=== PATIENT | female | born 1950 | race Caucasian/White ===

== ENCOUNTER 2018-09-14 16:04 | Emergency (ER) | payer MEDICARE ==
[2018-09-14] MEDS ORDERED: CLINDAMYCIN HCL 150 MG CAP ONE (17:27)
[2018-09-14] MEDS ORDERED: HYDROCODONE/APAP 5/325 MG TAB ONE (17:27)
[2018-09-14] MEDS ORDERED: ONDANSETRON 4 MG (ODT) TAB ONE (17:27)
--- NOTE | 2018-09-14 18:25 | EDPHYS ---
Physician Documentation [facility] Name: Jose Enrique Yin Age: 68 yrs Sex: Female : 1950 Arrival Date: 09/14/2018 Time: 16:08 Bed 16 Private MD: ED Physician Jose Juan Birmingham HPI: 09/14 19:33 This 68 yrs old Female presents to ER via Ambulatory with complaints of snw Insect Bite. 19:33 Onset: The symptoms/episode began/occurred suddenly, 2 week(s) ago, and became snw persistent. The patient has not experienced similar symptoms in the past. It is unknown whether or not the patient has recently seen a physician. picked at area with needle several times, noted red discoloration under swollen area so pack salt on the area until she felt it was burning. Historical: - Allergies: 16:12 Codeine; hb - Immunization history:: Adult Immunizations up to date. - Social history:: Smoking status: Patient/guardian denies using tobacco. - Ebola Screening: : No symptoms or risks identified at this time. ROS: 19:31 Constitutional: Negative for fever, chills, and weight loss, Eyes: Negative for injury, snw pain, redness, and discharge, ENT: Negative for injury, pain, and discharge, Neck: Negative for injury, pain, and swelling, Cardiovascular: Negative for chest pain, palpitations, and edema, Respiratory: Negative for shortness of breath, cough, wheezing, and pleuritic chest pain, Abdomen/GI: Negative for abdominal pain, nausea, vomiting, diarrhea, and constipation, Back: Negative for injury and pain, : Negative for injury, bleeding, discharge, and swelling, MS/Extremity: Negative for injury and deformity, Skin: Negative for injury, rash, and discoloration, + area of "possible brown recluse" sting Neuro: Negative for headache, weakness, numbness, tingling, and seizure. Exam: 19:30 Constitutional: This is a well developed, well nourished patient who is awake, alert, snw and in no acute distress. Head/Face: Normocephalic, atraumatic. Eyes: Pupils equal round and reactive to light, extra-ocular motions intact. Lids and lashes normal. Conjunctiva and sclera are non-icteric and not injected. Cornea within normal limits. Periorbital areas with no swelling, redness, or edema. ENT: Nares patent. No nasal discharge, no septal abnormalities noted. Tympanic membranes are normal and external auditory canals are clear. Oropharynx with no redness, swelling, or masses, exudates, or evidence of obstruction, uvula midline. Mucous membranes moist. Neck: Trachea midline, no thyromegaly or masses palpated, and no cervical lymphadenopathy. Supple, full range of motion without nuchal rigidity, or vertebral point tenderness. No Meningismus. Chest/axilla: Normal chest wall appearance and motion. Nontender with no deformity. No lesions are appreciated. Cardiovascular: Regular rate and rhythm with a normal S1 and S2. No gallops, murmurs, or rubs. Normal PMI, no JVD. No pulse deficits. Respiratory: Lungs have equal breath sounds bilaterally, clear to auscultation and percussion. No rales, rhonchi or wheezes noted. No increased work of breathing, no retractions or nasal flaring. Abdomen/GI: Soft, non-tender, with normal bowel sounds. No distension or tympany. No guarding or rebound. No evidence of tenderness throughout. Back: No spinal tenderness. No costovertebral tenderness. Full range of motion. MS/ Extremity: Pulses equal, no cyanosis. Neurovascular intact. Full, normal range of motion. Neuro: Awake and alert, GCS 15, oriented to person, place, time, and situation. Cranial nerves II-XII grossly intact. Motor strength 5/5 in all extremities. Sensory grossly intact. Cerebellar exam normal. Normal gait. 19:30 Skin: Appearance: normal except for affected area, lesion(s), papule(s) noted, with mild surrounding erythema to thigh. Pt poked area several times with a needle about two weeks ago. No abscess. Vital Signs: 16:12 BP 116 / 80; Pulse 92; Resp 16; Temp 97.1; Pulse Ox 96% on R/A; Pain 3/10; hb 17:12 BP 143 / 90; Pulse 71; Resp 17; Pulse Ox 100% ; rb1 18:12 BP 119 / 92; Pulse 68; Resp 18; Pulse Ox 100% on R/A; rb1 Procedures: 19:31 I \\T\\ D: Incision and drainage was performed for an abscess of the right thigh Prepped snw with Hibiclens. Anesthetized with nothing. Incised with needle. Drained small amount purulent fluid. the patient tolerated the procedure well. MDM: 16:47 [facility] screened. [facility] 19:31 Data reviewed: vital signs, nurses notes. Data interpreted: Pulse oximetry: on room air snw is 100 %. Interpretation: normal. Counseling: I had a detailed discussion with the patient and/or guardian regarding: the historical points, exam findings, and any diagnostic results supporting the discharge/admit diagnosis, the presence of at least one elevated blood pressure reading (>120/80) during this emergency department visit, the need for outpatient follow up, to return to the emergency department if symptoms worsen or persist or if there are any questions or concerns that arise at home. Special discussion: I discussed in detail with the patient the higher chance of wound infection based on his presenting history. Based on the history and exam findings, there is no indication for further emergent testing or inpatient evaluation. I discussed with the patient/guardian the need to see the primary care provider for further evaluation of the symptoms. Administered Medications: 17:16 Drug: Clindamycin 300 mg Route: PO; rb1 17:45 Follow up: Response: No adverse reaction rb1 17:16 Drug: [place] 5 mg-325 mg 1 tabs Route: PO; rb1 17:45 Follow up: Response: No adverse reaction; Pain is decreased rb1 17:16 Drug: Zofran 4 mg Route: PO; rb1 17:45 Follow up: Response: No adverse reaction rb1 Disposition: 09/15 07:02 Co-signature as Attending Physician, Jose Juan Birmingham MD I agree with the assessment and [facility] plan of care. Disposition: 09/14/18 18:24 Discharged to Home. Impression: Cutaneous abscess of limb. - Condition is Stable. - Discharge Instructions: Skin Abscess, Cellulitis, Adult, Wound Care. - Prescriptions for Clindamycin HCl 300 mg Oral Capsule - take 1 capsule by ORAL route every 6 hours for 10 days; 40 capsule. Diclofenac Sodium 75 mg Oral Tablet Sustained Release - take 1 tablet by ORAL route 2 times per day; 30 tablet. - Medication Reconciliation Form, Thank You Letter, Antibiotic Education, Prescription Opioid Use form. - Follow up: Private Physician; When: 2 - 3 days; Reason: Recheck today's complaints, Continuance of care, Re-evaluation by your physician. Follow up: Emergency Department; When: As needed; Reason: Worsening of condition. Signatures: Jose Juan Birmingham MD MD cha Therrien, Shelly, [employer] INSPECTOR-C B[employer] GRAPHITE INSPECTOR-Csnw Melissa Sanchez, RN RN rb1 Joann Coates, ANTONIO RN Corrections: (The following items were deleted from the chart) 09/14 18:45 18:24 09/14/2018 18:24 Discharged to Home. Impression: Cutaneous abscess of limb. rb1 Condition is Stable. Forms are Medication Reconciliation Form, Thank You Letter, Antibiotic Education, Prescription Opioid Use. Follow up: Private Physician; When: 2 - 3 days; Reason: Recheck today's complaints, Continuance of care, Re-evaluation by your physician. Follow up: Emergency Department; When: As needed; Reason: Worsening of condition. snw
--- NOTE | 2018-09-14 18:25 | ER ---
Nurse's Notes [facility] Name: Jose Enrique Yin Age: 68 yrs Sex: Female : 1950 Arrival Date: 09/14/2018 Time: 16:08 Bed 16 Private MD: Diagnosis: Cutaneous abscess of limb Presentation: 09/14 16:11 Presenting complaint: Insect bite on right thigh x 2 weeks. Transition of care: patient hb was not received from another setting of care. Onset of symptoms is unknown. Risk Assessment: Do you want to hurt yourself or someone else? Patient reports no desire to harm self or others. Care prior to arrival: None. 16:11 Method Of Arrival: Ambulatory hb 16:11 Acuity: YONAS 4 hb 16:15 Initial Sepsis Screen: Does the patient meet any 2 criteria? No. Patient's initial rb1 sepsis screen is negative. Does the patient have a suspected source of infection? Yes: Skin breakdown/wound. Triage Assessment: 16:15 Bite description: bite sustained to right thigh by unknown, animal information: rb1 vaccination(s) is not applicable. Historical: - Allergies: 16:12 Codeine; hb - Immunization history:: Adult Immunizations up to date. - Social history:: Smoking status: Patient/guardian denies using tobacco. - Ebola Screening: : No symptoms or risks identified at this time. Screenin:15 Abuse screen: Denies threats or abuse. Nutritional screening: No deficits noted. rb1 Tuberculosis screening: No symptoms or risk factors identified. Fall Risk None identified. Assessment: 16:15 General: Appears in no apparent distress. comfortable, Behavior is calm, cooperative. rb1 Pain: Denies pain. Neuro: Level of Consciousness is awake, alert, obeys commands, Oriented to person, place, time, situation. Cardiovascular: Capillary refill < 3 seconds is brisk in bilateral fingers. Respiratory: Airway is patent Respiratory effort is even, unlabored, Respiratory pattern is regular, symmetrical. GI: No signs and/or symptoms were reported involving the gastrointestinal system. : No signs and/or symptoms were reported regarding the genitourinary system. Derm: Skin scab noted at site. Pt. poked it with a pin and put salt on it x 2 days Skin is dry, Skin is red, Skin temperature is warm. Musculoskeletal: Range of motion: intact in all extremities. 17:15 Reassessment: Patient appears in no apparent distress at this time. Patient and/or rb1 family updated on plan of care and expected duration. Pain level reassessed. Patient is alert, oriented x 3, equal unlabored respirations, skin warm/dry/pink. 17:45 Reassessment: Patient and/or family updated on plan of care and expected duration. Pain rb1 level reassessed. Pain 0/10. Pt. reports that she only has pain if someone touches it. 18:30 Reassessment: Patient appears in no apparent distress at this time. No changes from rb1 previously documented assessment. Patient is alert, oriented x 3, equal unlabored respirations, skin warm/dry/pink. Vital Signs: 16:12 BP 116 / 80; Pulse 92; Resp 16; Temp 97.1; Pulse Ox 96% on R/A; Pain 3/10; hb 17:12 BP 143 / 90; Pulse 71; Resp 17; Pulse Ox 100% ; rb1 18:12 BP 119 / 92; Pulse 68; Resp 18; Pulse Ox 100% on R/A; rb1 ED Course: 16:08 Patient arrived in ED. rg4 16:12 Triage completed. hb 16:12 Arm band placed on. hb 16:15 Patient has correct armband on for positive identification. Bed in low position. Call rb1 light in reach. Side rails up X 1. Pulse ox on. NIBP on. 16:41 Abena Torrez FNP-C is PHCP. snw 16:41 Jose Juan Birmingham MD is Attending Physician. snw 16:42 Melissa Sanchez, RN is Primary Nurse. rb1 18:37 No provider procedures requiring assistance completed. Patient did not have IV access rb1 during this emergency room visit. Administered Medications: 17:16 Drug: Clindamycin 300 mg Route: PO; rb1 17:45 Follow up: Response: No adverse reaction rb1 17:16 Drug: [place] 5 mg-325 mg 1 tabs Route: PO; rb1 17:45 Follow up: Response: No adverse reaction; Pain is decreased rb1 17:16 Drug: Zofran 4 mg Route: PO; rb1 17:45 Follow up: Response: No adverse reaction rb1 Outcome: 18:24 Discharge ordered by . snw 18:37 Discharged to home ambulatory, with friend. rb1 18:37 Condition: stable 18:37 Discharge instructions given to patient, Instructed on discharge instructions, follow up and referral plans. medication usage, Demonstrated understanding of instructions, follow-up care, medications, Prescriptions given X 2. 18:37 Patient left the ED. rb1 Signatures: Abena Torrez, PRIVATE PILOT-C PRIVATE PILOT-Csnw Melissa Sanchez, RN RN rb1 Joann Coates RN RN Shyanne Humphreys rg4 Corrections: (The following items were deleted from the chart) 18:46 18:45 Patient left the ED. rb1 rb1
== END 2018-09-14 18:45 | disposition home or self-care (01) ==
LOC: ER 16:04
PROC: 0H9HXZZ Drainage of Right Upper Leg Skin, External Approach (ICD-10-PCS; principal; 2018-09-14)
DX: L02.415 Cutaneous abscess of right lower limb (principal)
CPT/HCPCS: 99283

== ENCOUNTER 2023-03-01 16:07 | Emergency (ER) | payer OTHER ==
--- OUTSIDE RECORDS SUMMARY | 2023-03-01 17:08 | XMS REPORT | Continuity of Care Document ---
:1950 Author Organization [facility] t Address [address] [place] [address] [place] [id number] Care Team Providers Name Role Phone NADEEN ARAUJO Primary Care Physician Unavailable Nadeen Araujo L Attending Clinician Unavailable ALEJO PEGUERO Attending Clinician Unavailable ALEJO BERGERON Attending Clinician Unavailable Alejo Peguero MD Attending Clinician Elyssa DONAHUE MD, John Attending Clinician Doctor Unassigned, [place] Attending Clinician Unavailable Allan Peñaloza RN Attending Clinician Unavailable Henri Phoenix MD Attending Clinician Ham Slater MD Attending Clinician Elyssa DONAHUE MD, John Admitting Clinician ALEJO BERGERON Admitting Clinician Unavailable Payers Payer Name Policy Type Policy Number Effective Date Expiration Date Lisette ROCHA/[facility] [id number] 2022 DUAL COMP HMO D 00:00:00 [place] MEDICAID OF [id number] 2022 [place] 00:00:00 [employer] MEDICARE C1 [id number] 2020 [facility] [place] 00:00:00 [facility] HUMANA MEDICARE C1 [id number] 2020 [facility] [place] 00:00:00 [facility] HUMAN MEDICARE C1 [id number] 2020 [facility] [place] 00:00:00 [facility] Problems Condition Condition Condition Status Onset Resolution Last Treating Co mments Source Name Details Category Date Date Treatment Clinician Date Osteoporos Osteoporos Disease Recurre Univers is is nce 206 ity of 00:00: [place] 00 Medical Branch Injury of Injury of Disease Active Uni vers left left 2-04 ity of radial radial 00:00: [place] artery artery 00 Medical Branch Open Open Disease Active Univers fracture fracture 2-04 ity of of left of left 00:00: [place] wrist, wrist, 00 Medical initial initial Branch encounter encounter Disorder Circulatio Problem Com mon of n problem Spirit cardiovasc - [facility] ular [facility] [id number] Primary Problem Commo n osteoarthr Spirit itis - [facility] [id number] Osteoarthr Problem Co mmon itis of Spirit multiple - [facility] Chronic Other Problem Common pain chronic [facility] pain [facility] Migraine Migraines Problem Comm on [facility] Hepatitis Hepatitis Problem Com mon [facility] [id number] Current Problem Common moderate Spirit episode of - [facility] major [facility] Center prior episode Kidney Kidney Problem Common stone stones [facility] Localized, 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, - CH[facility] itis of unspecifie St the pelvic [facility] region and osteoarthr Me dical thigh itis type Center Swelling Swelling Problem Commo n Spirit [facility] Unsteady Unsteady Problem Commo n gait gait [facility] Osteopenia Osteopenia Problem C mon [facility] Hypertensi HTN Problem Commo n on (hypertens Spirit ion) [facility] Anxiety Anxiety Problem Common [facility] [id number] Depression Problem Co mmon , Spirit recurrent [facility] Allergies, Adverse Reactions, Alerts Allergy Allergy Status Severity Reaction(s) Onset Inactive Treating Comm ents Source Name Type Date Date Clinician CODEINE DRUG Active N/V Univers INGREDI 03-14 ity of 00:00: [place] 00 Medical Branch Codeine Propensi Active Nausea Univers ty to and/or 03-14 ity of adverse Vomiting 00:00: [place] reaction 00 Medical s Branch Social History Social Habit Start Date Stop Date Quantity Comments Source History SDIA University o f Alcohol Frequency [place] M edical Branch History SDOH Social Unive rsity of Connections Get [place] [facility] ical Together Branch History SDOH Social Unive rsity of Connections [facility] Medical Branch History SDOH Social Unive rsity of Connections [place] [facility] Membership Branch History SDOH Social Unive rsity of Connections [place] [facility] Meetings Branch History of tobacco Cigarette Smoker University of use [place] [facility] Exposure to 2022-10-26 2022-11-05 Not sure University of SARS-CoV-2 (event) 00:00:00 15:21:00 [place] [facility] Tobacco use and 2022-08-31 2022-08-31 User of Universit y of exposure 00:00:00 00:00:00 smokeless [place] Medical tobacco Branch History SDIA 2022-08-31 2022-08-31 0 University o f Alcohol Std Drinks 00:00:00 00:00:00 [place] [facility] History SDOH 2022-08-31 2022-08-31 1 University o f Alcohol Binge 00:00:00 00:00:00 [place] Medic al Branch History SDIA Social 2022-08-31 2022-08-31 5 Unive rsity of Connections Phone 00:00:00 00:00:00 [place] M edical Branch History SDOH Social 2022-08-31 2022-08-31 4 Unive rsity of Connections Living 00:00:00 00:00:00 [place] [facility] History SDOH 2022-08-31 2022-08-31 0 University o f Physical Activity 00:00:00 00:00:00 [place] [facility] edical DPW Branch History SDOH 2022-08-31 2022-08-31 0 University o f Physical Activity 00:00:00 00:00:00 [place] M [facility]ical MPS Branch History SDOH 2022-08-31 2022-08-31 2 University o f Financial 00:00:00 00:00:00 [place] [facility] History SDOH Food 2022-08-31 2022-08-31 3 Univers ity of Worry 00:00:00 00:00:00 [place] [facility] History SDOH Food 2022-08-31 2022-08-31 2 Univers ity of Scarcity 00:00:00 00:00:00 [place] [facility] History SDOH 2022-08-31 2022-08-31 2 University o f Transport Med 00:00:00 00:00:00 [place] Medic al Branch History SDOH 2022-08-31 2022-08-31 2 University o f Transport Non-Med 00:00:00 00:00:00 [facility] edical Branch Sex [birth year] Universit y of 00:00:00 00:00:00 [facility] Smoking Status Start Date Stop Date Source Smokes tobacco daily 2022-08-31 00:00:00 Univers ity of [facility] Never Smoker Common [facility] - [facility] Medications Ordered Filled Start Stop Current Ordering Indication Dosage Frequency Signature Comments Components Source Medication Medication Date Date Medication? Clinician (SIG) Name Name traMADoL 50 0 2022- No 4647 50mg Take 1 Uni vers mg tablet -16 04-24 tablet by ity of 00:00: 04:59 mouth [place] 00 :00 every 6 Medical (six) Branch hours as needed for Pain (scale 7-10) for up to 7 days. Indication s: acute pain gabapentin 2022-0 Yes [id number] 300mg Take 1 Univers 300 mg 4-12 [id number] capsule by ity o f capsule 00:00: mouth at [place] [address] bedtime. Medical Branch gabapentin 2022-0 Yes [id number] 300mg Take 1 Univers 300 mg 4-12 [id number] capsule by ity o f capsule 00:00: mouth at [place] [address] bedtime. Medical Branch gabapentin 2022-0 Yes [id number] 300mg Take 1 Univers 300 mg 4-12 [id number] capsule by ity o f capsule 00:00: mouth at [place] [address] bedtime. Medical Branch gabapentin 2022-0 Yes [id number] 300mg Take 1 Univers 300 mg 4-12 [id number] capsule by ity o f capsule 00:00: mouth at [place] [address] bedtime. Medical Branch gabapentin 2022-0 Yes [id number] 300mg Take 1 Univers 300 mg 4-12 [id number] capsule by ity o f capsule 00:00: mouth at [place] 00 bedtime. Medical Branch gabapentin 2022-0 Yes [id number] 300mg Take 1 Univers 300 mg 4-12 [id number] capsule by ity o f capsule 00:00: mouth at [place] 00 bedtime. Medical Branch traMADoL 50 2022-0 2022- No 4647 50mg Take 1 Uni vers mg tablet 4-12 04-20 tablet by ity of 00:00: 04:59 mouth [place] 00 :00 every 6 Medical (six) Branch hours as needed for Pain (scale 7-10) for up to 7 days. Indication s: acute pain traMADoL 50 2022-2022- No 4647 50mg Take 1 Uni vers mg tablet 4-12 04-20 tablet by ity of 00:00: 04:59 mouth [place] 00 :00 every 6 Medical (six) Branch hours as needed for Pain (scale 7-10) for up to 7 days. Indication s: acute pain traMADoL 50 2022-2022- No 4647 50mg Take 1 Uni vers mg tablet 4-12 04-20 tablet by ity of 00:00: 04:59 mouth [place] 00 :00 every 6 Medical (six) Branch hours as needed for Pain (scale 7-10) for up to 7 days. Indication s: acute pain traMADoL 50 2022-0 2022- No 4647 50mg Take 1 Uni vers mg tablet 4-12 04-20 tablet by ity of 00:00: 04:59 mouth [place] 00 :00 every 6 Medical (six) Branch hours as needed for Pain (scale 7-10) for up to 7 days. Indication s: acute pain traMADoL 50 2022-0 2022- No 4647 50mg Take 1 Uni vers mg tablet 4-12 04-20 tablet by ity of 00:00: 04:59 mouth [place] 00 :00 every 6 Medical (six) Branch hours as needed for Pain (scale 7-10) for up to 7 days. Indication s: acute pain traMADoL 50 2022-0 2022- No 4647 50mg Take 1 Uni vers mg tablet 4-12 04-20 tablet by ity of 00:00: 04:59 mouth [place] 00 :00 every 6 Medical (six) Branch hours as needed for Pain (scale 7-10) for up to 7 days. Indication s: acute pain HYDROcodone 2023-0 Yes 4647 1{tbl} Take 1 Un samia -acetaminop 3-04 tablet by ity of hen (NORCO) 00:00: mouth [place] 10-325 mg 00 every 6 Medical tablet (six) Branch hours as needed for Pain (scale 7-10). Indication s: acute pain HYDROcodone 2023-0 Yes 4647 1{tbl} Take 1 Un samia -acetaminop 3-04 tablet by ity of hen (NORCO) 00:00: mouth [place] 10-325 mg 00 every 6 Medical tablet (six) Branch hours as needed for Pain (scale 7-10). Indication s: acute pain HYDROcodone 2023-0 Yes 4647 1{tbl} Take 1 Un samia -acetaminop 3-04 tablet by ity of hen (NORCO) 00:00: mouth [place] 10-325 mg 00 every 6 Medical tablet (six) Branch hours as needed for Pain (scale 7-10). Indication s: acute pain HYDROcodone 2023-0 Yes 4647 1{tbl} Take 1 Un samia -acetaminop 3-04 tablet by ity of hen (NORCO) 00:00: mouth [place] 10-325 mg 00 every 6 Medical tablet (six) Branch hours as needed for Pain (scale 7-10). Indication s: acute pain HYDROcodone 2023-0 Yes 4647 1{tbl} Take 1 Un samia -acetaminop 3-04 tablet by ity of hen (NORCO) 00:00: mouth [place] 10-325 mg 00 every 6 Medical tablet (six) Branch hours as needed for Pain (scale 7-10). Indication s: acute pain HYDROcodone 2023-0 Yes 4647 1{tbl} Take 1 Un samia -acetaminop 3-04 tablet by ity of hen (NORCO) 00:00: mouth [place] 10-325 mg 00 every 6 Medical tablet (six) Branch hours as needed for Pain (scale 7-10). Indication s: acute pain HYDROcodone 2023-0 Yes 4647 1{tbl} Take 1 Un samia -acetaminop 3-04 tablet by ity of hen (NORCO) 00:00: mouth [place] 10-325 mg 00 every 6 Medical tablet (six) Branch hours as needed for Pain (scale 7-10). Indication s: acute pain HYDROcodone 2023-0 Yes 4647 1{tbl} Take 1 Un samia -acetaminop 3-04 tablet by ity of hen (NORCO) 00:00: mouth [place] 10-325 mg 00 every 6 Medical tablet (six) Branch hours as needed for Pain (scale 7-10). Indication s: acute pain HYDROcodone 2023-0 Yes 4647 1{tbl} Take 1 Un samia -acetaminop 3-04 tablet by ity of hen (NORCO) 00:00: mouth [place] 10-325 mg 00 every 6 Medical tablet (six) Branch hours as needed for Pain (scale 7-10). Indication s: acute pain HYDROcodone 2023-0 3- No 4647 1{tbl} Take 1 U nivers -acetaminop 3-04 03-04 tablet by it y of hen (NORCO) 00:00: 00:00 [place] 10-325 mg 00 :00 every 6 Medical tablet (six) Branch hours as needed for Pain (scale 7-10) for up to 7 days. Indication s: acute pain HYDROcodone 2023-0 3- No 4647 1{tbl} Take 1 U nivers -acetaminop 3-02 03-10 tablet by it y of hen (NORCO) 00:00: 05:59 [place] 5-325 mg 00 :00 every 6 Medical tablet (six) Branch hours as needed for Pain (scale 7-10) for up to 7 days. Indication s: acute pain HYDROcodone 2023-0 3- No 4647 1{tbl} Take 1 U nivers -acetaminop 3-02 03-10 tablet by it y of hen (NORCO) 00:00: 05:59 [place] 5-325 mg 00 :00 every 6 Medical tablet (six) Branch hours as needed for Pain (scale 7-10) for up to 7 days. Indication s: acute pain HYDROcodone 2023-0 3- No 4647 1{tbl} Take 1 U nivers -acetaminop 3-02 03-10 tablet by it y of hen (NORCO) 00:00: 05:59 [place] 5-325 mg 00 :00 every 6 Medical tablet (six) Branch hours as needed for Pain (scale 7-10) for up to 7 days. Indication s: acute pain HYDROcodone 2023-0 3- No 4647 1{tbl} Take 1 U nivers -acetaminop 3-02 03-10 tablet by it y of hen (NORCO) 00:00: 05:59 [place] 5-325 mg 00 :00 every 6 Medical tablet (six) Branch hours as needed for Pain (scale 7-10) for up to 7 days. Indication s: acute pain HYDROcodone 3-0 3- No 4647 1{tbl} Take 1 U nivers -acetaminop 3-02 03-10 tablet by it y of hen (NORCO) 00:00: 05:59 [place] 5-325 mg 00 :00 every 6 Medical tablet (six) Branch hours as needed for Pain (scale 7-10) for up to 7 days. Indication s: acute pain lisinopriL 2023-0 Yes 20mg Take 20 mg U nivers 20 mg 2-13 by mouth ity of tablet 18:34: in the [place] [address] morning. Medical Branch gabapentin 2023-0 Yes 300mg Take 300 Un samia 300 mg 2-13 mg by ity of capsule 18:34: mouth in [place] [address] the Medical morning. Branch celecoxib 2023-0 Yes 200mg Take 200 Uni vers (CELEBREX) 2-13 mg by ity of 200 mg 18:34: mouth in [place] [address] the Medical morning. Branch lisinopriL 2023-0 Yes 20mg Take 20 mg U nivers 20 mg 2-13 by mouth ity of tablet 18:34: in the [place] [address] morning. Medical Branch gabapentin 2023-0 Yes 300mg Take 300 Un samia 300 mg 2-13 mg by ity of capsule 18:34: mouth in [place] [address] the Medical morning. Branch celecoxib 2023-0 Yes 200mg Take 200 Uni vers (CELEBREX) 2-13 mg by ity of 200 mg 18:34: mouth in [place] [address] the Medical morning. Branch lisinopriL 2023-0 Yes 20mg Take 20 mg U nivers 20 mg 2-13 by mouth ity of tablet 18:34: in the [place] [address] morning. Medical Branch gabapentin 2023-0 Yes 300mg Take 300 Un samia 300 mg 2-13 mg by ity of capsule 18:34: mouth in [place] [address] the Medical morning. Branch celecoxib 2023-0 Yes 200mg Take 200 Uni vers (CELEBREX) 2-13 mg by ity of 200 mg 18:34: mouth in [facility] 36 the Medical morning. Branch lisinopriL 2023-0 Yes 20mg Take 20 mg U nivers 20 mg 2-13 by mouth ity of tablet 18:34: in the [place] [address] morning. Medical Branch gabapentin 2023-0 Yes 300mg Take 300 Un samia 300 mg 2-13 mg by ity of capsule 18:34: mouth in [place] [address] the Medical morning. Branch celecoxib 2023-0 Yes 200mg Take 200 Uni vers (CELEBREX) 2-13 mg by ity of 200 mg 18:34: mouth in [facility] 36 the Medical morning. Branch lisinopriL 2023-0 Yes 20mg Take 20 mg U nivers 20 mg 2-13 by mouth ity of tablet 18:34: in the [place] [address] morning. Medical Branch gabapentin 2023-0 Yes 300mg Take 300 Un samia 300 mg 2-13 mg by ity of capsule 18:34: mouth in [place] [address] the Medical morning. Branch celecoxib 2023-0 Yes 200mg Take 200 Uni vers (CELEBREX) 2-13 mg by ity of 200 mg 18:34: mouth in [place] [address] the Medical morning. Branch lisinopriL 2023-0 Yes 20mg Take 20 mg U nivers 20 mg 2-13 by mouth ity of tablet 18:34: in the [place] [address] morning. Medical Branch gabapentin 2023-0 Yes 300mg Take 300 Un samia 300 mg 2-13 mg by ity of capsule 18:34: mouth in [place] [address] the Medical morning. Branch celecoxib 2023-0 Yes 200mg Take 200 Uni vers (CELEBREX) 2-13 mg by ity of 200 mg 18:34: mouth in [facility] 36 the Medical morning. Branch lisinopriL 2023-0 Yes 20mg Take 20 mg U nivers 20 mg 2-13 by mouth ity of tablet 18:34: in the [place] [address] morning. Medical Branch gabapentin 2023-0 Yes 300mg Take 300 Un samia 300 mg 2-13 mg by ity of capsule 18:34: mouth in [place] [address] the Medical morning. Branch celecoxib 2023-0 Yes 200mg Take 200 Uni vers (CELEBREX) 2-13 mg by ity of 200 mg 18:34: mouth in [place] capsule 36 the Medical morning. Branch lisinopriL 2023-0 Yes 20mg Take 20 mg U nivers 20 mg 2-13 by mouth ity of tablet 18:34: in the [place] [address] morning. Medical Branch gabapentin 2023-0 Yes 300mg Take 300 Un samia 300 mg 2-13 mg by ity of capsule 18:34: mouth in [place] [address] the Medical morning. Branch celecoxib 2023-0 Yes 200mg Take 200 Uni vers (CELEBREX) 2-13 mg by ity of 200 mg 18:34: mouth in [place] capsule 36 the Medical morning. Branch lisinopriL 2023-0 Yes 20mg Take 20 mg U nivers 20 mg 2-13 by mouth ity of tablet 18:34: in the [place] [address] morning. Medical Branch gabapentin 2023-0 Yes 300mg Take 300 Un samia 300 mg 2-13 mg by ity of capsule 18:34: mouth in [place] [address] the Medical morning. Branch celecoxib 2023-0 Yes 200mg Take 200 Uni vers (CELEBREX) 2-13 mg by ity of 200 mg 18:34: mouth in [place] capsule 36 the Medical morning. Branch lisinopriL 2023-0 Yes 20mg Take 20 mg U nivers 20 mg 2-13 by mouth ity of tablet 18:34: in the [place] [address] morning. Medical Branch gabapentin 2023-0 Yes 300mg Take 300 Un samia 300 mg 2-13 mg by ity of capsule 18:34: mouth in [place] [address] the Medical morning. Branch celecoxib 2023-0 Yes 200mg Take 200 Uni vers (CELEBREX) 2-13 mg by ity of 200 mg 18:34: mouth in [place] capsule 36 the Medical morning. Branch lisinopriL 2023-0 Yes 20mg Take 20 mg U nivers 20 mg 2-13 by mouth ity of tablet 18:34: in the [place] [address] morning. Medical Branch gabapentin 2023-0 Yes 300mg Take 300 Un samia 300 mg 2-13 mg by ity of capsule 18:34: mouth in [place] [address] the Medical morning. Branch celecoxib 2023-0 Yes 200mg Take 200 Uni vers (CELEBREX) 2-13 mg by ity of 200 mg 18:34: mouth in [place] capsule 36 the Medical morning. Branch lisinopriL 2023-0 Yes 20mg Take 20 mg U nivers 20 mg 2-13 by mouth ity of tablet 18:34: in the [place] [address] morning. Medical Branch gabapentin 2023-0 Yes 300mg Take 300 Un samia 300 mg 2-13 mg by ity of capsule 18:34: mouth in [place] [address] the Medical morning. Branch celecoxib 2023-0 Yes 200mg Take 200 Uni vers (CELEBREX) 2-13 mg by ity of 200 mg 18:34: mouth in [place] [address] the Medical morning. Branch lisinopriL 2023-0 Yes 20mg Take 20 mg U nivers 20 mg 2-13 by mouth ity of tablet 18:34: in the [place] [address] morning. Medical Branch gabapentin 2023-0 Yes 300mg Take 300 Un samia 300 mg 2-13 mg by ity of capsule 18:34: mouth in [place] [address] the Medical morning. Branch celecoxib 2023-0 Yes 200mg Take 200 Uni vers (CELEBREX) 2-13 mg by ity of 200 mg 18:34: mouth in [place] [address] the Medical morning. Branch lisinopriL 2023-0 Yes 20mg Take 20 mg U nivers 20 mg 2-13 by mouth ity of tablet 18:34: in the [place] [address] morning. Medical Branch gabapentin 2023-0 Yes 300mg Take 300 Un samia 300 mg 2-13 mg by ity of capsule 18:34: mouth in [place] [address] the Medical morning. Branch celecoxib 2023-0 Yes 200mg Take 200 Uni vers (CELEBREX) 2-13 mg by ity of 200 mg 18:34: mouth in [place] [address] the Medical morning. Branch lisinopriL 2023-0 Yes 20mg Take 20 mg U nivers 20 mg 2-13 by mouth ity of tablet 18:34: in the [place] [address] morning. Medical Branch gabapentin 2023-0 Yes 300mg Take 300 Un samia 300 mg 2-13 mg by ity of capsule 18:34: mouth in [place] [address] the Medical morning. Branch celecoxib 2023-0 Yes 200mg Take 200 Uni vers (CELEBREX) 2-13 mg by ity of 200 mg 18:34: mouth in [place] capsule 36 the Medical morning. Branch lisinopriL 2023-0 Yes 20mg Take 20 mg U nivers 20 mg 2-13 by mouth ity of tablet 18:34: in the [place] [address] morning. Medical Branch gabapentin 2022-0 Yes 300mg Take 300 Un samia 300 mg 2-13 mg by ity of capsule 18:34: mouth in [place] [address] the Medical morning. Branch celecoxib 2022-0 Yes 200mg Take 200 Uni vers (CELEBREX) 2-13 mg by ity of 200 mg 18:34: mouth in [place] [address] the Medical morning. Branch methocarbam 2022-3- No [id number] 750mg Take 1 Univers oL 750 mg 09-08 [id number] tablet by it y of tablet 00:00: 04:59 mouth in [place] 00 :00 the [facility] and 1 tablet at noon and 1 tablet in the evening. Do all this for 30 days. methocarbam 2022-0 3- No [id number] 750mg Take 1 Univers oL 750 mg 09-08 [id number] tablet by it y of tablet 00:00: 04:59 mouth in [place] 00 :00 the [facility] and 1 tablet at noon and 1 tablet in the evening. Do all this for 30 days. methocarbam 2022-0 3- No [id number] 750mg Take 1 Univers oL 750 mg 09-08 [id number] tablet by it y of tablet 00:00: 04:59 mouth in [place] 00 :00 the [facility] and 1 tablet at noon and 1 tablet in the evening. Do all this for 30 days. methocarbam 2022-3- No [id number] 750mg Take 1 Univers oL 750 mg 09-08 [id number] tablet by it y of tablet 00:00: 04:59 mouth in [place] 00 :00 the [facility] and 1 tablet at noon and 1 tablet in the evening. Do all this for 30 days. methocarbam 2022-0 3- No [id number] 750mg Take 1 Univers oL 750 mg 09-08 [id number] tablet by it y of tablet 00:00: 04:59 mouth in [place] 00 :00 the [facility] and 1 tablet at noon and 1 tablet in the evening. Do all this for 30 days. methocarbam 2022-0 3- No [id number] 750mg Take 1 Univers oL 750 mg 09-08 [id number] tablet by it y of tablet 00:00: 04:59 mouth in [place] 00 :00 the Medical morning Branch and 1 tablet at noon and 1 tablet in the evening. Do all this for 30 days. methocarbam 2022-2022- No [id number] 750mg Take 1 Univers oL 750 mg 09-08 [id number] tablet by it y of tablet 00:00: 04:59 mouth in [place] 00 :00 the [facility] morning Branch and 1 tablet at noon and 1 tablet in the evening. Do all this for 30 days. methocarbam 2022-2022- No [id number] 750mg Take 1 Univers oL 750 mg 09-08 [id number] tablet by it y of tablet 00:00: 04:59 mouth in [place] 00 :00 the [facility] morning [place] and 1 tablet at noon and 1 tablet in the evening. Do all this for 30 days. docusate 2022-2022- No [id number] 100mg Take 1 Univers 100 mg 09-08 [id number] capsule by ity of capsule 00:00: 05:59 mouth in [place] 00 :00 the [facility] and 1 capsule in the evening. Do all this for 15 days. docusate 2022-0 2022- No [id number] 100mg Take 1 Univers 100 mg 09-08 [id number] capsule by ity of capsule 00:00: 05:59 mouth in [place] 00 :00 the [facility] and 1 capsule in the evening. Do all this for 15 days. gabapentin 2022-0 2022- No [id number] 300mg Take 1 Univers 300 mg 09-08 [id number] capsule by ity of capsule 00:00: 05:59 mouth in [place] 00 :00 the [facility] and 1 capsule at noon and 1 capsule in the evening. Do all this for 14 days. gabapentin 2022-0 2022- No [id number] 300mg Take 1 Univers 300 mg 09-08 [id number] capsule by ity of capsule 00:00: 05:59 mouth in [place] 00 :00 the [facility] morning Branch and 1 capsule at noon and 1 capsule in the evening. Do all this for 14 days. traMADoL 50 3-0 3- No 4647 50mg Take 1 Uni vers mg tablet 09-08 tablet by ity of 00:00: 05:59 mouth [place] 00 :00 every 6 Medical (six) Branch hours as needed for Pain (scale 4-6) or Pain (scale 7-10) for up to 7 days. Indication s: acute pain HYDROcodone 2022- No 4647 1{tbl} Take 1 U nivers -acetaminop 09-08 tablet by it y of hen 10-325 00:00: 05:59 mouth [place] mg tablet 00 :00 every 6 Medical (six) Branch hours as needed for Pain (scale 4-6) or Pain (scale 7-10) for up to 7 days. Indication s: acute pain traMADoL 50 2022- No 4647 50mg Take 1 Uni vers mg tablet 09-08 tablet by ity of 00:00: 05:59 mouth [place] 00 :00 every 6 Medical (six) Branch hours as needed for Pain (scale 4-6) or Pain (scale 7-10) for up to 7 days. Indication s: acute pain HYDROcodone 2022- No 4647 1{tbl} Take 1 U nivers -acetaminop 09-08 tablet by it y of hen 10-325 00:00: 05:59 mouth [place] mg tablet 00 :00 every 6 Medical (six) Branch hours as needed for Pain (scale 4-6) or Pain (scale 7-10) for up to 7 days. Indication s: acute pain ondansetron 2022- No [id number] 4mg Take 1 Univers (ZOFRAN) 4 09-08 [id number] tablet by i ty of mg tablet 00:00: 05:59 mouth [place] 00 :00 every 6 Medical (six) Branch hours for 20 doses. ondansetron 2022- No [id number] 4mg Take 1 Univers (ZOFRAN) 4 09-08 [id number] tablet by i ty of mg tablet 00:00: 05:59 mouth [place] 00 :00 every 6 Medical (six) Branch hours for 20 doses. polyethylen Yes 17g 17 g, Unive rs e glycol 2-12 Oral, ity of 3350 powder 13:30: [place]ILY[place] 17 g 00 First dose Medical on [place] 09/07/22 at 0730, Until Discontinu ed, Routine glycerin/mi 0 Yes 225mL 225 mL, [place] neral oil 2-12 Rectal, ity of (AGLO 13:26: PRN, [place] ENEMA) 01 Starting Medical (COMPOUNDED on Thu [place] ) Enem 225 09/07/22 at mL 0726, Until Discontinu ed, Routine, Constipati on unresolved by oral medication s bisacodyL Yes 10mg 10 mg, Univer s (DULCOLAX) 2-12 Rectal, ity of suppository 13:25: QHSPRN, Andrei as 10 mg 35 Starting Medical on Thu Branch 09/07/22 at 0725, Until Discontinu ed, Routine, Constipati on, Constipati on unresolved by oral medication s morpHINE (2 Yes 2mg 2 mg, Slow Univers mg/mL) 2-11 IV Push, ity of injection 2 05:59: Q6HPRN, Andre[place] as mg 18 Starting Medical on Thu09/05/22 at 2359, Until Discontinu ed, Routine, give for breakthrou gh pain after first line oral pain medication s have been given HYDROmorphO 2022- No .2mg 0.2 mg, [place] ne 2-10 02-10 Slow IV ity of (DILAUDID) 00:27: 03:07 Push, [place] injection 50 :32 Q5MIN PRN, [place] 0.2 mg 10 doses, Branch Starting on [place] 09/04/22 at 1827, Until [place] 09/04/22 at 2107, Routine, Pain (scale 7-10), PACU
Us e approved by (Faculty): PACU USE -ANESTHESI A SERVICE-HY DROMORPHON E INJECTIONS lisinopriL Yes 20mg Take 20 mg U nivers 20 mg 2-09 by mouth ity of tablet 21:07: in the [place] [id number] morning. Medical Branch gabapentin 0 Yes 300mg Take 300 Un [place] 300 mg 2-09 mg by ity of capsule 21:07: mouth in [place] [address] the Medical morning. Branch celecoxib 2022-0 Yes 200mg Take 200 Uni vers (CELEBREX) 2-09 mg by ity of 200 mg 21:07: mouth in [place] [address] the Medical morning. Branch diphenhydrA 2023-0 Yes 25mg 25 mg, [facility] ers MINE 2-09 Oral, ity of (BENADRYL) 02:22: Q4HPRN, [place] tablet 25 33 Starting Medica l mg on Thu Branch 09/03/22 at 2021, Until Discontinu ed, Routine, Itching diphenhydrA 2022-0 Yes 25mg 25 mg, [facility] MINE 2-09 Oral, ity of (BENADRYL) 02:22: Q4HPRN, [place] tablet 25 33 Starting Medica l mg on Thu Branch 09/03/22 at 2021, Until Discontinu ed, Routine, Itching enoxaparin 2022- No [id number] 30mg inject 0.3 Univers 30 mg/0.3 09-04 [id number] mL under ity of mL 00:00: 04:59 the skin [place] injection 00 :00 every 12 Medica l (twelve) Branch hours for 56 days. enoxaparin 2022-2022- No [id number] 30mg inject 0.3 Univers 30 mg/0.3 09-04 [id number] mL under ity of mL 00:00: 04:59 the skin [place] injection 00 :00 every 12 Medica l (twelve) Branch hours for 56 days. enoxaparin 2022-2022- No [id number] 30mg inject 0.3 Univers 30 mg/0.3 09-04 [id number] mL under ity of mL 00:00: 04:59 the skin [place] injection 00 :00 every 12 Medica l (twelve) Branch hours for 56 days. enoxaparin 2022-2022- No [id number] 30mg inject 0.3 Univers 30 mg/0.3 09-04 [id number] mL under ity of mL 00:00: 04:59 the skin [place] injection 00 :00 every 12 Medica l (twelve) Branch hours for 56 days. enoxaparin 2022-2022- No [id number] 30mg inject 0.3 Univers 30 mg/0.3 09-04 [id number] mL under ity of mL 00:00: 04:59 the skin [place] injection 00 :00 every 12 Medica l (twelve) Branch hours for 56 days. enoxaparin 3- No [id number] 30mg inject 0.3 Univers 30 mg/0.3 09-04 [id number] mL under ity of mL 00:00: 04:59 the skin [place] injection 00 :00 every 12 Medica l (twelve) Branch hours for 56 days. enoxaparin 2023-0 3- No [id number] 30mg inject 0.3 Univers 30 mg/0.3 09-04 [id number] mL under ity of mL 00:00: 04:59 the skin [place] injection 00 :00 every 12 Medica l (twelve) Branch hours for 56 days. enoxaparin 3-0 3- No [id number] 30mg inject 0.3 Univers 30 mg/0.3 09-04 [id number] mL under ity of mL 00:00: 04:59 the skin [place] injection 00 :00 every 12 Medica l (twelve) Branch hours for 56 days. enoxaparin 3-0 3- No [id number] 30mg inject 0.3 Univers 30 mg/0.3 09-04 [id number] mL under ity of mL 00:00: 04:59 the skin [place] injection 00 :00 every 12 Medica l (twelve) Branch hours for 56 days. butalbital- 2022-0 Yes 1{tbl} 1 tablet, Univers acetaminoph 2-08 Oral, ity of en-caff 17:12: QDAILYPRN, [place] (ESGIC) 19 Starting Medical 50-325-40 on Thu Branch mg tablet 1 09/03/22 at tablet 1112, Until Discontinu ed, Routine, headache butalbital- 2022-0 Yes 1{tbl} 1 tablet, Univers acetaminoph 2-08 Oral, ity of en-caff 17:12: QDAILYPRN, [place] (ESGIC) 19 Starting Medical 50-325-40 on Thu Branch mg tablet 1 09/03/22 at tablet 1112, Until Discontinu ed, Routine, headache gabapentin 0 Yes 300mg 300 mg, Uni vers (NEURONTIN) 2-07 Oral, TID, it y of capsule 300 20:00: First dose [place] mg 00 (after Medical last Branch modificati on) on Thu09/02/22 at 1400, Until Discontinu ed, Routine gabapentin 2023-0 Yes 300mg 300 mg, Uni vers (NEURONTIN) 2-07 Oral, TID, it y of capsule 300 20:00: First dose [place] mg 00 (after Medical last Branch modificati on) on Thu09/02/22 at 1400, Until Discontinu ed, Routine HYDROcodone 2023-0 Yes 1{tbl} 1 tablet, Univers -acetaminop 2-07 Oral, ity of hen (NORCO) 15:20: Q6HPRN, Andrei as 10-325 mg 32 Starting Medica l tablet 1 on [facility] tablet 09/02/22 at 0920, Until Discontinu ed, Routine, Pain (scale 4-6) HYDROcodone 2023-0 Yes 1{tbl} 1 tablet, Univers -acetaminop 2-07 Oral, ity of hen (NORCO) 15:20: Q6HPRN, [place] 10-325 mg 32 Starting Medica l tablet 1 on [facility] tablet 09/02/22 at 0920, Until Discontinu ed, Routine, Pain (scale 4-6) lisinopriL 2023-0 Yes 20mg 20 mg, Unive rs (PRINIVIL,Z 2-07 Oral, ity of ESTRIL) 15:15: DAILY, [place] tablet 20 00 First dose [place] mg on 09/02/22 at 0915, Until Discontinu ed, Routine lisinopriL 2023-0 Yes 20mg 20 mg, Unive rs (PRINIVIL,Z 2-07 Oral, ity of ESTRIL) 15:15: DAILY, [place] tablet 20 00 First dose [place] mg on [facility] 09/02/22 at 0915, Until Discontinu ed, Routine enoxaparin 2023-0 Yes 30mg 30 mg, Unive rs (LOVENOX) 2-07 Subcutaneo ity of injection 14:00: us, Q12H, Andre[place] as 30 mg 00 First dose Medical on 09/02/22 at 0800, Until Discontinu ed, Routine methocarbam 2023-0 Yes 750mg 750 mg, [place] oL 2-07 Oral, QID, ity of (ROBAXIN) 14:00: First dose [place] tablet 750 00 (after Medical mg last Branch modificati on) on Thu09/02/22 at 0800, Until Discontinu ed, Routine enoxaparin Yes 30mg 30 mg, Unive rs (LOVENOX) 09-02 Subcutaneo ity of injection 14:00: us, Q12H, [place] as 30 mg 00 First dose Medical on Thu09/02/22 at 0800, Until Discontinu ed, Routine methocarbam Yes 750mg 750 mg, [place] oL 09-02 Oral, QID, ity of (ROBAXIN) 14:00: First dose [place] tablet 750 00 (after Medical mg last Branch modificati on) on Thu09/02/22 at 0800, Until Discontinu ed, Routine HYDROcodone No 1{tbl} 1 tablet, Univers -acetaminop 09-02 Oral, ity of hen (NORCO 13:15: 15:13 Q4HPRN, [place] as 5) 5-325 mg 00 :32 Starting [place] tablet 1 on Thu [place] tablet 09/02/22 at 0715, Until Thu09/02/22 at 0913, Routine, Pain (scale 4-6) NaCl 0.9% 0 Yes 10mL 10 mL, Univer s (NS) 2-07 Slow IV ity of injection 13:13: Push, PRN, [place] 10 mL 36 Starting Medical on Thu09/02/22 at 0713, Until Discontinu ed, Routine, line maintenanc e NaCl 0.9% 0 Yes 10mL 10 mL, Univer s (NS) 2-07 Slow IV ity of injection 13:13: Push, PRN, [place] 10 mL 36 Starting Medical on Thu09/02/22 at 0713, Until Discontinu ed, Routine, line maintenanc e gabapentin No 300mg 300 mg, Un [facility] (NEURONTIN) 09-0207 Oral, BID, i ty of capsule 300 02:00: 15:13 First dose [place] mg 00 :33 (after Medical last Branch modificati on) on Thu09/01/22 at 2000, Until Discontinu ed, Routine NaCl 0.9% 2023-0 Yes 10mL 10 mL, Univer s (NS) 2-06 Slow IV ity of injection 15:09: Push, PRN, [place] 10 mL 49 Starting Medical on Mon Branch 09/01/22 at 0909, Until Discontinu ed, Routine, line maintenanc e lidocaine 2023-0 Yes 5mL 5 mL, Univers 1% (PF) 2-06 Subcutaneo ity of (XYLOCAINE) 15:09: us, PRN, [place] injection 5 49 Starting [place] mL on Mon Branch 09/01/22 at 0909, Until Discontinu ed, Routine, Local anesthesia NaCl 0.9% 2023-0 Yes 10mL 10 mL, Univer s (NS) 2-06 Slow IV ity of injection 15:09: Push, PRN, [place] 10 mL 49 Starting Medical on Mon Branch 09/01/22 at 0909, Until Discontinu ed, Routine, line maintenanc e lidocaine 2023-0 Yes 5mL 5 mL, Univers 1% (PF) 2-06 Subcutaneo ity of (XYLOCAINE) 15:09: us, PRN, [place] injection 5 49 Starting [place] mL on Mon Branch 09/01/22 at 0909, Until Discontinu ed, Routine, Local anesthesia NaCl 0.9% 3-0 Yes 10mL 10 mL, Univer s (NS) 2-06 Slow IV ity of injection 15:09: Push, PRN, [place] 10 mL 49 Starting Medical on Thu Branch 09/01/22 at 0909, Until Discontinu ed, Routine, line maintenanc e lidocaine 2023-0 Yes 5mL 5 mL, Univers 1% (PF) 2-06 Subcutaneo ity of (XYLOCAINE) 15:09: us, PRN, [place] injection 5 49 Starting [place] mL on Mon Branch 09/01/22 at 0909, Until Discontinu ed, Routine, Local anesthesia melatonin 2022-0 Yes 3mg 3 mg, Univers (MELATIN) 2-06 Oral, QHS, ity of tablet 3 mg 03:00: First dose on [facility] 08/31/22 at Branch 2100, Until Discontinu ed, Routine melatonin 2022-0 Yes 3mg 3 mg, Univers (MELATIN) 2-06 Oral, QHS, ity of tablet 3 mg 03:00: First dose on [facility] 08/31/22 at Branch 2100, Until Discontinu ed, Routine melatonin 2022-0 Yes 3mg 3 mg, Univers (MELATIN) 2-06 Oral, QHS, ity of tablet 3 mg 03:00: First dose on [facility] 08/31/22 at Branch 2100, Until Discontinu ed, Routine methocarbam 2022-0 Yes 500mg 500 mg, Un samia oL 2-05 Oral, QID, ity of (ROBAXIN) 17:15: First dose [place] tablet 500 00 on [facility] mg 08/31/22 at Branch 1115, Until Discontinu ed, Routine methocarbam 2022-0 2023- No 500mg 500 mg, U nivers oL 2-05 02-07 Oral, QID, ity of (ROBAXIN) 17:15: 13:10 First dose [place] tablet 500 00 :43 on [facility] mg 08/31/22 at Branch 1115, Until Discontinu ed, Routine ipratropium 2022-0 2022- No 3mL 3 mL, Univ ers -albuteroL 2-05 02-05 Inhalation it y of (DUONEB) 05:45: 05:11 , ONCE, 1 [place] as 0.5 mg-3 00 :00 dose, On Medical mg(2.5 mg [facility] 08/30/22 Bran ch base)/3 mL at 2345, nebulizer Routine, solution 3 PACU mL polyethylen 2022-0 Yes 17g 17 g, Unive rs e glycol 2-05 Oral, ity of 3350 powder 04:53: QDAILYPRN, [place] 17 g 53 Starting Medical on [facility] 08/30/22 at 2253, Until Discontinu ed, Routine, Constipati on polyethylen 2022-0 Yes 17g 17 g, Unive rs e glycol 2-05 Oral, ity of 3350 powder 04:53: QDAILYPRN, [place] 17 g 53 Starting Medical on [facility] 08/30/22 at 2253, Until Discontinu ed, Routine, Constipati on traMADoL 2022-0 Yes 50mg 50 mg, Univers (ULTRAM) 2-05 Oral, ity of tablet 50 04:53: Q4HPRN, [place] mg 52 Starting Medical on [facility] 08/30/22 at 2253, Until Discontinu ed, Routine, Pain (scale 7-10) ondansetron 2023-0 Yes 4mg 4 mg, Unive rs (ZOFRAN-ODT 2-05 Oral, ity of ) 04:53: Q6HPRN, [place] disintegrat 52 Starting [place] ing tablet on Sat Branch 4 mg 08/30/22 at 2253, Until Discontinu ed, Routine, Nausea and Vomiting (N/V) traMADoL 2023-0 Yes 50mg 50 mg, Univers (ULTRAM) 2-05 Oral, ity of tablet 50 04:53: Q4HPRN, [place] mg 52 Starting Medical on Sat Branch 08/30/22 at 2253, Until Discontinu ed, Routine, Pain (scale 7-10) HYDROcodone 2023-0 Yes 1{tbl} 1 tablet, Univers -acetaminop 2-05 Oral, ity of hen (NORCO 04:53: Q6HPRN, [place] 5) 5-325 mg 52 Starting [place] tablet 1 on Sat Branch tablet 08/30/22 at 2253, Until Discontinu ed, Routine, Pain (scale 4-6) ondansetron 2023-0 Yes 4mg 4 mg, Unive rs (ZOFRAN-ODT 2-05 Oral, ity of ) 04:53: Q6HPRN, [place] disintegrat 52 Starting Med[place] ing tablet on Sat Branch 4 mg 08/30/22 at 2253, Until Discontinu ed, Routine, Nausea and Vomiting (N/V) traMADoL 2023-0 Yes 50mg 50 mg, Univers (ULTRAM) 2-05 Oral, ity of tablet 50 04:53: Q4HPRN, [place] mg 52 Starting Medical on Sat Branch 08/30/22 at 2253, Until Discontinu ed, Routine, Pain (scale 7-10) ondansetron 2023-0 Yes 4mg 4 mg, Unive rs (ZOFRAN-ODT 2-05 Oral, ity of ) 04:53: Q6HPRN, [place] disintegrat 52 Starting Medi [place] ing tablet on Sat Branch 4 mg 08/30/22 at 2253, Until Discontinu ed, Routine, Nausea and Vomiting (N/V) HYDROcodone 2023-0 2023- No 1{tbl} 1 tablet, Univers -acetaminop 08-31 Oral, ity of hen (NORCO 04:53: 13:11 Q6HPRN, [place] 5) 5-325 mg 52 :09 Starting [place] tablet 1 on Sat Branch tablet 08/30/22 at 2253, Until 09/02/22 at 0711, Routine, Pain (scale 4-6) lactated 2022-0 Yes 1000mL at 75 Univer s ringers IV 2-05 mL/hr, ity of infusion 04:45: 1,000 mL, [place] 1,000 mL 00 IV Medical Infusion, Branch CONTINUOUS , Starting on 08/30/22 at 2245, Until Discontinu ed, Routine, PACU lactated 2022-0 Yes 1000mL at 75 Univer s ringers IV 2-05 mL/hr, ity of infusion 04:45: 1,000 mL, [place] 1,000 mL 00 IV Medical Infusion, Branch CONTINUOUS , Starting on 08/30/22 at 2245, Until Discontinu ed, Routine, PACU lactated 2022-0 Yes 1000mL at 75 Univer s ringers IV 2-05 mL/hr, ity of infusion 04:45: 1,000 mL, [place] 1,000 mL 00 IV Medical Infusion, Branch CONTINUOUS , Starting on 08/30/22 at 2245, Until Discontinu ed, Routine, PACU FENTanyl PF 2022- No 25ug 25 mcg, Un samia (SUBLIMAZE 08-31 Slow IV ity o f (PF)) 04:41: 07:00 Push, [place] injection 58 :00 Q5MIN PRN, [place] 25 mcg 4 doses, Branch Starting on 08/30/22 at 2241, Until Discontinu ed, Routine, Pain (scale 4-6), PACU morpHINE (4 2022- No 4mg 4 mg, Slow Univers mg/mL) 08-31 IV Push, ity of injection 4 01:30: 01:21 ONCE, 1 [place] mg 00 :00 dose, On Medical 08/30/22 Branch at 1930, STAT morpHINE (2 2022- No 6mg 6 mg, Slow Univers mg/mL) 08-31 IV Push, ity of injection 6 00:30: 23:30 ONCE, 1 [place] mg 00 :00 dose, On Medical 08/30/22 Branch at 1830, STAT diphenhydrA 2022- No 25mg 25 mg, Uni vers MINE 08-30 Slow IV ity of (BENADRYL) 23:45: 23:43 Push, [place] injection 00 :00 ONCE, 1 Medical 25 mg dose, On Branch 08/30/22 at 1745, STAT proMETHazin 2022- No 12.5mg 12.5 mg, Univers e 08-30 IV ity of (PHENERGAN) 23:30: 23:58 Piggyback, [place] 12.5 mg in 00 :00 at 200 Medical NS 50 mL IV mL/hr Branch piggyback Administer (CNR) over 15 Minutes, ONCE, 1 dose, On 08/30/22 at 1730, MARTHA FENTanyl PF 2022- No 150ug 150 mcg, Univers (SUBLIMAZE 08-30 Slow IV ity o f (PF)) 22:15: 23:15 Push, [place] injection 00 :00 ONCE, 1 Medical 150 mcg dose, On Branch 08/30/22 at 1615, Routine Lisinopril Lisinopril Yes Na [place] 1 tablet [place] 04 [facility] 00:00: - [facility] 00 [facility] Bactrim DS Bactrim DS No 1{table BID Bactrim DS 800-160 MG 800-160 MG 3-04 t} 800-160 MG 00:00: 00 Bactrim DS Bactrim DS No 1{table BID Bactrim DS 800-160 MG 800-160 MG 3-04 t} 800-160 MG 00:00: 00 Bactrim DS Bactrim DS 2018- No 1{table BID Bactrim DS 800-160 MG 800-160 MG 3-04 t} 800-160 MG 00:00: 00 Bactrim DS Bactrim DS 2018- No 1{table BID Bactrim DS 800-160 MG 800-160 MG 3-04 t} 800-160 MG 00:00: 00 Bactrim DS Bactrim DS 2018- No 1{table BID Bactrim DS 800-160 MG 800-160 MG 3-04 t} 800-160 MG 00:00: 00 Bactrim DS Bactrim DS 2019-0 No 1{table BID Bactrim DS 800-160 MG 800-160 MG 3-04 t} 800-160 MG 00:00: 00 Bactrim DS Bactrim DS 2019-0 No 1{table BID Bactrim DS 800-160 MG 800-160 MG 3-04 t} 800-160 MG 00:00: 00 Bactrim DS Bactrim DS 2019-0 No 1{table BID Bactrim DS 800-160 MG 800-160 MG 3-04 t} 800-160 MG 00:00: 00 Zofran 4 MG Zofran 4 MG 2018-0 No Zofran 4 4-17 MG 00:00: 00 Zofran 4 MG Zofran 4 MG 2018-0 No Zofran 4 4-17 MG 00:00: 00 Zofran 4 MG Zofran 4 MG 2018-0 No Zofran 4 4-17 MG 00:00: 00 Zofran 4 MG Zofran 4 MG 2018-0 No Zofran 4 4-17 MG 00:00: 00 Zofran 4 MG Zofran 4 MG 2018-0 No Zofran 4 4-17 MG 00:00: 00 Zofran 4 MG Zofran 4 MG 2018-0 No Zofran 4 4-17 MG 00:00: 00 Zofran 4 MG Zofran 4 MG 2018-0 No Zofran 4 4-17 MG 00:00: 00 Zofran 4 MG Zofran 4 MG 2018-0 No Zofran 4 4-17 MG 00:00: 00 CeleBREX CeleBREX No 1{capsu QD CeleBREX 200 MG 200 MG le_with 200 MG _food} Lisinopril Lisinopril No QD Lisinopril 20 MG 20 MG 20 MG Lisinopril Lisinopril No 1{table QD Lisinopril 30 MG 30 MG t} 30 MG buPROPion buPROPion No 1{table QD buPROPion HCl ER (XL) HCl ER (XL) t_in_th HCl ER 300 MG 300 MG e_morni (XL) 300 ng} MG CeleBREX CeleBREX No 1{capsu QD CeleBREX 200 MG 200 MG le_with 200 MG _food} Gabapentin Gabapentin No Gabapentin 600 MG 600 MG 600 MG Celecoxib Celecoxib No Celecoxib 200 MG 200 MG 200 MG Lisinopril Lisinopril No QD Lisinopril 20 MG 20 MG 20 MG buPROPion buPROPion No buPROPion HCl ER (XL) HCl ER (XL) HCl ER 300 MG 300 MG (XL) 300 MG Lisinopril Lisinopril No Lisinopril 30 MG 30 MG 30 MG Gabapentin Gabapentin No Gabapentin 600 MG 600 MG 600 MG Celebrex Celebrex No 1{capsu QD Celebrex 200 MG 200 MG le_with 200 MG _food} Lisinopril Lisinopril No 1{table QD Lisinopril 20 MG 20 MG t} 20 MG Lisinopril Lisinopril No 1{table QD Lisinopril 20 MG 20 MG t} 20 MG CeleBREX CeleBREX No 1{capsu QD CeleBREX 200 MG 200 MG le_with 200 MG _food} Lisinopril Lisinopril No 1{table QD Lisinopril 20 MG 20 MG t} 20 MG Lisinopril Lisinopril No QD Lisinopril 20 MG 20 MG 20 MG Lisinopril Lisinopril No QD Lisinopril 20 MG 20 MG 20 MG Lisinopril Lisinopril No 1{table QD Lisinopril 20 MG 20 MG t} 20 MG Gabapentin Gabapentin No Gabapentin 600 MG 600 MG 600 MG buPROPion buPROPion No 1{table QD buPROPion HCl ER (XL) HCl ER (XL) t_in_th HCl ER 150 MG 150 MG e_morni (XL) 150 ng} MG CeleBREX CeleBREX No 1{capsu QD CeleBREX 200 MG 200 MG le_with 200 MG _food} Lisinopril Lisinopril No 1{table QD Lisinopril 20 MG 20 MG t} 20 MG buPROPion buPROPion No 1{table QD buPROPion HCl ER (XL) HCl ER (XL) t_in_th HCl ER 150 MG 150 MG e_morni (XL) 150 ng} MG Lisinopril Lisinopril No QD Lisinopril 20 MG 20 MG 20 MG Gabapentin Gabapentin No Gabapentin 600 MG 600 MG 600 MG CeleBREX CeleBREX 2021- No 1{capsu QD CeleBREX 200 MG 200 MG 10-30 le_with 200 MG 00:00 _food} :00 CeleBREX CeleBREX 2021- No 1{capsu QD CeleBREX 200 MG 200 MG 08-04 le_with 200 MG 00:00 _food} :00 Vital Signs Vital Name Observation Time Observation Value Comments Source Systolic blood 2022-11-05 20:31:00 171 mm[Hg] [facility]iver [facility] Diastolic blood 2022-11-05 20:31:00 99 mm[Hg] Unive rsity of [facility] Heart rate 2022-11-05 20:31:00 90 /min [facility] Body temperature 2022-11-05 20:31:00 36.72 Malaika Univ ers[facility] of [facility] Body height 2022-11-05 20:31:00 154.9 cm [facility] Body weight 2022-11-05 20:31:00 57.153 kg [facility] BMI 2022-11-05 20:31:00 23.81 kg/m2 [facility] Body temperature 2022-09-25 16:44:00 36.67 Malaika Univ ers[facility] Body height 2022-09-25 16:44:00 154.9 cm [facility]i [facility] Body weight 2022-09-25 16:44:00 59.875 kg [facility] BMI 2022-09-25 16:44:00 24.94 kg/m2 [facility] Systolic blood 2022-09-08 22:22:00 138 mm[Hg] Univer sity of [facility] Diastolic blood 2022-09-08 22:22:00 81 mm[Hg] Unive rsity of [facility] Heart rate 2022-09-08 22:22:00 66 /min [facility] Body temperature 2022-09-08 22:22:00 36.33 Malaika Univ [facility] Respiratory rate 2022-09-08 22:22:00 18 /min [facility] in 2022-09-08 22:22:00 96 /min [facility] Arterial blood by [facility] Pulse oximetry Branch Body weight 2022-09-05 17:00:00 62.1 kg [facility] [place] [facility] BMI 2022-09-05 17:00:00 25.87 kg/m2 [facility] [place] [facility] Body height 2022-09-02 07:20:00 154.9 cm [facility] [place] [facility] Systolic blood 2022-09-05 00:38:00 116 mm[Hg] Univer sity of pressure [place] [facility] Diastolic blood 2022-09-05 00:38:00 57 mm[Hg] Unive rsity of pressure [place] [facility] Heart rate 2022-09-05 00:38:00 70 /min [facility] [place] [facility] Body temperature 2022-09-05 00:38:00 36.56 Malaika Univ [facility] [place] [facility] Respiratory rate 2022-09-05 00:38:00 8 /min [facility] [place] [facility] Oxygen saturation in 2022-09-05 00:38:00 95 /min University of Arterial blood by [place] [employer] [facility] [employer] [place] Pulse oximetry Branch Body height 2022-09-02 07:20:00 154.9 cm [facility] [place] [facility] Body weight 2022-09-02 07:20:00 62.1 kg [facility] [place] [facility] BMI 2022-09-02 07:20:00 25.87 kg/m2 [facility] [place] [facility] Systolic blood 2022-08-30 22:58:00 180 mm[Hg] Univer sity of pressure [place] [facility] Diastolic blood 2022-08-30 22:58:00 91 mm[Hg] Unive rsity of pressure [place] [facility] Heart rate 2022-08-30 22:58:00 82 /min [facility] [place] [facility] Respiratory rate 2022-08-30 22:58:00 16 /min [facility] [place] [facility] Oxygen saturation in 2022-08-30 22:58:00 100 /min University of Arterial blood by [place] [facility] [place] Pulse oximetry Branch Body temperature 2022-08-30 19:35:00 36.44 Malaika [facility] [place] [facility] Body weight 2022-08-30 19:35:00 61.236 kg [facility] [place] [facility] height 2021-10-23 12:10:00 62.00 [in_i] [facility] weight 2021-10-23 12:10:00 135 [lb_av] [facility] bmi 2021-10-23 12:10:00 24.69 kg/m2 [facility] height 2020-12-26 08:20:00 62.00 [in_i] [facility] weight 2020-12-26 08:20:00 135 [lb_av] [facility] bmi 2020-12-26 08:20:00 24.69 kg/m2 [facility] height 2020-11-27 13:00:00 62.00 [in_i] [facility] weight 2020-11-27 13:00:00 135 [lb_av] [facility] bmi 2020-11-27 13:00:00 24.69 kg/m2 [facility] Procedures Procedure Date / Time Performing Clinician Source Performed XR WRIST 3+ VW LEFT 2022-11-05 21:27:27 Pako Robbins [facility] XR WRIST 3+ VW LEFT 2022-09-25 17:14:57 Alejo Bergeron [facility] ASSIGNMENT OF BENEFITS 2022-09-25 16:29:43 Doctor Unassigned, Un [facility] FL TIME OR 2022-09-05 00:18:14 Alejo Peguero [facility] (NON-REPORTABLE) [facility] Branch FL TIME OR 2022-09-05 00:18:14 Alejo Peguero [facility] (NON-REPORTABLE) [facility] DISTAL RADIUS ORIF 2022-09-04 21:42:00 Alejo Peguero [facility] EXTERNAL FIXATOR REMOVAL 2022-09-04 21:42:00 Alejo Peguero [facility] OF UPPER EXTREMITY Medical Branc h DISTAL RADIUS ORIF 2022-09-04 21:42:00 Alejo Peguero [facility] EXTERNAL FIXATOR REMOVAL 2022-09-04 21:42:00 Alejo Peguero [facility] OF UPPER EXTREMITY Medical Branc h BASIC METABOLIC PANEL 2022-09-04 10:10:00 Andres Jimenez [facility] (NA, K, CL, CO2, GLUCOSE, Medica l Branch BUN, CREATININE, CA) CBC WITHOUT DIFF 2022-09-04 10:10:00 Andres Jimenez [facility] PROTHROMBIN TIME / INR 2022-09-04 10:10:00 Andres Jimenez [facility] ACTIVATED PARTIAL 2022-09-04 10:10:00 Andres Jimenez [facility] BASIC METABOLIC PANEL 2022-09-04 10:10:00 Andres iJmenez [facility] (NA, K, CL, CO2, GLUCOSE, Medica l Branch BUN, CREATININE, CA) CBC WITHOUT DIFF 2022-09-04 10:10:00 Andres Jimenez [facility] PROTHROMBIN TIME / INR 2022-09-04 10:10:00 Andres Jimenez [facility] ACTIVATED PARTIAL 2022-09-04 10:10:00 Andres Jimenez [facility] US DUPLEX VENOUS ARM 2022-09-03 15:45:00 Larisa Martines [facility] RIGHT - BY VASCULAR LAB [facility] [place] US DUPLEX VENOUS ARM 2022-09-03 15:45:00 Larisa Martines [facility] RIGHT - BY VASCULAR LAB Medical Branch CBC WITHOUT DIFF 2022-09-01 16:54:00 Larisa Martines [facility] CBC WITHOUT DIFF 2022-09-01 16:54:00 Larisa Martines [facility] CBC WITHOUT DIFF 2022-09-01 16:54:00 Larisa Martines [facility] HB ECG ROUTINE & RHYTHM 2022-08-31 07:58:17 Larisa Martines [facility] HB ECG ROUTINE & RHYTHM 2022-08-31 07:58:17 Larisa Martines [facility] FL TIME OR 2022-08-31 04:15:00 Ja Jo [facility] [place] (NON-REPORTABLE) Medical Branch [place] TIME OR 2022-08-31 04:15:00 Ja [facility] (NON-REPORTABLE) Medical Branch [place] TIME OR 2022-08-31 04:15:00 Ja Jo [facility] (NON-REPORTABLE) Medical Branch ABORH CONFIRMATION (LAB 2022-08-31 02:42:00 Henri Phoenix [facility] ONLY) Medical Branch ABORH CONFIRMATION (LAB 2022-08-31 02:42:00 Henri Phoenix [facility] ONLY) Medical Branch ABORH CONFIRMATION (LAB 2022-08-31 02:42:00 Henri Phoenix [facility] ONLY) Medical Branch EXPLORATION VESSEL UPPER 2022-08-31 01:43:00 Ham Slater [facility] EXTERNAL FIXATOR 2022-08-31 [facility]:43[facility] Medical Bran ch EXTREMITY LIGATION VESSEL UPPER 2022-08-31 01:43:00 Ham Slater [facility] EXPLORATION VESSEL UPPER 2022-08-31 01:43:00 Ham Slater [facility] EXTERNAL FIXATOR 2022-08-31 01:43:00 Elyssa [facility] PLACEMENT FOR UPPER Medical Bran ch EXTREMITY LIGATION VESSEL UPPER 2022-08-31 01:43:00 Ham Slater [facility] XR WRIST <3 VW LEFT 2022-08-30 23:25:00 Larisa Martines [facility] XR WRIST <3 VW LEFT 2022-08-30 23:25:00 Larisa Martines [facility] XR WRIST <3 VW LEFT 2022-08-30 23:25:00 Larisa Martines [facility] CBC WITH DIFF 2022-08-30 22:37:00 Henri Phoenix [facility] PROTHROMBIN TIME / INR 2022-08-30 22:37:00 Henri Phoenix [facility] ACTIVATED PARTIAL 2022-08-30 22:37:00 Henri Phoenix [facility] WITH DIFF 2022-08-30 22:37:00 Henri Phoenix [facility] PROTHROMBIN TIME / INR 2022-08-30 22:37:00 Henri Phoenix [facility] ACTIVATED PARTIAL 2022-08-30 22:37:00 Henri Phoenix [facility] CBC WITH DIFF 2022-08-30 22:37:00 Henri Phoenix [place] [facility] PROTHROMBIN TIME / INR 2022-08-30 22:37:00 Henri Phoenix [facility] ACTIVATED PARTIAL 2022-08-30 22:37:00 Henri Phoenix [facility] XR ELBOW <3 VW LEFT 2022-08-30 20:42:00 Debi Frye [facility] XR FOREARM 2 VW LEFT 2022-08-30 20:42:00 Henri Phoenix [facility] XR HAND <3 VW LEFT 2022-08-30 20:42:00 Henri Phoenix [facility] Medical Branch XR WRIST <3 VW LEFT 2022-08-30 20:42:00 Henri Phoenix [facility] XR ELBOW <3 VW LEFT 2022-08-30 20:42:00 Debi Frye [facility] XR FOREARM 2 VW LEFT 2022-08-30 20:42:00 Henri Phoenix [facility] XR HAND <3 VW LEFT 2022-08-30 20:42:00 Henri Phoenix [facility] Medical Branch XR WRIST <3 VW LEFT 2022-08-30 20:42:00 Henri Phoenix [facility] Medical Branch XR ELBOW <3 VW LEFT 2022-08-30 20:42:00 Debi Frye [facility] Medical Branch XR FOREARM 2 VW LEFT 2022-08-30 20:42:00 Henri Phoenix [facility] XR HAND <3 VW LEFT 2022-08-30 20:42:00 Henri Phoenix [facility] Medical Branch XR WRIST <3 VW LEFT 2022-08-30 20:42:00 Henri Phoenix [facility] COMP. METABOLIC PANEL 2022-08-30 20:21:00 Henri Phoenix [facility] ([id number]) Medical Branch COMP. METABOLIC PANEL 2022-08-30 20:21:00 Henri Phoenix [facility] ([id number]) Medical Branch COMP. METABOLIC PANEL 2022-08-30 20:21:00 Henri Phoenix [facility] ([id number]) [facility] Branch HB ABO GROUPING 2022-08-30 20:19:00 Henri Phoenix [facility] HB ABO GROUPING 2022-08-30 20:19:00 Henri Phoenix [facility] HB ABO GROUPING 2022-08-30 20:19:00 Henri Phoenix [facility] HOSPITAL ADMISSION 2022-08-30 06:01:00 Doctor Unasswilber, [facility] [place] [facility] EMERGENCY SERVICES 2022-08-30 06:01:00 Doctor Unassigned, [facility] AGREEMENTS AND [place] [facility] AUTHORIZATIONS HOSPITAL ADMISSION 2022-08-30 06:01:00 Doctor Unassigned, [facility] [place] [facility] HOSPITAL ADMISSION 2022-08-30 06:01:00 Doctor Unasswilber, [facility] Name [facility] Encounters Start End Encounter Admission Attending Care Care Encounter Source Date/Time Date/Time Type Type Clinicians Facility Department ID 2021-11-26 Outpatient Araujo, Na STLMLC STLMLC [id number] 2 Common 15:30:02 [facility] 2021-11-25 Outpatient Araujo, Na STLMLC STLMLC [id number] 2 Common 08:44:00 [facility] 2021-10-23 Outpatient Araujo, Na STLMLC STLMLC [id number] 2 Common 07:18:01 [facility] 2021-10-21 Outpatient Araujo, Na STLMLC STLMLC [id number] 2 Common 09:07:00 [facility] 2021-08-21 Outpatient Araujo, Na STLMLC STLMLC [id number] 2 Common 13:42:36 [id number] [facility] 2021-08-21 Out[facility] [id number] 2 Common 13:22:56 [id number] [facility] 2021-08-21 Outpatient [facility]jo[facility] [id number] 2 Common 13:09:15 [id number] [facility] 2021-08-21 Outpatient Araujo[facility] [id number] 2 Common 12:58:54 [id number] [facility] 2022-12-29 2022-12-29 [facility] [id number] Univers 14:00:00 14:00:00 ALEJO claire [facility] 2022-11-05 2022-11-05 [facility] [id number] Univers 16:00:00 23:59:00 Encounter Alejo SPECIALTY [id number] ity of CARE 4.2.7.2.686 [facility] AT [id number] Il marilynnbessy LINDSAYClaire [address] [facility] 2022-11-05 2022-11-05 [facility] [id number] Univers 15:30:00 16:42:36 ALEJO [facility] 2022-11-05 2022-11-05 [facility] [id number] Univers 15:30:00 16:42:36 Visit Alejo SPECIALTY [id number] ity of CARE 4.2.7.2.686 [facility] AT [id number] Il marilynnbessy LINDSAYClaire [address] [facility] 2022-11-05 2022-11-05 Telephone [facility] [id number] Univers 00:00:00 00:00:00 Alejo SPECIALTY [id number] ity of CARE 4.2.7.2.686 [facility] AT [id number] Il marilynnbessy LINDSAYClaire [address] [facility] 2022-10-22 2022-10-22 Telephone [facility] [id number] Univers 00:00:00 00:00:00 Alejo SPECIALTY [id number] [place] [phone] Il dical VICTORY [address] [facility] 2022-10-21 2022-10-21 [facility] 1.2.840.114 10 [id number] Univers 00:00:00 00:00:00 Alejo PRIMARY [id number] [place] [id number] Il dical [address] [place] 2022-10-13 2022-10-13 Outpatient [facility] [id number] [facility] 12:50:00 12:50:00 ALEJO [facility] 2022-09-27 2022-09-27 Telephone [facility] [id number] [facility] 00:00:00 00:00:00 Alejo PRIMARY [id number] [place] [id number] Il marilynnal [address] [place] 2022-09-25 2022-09-25 [facility] 1.2.840.114 [id number] Univers 10:54:10 23:59:00 Encounter Alejo PRIMARY 350.1.13.10 [place] [id number] Il dical [address] [place] 2022-09-25 2022-09-25 Outpatient R [facility] [id number] Univers 09:40:00 11:58:17 ALEJO claire [facility] 2022-09-25 2022-09-25 Office [facility] [id number] Univers 09:40:00 11:58:17 Visit Alejo PRIMARY 350.1.13.10 [place] [id number] Il dical [address] [place] 2022-09-25 2022-09-25 Orders Doctor ALEJO 1.2.840.114 [id number] Univers 00:00:00 00:00:00 Only UnassignedELSEI 350.1.13.10 ity of [place] [facility] 4.2.7.2.686 Andrei as [phone] [facility] 009 Branch 2022-09-09 2022-09-09 Transition LOUISE Peñaloza 1.2.840.114 [id number] Univers 00:00:00 00:00:00 of Care Allan HUFFMAN 350.1.13.10 [place] [id number] [facility] 403 Branch 2022-08-30 2022-09-08 Hospital Henri Phoenix 1.2.840.11 [id number] Univers 13:37:00 18:34:00 Encounter Alejo Bergeron ELSIE 350.1.13.[address] [facility] 4.2.7.2.686 Andrei as [id number] [facility] 097 Branch 2022-08-30 2022-09-08 Inpatient X ELYSSA [facility] [id number] Univers 13:37:00 18:34:00 ALEJO wilsony [facility] 2022-09-04 2022-09-04 Surgery MEI Peguero [id number] Univers 16:00:00 18:44:00 Alejo HOUSTONY 350.1.13.[address] [facility] 4.2.7.2.686 Andrei as [id number] [facility] 103 Branch 2022-08-30 2022-08-30 Surgery MEI Slater 1.2.840.114 [id number] Univers 18:45:00 20:22:00 Ham ZIMMERMAN 350.1.13.[address] [facility] 4.2.7.2.686 Andrei as [id number] [facility] 103 Branch 2021-11-27 2021-11-27 OFFICE [facility] [id number] Co mmon 00:00:00 00:00:00 VISIT EST Spir it PT LEVEL 3 - [facility] 2021-11-04 2021-11-04 [facility]TEL[facility] [id number] Co mmon 00:00:00 00:00:00 Spirit [facility] 2021-10-23 2021-10-23 OFFICE STLMLC STLMLC [id number] Co mmon 00:00:00 00:00:00 VISIT [facility] ESTAB PT - [facility] LEVEL 4 [facility] 2021-10-23 2021-10-23 (TEL) STLMLC STLMLC [id number] Co mmon 00:00:00 00:00:00 [facility] 2021-09-30 2021-09-30 (TEL) STLMLC STLMLC [id number] Co mmon 00:00:00 00:00:00 [facility] 2021-02-05 2021-02-05 (TEL) STLMLC STLMLC [id number] Co mmon 00:00:00 00:00:00 [facility] 2020-12-26 2020-12-26 OFFICE STLMLC STLMLC [id number] Co mmon 00:00:00 00:00:00 VISIT EST Spir it PT LEVEL 3 [facility] 2020-11-27 2020-11-27 Outpatient STLMLC STLMLC [id number] Common 00:00:00 00:00:00 [facility] 2020-11-27 2020-11-27 OFFICE STLMLC STLMLC [id number] Co mmon 00:00:00 00:00:00 VISIT EST Spir it PT LEVEL 3 [facility] 2019-05-31 2019-05-31 [facility] [id number] Common 09:52:00 09:52:00 [facility] 2018-10-21 2018-10-21 Out[facility] [id number] Common 16:20:00 16:20:[address] [facility] 2018-09-27 2018-09-27 [facility] [id number] Common 15:00:00 15:00:[address] [facility] 2017-11-25 2017-11-25 [facility] [id number] Common 06:50:00 06:50:00 t Soccer [employer] Spir it Drive [facility] 2017-11-24 2017-11-24 Outpatient Asmita Peralta 13 [id number] Common 15:14:00 15:14:[address] [facility] 2017-11-10 2017-11-10 Outpatient Asmita Peralta 13 [id number] Common 10:30:00 10:30:00 t [employer] Sp[address] [facility] Results Test Description Test Time Test Comments Results Result Comments Source ACTIVATED PARTIAL THRMPLAS JEANIE 2022-09-04 10:45:22 Test Item Value Reference Range Interpretation Comme nts APTT Patient (test code = 29 See_Comment [ Automated message] The system 3173-2) which generated this result transmitted ref erence range: 26 - 36 Seconds. The reference range was not used to interpret this result as nciki l/abnormal. Lab Interpretation (test code = Normal 86944-7) [facility] / [id number] 10:45:22 Test Item Value Reference Range Interpretation Comments PROTIME PATIENT (test 11.2 See_Comment [Auto mated message] code = 5964-2) The system cliniq.ly ich generated this result transmitted ref erence range: 10.1 - 1 2.6 Seconds. The re ference range was not u sed to interpret this result as normal/abnor mal. INR (test code = 6301-6) 1.0 Nor mal INR <1.1; Warfarin Therap eutic range 2.0 to 3. 0 or 2.5 to 3.5, dep ending upon the indica tions. Lab Interpretation (test Normal code = 95343-1) [facility] [id number] 10:45:22 Test Item Value Reference Range Interpretation Comments APTT Patient (test code = 29 See_Comment [ Automated message] 3173-2) The system cliniq.lyic h generated this result transmitted ref erence range: 26 - 36 Seconds. The re ference range was not u sed to interpret this result as normal/abnor mal. Lab Interpretation (test Normal code = 23117-9) [facility] / [id number] 10:45:22 Test Item Value Reference Range Interpretation Comments PROTIME PATIENT (test 11.2 See_Comment [Auto mated message] code = 5964-2) The system [employer] generated this result transmitted ref erence range: 10.1 - 1 2.6 Seconds. The re ference range was not u sed to interpret this result as normal/abnor mal. INR (test code = 6301-6) 1.0 Nor mal INR <1.1; Warfarin Therap eutic range 2.0 to 3. 0 or 2.5 to 3.5, dep ending upon the indica tions. Lab Interpretation (test Normal code = 33447-3) [facility] METABOLIC PANEL (NA, K, CL, CO2, GLUCOSE, BUN, CREATININE, CA)2022-09-04 10:44:41 Test Item Value Reference Range Interpretation Comments NA (test code = 134 mmol/L 135-145 L 3116134593) K (test code = 4.8 mmol/L 3.5-5.0 3209432581) CL (test code = 103 mmol/L 98-108 7372177453) CO2 TOTAL (test code = 28 mmol/L 23-31 1367482292) AGAP (test code = 3 2-16 4688297459) BUN (test code = 14 mg/dL 7-23 3844245525) GLUCOSE (test code = 103 mg/dL 70-110 2711668496) CREATININE (test code = 0.95 mg/dL 0.50-1.04 1329184471) CALCIUM (test code = 8.2 mg/dL 8.6-10.6 L 3181283290) eGFR (test code = 58.2 mL/min/1.73m2 4138596559) PRITESH (test code = PRITESH) Association of Glomerular Filtration Rate (GFR) and Staging of Kidney Disease* + --+ --+ ------+| GFR (mL/min/1.73 m2) ?| With Kidney Damage ?| ?Without Kidney Damage+ --------+ --------+ +| ?>90 ?| ?Stage one ?| ? Normal ?+ ---+ ---+ -------+| ?60-89 ?| ?Stage two ?| ? Decreased GFR ? + --+ --+ ------+| ?30-59 ?| ?Stage three ?| ? Stage three ? + --+ --+ ------+| ?15-29 ?| ?Stage four ? | ? Stage four ?+ ---+ ---+ -------+| ?<15 (or dialysis) ? ?| ?Stage five ? | ? Stage five ?+ ---+ ---+ -------+ *Each stage assumes the associated GFR level has been in effect for at least three months. ?Stages 1 to 5, with or without kidney disease, indicate chronic kidney disease. Notes: Determination of stages one and two (with eGFR >59mL/min/1.73 m2) requires estimation of kidney damage for at least three months as defined by structural or functional abnormalities of the kidney, manifested by either:Pathological abnormalities or Markers of kidney damage (including abnormalities in the composition of the blood or urine or abnormalities in imaging tests). Lab Interpretation Abnormal (test code = 05905-4) [facility] METABOLIC PANEL (NA, K, CL, CO2, GLUCOSE, BUN, CREATININE, CA)2022-09-04 10:44:41 Test Item Value Reference Range Interpretation Comments NA (test code = 134 mmol/L 135-145 L 8179664357) K (test code = 4.8 mmol/L 3.5-5.0 4143813228) CL (test code = 103 mmol/L 98-108 4241195367) CO2 TOTAL (test code = 28 mmol/L 23-31 2914536447) AGAP (test code = 3 2-16 4810551094) BUN (test code = 14 mg/dL 7-23 6347890882) GLUCOSE (test code = 103 mg/dL 70-110 4293622371) CREATININE (test code = 0.95 mg/dL 0.50-1.04 8823400897) CALCIUM (test code = 8.2 mg/dL 8.6-10.6 L 0416127622) eGFR (test code = 58.2 mL/min/1.73m2 0253926301) PRITESH (test code = PRITESH) Association of Glomerular Filtration Rate (GFR) and Staging of Kidney Disease* + --+ --+ ------+| GFR (mL/min/1.73 m2) ?| With Kidney Damage ?| ?Without Kidney Damage+ --------+ --------+ +| ?>90 ?| ?Stage one ?| ? Normal ?+ ---+ ---+ -------+| ?60-89 ?| ?Stage two ?| ? Decreased GFR ? + --+ --+ ------+| ?30-59 ?| ?Stage three ?| ? Stage three ? + --+ --+ ------+| ?15-29 ?| ?Stage four ? | ? Stage four ?+ ---+ ---+ -------+| ?<15 (or dialysis) ? ?| ?Stage five ? | ? Stage five ?+ ---+ ---+ -------+ *Each stage assumes the associated GFR level has been in effect for at least three months. ?Stages 1 to 5, with or without kidney disease, indicate chronic kidney disease. Notes: Determination of stages one and two (with eGFR >59mL/min/1.73 m2) requires estimation of kidney damage for at least three months as defined by structural or functional abnormalities of the kidney, manifested by either:Pathological abnormalities or Markers of kidney damage (including abnormalities in the composition of the blood or urine or abnormalities in imaging tests). Lab Interpretation Abnormal (test code = 97363-8) [facility] WITHOUT [id number] 10:24:39 Test Item Value Reference Range Interpretation Comments WBC (test code = 6690-2) 6.14 See_Comment [A utomated message] The system [employer] generated this result transmit adele reference range : 4.30 - 11.10 10*3/?L. The reference range was not used to interpret this result as normal/abnormal . RBC (test code = 789-8) 3.03 See_Comment L [Au tomated message] The system [employer] generated this result transmit adele reference range : 3.93 - 5.25 10* 6/?L. The reference r yusra was not used to interpret this result as normal/abnormal . HGB (test code = 718-7) 8.9 g/dL 11.6-15.0 L HCT (test code = 4544-3) 27.6 % 35.7-45.2 L MCH (test code = 785-6) 29.4 pg 25.9-32.8 MCV (test code = 787-2) 91.1 fL 80.6-95.5 MCHC (test code = 786-4) 32.2 g/dL 31.6-35.1 PLT (test code = 777-3) 308 See_Comment [Au tomated message] The system [employer] generated this result transmit adele reference range : 166 - 358 10*3/?L. The reference range was not used to interpret this result as normal/abnormal . MPV (test code = 8.6 fL 9.5-12.9 L 55557-6) RDW-CV (test code = 13.9 % 12.0-15.5 788-0) RDW-SD (test code = 46.2 fL 39.0-49.9 92900-5) NRBC x10^3 (test code = See_Comment [Au tomated message] 7119674864) The system [employer] generated this result transmit adele reference range : 10*3/?L. The reference range was not used to interpret this result as normal/abnormal . NRBC/100 WBC (test code 0.0 See_Comment [Au tomated message] = 9916618501) The system [facility] generated this result transmit adele reference range : 0.0 - 10.0 /100 WBC s. The reference r yusra was not used to interpret this result as normal/abnormal . IPF % (test code = 2145697289) Lab Interpretation (test Abnormal code = 86171-0) [facility] WITHOUT [id number] 10:24:39 Test Item Value Reference Range Interpretation Comments WBC (test code = 6690-2) 6.14 See_Comment [A utomated message] The system [employer] generated this result transmit adele reference range : 4.30 - 11.10 10*3/?L. The reference range was not used to interpret this result as normal/abnormal . RBC (test code = 789-8) 3.03 See_Comment L [Au tomated message] The system [employer] generated this result transmit adele reference range : 3.93 - 5.25 10* 6/?L. The reference r yusra was not used to interpret this result as normal/abnormal . HGB (test code = 718-7) 8.9 g/dL 11.6-15.0 L HCT (test code = 4544-3) 27.6 % 35.7-45.2 L MCH (test code = 785-6) 29.4 pg 25.9-32.8 MCV (test code = 787-2) 91.1 fL 80.6-95.5 MCHC (test code = 786-4) 32.2 g/dL 31.6-35.1 PLT (test code = 777-3) 308 See_Comment [Au tomated message] The [facility] generated this result transmit adele reference range : 166 - 358 10*3/?L. The reference range was not used to interpret this result as normal/abnormal . MPV (test code = 8.6 fL 9.5-12.9 L 93518-4) RDW-CV (test code = 13.9 % 12.0-15.5 788-0) RDW-SD (test code = 46.2 fL 39.0-49.9 53913-8) NRBC x10^3 (test code = See_Comment [Au tomated message] 4907252723) The system [employer] generated this result transmit adele reference range : 10*3/?L. The reference range was not used to interpret this result as normal/abnormal . NRBC/100 WBC (test code 0.0 See_Comment [Au tomated message] = 9947293351) The system [facility] generated this result transmit adele reference range : 0.0 - 10.0 /100 WBC s. The reference r yusra was not used to interpret this result as normal/abnormal . IPF % (test code = 5840756721) Lab Interpretation (test Abnormal code = 68935-4) [facility] WITHOUT [id number] 17:35:12 Test Item Value Reference Range Interpretation Comments WBC (test code = 6690-2) 7.12 See_Comment [A utomated message] The system cliniq.ly [employer] generated this result transmit adele reference range : 4.30 - 11.10 10*3/?L. The reference range was not used to interpret this result as normal/abnormal . RBC (test code = 789-8) 2.90 See_Comment L [Au tomated message] The system cliniq.ly [employer] generated this result transmit adele reference range : 3.93 - 5.25 10* 6/?L. The reference r yusra was not used to interpret this result as normal/abnormal . HGB (test code = 718-7) 8.5 g/dL 11.6-15.0 L HCT (test code = 4544-3) 26.8 % 35.7-45.2 L MCH (test code = 785-6) 29.3 pg 25.9-32.8 MCV (test code = 787-2) 92.4 fL 80.6-95.5 MCHC (test code = 786-4) 31.7 g/dL 31.6-35.1 PLT (test code = 777-3) 282 See_Comment [Au tomated message] The system [employer] generated this result transmit adele reference range : 166 - 358 10*3/?L. The reference range was not used to interpret this result as normal/abnormal . MPV (test code = 8.9 fL 9.5-12.9 L 19105-9) RDW-CV (test code = 14.1 % 12.0-15.5 788-0) RDW-SD (test code = 48.3 fL 39.0-49.9 93885-4) NRBC x10^3 (test code = See_Comment [Au tomated message] 7995526465) The system [employer] generated this result transmit adele reference range : 10*3/?L. The reference range was not used to interpret this result as normal/abnormal . NRBC/100 WBC (test code 0.0 See_Comment [Au tomated message] = 4691217043) The system [facility] generated this result transmit adele reference range : 0.0 - 10.0 /100 WBC s. The reference r yusra was not used to interpret this result as normal/abnormal . IPF % (test code = 5920963776) Lab Interpretation (test Abnormal code = 69807-9) [facility] WITHOUT [id number] 17:35:12 Test Item Value Reference Range Interpretation Comments WBC (test code = 6690-2) 7.12 See_Comment [A utomated message] The system [employer] generated this result transmit adele reference range : 4.30 - 11.10 10*3/?L. The reference range was not used to interpret this result as normal/abnormal . RBC (test code = 789-8) 2.90 See_Comment L [Au tomated message] The system [employer] generated this result transmit adele reference range : 3.93 - 5.25 10* 6/?L. The reference r yusra was not used to interpret this result as normal/abnormal . HGB (test code = 718-7) 8.5 g/dL 11.6-15.0 L HCT (test code = 4544-3) 26.8 % 35.7-45.2 L MCH (test code = 785-6) 29.3 pg 25.9-32.8 MCV (test code = 787-2) 92.4 fL 80.6-95.5 MCHC (test code = 786-4) 31.7 g/dL 31.6-35.1 PLT (test code = 777-3) 282 See_Comment [Au tomated message] The system [employer] generated this result transmit adele reference range : 166 - 358 10*3/?L. The reference range was not used to interpret this result as normal/abnormal . MPV (test code = 8.9 fL 9.5-12.9 L 80114-6) RDW-CV (test code = 14.1 % 12.0-15.5 788-0) RDW-SD (test code = 48.3 fL 39.0-49.9 38737-5) NRBC x10^3 (test code = See_Comment [Au tomated message] 1835878775) The system [employer] generated this result transmit adele reference range : 10*3/?L. The reference range was not used to interpret this result as normal/abnormal . NRBC/100 WBC (test code 0.0 See_Comment [Au tomated message] = 3635687951) The system [employer] generated this result transmit adele reference range : 0.0 - 10.0 /100 WBC s. The reference r yusra was not used to interpret this result as normal/abnormal . IPF % (test code = 1869796604) Lab Interpretation (test Abnormal code = 68245-3) [facility] WITHOUT [id number] 17:35:12 Test Item Value Reference Range Interpretation Comments WBC (test code = 6690-2) 7.12 See_Comment [A utomated message] The system [employer] generated this result transmit adele reference range : 4.30 - 11.10 10*3/?L. The reference range was not used to interpret this result as normal/abnormal . RBC (test code = 789-8) 2.90 See_Comment L [Au tomated message] The system [employer] generated this result transmit adele reference range : 3.93 - 5.25 10* 6/?L. The reference r yusra was not used to interpret this result as normal/abnormal . HGB (test code = 718-7) 8.5 g/dL 11.6-15.0 L HCT (test code = 4544-3) 26.8 % 35.7-45.2 L MCH (test code = 785-6) 29.3 pg 25.9-32.8 MCV (test code = 787-2) 92.4 fL 80.6-95.5 MCHC (test code = 786-4) 31.7 g/dL 31.6-35.1 PLT (test code = 777-3) 282 See_Comment [Au tomated message] The system [employer] generated this result transmit adele reference range : 166 - 358 10*3/?L. The reference range was not used to interpret this result as normal/abnormal . MPV (test code = 8.9 fL 9.5-12.9 L 91982-4) RDW-CV (test code = 14.1 % 12.0-15.5 788-0) RDW-SD (test code = 48.3 fL 39.0-49.9 89276-8) NRBC x10^3 (test code = See_Comment [Au tomated message] [id number]) The system [employer] generated this result transmit adele reference range : 10*3/?L. The reference range was not used to interpret this result as normal/abnormal . NRBC/100 WBC (test code 0.0 See_Comment [Au tomated message] = 7005701212) The system [facility] generated this result transmit adele reference range : 0.0 - 10.0 /100 WBC s. The reference r yusra was not used to interpret this result as normal/abnormal . IPF % (test code = 6228672393) Lab Interpretation (test Abnormal code = 86934-4) [facility] Confirmation (Lab Only)2022-08-31 03:15:36 Test Item Value Reference Range Interpretation Comments ABO & RH (test AB Positive Performed at [facility] code = 20) Laboratory Serv [facility] [address] [place] [address]Klos Free: [phone] A No. [id number] [facility] Confirmation (Lab Only)2022-08-31 03:15:36 Test Item Value Reference Range Interpretation Comments ABO & RH (test AB Positive Performed at [facility] code = 20) Laboratory [facility] [address] [place] [address]Jutp Free: [phone] A No. [id number] [facility] Confirmation (Lab Only)2022-08-31 03:15:36 Test Item Value Reference Range Interpretation Comments ABO & RH (test AB Positive Performed at [facility] code = 20) Laboratory [facility] [address] [place] [address]Runy Free: [phone] A No. [id number] [facility] [id number] 22:58:55 Test Item Value Reference Range Interpretation Comments APTT Patient (test code 25 See_Comment L [Au tomated message] = 3173-2) The system [employer] generated this result transmitted ref erence range: 26 - 36 Seconds. The reference range was not used to int erpret this result as normal/abnormal . Lab Interpretation (test Abnormal code = 59493-0) [facility] / [id number] 22:58:55 Test Item Value Reference Range Interpretation Comments PROTIME PATIENT (test 11.1 See_Comment [Auto mated message] code = 5964-2) The system [facility] generated this result transmitted ref erence range: 10.1 - 1 2.6 Seconds. The re ference range was not u sed to interpret this result as normal/abnor mal. INR (test code = 6301-6) 1.0 Nor mal INR <1.1; Warfarin Therap eutic range 2.0 to 3. 0 or 2.5 to 3.5, dep ending upon the indica tions. Lab Interpretation (test Normal code = 21530-6) [facility] [id number] 22:58:55 Test Item Value Reference Range Interpretation Comments APTT Patient (test code 25 See_Comment L [Au tomated message] = 3173-2) The system [employer] generated this result transmitted ref erence range: 26 - 36 Seconds. The reference range was not used to int erpret this result as normal/abnormal . Lab Interpretation (test Abnormal code = 72881-5) [facility] / [id number] 22:58:55 Test Item Value Reference Range Interpretation Comments PROTIME PATIENT (test 11.1 See_Comment [Auto mated message] code = 5964-2) The system [employer] generated this result transmitted ref erence range: 10.1 - 1 2.6 Seconds. The re ference range was not u sed to interpret this result as normal/abnor mal. INR (test code = 6301-6) 1.0 Nor mal INR <1.1; Warfarin Therap eutic range 2.0 to 3. 0 or 2.5 to 3.5, dep ending upon the indica tions. Lab Interpretation (test Normal code = 73412-5) [facility] [id number] 22:58:55 Test Item Value Reference Range Interpretation Comments APTT Patient (test code 25 See_Comment L [Au tomated message] = 3173-2) The system [employer] generated this result transmitted ref erence range: 26 - 36 Seconds. The reference range was not used to int erpret this result as normal/abnormal . Lab Interpretation (test Abnormal code = 86711-1) [facility] / [id number] 22:58:55 Test Item Value Reference Range Interpretation Comments PROTIME PATIENT (test 11.1 See_Comment [Auto mated message] code = 5964-2) The system [employer] generated this result transmitted ref erence range: 10.1 - 1 2.6 Seconds. The re ference range was not u sed to interpret this result as normal/abnor mal. INR (test code = 6301-6) 1.0 Nor mal INR <1.1; Warfarin Therap eutic range 2.0 to 3. 0 or 2.5 to 3.5, dep ending upon the indica tions. Lab Interpretation (test Normal code = 77558-5) [facility] WITH [id number] 22:56:34 Test Item Value Reference Range Interpretation Comments WBC (test code = 7.44 See_Comment [Automated 9690-2) message] The sy stem which generated this result transmitted reference range : 4.30 - 11.10 10*3/?L. The reference range was not used to interpret this result as normal/abnormal . RBC (test code = 3.73 See_Comment L [Automated 789-8) message] The sy stem which generated this result transmitted reference range : 3.93 - 5.25 10*6/?L. The reference range was not used to interpret this result as normal/abnormal . HGB (test code = 10.9 g/dL 11.6-15.0 L 718-7) HCT (test code = 33.3 % 35.7-45.2 L 4544-3) MCV (test code = 89.3 fL 80.6-95.5 787-2) MCH (test code = 29.2 pg 25.9-32.8 785-6) MCHC (test code = 32.7 g/dL 31.6-35.1 786-4) RDW-SD (test code = 44.8 fL 39.0-49.9 76588-1) RDW-CV (test code = 13.8 % 12.0-15.5 788-0) PLT (test code = 334 See_Comment [Automated 777-3) message] The sy stem which generated this result transmitted reference range : 166 - 358 10*3/ ?L. The reference r yusra was not used to interpret this result as normal/abnormal . MPV (test code = 8.8 fL 9.5-12.9 L 41973-3) NRBC/100 WBC (test 0.0 See_Comment [Automat ed code = 9810142424) message] The system which generated this result transmitted reference range : 0.0 - 10.0 /100 WBCs. The refer ence range was not u sed to interpret th is result as normal/abnormal . NRBC x10^3 (test code See_Comment [Auto mated = 8988904087) message] The s ystem which generated this result transmitted reference range : 10*3/?L. The reference range was not used to interpret this result as normal/abnormal . GRAN MAT (NEUT) % 69.1 % (test code = 770-8) IMM GRAN % (test code 0.30 % = 8318142028) LYMPH % (test code = 19.4 % 736-9) MONO % (test code = 7.3 % 5905-5) EOS % (test code = 3.2 % 713-8) BASO % (test code = 0.7 % 706-2) GRAN MAT x10^3(ANC) 5.15 10*3/uL 1.88-7.09 (test code = 2201777086) IMM GRAN x10^3 (test 0.00-0.06 code = 6550918460) LYMPH x10^3 (test code 1.44 10*3/uL 1.32-3.29 = 731-0) MONO x10^3 (test code 0.54 10*3/uL 0.33-0.92 = 742-7) EOS x10^3 (test code = 0.24 10*3/uL 0.03-0.39 711-2) BASO x10^3 (test code 0.05 10*3/uL 0.01-0.07 = 704-7) Lab Interpretation Abnormal (test code = 30696-2) [facility] WITH [id number] 22:56:34 Test Item Value Reference Range Interpretation Comments WBC (test code = 7.44 See_Comment [Automated 5790-2) message] The sy stem which generated this result transmitted reference range : 4.30 - 11.10 10*3/?L. The reference range was not used to interpret this result as normal/abnormal . RBC (test code = 3.73 See_Comment L [Automated 439-8) message] The sy stem which generated this result transmitted reference range : 3.93 - 5.25 10*6/?L. The reference range was not used to interpret this result as normal/abnormal . HGB (test code = 10.9 g/dL 11.6-15.0 L 718-7) HCT (test code = 33.3 % 35.7-45.2 L 4544-3) MCV (test code = 89.3 fL 80.6-95.5 787-2) MCH (test code = 29.2 pg 25.9-32.8 785-6) MCHC (test code = 32.7 g/dL 31.6-35.1 786-4) RDW-SD (test code = 44.8 fL 39.0-49.9 81816-3) RDW-CV (test code = 13.8 % 12.0-15.5 788-0) PLT (test code = 334 See_Comment [Automated 777-3) message] The sy stem which generated this result transmitted reference range : 166 - 358 10*3/ ?L. The reference r yusra was not used to interpret this result as normal/abnormal . MPV (test code = 8.8 fL 9.5-12.9 L 09700-9) NRBC/100 WBC (test 0.0 See_Comment [Automat ed code = 1134710487) message] The system which generated this result transmitted reference range : 0.0 - 10.0 /100 WBCs. The refer ence range was not u sed to interpret th is result as normal/abnormal . NRBC x10^3 (test code See_Comment [Auto mated = 8515208109) message] The s ystem which generated this result transmitted reference range : 10*3/?L. The reference range was not used to interpret this result as normal/abnormal . GRAN MAT (NEUT) % 69.1 % (test code = 770-8) IMM GRAN % (test code 0.30 % = 4333908891) LYMPH % (test code = 19.4 % 736-9) MONO % (test code = 7.3 % 5905-5) EOS % (test code = 3.2 % 713-8) BASO % (test code = 0.7 % 706-2) GRAN MAT x10^3(ANC) 5.15 10*3/uL 1.88-7.09 (test code = 3967012045) IMM GRAN x10^3 (test 0.00-0.06 code = 4027713599) LYMPH x10^3 (test code 1.44 10*3/uL 1.32-3.29 = 731-0) MONO x10^3 (test code 0.54 10*3/uL 0.33-0.92 = 742-7) EOS x10^3 (test code = 0.24 10*3/uL 0.03-0.39 711-2) BASO x10^3 (test code 0.05 10*3/uL 0.01-0.07 = 704-7) Lab Interpretation Abnormal (test code = 05577-6) [facility] WITH [id number] 22:56:34 Test Item Value Reference Range Interpretation Comments WBC (test code = 7.44 See_Comment [Automated 6121-2) message] The sy stem which generated this result transmitted reference range : 4.30 - 11.10 10*3/?L. The reference range was not used to interpret this result as normal/abnormal . RBC (test code = 3.73 See_Comment L [Automated 989-8) message] The sy stem which generated this result transmitted reference range : 3.93 - 5.25 10*6/?L. The reference range was not used to interpret this result as normal/abnormal . HGB (test code = 10.9 g/dL 11.6-15.0 L 718-7) HCT (test code = 33.3 % 35.7-45.2 L 4544-3) MCV (test code = 89.3 fL 80.6-95.5 787-2) MCH (test code = 29.2 pg 25.9-32.8 785-6) MCHC (test code = 32.7 g/dL 31.6-35.1 786-4) RDW-SD (test code = 44.8 fL 39.0-49.9 01665-9) RDW-CV (test code = 13.8 % 12.0-15.5 788-0) PLT (test code = 334 See_Comment [Automated 727-3) message] The sy stem which generated this result transmitted reference range : 166 - 358 10*3/ ?L. The reference r yusra was not used to interpret this result as normal/abnormal . MPV (test code = 8.8 fL 9.5-12.9 L 86243-4) NRBC/100 WBC (test 0.0 See_Comment [Automat ed code = 4752096776) message] The system which generated this result transmitted reference range : 0.0 - 10.0 /100 WBCs. The refer ence range was not u sed to interpret th is result as normal/abnormal . NRBC x10^3 (test code See_Comment [Auto mated = 1618873851) message] The s ystem which generated this result transmitted reference range : 10*3/?L. The reference range was not used to interpret this result as normal/abnormal . GRAN MAT (NEUT) % 69.1 % (test code = 770-8) IMM GRAN % (test code 0.30 % = 4759185684) LYMPH % (test code = 19.4 % 736-9) MONO % (test code = 7.3 % 5905-5) EOS % (test code = 3.2 % 713-8) BASO % (test code = 0.7 % 706-2) GRAN MAT x10^3(ANC) 5.15 10*3/uL 1.88-7.09 (test code = 6916506753) IMM GRAN x10^3 (test 0.00-0.06 code = 9091638043) LYMPH x10^3 (test code 1.44 10*3/uL 1.32-3.29 = 731-0) MONO x10^3 (test code 0.54 10*3/uL 0.33-0.92 = 742-7) EOS x10^3 (test code = 0.24 10*3/uL 0.03-0.39 711-2) BASO x10^3 (test code 0.05 10*3/uL 0.01-0.07 = 704-7) Lab Interpretation Abnormal (test code = 53279-2) [facility] [id number] 21:05:30 Test Item Value Reference Range Interpretation Comments ABO & RH (test AB POSITIVE Performed at [facility] code = 20) Laboratory [facility] [address] [place] [address]Cjel Free: [phone] A No. [id number] IAT (test code = Negative Performed a t [facility] 1185) Laboratory [facility] [address] [address]Afev Free: [phone] A No. [id number] [facility] [id number] 21:05:30 Test Item Value Reference Range Interpretation Comments ABO & RH (test AB POSITIVE Performed at [facility] code = 20) Laboratory [facility] [address] [address]Adws Free: [phone] A No. [id number] IAT (test code = Negative Performed a t [facility] 1185) Laboratory [facility] [address] [address]Gnrr Free: [phone] A No. [id number] [facility] [id number] 21:05:30 Test Item Value Reference Range Interpretation Comments ABO & RH (test AB POSITIVE Performed at [facility] code = 20) Laboratory [facility] [address] [address]Ihsm Free: [phone] A No. [id number] IAT (test code = Negative Performed a t [facility] 1185) Laboratory [facility] [address] [address]Rqbs Free: [phone] A No. [id number] [facility] Center[facility]. METABOLIC PANEL ([id number])2022-08-30 20:43:30 Test Item Value Reference Range Interpretation Comments NA (test code = 140 mmol/L 135-145 6791510643) K (test code = 4.0 mmol/L 3.5-5.0 6235490867) CL (test code = 109 mmol/L 98-108 H 3873926872) CO2 TOTAL (test code = 21 mmol/L 23-31 L 7543738149) AGAP (test code = 10 2-16 3173453902) BUN (test code = 15 mg/dL 7-23 0252797886) GLUCOSE (test code = 106 mg/dL 70-110 7737654846) CREATININE (test code = 0.76 mg/dL 0.50-1.04 4253512292) TOTAL BILI (test code = 0.5 mg/dL 0.1-1.0 5854300739) CALCIUM (test code = 8.6 mg/dL 8.6-10.6 5974742280) T PROTEIN (test code = 6.7 g/dL 6.3-8.2 8387288815) ALBUMIN (test code = 3.9 g/dL 3.5-5.0 1297351147) ALK PHOS (test code = 79 U/L 34-122 0823672866) ALTv (test code = 27 U/L 5-35 2-6) AST(SGOT) (test code = 47 U/L 13-40 H 5895092628) eGFR (test code = 75.2 mL/min/1.73m2 5419747761) PRITESH (test code = PRITESH) Association of Glomerular Filtration Rate (GFR) and Staging of Kidney Disease* + --+ --+ ------+| GFR (mL/min/1.73 m2) ?| With Kidney Damage ?| ?Without Kidney Damage+ --------+ --------+ +| ?>90 ?| ?Stage one ?| ? Normal ?+ ---+ ---+ -------+| ?60-89 ?| ?Stage two ?| ? Decreased GFR ? + --+ --+ ------+| ?30-59 ?| ?Stage three ?| ? Stage three ? + --+ --+ ------+| ?15-29 ?| ?Stage four ? | ? Stage four ?+ ---+ ---+ -------+| ?<15 (or dialysis) ? ?| ?Stage five ? | ? Stage five ?+ ---+ ---+ -------+ *Each stage assumes the associated GFR level has been in effect for at least three months. ?Stages 1 to 5, with or without kidney disease, indicate chronic kidney disease. Notes: Determination of stages one and two (with eGFR >59mL/min/1.73 m2) requires estimation of kidney damage for at least three months as defined by structural or functional abnormalities of the kidney, manifested by either:Pathological abnormalities or Markers of kidney damage (including abnormalities in the composition of the blood or urine or abnormalities in imaging tests). Lab Interpretation Abnormal (test code = 90309-0) [facility]. METABOLIC PANEL ([id number])2022-08-30 20:43:30 Test Item Value Reference Range Interpretation Comments NA (test code = 140 mmol/L 135-145 9555985728) K (test code = 4.0 mmol/L 3.5-5.0 2553105450) CL (test code = 109 mmol/L 98-108 H 4445336503) CO2 TOTAL (test code = 21 mmol/L 23-31 L 8178098466) AGAP (test code = 10 2-16 1469841750) BUN (test code = 15 mg/dL 7-23 1472055488) GLUCOSE (test code = 106 mg/dL 70-110 6969986148) CREATININE (test code = 0.76 mg/dL 0.50-1.04 3055342042) TOTAL BILI (test code = 0.5 mg/dL 0.1-1.9 0104673477) CALCIUM (test code = 8.6 mg/dL 8.6-10.6 0726148438) T PROTEIN (test code = 6.7 g/dL 6.3-8.2 4669028904) ALBUMIN (test code = 3.9 g/dL 3.5-5.0 1223529957) ALK PHOS (test code = 79 U/L 34-122 5305156060) ALTv (test code = 27 U/L 5-35 1742-6) AST(SGOT) (test code = 47 U/L 13-40 H 3875036605) eGFR (test code = 75.2 mL/min/1.73m2 4840038776) PRITESH (test code = PRITESH) Association of Glomerular Filtration Rate (GFR) and Staging of Kidney Disease* + --+ --+ ------+| GFR (mL/min/1.73 m2) ?| With Kidney Damage ?| ?Without Kidney Damage+ --------+ --------+ +| ?>90 ?| ?Stage one ?| ? Normal ?+ ---+ ---+ -------+| ?60-89 ?| ?Stage two ?| ? Decreased GFR ? + --+ --+ ------+| ?30-59 ?| ?Stage three ?| ? Stage three ? + --+ --+ ------+| ?15-29 ?| ?Stage four ? | ? Stage four ?+ ---+ ---+ -------+| ?<15 (or dialysis) ? ?| ?Stage five ? | ? Stage five ?+ ---+ ---+ -------+ *Each stage assumes the associated GFR level has been in effect for at least three months. ?Stages 1 to 5, with or without kidney disease, indicate chronic kidney disease. Notes: Determination of stages one and two (with eGFR >59mL/min/1.73 m2) requires estimation of kidney damage for at least three months as defined by structural or functional abnormalities of the kidney, manifested by either:Pathological abnormalities or Markers of kidney damage (including abnormalities in the composition of the blood or urine or abnormalities in imaging tests). Lab Interpretation Abnormal (test code = 80057-5) [facility]. METABOLIC PANEL ([id number])2022-08-30 20:43:30 Test Item Value Reference Range Interpretation Comments NA (test code = 140 mmol/L 135-145 3091375080) K (test code = 4.0 mmol/L 3.5-5.0 2120069595) CL (test code = 109 mmol/L 98-108 H 9993075826) CO2 TOTAL (test code = 21 mmol/L 23-31 L 8658776474) AGAP (test code = 10 2-16 1321193106) BUN (test code = 15 mg/dL 7-23 9899901738) GLUCOSE (test code = 106 mg/dL 70-110 3892800631) CREATININE (test code = 0.76 mg/dL 0.50-1.04 4224048918) TOTAL BILI (test code = 0.5 mg/dL 0.1-1.5 6987731131) CALCIUM (test code = 8.6 mg/dL 8.6-10.6 4557636369) T PROTEIN (test code = 6.7 g/dL 6.3-8.2 1553430342) ALBUMIN (test code = 3.9 g/dL 3.5-5.0 4736241392) ALK PHOS (test code = 79 U/L 34-122 3875018175) ALTv (test code = 27 U/L 5-35 1742-6) AST(SGOT) (test code = 47 U/L 13-40 H 2493829756) eGFR (test code = 75.2 mL/min/1.73m2 2846597974) PRITESH (test code = PRITESH) Association of Glomerular Filtration Rate (GFR) and Staging of Kidney Disease* + --+ --+ ------+| GFR (mL/min/1.73 m2) ?| With Kidney Damage ?| ?Without Kidney Damage+ --------+ --------+ +| ?>90 ?| ?Stage one ?| ? Normal ?+ ---+ ---+ -------+| ?60-89 ?| ?Stage two ?| ? Decreased GFR ? + --+ --+ ------+| ?30-59 ?| ?Stage three ?| ? Stage three ? + --+ --+ ------+| ?15-29 ?| ?Stage four ? | ? Stage four ?+ ---+ ---+ -------+| ?<15 (or dialysis) ? ?| ?Stage five ? | ? Stage five ?+ ---+ ---+ -------+ *Each stage assumes the associated GFR level has been in effect for at least three months. ?Stages 1 to 5, with or without kidney disease, indicate chronic kidney disease. Notes: Determination of stages one and two (with eGFR >59mL/min/1.73 m2) requires estimation of kidney damage for at least three months as defined by structural or functional abnormalities of the kidney, manifested by either:Pathological abnormalities or Markers of kidney damage (including abnormalities in the composition of the blood or urine or abnormalities in imaging tests). Lab Interpretation Abnormal (test code = 84200-2) [facility]"
[2023-03-01] MEDS ORDERED: TRAMADOL HCL 50 MG TAB ONE (17:19)
--- NOTE | 2023-03-01 17:39 | RAD REPORT ---
EXAM DESCRIPTION: RAD - Hip Left 2 View - 03/01/2023 5:07 pm CLINICAL HISTORY: Left hip pain FINDINGS: Severe osteoarthritis left hip. 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 No fracture or dislocation seen
--- NOTE | 2023-03-01 17:45 | RAD REPORT ---
EXAM DESCRIPTION: RAD - Shoulder Left 2 View - 03/01/2023 5:07 pm CLINICAL HISTORY: Left shoulder pain FINDINGS: Cortical irregularity junction of the medial humeral head and neck probably and osteophyte . Curvilinear sclerosis proximal humeral neck probably confluence of trabecula. Less likely 1 of thes e findings represent a fracture Bones are osteoporotic. Moderate osteoarthritis glenohumeral and AC joints. Area sclerosis humeral head probably avascular necrosis If the patient continues to have symptoms to suggest a fracture MRI would be recommended
--- NOTE | 2023-03-01 18:24 | EDPHYS ---
Physician Documentation [facility] Name: Jose Enrique Yin Age: 72 yrs Sex: Female : 1950 Arrival Date: 03/01/2023 Time: 16:07 Bed 12 Private MD: NAI Physician Lefty Lovelace HPI: 03/01 19:45 This 72 yrs old Female presents to ER via Wheelchair with complaints of Fall Injury, kb Shoulder Pain, Wrist Pain. 19:45 Details of fall: The patient fell from an upright position, while walking. Onset: The kb symptoms/episode began/occurred today. Associated injuries: The patient sustained left shoulder, painful injury, left hip, painful injury. Severity of symptoms: At their worst the symptoms were moderate, in the emergency department the symptoms are unchanged. The patient has not experienced similar symptoms in the past. The patient has not recently seen a physician. Patient reports chronic hip pain and need for left hip replacement. States she she fell today and brought her to help with her left arm causing pain to left shoulder. Reports she has had previous injury to that arm and rotator cuff in the past. Denies falling onto hip but reporting that her hip pain is exacerbated after fall.. Historical: - Allergies: 16:24 No Known Allergies; mb9 - Home Meds: 16:24 Lisinopril Oral [Active]; mb9 - PMHx: 16:24 Arthritis; Hypertensive disorder; mb9 - PSHx: 16:24 left arm; mb9 - Immunization history:: Adult Immunizations up to date. - Social history:: Smoking status: Patient denies any tobacco usage or history of. ROS: 19:36 Constitutional: Negative for fever, chills, and weight loss. kb 19:42 MS/extremity: Positive for pain, of the left hip and anterior aspect of left shoulder. kb 19:42 All other systems are negative. Exam: 19:42 Constitutional: This is a well developed, well nourished patient who is awake, alert, kb and in no acute distress. Head/Face: Normocephalic, atraumatic. ENT: Moist Mucous membranes Cardiovascular: Regular rate and rhythm with a normal S1 and S2. No gallops, murmurs, or rubs. No pulse deficits. Respiratory: Respirations even and unlabored. No increased work of breathing. Talking in full sentences Abdomen/GI: Soft, non-tender. No distention Skin: Warm, dry with normal turgor. Normal color. Neuro: Awake and alert, GCS 15, oriented to person, place, time, and situation. Moves all extremities. Normal gait. 19:42 Musculoskeletal/extremity: Extremities: grossly normal except: noted in the left hip: pain, noted in the left shoulder: decreased ROM, pain, ROM: limited active range of motion, in the left shoulder, Circulation is intact in all extremities. Sensation intact. Weight bearing: can bear weight with assistance only, uses walker. Vital Signs: 16:22 BP 131 / 61; Pulse 81; Resp 18; Temp 98; Pulse Ox 100% ; Weight 58.97 kg; Height 5 ft. mb9 1 in. ; Pain 10/10; 16:22 Body Mass Index 24.56 (58.97 kg, 154.94 cm) mb9 16:22 Pain Scale: Adult mb9 MDM: 16:21 Patient medically screened. kb 19:44 Differential diagnosis: contusion, fracture, sprain, strain, chronic pain. Data kb reviewed: vital signs, nurses notes. Counseling: I had a detailed discussion with the patient and/or guardian regarding: the historical points, exam findings, and any diagnostic results supporting the discharge/admit diagnosis, radiology results, the need for outpatient follow up, a orthopedic surgeon, to return to the emergency department if symptoms worsen or persist or if there are any questions or concerns that arise at home. 03/01 16:31 Order name: Shoulder Left (2 View) XRAY; Complete Time: 17:50 kb 03/01 16:31 Order name: Hip Left 2 View XRAY; Complete Time: 17:44 kb 03/01 18:24 Order name: Sling; Complete Time: 18:26 kb Administered Medications: 17:10 Drug: traMADol PO 50 mg Route: PO; mb9 18:16 Follow up: Response: No adverse reaction mb9 18:39 Drug: Ketorolac IM 30 mg Route: IM; Site: right ventrogluteal; iw 18:40 Drug: Dexamethasone IM 10 mg Route: IM; Site: right ventrogluteal; iw Disposition Summary: 03/01/23 18:23 Discharge Ordered Location: Home kb Condition: Stable kb Diagnosis - Pain in left shoulder kb - Pain in left hip kb Followup: kb - With: Emergency Department - When: As needed - Reason: Worsening of condition Followup: kb - With: Private Physician - When: 2 - 3 days - Reason: Recheck today's complaints, Continuance of care, Re-evaluation by your physician Discharge Instructions: - Discharge Summary Sheet kb - Musculoskeletal Pain kb Forms: - Medication Reconciliation Form kb - Thank You Letter kb - Antibiotic Education kb - Prescription Opioid Use kb - Patient Portal Instructions kb Prescriptions: - Prednisone 20 mg Oral Tablet - take 1 tablet by ORAL route once daily for 5 days; 5 tablet; Refills: 0, kb Product Selection Permitted - Diclofenac Sodium 75 mg Oral tablet,delayed release (DR/EC) - take 1 tablet by ORAL route 2 times per day As needed; 30 tablet; Refills: 0, kb Product Selection Permitted Signatures: Dispatcher [employer] EDDemetria Ponce, ALEXIS VYAS-Alondra Canas, RN RN Noelle Desai RN RN mb9 Corrections: (The following items were deleted from the chart) 16:25 16:24 Allergies: Codeine; [id number] mb9
--- NOTE | 2023-03-01 18:24 | ER ---
Nurse's Notes [facility] Name: Jose Enrique Yin Age: 72 yrs Sex: Female : 1950 Arrival Date: 03/01/2023 Time: 16:07 Bed 12 Private MD: Diagnosis: Pain in left shoulder;Pain in left hip Presentation: 03/01 16:22 Chief complaint: Patient states: "In, August I fell and severed my artery in my left mb9 hand. They put plates in but never did X-rays. 2 hrs ago, I went to raise my left arm up to catch myself from falling, and the pain become unbearable and my left hip twisted. I didn't actually fall though.". Coronavirus screen: At this time, the client does not indicate any symptoms associated with coronavirus-19. Ebola Screen: No symptoms or risks identified at this time. Initial Sepsis Screen: Does the patient meet any 2 criteria? No. Patient's initial sepsis screen is negative. Does the patient have a suspected source of infection? No. Patient's initial sepsis screen is negative. Risk Assessment: Do you want to hurt yourself or someone else? Patient reports no desire to harm self or others. Onset of symptoms was March 01, 2023. 16:22 Acuity: YONAS 4 mb9 16:22 Method Of Arrival: Wheelchair mb9 Triage Assessment: 16:25 General: Appears uncomfortable, Behavior is calm, cooperative. Pain: Complains of pain mb9 in left arm Pain radiates to left hip Pain currently is 10 out of 10 on a pain scale. Quality of pain is described as throbbing, Is continuous. Neuro: Baxter Agitation-Sedation Scale (RASS): 0 - Alert and Calm Level of Consciousness is awake, alert, obeys commands, Oriented to person, place, time, situation, Appropriate for age. Cardiovascular: Patient's skin is warm and dry. Respiratory: Airway is patent Respiratory effort is even, unlabored, Respiratory pattern is regular, symmetrical. GI: No signs and/or symptoms were reported involving the gastrointestinal system. : No signs and/or symptoms were reported regarding the genitourinary system. Derm: Skin is pink, warm \\T\\ dry. Musculoskeletal: Range of motion: limited in left shoulder, left elbow and left hip. Historical: - Allergies: 16:24 No Known Allergies; mb9 - Home Meds: 16:24 Lisinopril Oral [Active]; mb9 - PMHx: 16:24 Arthritis; Hypertensive disorder; mb9 - PSHx: 16:24 left arm; mb9 - Immunization history:: Adult Immunizations up to date. - Social history:: Smoking status: Patient denies any tobacco usage or history of. Screenin:26 [facility] ED Fall Risk Assessment (Adult) History of falling in the last 3 months, mb9 including since admission Yes- physiologic fall (2 pts) Confusion or Disorientation No (0 pts) Intoxicated or Sedated No (0 pts) Impaired Gait Yes (1 pt) Mobility Assist Device Used Yes (1 pt) Altered Elimination No (0 pt) Score/Fall Risk Level 3 or more points = High Risk Oriented to surroundings, Maintained a safe environment, Educated pt \\T\\ family on fall prevention, incl call for assistance when getting out of bed. Abuse screen: Denies threats or abuse. Nutritional screening: No deficits noted. Tuberculosis screening: No symptoms or risk factors identified. Assessment: 17:27 Reassessment: No changes from previously documented assessment. Patient and/or family mb9 updated on plan of care and expected duration. Pain level reassessed. Patient is alert, oriented x 3, equal unlabored respirations, skin warm/dry/pink. Vital Signs: 16:22 BP 131 / 61; Pulse 81; Resp 18; Temp 98; Pulse Ox 100% ; Weight 58.97 kg; Height 5 ft. mb9 1 in. ; Pain 10/10; 16:22 Body Mass Index 24.56 (58.97 kg, 154.94 cm) mb9 16:22 Pain Scale: Adult mb9 ED Course: 16:13 Patient arrived in ED. mg5 16:21 Demetria Parikh [facility]C [facility] kb 16:21 Lefty Lovelace MD is Attending Physician. kb 16:24 Triage completed. mb9 16:25 Arm band placed on. mb9 16:29 Noelle Saeed, ANTONIO is Primary Nurse. mb9 17:09 Shoulder Left (2 View) XRAY In Process Unspecified. EDMS 17:09 Hip Left 2 View XRAY In Process Unspecified. EDMS 18:26 Patient has correct armband on for positive identification. Bed in low position. Call mm9 light in reach. Side rails up X 1. Adult w/ patient. Pulse ox on. NIBP on. 18:26 Sling applied to left arm. mm9 Administered Medications: 17:10 Drug: traMADol PO 50 mg Route: PO; mb9 18:16 Follow up: Response: No adverse reaction mb9 18:39 Drug: Ketorolac IM 30 mg Route: IM; Site: right ventrogluteal; iw 18:40 Drug: Dexamethasone IM 10 mg Route: IM; Site: right ventrogluteal; iw Medication: 16:26 VIS not applicable for this client. mb9 Outcome: 18:23 Discharge ordered by . kb 19:00 Patient left the ED. iw Signatures: Dispatcher [employer] EDMS Demetria Parikh, FINANCIAL REPRESENTATIVE-Mitul MATOSP-Alondra Canas, RN RN Thao Ho mm9 Noelle Saeed RN RN mb9 Shayy Tang mg5 Corrections: (The following items were deleted from the chart) 16:25 16:24 Allergies: Codeine; mb9 mb9
[2023-03-01] MEDS ORDERED: KETOROLAC 30 MG/ML INJ ONE (18:42)
[2023-03-01] MEDS ORDERED: dexAMETHasone 10 MG/ML VIAL ONE (18:42)
[2023-03-01 19:04] VITALS: BP 131/61; TEMP 98; O2SAT 100
== END 2023-03-01 19:00 | disposition home or self-care (01) ==
LOC: ER 16:07
DX: M25.512 Pain in left shoulder (principal); M25.552 Pain in left hip
CPT/HCPCS: 73502; 73030; 96372; 99284; J1100

== ENCOUNTER 2023-03-23 17:09 | Emergency (ER) | payer OTHER ==
--- OUTSIDE RECORDS SUMMARY | 2023-03-23 17:23 | XMS REPORT | Continuity of Care Document ---
:1950 Author Organization [facility] t Address [address] [place] [address] [place] [id number] Care Team Providers Name Role Phone NADEEN ARAUJO Primary Care Physician Unavailable Nadeen Araujo L Attending Clinician Unavailable ALEJO PEGUERO Attending Clinician Unavailable ALEJO BERGERON Attending Clinician Unavailable Marielena CESAR, Alejo Attending Clinician Elyssa DONAHUE MD, John Attending Clinician Doctor Unassigned, Fitzhugh Attending Clinician Unavailable Allan Peñaloza RN Attending Clinician Unavailable Henri Phoenix MD Attending Clinician Ham Slater MD Attending Clinician Elyssa DONAHUE MD, John Admitting Clinician ALEJO BERGERON Admitting Clinician Unavailable Payers Payer Name Policy Type Policy Number Effective Date Expiration Date Lisette lionel ROCHA/[facility] [id number] 2022 DUAL COMP HMO D 00:00:00 SNP MEDICAID OF [id number] 2022 [place] 00:[place]:00 [employer] MEDICARE [id number] 2020 Common Sp [place] 00:00:00 [facility] MEDICARE C1 [id number] 2020 Common Sp [place] 00:00:00 [facility] MEDICARE C1 [id number] 2020 Common Sp mal[place] 00:00:00 [facility] Problems Condition Condition Condition Status Onset Resolution Last Treating Co mments Source Name Details Category Date Date Treatment Clinician Date Osteoporos Osteoporos Disease Recurre Univers is is nce 206 ity of 00:00: [place] 00 Medical Branch Injury of Injury of Disease Active Uni vers left left 204 ity of radial radial 00:00: [place] artery artery 00 Medical Branch Open Open Disease Active Univers fracture fracture 2-04 ity of of left of left 00:00: [place] wrist, wrist, 00 Medical initial initial Branch encounter encounter Disorder Circulatio Problem Com mon of n problem Spirit cardiovasc - [facility] ular [facility] [id number] Primary Problem Commo n osteoarthr Spirit itis - [facility] involving [facility] joints [facility] [id number] Osteoarthr Problem Co mmon itis of Spirit multiple - [facility] type Chronic Other Problem Common pain chronic [facility] pain [facility] Migraine Migraines Problem Comm on [facility] Hepatitis Hepatitis Problem Com mon [facility] [id number] Current Problem Common moderate Spirit episode of - [facility] major 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 region and osteoarthr Me dical thigh itis type Center Swelling Swelling Problem Commo n Spirit [facility] Unsteady Unsteady Problem Commo n gait gait [facility] Osteopenia Osteopenia Problem C [facility] Hypertensi HTN Problem Commo n on (hypertens Spirit ion) [facility] Anxiety Anxiety Problem Common [facility] [id number] Depression Problem Co mmon , Spirit recurrent - [facility] Allergies, Adverse Reactions, Alerts Allergy [...] Date Stop Date Quantity Comments Source History SDOH University o f Alcohol Frequency [place] M edical Branch History SDOH Social Unive rsity of Connections Get [place] Med ical Together Branch History SDOH Social Unive rsity of Connections [facility] History SDOH Social Unive rsity of Connections [place] [facility] Membership Branch History SDOH Social Unive rsity of Connections [place] [facility] Meetings Branch History of tobacco Cigarette Smoker University of use [place] [facility] Exposure to 2022-10-26 2022-11-05 Not sure University of SARS-CoV-2 (event) 00:00:00 15:21:00 [place] [facility] Tobacco use and 2022-08-31 2022-08-31 User of Universit y of exposure 00:00:00 00:00:00 smokeless [place] Medical tobacco Branch History SDOH 2022-08-31 2022-08-31 0 University o f Alcohol Std Drinks 00:00:00 00:00:00 [place] [facility] History SDOH 2022-08-31 2022-08-31 1 University o f Alcohol Binge 00:00:00 00:00:00 [place] Medic al Branch History SDOH Social 2022-08-31 2022-08-31 5 Unive rsity of Connections Phone 00:00:00 00:00:00 [place] M edical Branch History SDOH Social 2022-08-31 2022-08-31 4 Unive rsity of Connections Living 00:00:00 00:00:00 [place] [facility] History SDOH 2022-08-31 2022-08-31 0 University o f Physical Activity 00:00:00 00:00:00 [place] M edical DPW Branch History SDOH 2022-08-31 2022-08-31 0 University o f Physical Activity 00:00:00 00:00:00 [place] M edical MPS Branch History SDOH 2022-08-31 2022-08-31 2 University o f Financial 00:00:00 00:00:00 [place] [facility] History SDOH Food 2022-08-31 2022-08-31 3 Univers ity of Worry 00:00:00 00:00:00 [place] [facility] History SDOH Food 2022-08-31 2022-08-31 2 Univers ity of Scarcity 00:00:00 00:00:00 [place] [facility] History SDOH 2022-08-31 2022-08-31 2 University o f Transport Med 00:00:00 00:00:00 [place] Medic al Branch History SDOH 2022-08-31 2022-08-31 2 University o f Transport Non-Med 00:00:00 00:00:00 [facility] edical Branch Sex [birth year] At [birth year] Universit y of 00:00:00 00:00:00 [facility] Smoking Status Start Date Stop Date Source Smokes tobacco daily 2022-08-31 00:00:00 Univers ity of [facility] Never Smoker Common Spirit [facility] Medications Ordered Filled Start Stop Current Ordering Indication Dosage Frequency Signature Comments Components Source Medication Medication Date Date Medication? Clinician (SIG) Name Name traMADoL 50 2022-0 2022- No 4647 50mg Take 1 Uni vers mg tablet -16 04-24 tablet by ity of 00:00: 04:59 mouth [place] 00 :00 every 6 Medical (six) Branch hours as needed for Pain (scale 7-10) for up to 7 days. Indication s: acute pain gabapentin 2022-0 Yes [id number] 300mg Take 1 Univers 300 mg 4-12 [id number] capsule by ity o f capsule 00:00: mouth at [place] [address] bedtime. Medical Branch gabapentin 2022-0 Yes [id number] 300mg Take 1 Univers 300 mg 4-12 [id number] capsule by ity o f capsule 00:00: mouth at [place] [address] bedtime. Medical Branch gabapentin 2022-0 Yes [id number] 300mg Take 1 Univers 300 mg 4-12 [id number] capsule by ity o f capsule 00:00: mouth at [place] [address] bedtime. Medical Branch gabapentin 2022-0 Yes [id number] 300mg Take 1 Univers 300 mg 4-12 [id number] capsule by ity o f capsule 00:00: mouth at [place] [address] bedtime. Medical Branch gabapentin 2022-0 Yes [id number] 300mg Take 1 Univers 300 mg 4-12 [id number] capsule by ity o f capsule 00:00: mouth at [place] 00 bedtime. Medical Branch gabapentin 3-0 Yes [id number] 300mg Take 1 Univers 300 mg 4-12 [id number] capsule by ity o f capsule 00:00: [...] mouth ity of tablet 18:34: in the [place] [address] morning. Medical Branch gabapentin 2023-0 Yes 300mg Take 300 Un samia 300 mg 2-13 mg by ity of capsule 18:34: mouth in [place] [address] the Medical morning. Branch celecoxib 2023-0 Yes 200mg Take 200 Uni vers (CELEBREX) 2-13 mg by ity of 200 mg 18:34: mouth in [place] [address] the Medical morning. Branch lisinopriL 2023-0 Yes 20mg Take 20 mg U nivers 20 mg 2-13 by mouth ity of tablet 18:34: in the [place] [address] morning. Medical Branch gabapentin 2023-0 Yes 300mg Take 300 Un samia 300 mg 2-13 mg by ity of capsule 18:34: mouth in [place] [address] the Medical morning. Branch celecoxib 2023-0 Yes 200mg Take 200 Uni vers (CELEBREX) 2-13 mg by ity of 200 mg 18:34: mouth in [place] [address] the Medical morning. Branch lisinopriL 2023-0 Yes 20mg Take 20 mg U nivers 20 mg 2-13 by mouth ity of tablet 18:34: in the [place] [address] morning. Medical Branch gabapentin 2023-0 Yes 300mg Take 300 Un samia 300 mg 2-13 mg by ity of capsule 18:34: mouth in [place] [address] the Medical morning. Branch celecoxib 2023-0 Yes 200mg Take 200 Uni vers (CELEBREX) 2-13 mg by ity of 200 mg 18:34: mouth in [facility] [facility] 36 the Medical morning. Branch lisinopriL 2023-0 Yes 20mg Take 20 mg U nivers 20 mg 2-13 by mouth ity of tablet 18:34: in the [place] [address] morning. Medical Branch gabapentin 2023-0 Yes 300mg Take 300 Un samia 300 mg 2-13 mg by ity of capsule 18:34: mouth in [place] [address] the Medical morning. Branch celecoxib 2023-0 Yes 200mg Take 200 Uni vers (CELEBREX) 2-13 mg by ity of 200 mg 18:34: mouth in [place] [address] the Medical morning. Branch lisinopriL 2023-0 Yes 20mg Take 20 mg U nivers 20 mg 2-13 by mouth ity of tablet 18:34: in the [place] [address] morning. Medical Branch gabapentin 2023-0 Yes 300mg Take 300 Un samia 300 mg 2-13 mg by ity of capsule 18:34: mouth in [place] [address] the Medical morning. Branch celecoxib 2023-0 Yes 200mg Take 200 Uni vers (CELEBREX) 2-13 mg by ity of 200 mg 18:34: mouth in [place] [address] the Medical morning. Branch lisinopriL 2023-0 Yes 20mg Take 20 mg U nivers 20 mg 2-13 by mouth ity of tablet 18:34: in the [place] [address] morning. Medical Branch gabapentin 2023-0 Yes 300mg Take 300 Un samia 300 mg 2-13 mg by ity of capsule 18:34: mouth in [place] [address] the Medical morning. Branch celecoxib 2023-0 Yes 200mg Take 200 Uni vers (CELEBREX) 2-13 mg by ity of 200 mg 18:34: mouth in [facility] [facility] 36 the Medical morning. Branch lisinopriL 2023-0 Yes 20mg Take 20 mg U nivers 20 mg 2-13 by mouth ity of tablet 18:34: in the [place] [address] morning. Medical Branch gabapentin 2023-0 Yes 300mg Take 300 Un samia 300 mg 2-13 mg by ity of capsule 18:34: mouth in [place] [address] the Medical morning. Branch celecoxib 2023-0 Yes 200mg Take 200 Uni vers (CELEBREX) 2-13 mg by ity of 200 mg 18:34: mouth in [place] capsule 36 the Medical morning. Branch lisinopriL 2023-0 Yes 20mg Take 20 mg U nivers 20 mg 2-13 by mouth ity of tablet 18:34: in the [place] [address] morning. Medical Branch gabapentin 2023-0 Yes 300mg Take 300 Un samia 300 mg 2-13 mg by ity of capsule 18:34: mouth in [place] [address] the Medical morning. Branch celecoxib 2023-0 Yes 200mg Take 200 Uni vers (CELEBREX) 2-13 mg by ity of 200 mg 18:34: mouth in [place] capsule 36 the Medical morning. Branch lisinopriL 2023-0 Yes 20mg Take 20 mg U nivers 20 mg 2-13 by mouth ity of tablet 18:34: in the [place] [address] morning. Medical Branch gabapentin 2023-0 Yes 300mg Take 300 Un samia 300 mg 2-13 mg by ity of capsule 18:34: mouth in [place] [address] the Medical morning. Branch celecoxib 2023-0 Yes 200mg Take 200 Uni vers (CELEBREX) 2-13 mg by ity of 200 mg 18:34: mouth in [place] capsule the Medical morning. Branch lisinopriL 2023-0 Yes 20mg Take 20 mg U nivers 20 mg 2-13 by mouth ity of tablet 18:34: in the [place] [address] morning. Medical Branch gabapentin 2023-0 Yes 300mg Take 300 Un samia 300 mg 2-13 mg by ity of capsule 18:34: mouth in [place] [address] the Medical morning. Branch celecoxib 2023-0 Yes 200mg Take 200 Uni vers (CELEBREX) 2-13 mg by ity of 200 mg 18:34: mouth in [place] capsule 36 the Medical morning. Branch lisinopriL 2023-0 Yes 20mg Take 20 mg U nivers 20 mg 2-13 by mouth ity of tablet 18:34: in the [place] [address] morning. Medical Branch gabapentin 2023-0 Yes 300mg Take 300 Un samia 300 mg 2-13 mg by ity of capsule 18:34: mouth in [place] [address] the Medical morning. Branch celecoxib 2023-0 Yes 200mg Take 200 Uni vers (CELEBREX) 2-13 mg by ity of 200 mg 18:34: mouth in [place] capsule 36 the Medical morning. Branch lisinopriL 2023-0 Yes 20mg Take 20 mg U nivers 20 mg 2-13 by mouth ity of tablet 18:34: in the [place] [address] morning. Medical Branch gabapentin 2023-0 Yes 300mg Take 300 Un samia 300 mg 2-13 mg by ity of capsule 18:34: mouth in [place] [address] the Medical morning. Branch celecoxib 2023-0 Yes 200mg Take 200 Uni vers (CELEBREX) 2-13 mg by ity of 200 mg 18:34: mouth in [place] [address] the Medical morning. Branch lisinopriL 2023-0 Yes 20mg Take 20 mg U nivers 20 mg 2-13 by mouth ity of tablet 18:34: in the [place] [address] morning. Medical Branch gabapentin 2023-0 Yes 300mg Take 300 Un samia 300 mg 2-13 mg by ity of capsule 18:34: mouth in [place] [address] the Medical morning. Branch celecoxib 2023-0 Yes 200mg Take 200 Uni vers (CELEBREX) 2-13 mg by ity of 200 mg 18:34: mouth in [place] [address] the Medical morning. Branch lisinopriL 2023-0 Yes 20mg Take 20 mg U nivers 20 mg 2-13 by mouth ity of tablet 18:34: in the [place] [address] morning. Medical Branch gabapentin 2023-0 Yes 300mg Take 300 Un samia 300 mg 2-13 mg by ity of capsule 18:34: mouth in [place] [address] the Medical morning. Branch celecoxib 2023-0 Yes 200mg Take 200 Uni vers (CELEBREX) 2-13 mg by ity of 200 mg 18:34: mouth in [place] [address] the Medical morning. Branch lisinopriL 2023-0 Yes 20mg Take 20 mg U nivers 20 mg 2-13 by mouth ity of tablet 18:34: in the [place] [address] morning. Medical Branch gabapentin 2023-0 Yes 300mg Take 300 Un samia 300 mg 2-13 mg by ity of capsule 18:34: mouth in [place] [address] the Medical morning. Branch celecoxib 2023-0 Yes 200mg Take 200 Uni vers (CELEBREX) 2-13 mg by ity of 200 mg 18:34: mouth in [place] [address] the Medical morning. Branch lisinopriL 2023-0 Yes 20mg Take 20 mg U nivers 20 mg 2-13 by mouth ity of tablet 18:34: in the [place] [address] morning. Medical Branch gabapentin 2022-0 Yes 300mg Take 300 Un samia 300 mg 2-13 mg by ity of capsule 18:34: mouth in [place] [address] the Medical morning. Branch celecoxib 2022-0 Yes 200mg Take 200 Uni vers (CELEBREX) 2-13 mg by ity of 200 mg 18:34: mouth in [facility] 36 the Medical morning. Branch methocarbam 2022-0 3- No [id number] 750mg Take 1 Univers oL 750 mg 09-08 [id number] tablet by it y of tablet 00:00: 04:59 mouth in [place] 00 :00 the [facility] and 1 tablet at noon and 1 tablet in the evening. Do all this for 30 days. methocarbam 2022-0 3- No [id number] 750mg Take 1 Univers oL 750 mg 09-08 [id number] tablet by it y of tablet 00:00: 04:59 mouth in [place] 00 :00 the [facility] and 1 tablet at noon and 1 tablet in the evening. Do all this for 30 days. methocarbam 2022-0 3- No [id number] 750mg Take 1 Univers oL 750 mg 09-08 [id number] tablet by it y of tablet 00:00: 04:59 mouth in [place] 00 :00 the [facility] and 1 tablet at noon and 1 tablet in the evening. Do all this for 30 days. methocarbam 2022-0 3- No [id number] 750mg Take 1 Univers oL 750 mg 09-08 [id number] tablet by it y of tablet 00:00: 04:59 mouth in [place] 00 :00 the [facility] and 1 tablet at noon and 1 tablet in the evening. Do all this for 30 days. methocarbam 2022-0 3- No [id number] 750mg Take 1 Univers oL 750 mg 09-08 [id number] tablet by it y of tablet 00:00: 04:59 mouth in [place] 00 :00 the [facility] and 1 tablet at noon and 1 tablet in the evening. Do all this for 30 days. methocarbam 2022-0 3- No [id number] 750mg Take 1 Univers oL 750 mg 09-08 [id number] tablet by it y of tablet 00:00: 04:59 mouth in [place] 00 :00 the [facility] morning Branch and 1 tablet at noon and 1 tablet in the evening. Do all this for 30 days. methocarbam 2022-2022- No [id number] 750mg Take 1 Univers oL 750 mg 09-08 [id number] tablet by it y of tablet 00:00: 04:59 mouth in [place] 00 :00 the [facility] morning Branch and 1 tablet at noon and 1 tablet in the evening. Do all this for 30 days. methocarbam 2022-2022- No [id number] 750mg Take 1 Univers oL 750 mg 09-08 [id number] tablet by it y of tablet 00:00: 04:59 mouth in [place] 00 :00 the [facility] morning [place] and 1 tablet at noon and 1 tablet in the evening. Do all this for 30 days. docusate 2022-2022- No [id number] 100mg Take 1 Univers 100 mg 09-08 [id number] capsule by ity of capsule 00:00: 05:59 mouth in [place] 00 :00 the [facility] and 1 capsule in the evening. Do all this for 15 days. docusate 2022-0 2022- No [id number] 100mg Take 1 Univers 100 mg 09-08 [id number] capsule by ity of capsule 00:00: 05:59 mouth in [place] 00 :00 the [facility] and 1 capsule in the evening. Do all this for 15 days. gabapentin 2022-2022- No [id number] 300mg Take 1 Univers 300 mg 09-08 [id number] capsule by ity of capsule 00:00: 05:59 mouth in [place] 00 :00 the [facility] and 1 capsule at noon and 1 capsule in the evening. Do all this for 14 days. gabapentin 2022-0 2022- No [id number] 300mg Take 1 Univers 300 mg 09-08 [id number] capsule by ity of capsule 00:00: 05:59 mouth in [place] 00 :00 the [facility] and 1 capsule at noon and [...] 7 days. Indication s: acute pain HYDROcodone No 4647 1{tbl} Take 1 U nivers [...] 7 days. Indication s: acute pain HYDROcodone No 4647 1{tbl} Take 1 U nivers -acetaminop 09-08 tablet by it y of hen 10-325 00:00: 05:59 mouth [place] mg tablet 00 :00 every 6 Medical (six) Branch hours as needed for Pain (scale 4-6) or Pain (scale 7-10) for up to 7 days. Indication s: acute pain ondansetron 2022- No [id number] 4mg Take 1 Univers (ZOFRAN) 4 09-08 [id number] tablet by i ty of mg tablet 00:00: 05:59 mouth [place] 00 :00 every 6 Medical (six) Branch hours for 20 doses. ondansetron 2022- No [id number] 4mg Take 1 Univers (ZOFRAN) 4 09-08 [id number] tablet by i ty of mg tablet 00:00: 05:59 mouth [place] 00 :00 every 6 Medical (six) Branch hours for 20 doses. polyethylen Yes 17g 17 g, Unive rs e glycol 2-12 Oral, ity of 3350 powder 13:30: DAILY, [place] 17 g 00 First dose Medical on Sun Branch 09/07/22 at 0730, Until Discontinu ed, Routine glycerin/mi 2023-0 Yes 225mL 225 mL, Un samia neral oil 2-12 Rectal, ity of (AGLO 13:26: PRN, [place] ENEMA) 01 Starting Medical (COMPOUNDED on Thu [place] ) Enem 225 09/07/22 at mL 0726, Until Discontinu ed, Routine, Constipati on unresolved by oral medication s bisacodyL 0 Yes 10mg 10 mg, Univer s (DULCOLAX) [...] Andrei as mg 18 Starting Medical on Thu Branch 09/05/22 at 2359, Until Discontinu ed, Routine, give for breakthrou gh pain after first line oral pain medication s have been given HYDROmorphO 2022-0 2022- No .2mg 0.2 mg, Un samia ne 2-10 02-10 Slow IV ity of (DILAUDID) 00:27: 03:07 Push, [place] injection 50 :32 Q5MIN PRN, Medi [place] 0.2 mg 10 doses, Branch Starting on Sanjuana 09/04/22 at 1827, Until Sanju[place] 09/04/22 at 2107, Routine, Pain (scale 7-10), PACU
Us e approved by (Faculty): PACU USE -ANESTHESI A SERVICE-HY DROMORPHON E INJECTIONS lisinopriL 2022-0 Yes 20mg Take 20 mg U nivers 20 mg 2-09 by mouth ity of tablet 21:07: in the [place] [address] morning. Medical Branch gabapentin 2022-0 Yes 300mg Take 300 Un samia 300 mg 2-09 mg by ity of capsule 21:07: mouth in [place] [address] the Medical morning. Branch celecoxib 2022-0 Yes 200mg Take 200 Uni vers (CELEBREX) 2-09 mg by ity of 200 mg 21:07: mouth in [place] [address] the Medical morning. Branch diphenhydrA 2023-0 Yes 25mg 25 mg, [facility] 2- Oral, ity of (BENADRYL) 02:22: Q4HPRN, [place] tablet 25 33 Starting Medica l mg on Thu Branch 09/03/22 at 2021, Until Discontinu ed, Routine, Itching diphenhydrA 0 Yes 25mg 25 mg, [facility] 2- Oral, ity of (BENADRYL) 02:22: Q4HPRN, [place] tablet 25 33 Starting Medica l mg on Thu Branch 09/03/22 at 2021, Until Discontinu ed, Routine, Itching enoxaparin 2022- No [id number] 30mg inject 0.3 Univers 30 mg/0.3 09-04 [id number] mL under ity of mL 00:00: 04:59 the skin [place] injection 00 :00 every 12 Medica l (twelve) Branch hours for 56 days. enoxaparin 2022- No [id number] 30mg inject 0.3 Univers 30 mg/0.3 09-04 [id number] mL under ity of mL 00:00: 04:59 the skin [place] injection 00 :00 every 12 Medica l (twelve) Branch hours for 56 days. enoxaparin 2022- No [id number] 30mg inject 0.3 Univers 30 mg/0.3 09-04 [id number] mL under ity of mL 00:00: 04:59 the skin [place] injection 00 :00 every 12 Medica l (twelve) Branch hours for 56 days. enoxaparin 2022- No [id number] 30mg inject 0.3 Univers 30 mg/0.3 09-04 [id number] mL under ity of mL 00:00: 04:59 the skin [place] injection 00 :00 every 12 Medica l (twelve) Branch hours for 56 days. enoxaparin 2022-2022- No [id number] 30mg inject 0.3 Univers 30 mg/0.3 09-04 [id number] mL under ity of mL 00:00: 04:59 the skin [place] injection 00 :00 every 12 Medica l (twelve) Branch hours for 56 days. enoxaparin 2022- No [id number] 30mg inject 0.3 Univers 30 mg/0.3 09-04 [id number] mL under ity of mL 00:00: 04:59 the skin [place] injection 00 :00 every 12 Medica l (twelve) Branch hours for 56 days. enoxaparin 2023-0 3- No [id number] 30mg inject 0.3 Univers 30 mg/0.3 09-04 [id number] mL under ity of mL 00:00: 04:59 the skin [place] injection 00 :00 every 12 Medica l (twelve) Branch hours for 56 days. enoxaparin 2022-0 3- No [id number] 30mg inject 0.3 Univers 30 mg/0.3 09-04 [id number] mL under ity of mL 00:00: 04:59 the skin [place] injection 00 :00 every 12 Medica l (twelve) Branch hours for 56 days. enoxaparin 2022-0 3- No [id number] 30mg inject 0.3 Univers 30 mg/0.3 09-04 [id number] mL under ity of mL 00:00: 04:59 [...] 1112, Until Discontinu ed, Routine, headache gabapentin 2022-0 Yes 300mg 300 mg, Uni vers (NEURONTIN) [...] 32 Starting Medica l tablet 1 on [facility] tablet 09/02/22 at 0920, Until Discontinu ed, Routine, Pain (scale 4-6) HYDROcodone 2023-0 Yes 1{tbl} 1 tablet, Univers -acetaminop 2-07 Oral, ity of hen (NORCO) 15:20: Q6HPRN, Andrei as 10-325 mg 32 Starting Medica l tablet 1 on [facility] tablet 09/02/22 at 0920, Until Discontinu ed, [...] 00 First dose Medi [place] mg on [facility] 09/02/22 at 0915, Until Discontinu ed, Routine [...] 30 mg 00 First dose Medical on Thu [place] 09/02/22 at 0800, Until Discontinu ed, Routine [...] Starting Medi [place] tablet 1 on Thu [place] tablet 09/02/22 at 0715, Until Thu09/02/22 at 0913, Routine, Pain (scale 4-6) NaCl 0.9% 0 Yes 10mL 10 mL, Univer s (NS) 2-07 Slow IV ity of injection 13:13: [place], [place]N, [place] 10 mL 36 Starting Medical on Thu [place] 09/02/22 at 0713, Until Discontinu ed, Routine, line maintenanc e NaCl 0.9% 0 Yes 10mL 10 mL, Univer s (NS) 2-07 Slow IV ity of injection 13:13: [place], [place]N, [place] 10 mL 36 Starting Medical on Thu [place] 09/02/22 at 0713, Until Discontinu ed, Routine, line [...] 5 49 Starting Medi [place] mL on Thu Branch 09/01/22 at 0909, Until [...] of tablet 3 mg 03:00: First dose 00 on [facility] 08/31/22 at Branch 2100, Until Discontinu ed, [...] 1115, Until Discontinu ed, Routine methocarbam 2022-0 202- No 500mg 500 mg, U nivers oL 2- 02-07 Oral, QID, ity of (ROBAXIN) 17:15: 13:10 First dose [place] tablet 500 00 :43 on Sun Medical mg 08/31/22 at Branch 1115, Until Discontinu ed, Routine ipratropium 2022-0 2022- No 3mL 3 mL, Univ ers -albuteroL 2-05 02-05 Inhalation it y of (DUONEB) 05:45: 05:11 , ONCE, 1 Andrei as 0.5 mg-3 00 :00 dose, On Medical mg(2.5 mg [facility] 08/30/22 Bran ch base)/3 mL at 2345, nebulizer Routine, solution 3 PACU mL polyethylen 2022-0 Yes 17g 17 g, Unive rs e glycol 2-05 Oral, ity of 3350 powder 04:53: QDAILYPRN, [place] 17 g 53 Starting Medical on [facility] 08/30/22 at 2253, Until Discontinu ed, Routine, Constipati on polyethylen 2022-0 Yes 17g 17 g, Unive rs e glycol 2-05 Oral, ity of 3350 powder 04:53: QDAILYPRN, [place] 17 g 53 Starting Medical on [facility] 08/30/22 at 2253, Until Discontinu ed, Routine, Constipati on traMADoL 2022-0 Yes 50mg 50 mg, Univers (ULTRAM) 2-05 Oral, ity of tablet 50 04:53: Q4HPRN, [place] mg 52 Starting Medical on [facility] 08/30/22 at 2253, Until Discontinu ed, Routine, [...] 2-05 Oral, ity of ) 04:53: Q6HPRN, [place] disintegrat 52 Starting Medi [place] ing tablet [...] Lisinopril Yes Na Araujo 1 tablet Common -04 Spirit 00:00: - [facility] 00 [facility] Bactrim DS Bactrim DS No [...] 2022-11-05 20:31:00 171 mm[Hg] Univer sity of [facility] Diastolic blood 2022-11-05 20:31:00 99 mm[Hg] Unive rsity of pressure [facility] Heart rate 2022-11-05 20:31:00 90 /min Universi ty of [facility] Body temperature 2022-11-05 20:31:00 36.72 Malaika Univ ersity of [facility] Body height 2022-11-05 20:31:00 154.9 cm Universi ty of [facility] Body weight 2022-11-05 20:31:00 57.153 kg Universi ty of [facility] BMI 2022-11-05 20:31:00 23.81 kg/m2 Universi ty of [facility] Body temperature 2022-09-25 16:44:00 36.67 Malaika Univ ersity of [facility] Body height 2022-09-25 16:44:00 154.9 cm Universi ty of [facility] Body weight 2022-09-25 16:44:00 59.875 kg [facility]i ty [facility] [place] BMI 2022-09-25 16:44:00 24.94 kg/m2 Universi ty of [facility] Systolic blood 2022-09-08 22:22:00 138 mm[Hg] Univer sity of pressure [facility] Diastolic blood 2022-09-08 22:22:00 81 mm[Hg] Unive rsity of [facility] Heart rate 2022-09-08 22:22:00 66 /min Universi ty of [facility] Body temperature 2022-09-08 22:22:00 36.33 Malaika Univ ersity of [facility] Respiratory rate 2022-09-08 22:22:00 18 /min [facility] Oxygen saturation in 2022-09-08 22:22:00 96 /min University Arterial blood by [facility] Pulse oximetry Branch Body weight 2022-09-05 17:00:00 62.1 kg [facility] BMI 2022-09-05 17:00:00 25.87 kg/m2 [facility] Body height 2022-09-02 07:20:00 154.9 cm [facility] Systolic blood 2022-09-05 00:38:00 116 mm[Hg] Univer sity of pressure [facility] Diastolic blood 2022-09-05 00:38:00 57 mm[Hg] Unive rsity of pressure [facility] Heart rate 2022-09-05 00:38:00 70 /min [facility] Body temperature 2022-09-05 00:38:00 36.56 Malaika Univ ersity of [facility] Respiratory rate 2022-09-05 00:38:00 8 /min Univ ersity of [facility] Oxygen saturation in 2022-09-05 00:38:00 95 /min University of Arterial blood by [place] [employer] Pulse oximetry Branch Body height 2022-09-02 07:20:00 154.9 cm [facility] ty [facility] Body weight 2022-09-02 07:20:00 62.1 kg [facility] BMI 2022-09-02 07:20:00 25.87 kg/m2 [facility] Systolic blood 2022-08-30 22:58:00 180 mm[Hg] Univer sity of pressure [facility] Diastolic blood 2022-08-30 22:58:00 91 mm[Hg] Unive rsity of pressure [facility] Heart rate 2022-08-30 22:58:00 82 /min [facility] ty [facility] Respiratory rate 2022-08-30 22:58:00 16 /min Univ ersity of [facility] Oxygen saturation in 2022-08-30 22:58:00 100 /min University of Arterial blood by [employer] [place] Pulse oximetry Branch Body temperature 2022-08-30 19:35:00 36.44 Malaika Univ ersity of [facility] Body weight 2022-08-30 19:35:00 61.236 kg [facility] height 2021-10-23 12:10:00 62.00 [in_i] Common S [facility] weight 2021-10-23 12:10:00 135 [lb_av] [facility] bmi 2021-10-23 12:10:00 24.69 kg/m2 [facility] height 2020-12-26 08:20:00 62.00 [in_i] [facility] weight 2020-12-26 08:20:00 135 [lb_av] [facility] bmi 2020-12-26 08:20:00 24.69 kg/m2 [facility] height 2020-11-27 13:00:00 62.00 [in_i] [facility] weight 2020-11-27 13:00:00 135 [lb_av] [facility] 2020-11-27 13:00:00 24.69 kg/m2 [facility] Procedures Procedure Date / Time Performing Clinician Source Performed XR WRIST 3+ VW LEFT 2022-11-05 21:27:27 Pako Robbins [facility] XR WRIST 3+ VW LEFT 2022-09-25 17:14:57 Alejo Bergeron [facility] ASSIGNMENT OF BENEFITS 2022-09-25 16:29:43 Doctor Unassigned, Un [facility] [place] TIME OR 2022-09-05 00:18:14 Alejo Peguero [facility] (NON-REPORTABLE) Medical Branch [place] TIME OR 2022-09-05 00:18:14 Alejo Peguero [facility] (NON-REPORTABLE) [facility] DISTAL RADIUS ORIF 2022-09-04 21:42:00 Alejo Peguero [facility] EXTERNAL FIXATOR REMOVAL 2022-09-04 21:42:00 Alejo Peguero [facility] OF UPPER EXTREMITY Medical Branc h DISTAL RADIUS ORIF 2022-09-04 21:42:00 Alejo Peguero [facility] EXTERNAL FIXATOR REMOVAL 2022-09-04 21:42:00 Alejo Peguero of [place] OF UPPER EXTREMITY Medical Branc h BASIC METABOLIC PANEL 2022-09-04 10:10:00 Andres Jimenez [facility] (NA, K, CL, CO2, GLUCOSE, Medica l Branch BUN, CREATININE, CA) CBC WITHOUT DIFF 2022-09-04 10:10:00 Andres Jimenez [facility] PROTHROMBIN TIME / INR 2022-09-04 10:10:00 Andres Jimenez [facility] ACTIVATED PARTIAL 2022-09-04 10:10:00 Andres Jimenez [facility] BASIC METABOLIC PANEL 2022-09-04 10:10:00 Andres Jimenez [facility] (NA, K, CL, CO2, GLUCOSE, Medica l Branch BUN, CREATININE, CA) CBC WITHOUT DIFF 2022-09-04 10:10:00 Andres Jimenez [facility] PROTHROMBIN TIME / INR 2022-09-04 10:10:00 Andres Jimenez [facility] ACTIVATED PARTIAL 2022-09-04 10:10:00 Andres Jimenez [facility] US DUPLEX VENOUS ARM 2022-09-03 15:45:00 Larisa Martines [facility] RIGHT - BY VASCULAR LAB Medical [facility] DUPLEX VENOUS ARM 2022-09-03 15:45:00 Larisa Martines [facility] RIGHT - BY VASCULAR LAB Medical Branch CBC WITHOUT DIFF 2022-09-01 16:54:00 Larisa Martines [facility] CBC WITHOUT DIFF 2022-09-01 16:54:00 Larisa Martines [facility] CBC WITHOUT DIFF 2022-09-01 16:54:00 Larisa Martines [facility] HB ECG ROUTINE & RHYTHM 2022-08-31 07:58:17 Larisa Martines [facility] HB ECG ROUTINE & RHYTHM 2022-08-31 07:58:17 Larisa Martines [facility] FL TIME OR 2022-08-31 04:15:00 Ja Jo [facility] (NON-REPORTABLE) Medical Branch [place] TIME OR 2022-08-31 04:15:00 Ja Jo [place] [facility] (NON-REPORTABLE) Medical Branch [place] TIME OR 2022-08-31 04:15:00 Ja Jo [facility] (NON-REPORTABLE) Medical Branch ABORH CONFIRMATION (LAB 2022-08-31 02:42:00 Henri Phoenix [facility] ONLY) Medical Branch ABORH CONFIRMATION (LAB 2022-08-31 02:42:00 Henri Phoenix [facility] ONLY) Medical Branch ABORH CONFIRMATION (LAB 2022-08-31 02:42:00 Henri Phoenix [facility] ONLY) Medical Branch EXPLORATION VESSEL UPPER 2022-08-31 01:43:00 Ham Slater [facility] EXTERNAL FIXATOR 2022-08-31 01:43:00 Elyssa [facility] PLACEMENT FOR UPPER Medical Bran ch EXTREMITY LIGATION VESSEL UPPER 2022-08-31 01:43:00 Ham Slater [facility] EXPLORATION VESSEL UPPER 2022-08-31 01:43:00 Ham Slater [facility] EXTERNAL FIXATOR 2022-08-31 01:43:00 Elyssa [facility] PLACEMENT FOR UPPER Medical Bran ch EXTREMITY LIGATION VESSEL UPPER 2022-08-31 01:43:00 Ham Slater [facility] XR WRIST <3 VW LEFT 2022-08-30 23:25:00 Larisa Martines [facility] XR WRIST <3 VW LEFT 2022-08-30 23:25:00 Larisa Martines [facility] XR WRIST <3 VW LEFT 2022-08-30 23:25:00 Larisa Martines [facility] CBC WITH DIFF 2022-08-30 22:37:00 [facility] PROTHROMBIN TIME / INR 2022-08-30 22:37:00 Henri Phoenix [facility] ACTIVATED PARTIAL 2022-08-30 22:37:00 Henri [facility] WITH DIFF 2022-08-30 22:37:00 [facility] PROTHROMBIN TIME / INR 2022-08-30 22:37:00 Henri [facility] ACTIVATED PARTIAL 2022-08-30 22:37:00 Henri Phoenix [facility] CBC WITH DIFF 2022-08-30 22:37:00 Henri Phoenix [place] [facility] PROTHROMBIN TIME / INR 2022-08-30 22:37:00 Henri Phoenix [facility] ACTIVATED PARTIAL 2022-08-30 22:37:00 Henri Phoenix [facility] XR ELBOW <3 VW LEFT 2022-08-30 20:42:00 Debi Frye [facility] XR FOREARM 2 VW LEFT 2022-08-30 20:42:00 Henri Phoenix [facility] XR HAND <3 VW LEFT 2022-08-30 20:42:00 Henri Phoenix [facility] [place] XR WRIST <3 VW LEFT 2022-08-30 20:42:00 Henri Phoenix [facility] Medical [place] XR ELBOW <3 VW LEFT 2022-08-30 20:42:00 Debi Frye [facility] XR FOREARM 2 VW LEFT 2022-08-30 20:42:00 Henri Phoenix [facility] XR HAND <3 VW LEFT 2022-08-30 20:42:00 Henri Phoenix [facility] Medical Branch XR WRIST <3 VW LEFT 2022-08-30 20:42:00 Henri Phoenix [facility] Medical Branch XR ELBOW <3 VW LEFT 2022-08-30 20:42:00 Debi Frye [facility] Medical Branch XR FOREARM 2 VW LEFT 2022-08-30 20:42:00 Henri Phoenix [facility] XR HAND <3 VW LEFT 2022-08-30 20:42:00 Henri Phoenix [facility] y [facility] Medical Branch XR WRIST <3 VW LEFT 2022-08-30 20:42:00 Henri Phoenix [facility] COMP. METABOLIC PANEL 2022-08-30 20:21:00 Henri Phoenix [facility] ([id number]) Medical Branch COMP. METABOLIC PANEL 2022-08-30 20:21:00 Henri Phoenix [facility] ([id number]) Medical Branch COMP. METABOLIC PANEL 2022-08-30 20:21:00 Henri Phoenix [facility] ([id number]) [facility] HB ABO GROUPING 2022-08-30 20:19:00 [facility] HB ABO GROUPING 2022-08-30 20:19:00 [facility] HB ABO GROUPING 2022-08-30 20:19:00 [facility] HOSPITAL ADMISSION 2022-08-30 06:01:00 Doctor Unasswilber [facility] EMERGENCY SERVICES 2022-08-30 06:01:00 Doctor Unassigned, [facility] AGREEMENTS AND [facility] [place] AUTHORIZATIONS HOSPITAL ADMISSION 2022-08-30 06:01:00 Doctor Unasswilber [facility] HOSPITAL ADMISSION 2022-08-30 06:01:00 Doctor Unasswilber, [facility] [place] Encounters Start End Encounter Admission Attending Care Care Encounter Source Date/Time Date/Time Type Type Clinicians Facility Department ID 2021-11-26 Outpatient Araujo, Na STLMLC STLC [id number] 2 Common 15:30:02 [facility] 2021-11-25 Outpatient Araujo, Na STLMLC STLMLC [id number] 2 Common 08:44:00 [facility] 2021-10-23 Outpatient Araujo, Na STLMLC STLMLC [id number] 2 Common 07:18:01 [facility] 2021-10-21 Outpatient Araujo, Na STLMLC STLMLC [id number] 2 Common 09:07:00 [facility] 2021-08-21 Outpatient Araujo, Na STLMLC STLC [id number] 2 Common 13:42:36 [facility] 2021-08-21 Outpatient Araujo, Na STISSAC [facility] [id number] 2 Common 13:22:56 [id number] [facility] 2021-08-21 Outpatient Araujo, Na STISSAC [facility] [id number] 2 Common 13:09:15 [id number] [facility] 2021-08-21 Outpatient Araujo, Na STISSAC [facility] [id number] 2 Common 12:58:54 [id number] [facility] 2022-12-29 2022-12-29 [facility] [place] [id number] Univers 14:00:00 14:00:00 ALEJO claire [facility] 2022-11-05 2022-11-05 [facility] [id number] Univers 16:00:00 23:59:00 Encounter Alejo SPECIALTY [id number] ity of CARE [id number] [facility] [place] AT [phone] Nd marilynnbessy LINDSAYClaire 809 [facility] 2022-11-05 2022-11-05 [facility] [place] [id number] Univers 15:30:00 16:42:36 ALEJO claire [facility] 2022-11-05 2022-11-05 Office [facility] [id number] Univers 15:30:00 16:42:36 Visit Alejo SPECIALTY [id number] ity of CARE [id number] [facility] [place] AT [id number] Nd marilynnbessy LINDSAYClaire 198 [facility] 2022-11-05 2022-11-05 Telephone [facility] [id number] Univers 00:00:00 00:00:00 Alejo SPECIALTY [id number] ity of CARE 4.2.7.2.686 [facility] [place] AT [phone] Nd marilynnbessy LINDSAYClaire 198 [facility] 2022-10-22 2022-10-22 Telephone [facility] [id number] Univers 00:00:00 00:00:00 Alejo SPECIALTY [id number] [id number] [phone] Nd heidy VICTORY 198 [facility] 2022-10-21 2022-10-21 [facility] [id number] Univers 00:00:00 00:00:00 Aleoj PRIMARY [id number] [place] [id number] Nd dical 198 [place] 2022-10-13 2022-10-13 Outpatient R [facility] [id number] Univers 12:50:00 12:50:00 ALEJO [facility] 2022-09-27 2022-09-27 Telephone [facility] [id number] [facility] 00:00:00 00:00:00 Alejo PRIMARY [id number] [id number] [phone] Nd marilynnal 198 [place] 2022-09-25 2022-09-25 [facility] [id number] Univers 10:54:10 23:59:00 Encounter Alejo PRIMARY [id number] it[place] [id number] Nd dical 807 [place] 2022-09-25 2022-09-25 Outpatient R [facility] [id number] Univers 09:40:00 11:58:17 ALEJO claire [facility] 2022-09-25 2022-09-25 Office [facility] [id number] Univers 09:40:00 11:58:17 Visit Alejo PRIMARY [id number] [place] [id number] Nd dical 198 [place] 2022-09-25 2022-09-25 Orders Doctor ALEJO [id number] Univers 00:00:00 00:00:00 Only Unassigned ELSIE [id number] ity of [facility] 2.7.2.686 Andrei as [id number] [facility] 009 Branch 2022-09-09 2022-09-09 Transition LOUISE Peñaloza 1.2.840.114 [id number] Univers 00:00:00 00:00:00 of Care Allan HUFFMAN [id number] ity of [address] [id number] [facility] 403 Branch 2022-08-30 2022-09-08 Hospital Henri Phoenix [id number] Univers 13:37:00 18:34:00 Encounter Elyssa, Alejo ZIMMERMAN 350.1.13.10 ity of [place] [address].7.2.686 Andrei as [id number] [facility] 097 Branch 2022-08-30 2022-09-08 Inpatient X ELYSSA [facility] [id number] Univers 13:37:00 18:34:00 ALEJO steveclaire [facility] 2022-09-04 2022-09-04 Surgery MEI Peguero [id number] Univers 16:00:00 18:44:00 Alejo ZIMMERMAN 350.1.13.10 it y of [address]686 Andrei as [id number] [facility] 103 Branch 2022-08-30 2022-08-30 Surgery MEI Slater 1.2.840.114 [id number] Univers 18:45:00 20:22:00 Ham ZIMMERMAN 350.1.13.10 i ty of [place] [id number] Andrei as [id number] [facility] 103 Branch 2021-11-27 2021-11-27 [id number] Co mmon 00:00:00 00:00:00 VISIT EST Spir it PT LEVEL [address] [facility] 2021-11-04 2021-11-04 (TEL) [facility] [id number] Co mmon 00:00:00 00:00:00 Spirit - [facility] 2021-10-23 2021-10-23 OFFICE STLMLC STLMLC [id number] Co mmon 00:00:00 00:00:00 VISIT Spirit ESTAB PT - [facility] LEVEL 4 [facility] 2021-10-23 2021-10-23 (TEL) STLMLC STLMLC [id number] Co mmon 00:00:00 00:00:00 [facility] 2021-09-30 2021-09-30 (TEL) STLMLC STLMLC [id number] Co mmon 00:00:00 00:00:00 [facility] 2021-02-05 2021-02-05 (TEL) STLMLC STLMLC [id number] Co mmon 00:00:00 00:00:00 [facility] 2020-12-26 2020-12-26 OFFICE STLMLC STLMLC [id number] Co mmon 00:00:00 00:00:00 VISIT EST Spir it PT LEVEL 3 [facility] 2020-11-27 2020-11-27 Outpatient STLMLC STLMLC [id number] Common 00:00:00 00:00:00 [facility] 2020-11-27 2020-11-27 OFFICE STLMLC STLMLC [id number] Co mmon 00:00:00 00:00:00 VISIT EST Spir it PT LEVEL 3 [facility] 2019-05-31 2019-05-31 [facility] [id number] Common 09:52:00 09:52:00 [facility] 2018-10-21 2018-10-21 [facility] [id number] Common 16:20:00 16:20:[address] [place] [address] [facility] 2018-09-27 2018-09-27 [facility] [id number] Common 15:00:00 15:00:[address] [place] [address] Sp[address] Drive [facility] 2017-11-25 2017-11-25 Out[facility] [id number] Common 06:50:00 06:50:00 t [employer] [address] [facility] 2017-11-24 2017-11-24 Outpatient Asmita Peralta [id number] Common 15:14:00 15:14:00 [place] [employer] [address] [facility] 2017-11-10 2017-11-10 Outpatient Asmita Peralta 13 [id number] Common 10:30:00 10:30:00 t [employer] [address] [facility] Results Test Description Test Time Test Comments Results Result Comments Source ACTIVATED PARTIAL THRMPLAS JEANIE 2022-09-04 10:45:22 Test Item Value Reference Range Interpretation Comme nts APTT Patient (test code = 29 See_Comment [ Automated message] The system 3173-2) which generated this result transmitted ref erence range: 26 - 36 Seconds. The reference range was not used to interpret this result as nicki l/abnormal. Lab Interpretation (test code = Normal 03062-4) [facility] / [id number] 10:45:22 Test Item Value Reference Range Interpretation Comments PROTIME PATIENT (test 11.2 See_Comment [Auto mated message] code = 5964-2) The system [employer] generated this result transmitted ref erence range: 10.1 - 1 2.6 Seconds. The re ference range was not u sed to interpret this result as normal/abnor mal. INR (test code = 6301-6) 1.0 Nor mal INR <1.1; Warfarin Therap eutic range 2.0 to 3. 0 or 2.5 to 3.5, dep ending upon the indica tions. Lab Interpretation (test Normal code = 55366-1) [facility] THRM[facility] [id number] 10:45:22 Test Item Value Reference Range Interpretation Comments APTT Patient (test code = 29 See_Comment [ Automated message] 3173-2) The system [employer] h generated this result transmitted ref erence range: 26 - 36 Seconds. The re ference range was not u sed to interpret this result as normal/abnor mal. Lab Interpretation (test Normal code = 46800-9) [facility] Time / [id number] 10:45:22 Test Item Value Reference Range Interpretation Comments PROTIME PATIENT (test 11.2 See_Comment [Auto mated message] code = 5964-2) The system [employer] generated this result transmitted ref erence range: 10.1 - 1 2.6 Seconds. The re ference range was not u sed to interpret this result as normal/abnor mal. INR (test code = 6301-6) 1.0 Nor mal INR <1.1; Warfarin Therap eutic range 2.0 to 3. 0 or 2.5 to 3.5, dep ending upon the indica tions. Lab Interpretation (test Normal code = 86632-1) [facility] [place] [place] METABOLIC PANEL (NA, K, CL, CO2, GLUCOSE, BUN, CREATININE, CA)2022-09-04 10:44:41 Test Item Value Reference Range Interpretation Comments NA (test code = 134 mmol/L 135-145 L 0633279125) K (test code = 4.8 mmol/L 3.5-5.0 9502752958) CL (test code = 103 mmol/L 98-108 7451680007) CO2 TOTAL (test code = 28 mmol/L 23-31 2612795601) AGAP (test code = 3 2-16 3491185563) BUN (test code = 14 mg/dL 7-23 4871813931) GLUCOSE (test code = 103 mg/dL 70-110 0643957748) CREATININE (test code = 0.95 mg/dL 0.50-1.04 7163854100) CALCIUM (test code = 8.2 mg/dL 8.6-10.6 L 7620142184) eGFR (test code = 58.2 mL/min/1.73m2 1508469246) PRITESH (test code = PRITESH) Association of [...] tests). Lab Interpretation Abnormal (test code = 52144-7) [facility] [place] [place] METABOLIC PANEL (NA, K, CL, CO2, GLUCOSE, BUN, CREATININE, CA)2022-09-04 10:44:41 Test Item Value Reference Range Interpretation Comments NA (test code = 134 mmol/L 135-145 L 2113107695) K (test code = 4.8 mmol/L 3.5-5.0 1172716698) CL (test code = 103 mmol/L 98-108 1230061243) CO2 TOTAL (test code = 28 mmol/L 23-31 6728034500) AGAP (test code = 3 2-16 1842653599) BUN (test code = 14 mg/dL 7-23 0458751822) GLUCOSE (test code = 103 mg/dL 70-110 8055410264) CREATININE (test code = 0.95 mg/dL 0.50-1.04 9274024508) CALCIUM (test code = 8.2 mg/dL 8.6-10.6 L 7486280956) eGFR (test code = 58.2 mL/min/1.73m2 3943292911) PRITESH (test code = PRITESH) Association of [...] tests). Lab Interpretation Abnormal (test code = 15901-8) [facility] WITHOUT [id number] 10:24:39 Test Item Value Reference Range Interpretation Comments WBC (test code = 6690-2) 6.14 See_Comment [A utomated message] The system [employer] generated this result transmit adele reference range : 4.30 - 11.10 10*3/?L. The reference range was not used to interpret this result as normal/abnormal . RBC (test code = 789-8) 3.03 See_Comment L [Au tomated message] The system [employer] generated this result transmit adele reference range [...] 308 See_Comment [Au tomated message] The system [employer] generated this result transmit adele reference range : 166 - 358 10*3/?L. The reference range was not used to interpret this result as normal/abnormal . MPV (test code = 8.6 fL 9.5-12.9 L 14777-3) RDW-CV (test code = 13.9 % 12.0-15.5 788-0) RDW-SD (test code = 46.2 fL 39.0-49.9 77294-4) NRBC x10^3 (test code = See_Comment [Au tomated message] 2352505644) The system [employer] generated this result transmit adele reference range : 10*3/?L. The reference range was not used to interpret this result as normal/abnormal . NRBC/100 WBC (test code 0.0 See_Comment [Au tomated message] = 8559691095) The system [facility] generated this result transmit adele reference range : 0.0 - 10.0 /100 WBC s. The reference r yusra was not used to interpret this result as normal/abnormal . IPF % (test code = 5512620077) Lab Interpretation (test Abnormal code = 67590-3) [facility] WITHOUT [id number] 10:24:39 Test Item Value Reference Range Interpretation Comments WBC (test code = 6690-2) 6.14 See_Comment [A utomated message] The system [facility] generated this result transmit adele reference range : 4.30 - 11.10 10*3/?L. The reference range was not used to interpret this result as normal/abnormal . RBC (test code = 789-8) 3.03 See_Comment L [Au tomated message] The system [facility] generated this result transmit adele reference [...] 308 See_Comment [Au tomated message] The system [employer] generated this result transmit adele reference range : 166 - 358 10*3/?L. The reference range was not used to interpret this result as normal/abnormal . MPV (test code = 8.6 fL 9.5-12.9 L 18879-6) RDW-CV (test code = 13.9 % 12.0-15.5 788-0) RDW-SD (test code = 46.2 fL 39.0-49.9 49977-2) NRBC x10^3 (test code = See_Comment [Au tomated message] 0137268452) The system [employer] generated this result transmit adele reference range : 10*3/?L. The reference range was not used to interpret this result as normal/abnormal . NRBC/100 WBC (test code 0.0 See_Comment [Au tomated message] = [id number]) The system [facility] generated this result transmit adele reference range : 0.0 - 10.0 /100 WBC s. The reference r yusra was not used to interpret this result as normal/abnormal . IPF % (test code = 0681392532) Lab Interpretation (test Abnormal code = 64107-0) [facility] WITHOUT [id number] 17:35:12 Test Item Value Reference Range Interpretation Comments WBC (test code = 6690-2) 7.12 See_Comment [A utomated message] The system [employer] generated this result transmit adele reference range : 4.30 - 11.10 10*3/?L. The reference range was not used to interpret this result as normal/abnormal . RBC (test code = 789-8) 2.90 See_Comment L [Au tomated message] The system [employer] generated this result transmit adele reference range [...] 282 See_Comment [Au tomated message] The system [employer] generated this result transmit adele reference range : 166 - 358 10*3/?L. The reference range was not used to interpret this result as normal/abnormal . MPV (test code = 8.9 fL 9.5-12.9 L 33190-4) RDW-CV (test code = 14.1 % 12.0-15.5 788-0) RDW-SD (test code = 48.3 fL 39.0-49.9 93109-3) NRBC x10^3 (test code = See_Comment [Au tomated message] [id number]) The system [employer] generated this result transmit adele reference range : 10*3/?L. The reference range was not used to interpret this result as normal/abnormal . NRBC/100 WBC (test code 0.0 See_Comment [Au tomated message] = 9310440371) The system [facility] generated this result transmit adele reference range : 0.0 - 10.0 /100 WBC s. The reference r yusra was not used to interpret this result as normal/abnormal . IPF % (test code = 7774382567) Lab Interpretation (test Abnormal code = 31370-1) [facility] WITHOUT [id number] 17:35:12 Test Item Value Reference Range Interpretation Comments WBC (test code = 6690-2) 7.12 See_Comment [A utomated message] The system [employer] generated this result transmit adele reference range : 4.30 - 11.10 10*3/?L. The reference range was not used to interpret this result as normal/abnormal . RBC (test code = 789-8) 2.90 See_Comment L [Au tomated message] The system [employer] generated this result transmit adele reference range [...] 282 See_Comment [Au tomated message] The system [employer] generated this result transmit adele reference range : 166 - 358 10*3/?L. The reference range was not used to interpret this result as normal/abnormal . MPV (test code = 8.9 fL 9.5-12.9 L 29898-4) RDW-CV (test code = 14.1 % 12.0-15.5 788-0) RDW-SD (test code = 48.3 fL 39.0-49.9 20291-3) NRBC x10^3 (test code = See_Comment [Au tomated message] [id number]) The system [employer] generated this result transmit adele reference range : 10*3/?L. The reference range was not used to interpret this result as normal/abnormal . NRBC/100 WBC (test code 0.0 See_Comment [Au tomated message] = 8025838557) The system [employer] generated this result transmit adele reference range : 0.0 - 10.0 /100 WBC s. The reference r yusra was not used to interpret this result as normal/abnormal . IPF % (test code = 8039461908) Lab Interpretation (test Abnormal code = 18582-7) [facility] WITHOUT [id number] 17:35:12 Test Item Value Reference Range Interpretation Comments WBC (test code = 6690-2) 7.12 See_Comment [A utomated message] The system [employer] generated this result transmit adele reference range : 4.30 - 11.10 10*3/?L. The reference range was not used to interpret this result as normal/abnormal . RBC (test code = 789-8) 2.90 See_Comment L [Au tomated message] The system [employer] generated this result transmit adele reference range [...] 282 See_Comment [Au tomated message] The system [employer] generated this result transmit adele reference range : 166 - 358 10*3/?L. The reference range was not used to interpret this result as normal/abnormal . MPV (test code = 8.9 fL 9.5-12.9 L 72254-0) RDW-CV (test code = 14.1 % 12.0-15.5 788-0) RDW-SD (test code = 48.3 fL 39.0-49.9 11789-3) NRBC x10^3 (test code = See_Comment [Au tomated message] 6547416850) The system [employer] generated this result transmit adele reference range : 10*3/?L. The reference range was not used to interpret this result as normal/abnormal . NRBC/100 WBC (test code 0.0 See_Comment [Au tomated message] = 7916637922) The system [facility] generated this result transmit adele reference range : 0.0 - 10.0 /100 WBC s. The reference r yusra was not used to interpret this result as normal/abnormal . IPF % (test code = 1478147884) Lab Interpretation (test Abnormal code = 43793-5) [facility] Confirmation (Lab Only)2022-08-31 03:15:36 Test Item Value Reference Range Interpretation Comments ABO & RH (test AB Positive Performed at [facility] code = 20) [facility] [address] [place] [id number] Free: [phone] A No. [id number] [facility] Confirmation (Lab Only)2022-08-31 03:15:36 Test Item Value Reference Range Interpretation Comments ABO & RH (test AB Positive Performed at [facility] code = 20) [facility] [address] [place] [address]Coxr Free: [phone] A No. [id number] [facility] Confirmation (Lab Only)2022-08-31 03:15:36 Test Item Value Reference Range Interpretation Comments ABO & RH (test AB Positive Performed at [facility] code = 20) [facility] [address] [id number] Free: [phone] A No. [id number] [facility] [id number] 22:58:55 Test Item Value Reference Range Interpretation Comments APTT Patient (test code 25 See_Comment L [Au tomated message] = 3173-2) The system [employer] generated this result transmitted ref erence range: 26 - 36 Seconds. The reference range was not used to int erpret this result as normal/abnormal . Lab Interpretation (test Abnormal code = 12164-6) [facility] / [id number] 22:58:55 Test Item Value Reference Range Interpretation Comments PROTIME PATIENT (test 11.1 See_Comment [Auto mated message] code = 5964-2) The system [employer] generated this result transmitted ref erence range: 10.1 - 1 2.6 Seconds. The re ference range was not u sed to interpret this result as normal/abnor mal. INR (test code = 6301-6) 1.0 Nor mal INR <1.1; Warfarin Therap eutic range 2.0 to 3. 0 or 2.5 to 3.5, dep ending upon the indica tions. Lab Interpretation (test Normal code = 55687-5) [facility] [id number] 22:58:55 Test Item Value Reference Range Interpretation Comments APTT Patient (test code 25 See_Comment L [Au tomated message] = 3173-2) The system [employer] generated this result transmitted ref erence range: 26 - 36 Seconds. The reference range was not used to int erpret this result as normal/abnormal . Lab Interpretation (test Abnormal code = 97377-2) [facility] / [id number] 22:58:55 Test Item Value Reference Range Interpretation Comments PROTIME PATIENT (test 11.1 See_Comment [Auto mated message] code = 5964-2) The system [employer] generated this result transmitted ref erence range: 10.1 - 1 2.6 Seconds. The re ference range was not u sed to interpret this result as normal/abnor mal. INR (test code = 6301-6) 1.0 Nor mal INR <1.1; Warfarin Therap eutic range 2.0 to 3. 0 or 2.5 to 3.5, dep ending upon the indica tions. Lab Interpretation (test Normal code = 40400-4) [facility] [id number] 22:58:55 Test Item Value Reference Range Interpretation Comments APTT Patient (test code 25 See_Comment L [Au tomated message] = 3173-2) The system [employer] generated this result transmitted ref erence range: 26 - 36 Seconds. The reference range was not used to int erpret this result as normal/abnormal . Lab Interpretation (test Abnormal code = 89225-1) [facility] / [id number] 22:58:55 Test Item Value Reference Range Interpretation Comments PROTIME PATIENT (test 11.1 See_Comment [Auto mated message] code = 5964-2) The system [employer] generated this result transmitted ref erence range: 10.1 - 1 2.6 Seconds. The re ference range was not u sed to interpret this result as normal/abnor mal. INR (test code = 6301-6) 1.0 Nor mal INR <1.1; Warfarin Therap eutic range 2.0 to 3. 0 or 2.5 to 3.5, dep ending upon the indica tions. Lab Interpretation (test Normal code = 34891-2) [facility] WITH [id number] 22:56:34 Test Item Value Reference Range Interpretation Comments WBC (test code = 7.44 See_Comment [Automated 4790-2) message] The sy stem which generated this [...] RDW-SD (test code = 44.8 fL 39.0-49.9 82822-7) RDW-CV (test code = 13.8 % 12.0-15.5 788-0) PLT (test code = 334 See_Comment [Automated 777-3) message] The sy stem which generated this result transmitted reference range : 166 - 358 10*3/ ?L. The reference r yusra was not used to interpret this result as normal/abnormal . MPV (test code = 8.8 fL 9.5-12.9 L 82889-2) NRBC/100 WBC (test 0.0 See_Comment [Automat ed code = 7311265490) message] The system which generated this result transmitted reference range : 0.0 - 10.0 /100 WBCs. The refer ence range was not u sed to interpret th is result as normal/abnormal . NRBC x10^3 (test code See_Comment [Auto mated = 2890572106) message] The s ystem which generated this result transmitted reference range : 10*3/?L. The reference range was not used to interpret this result as normal/abnormal . GRAN MAT (NEUT) % 69.1 % (test code = 770-8) IMM GRAN % (test code 0.30 % = 5174339689) LYMPH % (test code = 19.4 % 736-9) MONO % (test code = 7.3 % 5905-5) EOS % (test code = 3.2 % 713-8) BASO % (test code = 0.7 % 706-2) GRAN MAT x10^3(ANC) 5.15 10*3/uL 1.88-7.09 (test code = 5125363168) IMM GRAN x10^3 (test 0.00-0.06 code = 7408997304) LYMPH x10^3 (test code 1.44 10*3/uL 1.32-3.29 = 731-0) MONO x10^3 (test code 0.54 10*3/uL 0.33-0.92 = 742-7) EOS x10^3 (test code = 0.24 10*3/uL 0.03-0.39 711-2) BASO x10^3 (test code 0.05 10*3/uL 0.01-0.07 = 704-7) Lab Interpretation Abnormal (test code = 38616-4) [facility] WITH [id number] 22:56:34 Test Item Value Reference Range Interpretation Comments WBC (test code = 7.44 See_Comment [Automated 6190-2) message] The sy stem which generated this result transmitted reference range : 4.30 - 11.10 10*3/?L. The reference range was not used to interpret this result as normal/abnormal . RBC (test code = 3.73 See_Comment L [Automated 609-8) message] The sy stem which generated this [...] RDW-SD (test code = 44.8 fL 39.0-49.9 38504-3) RDW-CV (test code = 13.8 % 12.0-15.5 788-0) PLT (test code = 334 See_Comment [Automated 777-3) message] The sy stem which generated this result transmitted reference range : 166 - 358 10*3/ ?L. The reference r yusra was not used to interpret this result as normal/abnormal . MPV (test code = 8.8 fL 9.5-12.9 L 93177-8) NRBC/100 WBC (test 0.0 See_Comment [Automat ed code = 3293598028) message] The system which generated this result transmitted reference range : 0.0 - 10.0 /100 WBCs. The refer ence range was not u sed to interpret th is result as normal/abnormal . NRBC x10^3 (test code See_Comment [Auto mated = 1758164319) message] The s ystem which generated this result transmitted reference range : 10*3/?L. The reference range was not used to interpret this result as normal/abnormal . GRAN MAT (NEUT) % 69.1 % (test code = 770-8) IMM GRAN % (test code 0.30 % = 9424406616) LYMPH % (test code = 19.4 % 736-9) MONO % (test code = 7.3 % 5905-5) EOS % (test code = 3.2 % 713-8) BASO % (test code = 0.7 % 706-2) GRAN MAT x10^3(ANC) 5.15 10*3/uL 1.88-7.09 (test code = 7146277982) IMM GRAN x10^3 (test 0.00-0.06 code = 8742524074) LYMPH x10^3 (test code 1.44 10*3/uL 1.32-3.29 = 731-0) MONO x10^3 (test code 0.54 10*3/uL 0.33-0.92 = 742-7) EOS x10^3 (test code = 0.24 10*3/uL 0.03-0.39 711-2) BASO x10^3 (test code 0.05 10*3/uL 0.01-0.07 = 704-7) Lab Interpretation Abnormal (test code = 55098-1) [facility] WITH [id number] 22:56:34 Test Item Value Reference Range Interpretation Comments WBC (test code = 7.44 See_Comment [Automated 9672-2) message] The sy stem which generated this result transmitted reference range : 4.30 - 11.10 10*3/?L. The reference range was not used to interpret this result as normal/abnormal . RBC (test code = 3.73 See_Comment L [Automated 959-8) message] The sy stem which generated this [...] RDW-SD (test code = 44.8 fL 39.0-49.9 13110-9) RDW-CV (test code = 13.8 % 12.0-15.5 788-0) PLT (test code = 334 See_Comment [Automated 197-3) message] The sy stem which generated this result transmitted reference range : 166 - 358 10*3/ ?L. The reference r yusra was not used to interpret this result as normal/abnormal . MPV (test code = 8.8 fL 9.5-12.9 L 34223-0) NRBC/100 WBC (test 0.0 See_Comment [Automat ed code = 7812392418) message] The system which generated this result transmitted reference range : 0.0 - 10.0 /100 WBCs. The refer ence range was not u sed to interpret th is result as normal/abnormal . NRBC x10^3 (test code See_Comment [Auto mated = 2235333652) message] The s ystem which generated this result transmitted reference range : 10*3/?L. The reference range was not used to interpret this result as normal/abnormal . GRAN MAT (NEUT) % 69.1 % (test code = 770-8) IMM GRAN % (test code 0.30 % = 8328424949) LYMPH % (test code = 19.4 % 736-9) MONO % (test code = 7.3 % 5905-5) EOS % (test code = 3.2 % 713-8) BASO % (test code = 0.7 % 706-2) GRAN MAT x10^3(ANC) 5.15 10*3/uL 1.88-7.09 (test code = 7176728751) IMM GRAN x10^3 (test 0.00-0.06 code = 4723931794) LYMPH x10^3 (test code 1.44 10*3/uL 1.32-3.29 = 731-0) MONO x10^3 (test code 0.54 10*3/uL 0.33-0.92 = 742-7) EOS x10^3 (test code = 0.24 10*3/uL 0.03-0.39 711-2) BASO x10^3 (test code 0.05 10*3/uL 0.01-0.07 = 704-7) Lab Interpretation Abnormal (test code = 01867-7) [facility] - ONCE [id number] 21:05:30 Test Item Value Reference Range Interpretation Comments ABO & RH (test AB POSITIVE Performed at [facility] code = 20) [facility] [place] [address]Zslf Free: [phone] A No. [id number] IAT (test code = Negative Performed a t [facility] 1185) Laboratory [facility] [address] [address]Cpop Free: [phone] A No. [id number] [facility] - ONCE [id number] 21:05:30 Test Item Value Reference Range Interpretation Comments ABO & RH (test AB POSITIVE Performed at [facility] code = 20) Laboratory [facility] [address] [address]Gngt Free: [phone] A No. [id number] IAT (test code = Negative Performed a t [facility] 1185) Laboratory [facility] [address] [address]Onqk Free: [phone] A No. [id number] [facility] Screen - ONCE [id number] 21:05:30 Test Item Value Reference Range Interpretation Comments ABO & RH (test AB POSITIVE Performed at [facility] code = 20) Laboratory [facility] [address] [address]Ohrc Free: [phone] A No. [id number] IAT (test code = Negative Performed a t [facility] 1185) Laboratory [facility] [address] [address]Ezwh Free: [phone] A No. [id number] [facility] METABOLIC PANEL ([id number])2022-08-30 20:43:30 Test Item Value Reference Range Interpretation Comments NA (test code = 140 mmol/L 135-145 5560829301) K (test code = 4.0 mmol/L 3.5-5.0 1745076951) CL (test code = 109 mmol/L 98-108 H 9930894055) CO2 TOTAL (test code = 21 mmol/L 23-31 L 8801928910) AGAP (test code = 10 2-16 3619931266) BUN (test code = 15 mg/dL 7-23 2102809339) GLUCOSE (test code = 106 mg/dL 70-110 4599322215) CREATININE (test code = 0.76 mg/dL 0.50-1.04 5413530682) TOTAL BILI (test code = 0.5 mg/dL 0.1-1.9 9593749840) CALCIUM (test code = 8.6 mg/dL 8.6-10.6 4709322098) T PROTEIN (test code = 6.7 g/dL 6.3-8.2 6509650401) ALBUMIN (test code = 3.9 g/dL 3.5-5.0 6919768104) ALK PHOS (test code = 79 U/L 34-122 3283186757) ALTv (test code = 27 U/L 5-35 1742-6) AST(SGOT) (test code = 47 U/L 13-40 H 3451470734) eGFR (test code = 75.2 mL/min/1.73m2 4088229139) PRITESH (test code = PRITESH) Association of [...] tests). Lab Interpretation Abnormal (test code = 34660-0) [facility]. METABOLIC PANEL ([id number])2022-08-30 20:43:30 Test Item Value Reference Range Interpretation Comments NA (test code = 140 mmol/L 135-145 9976586063) K (test code = 4.0 mmol/L 3.5-5.0 0255356492) CL (test code = 109 mmol/L 98-108 H 4465708258) CO2 TOTAL (test code = 21 mmol/L 23-31 L 9600933986) AGAP (test code = 10 2-16 6976347520) BUN (test code = 15 mg/dL 7-23 5059383935) GLUCOSE (test code = 106 mg/dL 70-110 6884089269) CREATININE (test code = 0.76 mg/dL 0.50-1.04 0262958066) TOTAL BILI (test code = 0.5 mg/dL 0.1-1.2 5981136935) CALCIUM (test code = 8.6 mg/dL 8.6-10.6 7778317474) T PROTEIN (test code = 6.7 g/dL 6.3-8.2 6935239843) ALBUMIN (test code = 3.9 g/dL 3.5-5.0 6913858910) ALK PHOS (test code = 79 U/L 34-122 3500612617) ALTv (test code = 27 U/L 5-35 1742-6) AST(SGOT) (test code = 47 U/L 13-40 H 4557169627) eGFR (test code = 75.2 mL/min/1.73m2 4619752368) PRITESH (test code = PRITESH) Association of [...] tests). Lab Interpretation Abnormal (test code = 78835-4) [facility]. METABOLIC PANEL ([id number])2022-08-30 20:43:30 Test Item Value Reference Range Interpretation Comments NA (test code = 140 mmol/L 135-145 3608196821) K (test code = 4.0 mmol/L 3.5-5.0 7909270344) CL (test code = 109 mmol/L 98-108 H 3381524642) CO2 TOTAL (test code = 21 mmol/L 23-31 L 1474782935) AGAP (test code = 10 2-16 6304975768) BUN (test code = 15 mg/dL 7-23 6079304639) GLUCOSE (test code = 106 mg/dL 70-110 2690432766) CREATININE (test code = 0.76 mg/dL 0.50-1.04 8395543022) TOTAL BILI (test code = 0.5 mg/dL 0.1-1.3 1450764115) CALCIUM (test code = 8.6 mg/dL 8.6-10.6 5897084809) T PROTEIN (test code = 6.7 g/dL 6.3-8.2 3610538767) ALBUMIN (test code = 3.9 g/dL 3.5-5.0 4134680188) ALK PHOS (test code = 79 U/L 34-122 2796138380) ALTv (test code = 27 U/L 5-35 1742-6) AST(SGOT) (test code = 47 U/L 13-40 H 2735988989) eGFR (test code = 75.2 mL/min/1.73m2 0864945466) PRITESH (test code = PRITESH) Association of [...] tests). Lab Interpretation Abnormal (test code = 50237-6) [facility]"
--- NOTE | 2023-03-23 18:00 | EDPHYS ---
Physician Documentation [facility] Name: Jose Enrique Yin Age: 72 yrs Sex: Female : 1950 Arrival Date: 03/23/2023 Time: 17:09 Bed DIS5 Private MD: ED Physician Gregorio Frank HPI: 03/23 17:58 This 72 yrs old Female presents to ER via Ambulatory with complaints of Shoulder Pain, kb Hip Pain. 17:53 Pt reports chronic left hip and shoulder pain. Denies new injury. States the treatment kb she received last visit helped a whole lot so she came to see if she could get the same thing. Also reports she has been out of lisinopril for 1 month so requests a refill. 17:58 The patient or guardian complains of pain. left shoulder. Context: The problem was kb sustained at home, resulted from from a chronic condition, The patient experiences decreased range of motion, when attempts to raise arm, The patient reports no obvious deformity. Onset: The symptoms/episode began/occurred years ago. Modifying factors: the symptoms are alleviated by nothing. The symptoms are aggravated by movement. Associated signs and symptoms: The patient has no apparent associated signs or symptoms. Severity of symptoms: At their worst the symptoms were moderate, in the emergency department the symptoms are unchanged. Treatment prior to arrival includes: no previous treatment. The patient has experienced similar episodes in the past, chronically. The patient has not recently seen a physician. Historical: - Allergies: 17:52 No Known Allergies; iw - PMHx: 17:52 Arthritis; Hypertensive disorder; iw - PSHx: 17:52 left arm; iw ROS: 17:56 Constitutional: Negative for fever, chills, and weight loss. kb 17:56 MS/extremity: Positive for pain, of the left hip and anterior aspect of left shoulder. 17:56 All other systems are negative. Exam: 17:56 Constitutional: This is a well developed, well nourished patient who is awake, alert, kb and in no acute distress. Head/Face: Normocephalic, atraumatic. ENT: Moist Mucous membranes Cardiovascular: Regular rate and rhythm with a normal S1 and S2. No gallops, murmurs, or rubs. No pulse deficits. Respiratory: Respirations even and unlabored. No increased work of breathing. Talking in full sentences Abdomen/GI: Soft, non-tender. No distention Skin: Warm, dry with normal turgor. Normal color. Neuro: Awake and alert, GCS 15, oriented to person, place, time, and situation. Moves all extremities. Normal gait. 17:57 Musculoskeletal/extremity: Extremities: grossly normal except: noted in the left hip kb and anterior aspect of left shoulder: decreased ROM, pain, ROM: limited active range of motion due to pain, Circulation is intact in all extremities. Sensation intact. Weight bearing: can bear weight with assistance only, uses cane. Vital Signs: 17:51 BP 186 / 113; Pulse 76; Resp 16; Temp 97.6; Pulse Ox 97% on R/A; iw MDM: 17:50 Patient medically screened. kb 17:57 Data reviewed: vital signs, nurses notes. kb 17:59 Differential diagnosis: chronic pain, tendonitis, arthritis. Test considered but Not kb performed: X-ray: x-rays considered, but pain is chronic and no new injury. Counseling: I had a detailed discussion with the patient and/or guardian regarding the historical points, exam findings, and any diagnostic results supporting the discharge/admit diagnosis, the need for outpatient follow up, a family practitioner, to return to the emergency department if symptoms worsen or persist or if there are any questions or concerns that arise at home. Administered Medications: 17:58 Drug: Ketorolac IM 30 mg Route: IM; Site: left gluteus; iw 17:59 Drug: Dexamethasone IM 10 mg Route: IM; Site: right gluteus; iw 18:07 Drug: Lisinopril PO 20 mg Route: PO; iw Disposition: 18:25 Co-signature as Attending Physician, Gregorio Frank MD I reviewed the patient's care rn provided by the Advanced Practice Provider and agree with the diagnosis and treatment plan. Disposition Summary: 03/23/23 18:00 Discharge Ordered Location: Home kb Condition: Stable kb Diagnosis - Pain in left shoulder - chronic kb - Pain in left hip - chronic kb - Essential (primary) hypertension kb Followup: kb - With: Emergency Department - When: As needed - Reason: Worsening of condition Followup: kb - With: Private Physician - When: 2 - 3 days - Reason: Recheck today's complaints, Continuance of care, Re-evaluation by your physician Discharge Instructions: - Discharge Summary Sheet kb - Musculoskeletal Pain kb Forms: - Medication Reconciliation Form kb - Thank You Letter kb - Antibiotic Education kb - Prescription Opioid Use kb - Patient Portal Instructions kb - Leadership Thank You Letter kb Prescriptions: - Prednisone 20 mg Oral Tablet - take 1 tablet by ORAL route once daily for 5 days; 5 tablet; Refills: 0, kb Product Selection Permitted - Lisinopril 20 mg Oral Tablet - take 1 tablet by ORAL route once daily; 30 tablet; Refills: 0, Product kb Selection Permitted - Diclofenac Sodium 75 mg Oral Tablet Sustained Release - take 1 tablet by ORAL route 2 times per day; 30 tablet; Refills: 0, Product kb Selection Permitted Signatures: Demetria Parikh, ALEXIS VYAS-Alondra Canas RN RN iw Gregorio Frank MD MD lead burner helper: (The following items were deleted from the chart) 17:57 17:56 Constitutional: This is a well developed, well nourished patient who is awake, kb alert, and in no acute distress. Head/Face: Normocephalic, atraumatic. ENT: Moist Mucous membranes Cardiovascular: Regular rate and rhythm with a normal S1 and S2. No gallops, murmurs, or rubs. No pulse deficits. Respiratory: Respirations even and unlabored. No increased work of breathing. Talking in full sentences kb
--- NOTE | 2023-03-23 18:00 | ER ---
Nurse's Notes [facility] Name: Jose Enrique Yin Age: 72 yrs Sex: Female : 1950 Arrival Date: 03/23/2023 Time: 17:09 Bed DIS5 Private MD: Diagnosis: Pain in left shoulder-chronic;Pain in left hip-chronic;Essential (primary) hypertension Presentation: 03/23 17:51 Chief complaint: Patient states: my rotator cuff and hip have been hurting. Coronavirus iw screen: At this time, the client does not indicate any symptoms associated with coronavirus-19. Ebola Screen: Patient negative for fever greater than or equal to 101.5 degrees Fahrenheit, and additional compatible Ebola Virus Disease symptoms Patient denies exposure to infectious person. Patient denies travel to an Ebola-affected area in the 21 days before illness onset. No symptoms or risks identified at this time. Initial Sepsis Screen: Does the patient meet any 2 criteria? No. Patient's initial sepsis screen is negative. Does the patient have a suspected source of infection? No. Patient's initial sepsis screen is negative. Risk Assessment: Do you want to hurt yourself or someone else? Patient reports no desire to harm self or others. Onset of symptoms. 17:51 Method Of Arrival: Ambulatory iw 17:51 Acuity: YONAS 4 iw Historical: - Allergies: 17:52 No Known Allergies; iw - PMHx: 17:52 Arthritis; Hypertensive disorder; iw - PSHx: 17:52 left arm; iw Vital Signs: 17:51 BP 186 / 113; Pulse 76; Resp 16; Temp 97.6; Pulse Ox 97% on R/A; iw ED Course: 17:15 Patient arrived in ED. mg5 17:48 Demetria Parikh FNP-C [facility]. kb 17:48 Gregorio Frank MD is Attending Physician. kb 17:52 Triage completed. iw 17:52 Arm band placed on. iw 18:07 Patient did not have IV access during this emergency room visit. iw Administered Medications: 17:58 Drug: Ketorolac IM 30 mg Route: IM; Site: left gluteus; iw 17:59 Drug: Dexamethasone IM 10 mg Route: IM; Site: right gluteus; iw 18:07 Drug: Lisinopril PO 20 mg Route: PO; iw Outcome: 18:00 Discharge ordered by . saleem 18:07 Discharged to home ambulatory. iw 18:07 Condition: stable 18:07 Discharge instructions given to patient, Instructed on discharge instructions, follow up and referral plans. Demonstrated understanding of instructions, follow-up care, medications, Prescriptions given X 3. 18:07 Patient left the ED. iw Signatures: Demetria Parikh, IRISC ASAEL-Alondra Canas, RN RN iw Shayy Tang mg5
[2023-03-23] MEDS ORDERED: KETOROLAC 30 MG/ML INJ ONE (18:11)
[2023-03-23] MEDS ORDERED: dexAMETHasone 10 MG/ML VIAL ONE (18:11)
[2023-03-23] MEDS ORDERED: lisinopriL 20 MG TAB ONE (18:11)
[2023-03-23 18:20] VITALS: BP 186/113; TEMP 97.6; O2SAT 97
== END 2023-03-23 18:07 | disposition home or self-care (01) ==
LOC: ER 17:09
DX: M25.512 Pain in left shoulder (principal); M25.552 Pain in left hip; I10 Essential (primary) hypertension
CPT/HCPCS: 96372; 99284; J1100

== ENCOUNTER 2023-04-30 15:54 | Emergency (ER) | payer OTHER ==
--- OUTSIDE RECORDS SUMMARY | 2023-04-30 15:59 | XMS REPORT | Continuity of Care Document ---
:1950 Author Organization [facility] t Address [address] [place] [address] [place] [id number] Care Team Providers Name Role Phone NADEEN ARAUJO Primary Care Physician Unavailable Nadeen Araujo L Attending Clinician Unavailable ALEJO PEGUERO Attending Clinician Unavailable ALEJO BERGERON Attending Clinician Unavailable Marielena CESAR, Alejo Attending Clinician Elyssa DONAHUE MD, John Attending Clinician Doctor Unassigned, [place] Attending Clinician Unavailable Allan Peñaloza RN Attending Clinician Unavailable Henri Phoenix MD Attending Clinician Ham Slater MD Attending Clinician Elyssa DONAHUE MD, John Admitting Clinician ALEJO BERGERON Admitting Clinician Unavailable Payers Payer Name Policy Type Policy Number Effective Date Expiration Date Lisette lionel ROCHA/[facility] [id number] 2022 DUAL COMP HMO D 00:00:00 SNP MEDICAID OF [id number] 2022 [place] 00:00:00 [employer] MEDICARE [id number] 2020 Common Sp malissa 00:00:00 [facility] MEDICARE C1 [id number] 2020 Common Sp malissa 00:00:00 [facility] MEDICARE C1 [id number] 2020 Common Sp malissa 00:00:00 [facility] Problems Condition Condition Condition Status [...] mon of n problem Spirit cardiovasc - [facility] ular [facility] [id number] Primary Problem Commo n osteoarthr Spirit itis - [facility] involving [facility] joints [facility] [id number] Osteoarthr Problem Co mmon itis of Spirit multiple - [facility] joints, [facility] it[facility] type Chronic Other Problem Common pain chronic [facility] pain [facility] Migraine Migraines Problem Comm on [facility] Hepatitis Hepatitis Problem Com mon [facility] [id number] Current Problem Common moderate Spirit episode of - [facility]I major [facility] Center prior episode Kidney Kidney Problem Common stone stones [facility] Localized, 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, - CHI itis of unspecifie St the pelvic [facility] region and osteoarthr Me dical thigh itis type Center Swelling Swelling Problem Commo n Spirit [facility] Unsteady Unsteady Problem Commo n gait gait [facility] Osteopenia Osteopenia Problem C [facility] Hypertensi HTN Problem Commo n on (hypertens Spirit ion) [facility] Anxiety Anxiety Problem Common [facility] [id number] Depression Problem Co mmon , Spirit recurrent [...] SDOH Social Unive rsity of Connections Get [place] [facility] ical Together Branch History SDOH Social Unive rsity of Connections [facility] Medical Branch History SDOH Social Unive rsity of Connections [place] [facility] Membership Branch History SDOH Social Unive rsity of Connections [place] [facility] Meetings Branch History of tobacco Cigarette Smoker University of use [place] [facility] Exposure to 2022-10-26 2022-11-05 Not sure University of SARS-CoV-2 (event) 00:00:00 15:21:00 [place] [facility] Tobacco use and 2022-08-31 2022-08-31 User of Universit y of exposure 00:00:00 00:00:00 smokeless [place] [facility] tobacco Branch History SDOH 2022-08-31 2022-08-31 0 University o f Alcohol Std Drinks 00:00:00 00:00:00 [place] [facility] History SDOH 2022-08-31 2022-08-31 1 University o f Alcohol Binge 00:00:00 00:00:00 [place] [facility] History SDOH Social 2022-08-31 2022-08-31 5 Unive rsity of Connections Phone 00:00:00 00:00:00 [place] M edical Branch History SDOH Social 2022-08-31 2022-08-31 4 Unive rsity of Connections Living 00:00:00 00:00:00 [place] [facility] History SDOH 2022-08-31 2022-08-31 0 University o f Physical Activity 00:00:00 00:00:00 [place] [facility] DPW Branch History SDOH 2022-08-31 2022-08-31 0 University o f Physical Activity 00:00:00 00:00:00 [place] [facility] MPS Branch History SDOH 2022-08-31 2022-08-31 2 University o f Financial 00:00:00 00:00:00 [place] [facility] History SDOH Food 2022-08-31 2022-08-31 3 Univers ity of Worry 00:00:00 00:00:00 [place] [facility] History SDOH Food 2022-08-31 2022-08-31 2 Univers ity of Scarcity 00:00:00 00:00:00 [place] [facility] History SDOH 2022-08-31 2022-08-31 2 University o f Transport Med 00:00:00 00:00:00 [place] [facility] History SDOH 2022-08-31 2022-08-31 2 University o f Transport Non-Med 00:00:00 00:00:00 [facility] edical Branch Sex Ass[birth year] At [birth year] Universit y of 00:00:00 00:00:00 [facility] Smoking Status Start Date Stop Date Source Smokes tobacco daily 2022-08-31 00:00:00 Univers ity of [facility] Never Smoker [facility] Medications Ordered Filled Start [...] Indication s: acute pain gabapentin 2022-0 Yes [id number] 300mg Take 1 Univers 300 mg 4-12 [id number] capsule by ity o f capsule 00:00: mouth at [place] [address] bedtime. Medical Branch gabapentin 2022-0 Yes [id number] 300mg Take 1 Univers 300 mg 4-12 [id number] capsule by ity o f capsule 00:00: mouth at [place] [address] bedtime. Medical Branch gabapentin 2022-0 Yes [id number] 300mg Take 1 Univers 300 mg 4-12 [id number] capsule by ity o f capsule 00:00: mouth at [place] [address] bedtime. Medical Branch gabapentin 2022-0 Yes [id number] 300mg Take 1 Univers 300 mg 4-12 [id number] capsule by ity o f capsule 00:00: mouth at [place] [address] bedtime. Medical Branch gabapentin 2022-0 Yes [id number] 300mg Take 1 Univers 300 mg 4-12 [id number] capsule by ity o f capsule 00:00: mouth at [place] 00 bedtime. Medical Branch gabapentin 3-0 Yes [id number] 300mg Take 1 Univers 300 mg 4-12 [id number] capsule by ity o f capsule 00:00: [...] mouth ity of tablet 18:34: in the [place] [address] morning. Medical Branch gabapentin 2023-0 Yes 300mg Take 300 Un samia 300 mg 2-13 mg by ity of capsule 18:34: mouth in [place] [address] the Medical morning. Branch celecoxib 2023-0 Yes 200mg Take 200 Uni vers (CELEBREX) 2-13 mg by ity of 200 mg 18:34: mouth in [place] [address] the Medical morning. Branch lisinopriL 2023-0 Yes 20mg Take 20 mg U nivers 20 mg 2-13 by mouth ity of tablet 18:34: in the [place] [address] morning. Medical Branch gabapentin 2023-0 Yes 300mg Take 300 Un samia 300 mg 2-13 mg by ity of capsule 18:34: mouth in [place] [address] the Medical morning. Branch celecoxib 2023-0 Yes 200mg Take 200 Uni vers (CELEBREX) 2-13 mg by ity of 200 mg 18:34: mouth in [place] [address] the Medical morning. Branch lisinopriL 2023-0 Yes 20mg Take 20 mg U nivers 20 mg 2-13 by mouth ity of tablet 18:34: in the [place] [address] morning. Medical Branch gabapentin 2023-0 Yes 300mg Take 300 Un samia 300 mg 2-13 mg by ity of capsule 18:34: mouth in [place] [address] the Medical morning. Branch celecoxib 2023-0 Yes 200mg Take 200 Uni vers (CELEBREX) 2-13 mg by ity of 200 mg 18:34: mouth in [facility] 36 the Medical morning. Branch lisinopriL 2023-0 Yes 20mg Take 20 mg U nivers 20 mg 2-13 by mouth ity of tablet 18:34: in the [place] [address] morning. Medical Branch gabapentin 2023-0 Yes 300mg Take 300 Un samia 300 mg 2-13 mg by ity of capsule 18:34: mouth in [place] [address] the Medical morning. Branch celecoxib 2023-0 Yes 200mg Take 200 Uni vers (CELEBREX) 2-13 mg by ity of 200 mg 18:34: mouth in [place] [address] the Medical morning. Branch lisinopriL 2023-0 Yes 20mg Take 20 mg U nivers 20 mg 2-13 by mouth ity of tablet 18:34: in the [place] [address] morning. Medical Branch gabapentin 2023-0 Yes 300mg Take 300 Un samia 300 mg 2-13 mg by ity of capsule 18:34: mouth in [place] [address] the Medical morning. Branch celecoxib 2023-0 Yes 200mg Take 200 Uni vers (CELEBREX) 2-13 mg by ity of 200 mg 18:34: mouth in [place] [address] the Medical morning. Branch lisinopriL 2023-0 Yes 20mg Take 20 mg U nivers 20 mg 2-13 by mouth ity of tablet 18:34: in the [place] [address] morning. Medical Branch gabapentin 2023-0 Yes 300mg Take 300 Un samia 300 mg 2-13 mg by ity of capsule 18:34: mouth in [place] [address] the Medical morning. Branch celecoxib 2023-0 Yes 200mg Take 200 Uni vers (CELEBREX) 2-13 mg by ity of 200 mg 18:34: mouth in [facility] 36 the Medical morning. Branch lisinopriL 2023-0 Yes 20mg Take 20 mg U nivers 20 mg 2-13 by mouth ity of tablet 18:34: in the [place] [address] morning. Medical Branch gabapentin 2023-0 Yes 300mg Take 300 Un samia 300 mg 2-13 mg by ity of capsule 18:34: mouth in [place] [address] the Medical morning. Branch celecoxib 2023-0 Yes 200mg Take 200 Uni vers (CELEBREX) 2-13 mg by ity of 200 mg 18:34: mouth in [place] capsule 36 the Medical morning. Branch lisinopriL 2023-0 Yes 20mg Take 20 mg U nivers 20 mg 2-13 by mouth ity of tablet 18:34: in the [place] [address] morning. Medical Branch gabapentin 2023-0 Yes 300mg Take 300 Un samia 300 mg 2-13 mg by ity of capsule 18:34: mouth in [place] [address] the Medical morning. Branch celecoxib 2023-0 Yes 200mg Take 200 Uni vers (CELEBREX) 2-13 mg by ity of 200 mg 18:34: mouth in [place] capsule 36 the Medical morning. Branch lisinopriL 2023-0 Yes 20mg Take 20 mg U nivers 20 mg 2-13 by mouth ity of tablet 18:34: in the [place] [address] morning. Medical Branch gabapentin 2023-0 Yes 300mg Take 300 Un samia 300 mg 2-13 mg by ity of capsule 18:34: mouth in [place] [address] the Medical morning. Branch celecoxib 2023-0 Yes 200mg Take 200 Uni vers (CELEBREX) 2-13 mg by ity of 200 mg 18:34: mouth in [place] capsule the Medical morning. Branch lisinopriL 2023-0 Yes 20mg Take 20 mg U nivers 20 mg 2-13 by mouth ity of tablet 18:34: in the [place] [address] morning. Medical Branch gabapentin 2023-0 Yes 300mg Take 300 Un samia 300 mg 2-13 mg by ity of capsule 18:34: mouth in [place] [address] the Medical morning. Branch celecoxib 2023-0 Yes 200mg Take 200 Uni vers (CELEBREX) 2-13 mg by ity of 200 mg 18:34: mouth in [place] capsule 36 the Medical morning. Branch lisinopriL 2023-0 Yes 20mg Take 20 mg U nivers 20 mg 2-13 by mouth ity of tablet 18:34: in the [place] [address] morning. Medical Branch gabapentin 2023-0 Yes 300mg Take 300 Un samia 300 mg 2-13 mg by ity of capsule 18:34: mouth in [place] [address] the Medical morning. Branch celecoxib 2023-0 Yes 200mg Take 200 Uni vers (CELEBREX) 2-13 mg by ity of 200 mg 18:34: mouth in [place] capsule 36 the Medical morning. Branch lisinopriL 2023-0 Yes 20mg Take 20 mg U nivers 20 mg 2-13 by mouth ity of tablet 18:34: in the [place] [address] morning. Medical Branch gabapentin 2023-0 Yes 300mg Take 300 Un samia 300 mg 2-13 mg by ity of capsule 18:34: mouth in [place] [address] the Medical morning. Branch celecoxib 2023-0 Yes 200mg Take 200 Uni vers (CELEBREX) 2-13 mg by ity of 200 mg 18:34: mouth in [place] [address] the Medical morning. Branch lisinopriL 2023-0 Yes 20mg Take 20 mg U nivers 20 mg 2-13 by mouth ity of tablet 18:34: in the [place] [address] morning. Medical Branch gabapentin 2023-0 Yes 300mg Take 300 Un samia 300 mg 2-13 mg by ity of capsule 18:34: mouth in [place] [address] the Medical morning. Branch celecoxib 2023-0 Yes 200mg Take 200 Uni vers (CELEBREX) 2-13 mg by ity of 200 mg 18:34: mouth in [place] [address] the Medical morning. Branch lisinopriL 2023-0 Yes 20mg Take 20 mg U nivers 20 mg 2-13 by mouth ity of tablet 18:34: in the [place] [address] morning. Medical Branch gabapentin 2023-0 Yes 300mg Take 300 Un samia 300 mg 2-13 mg by ity of capsule 18:34: mouth in [place] [address] the Medical morning. Branch celecoxib 2023-0 Yes 200mg Take 200 Uni vers (CELEBREX) 2-13 mg by ity of 200 mg 18:34: mouth in [place] [address] the Medical morning. Branch lisinopriL 2023-0 Yes 20mg Take 20 mg U nivers 20 mg 2-13 by mouth ity of tablet 18:34: in the [place] [address] morning. Medical Branch gabapentin 2023-0 Yes 300mg Take 300 Un samia 300 mg 2-13 mg by ity of capsule 18:34: mouth in [place] [address] the Medical morning. Branch celecoxib 2023-0 Yes 200mg Take 200 Uni vers (CELEBREX) 2-13 mg by ity of 200 mg 18:34: mouth in [place] [address] the Medical morning. Branch lisinopriL 2023-0 Yes 20mg Take 20 mg U nivers 20 mg 2-13 by mouth ity of tablet 18:34: in the [place] [address] morning. Medical Branch gabapentin 2022-0 Yes 300mg Take 300 Un samia 300 mg 2-13 mg by ity of capsule 18:34: mouth in [place] [address] the Medical morning. Branch celecoxib 2022-0 Yes 200mg Take 200 Uni vers (CELEBREX) 2-13 mg by ity of 200 mg 18:34: mouth in [facility] 36 the Medical morning. Branch methocarbam 2022-0 3- No [id number] 750mg Take 1 Univers oL 750 mg 09-08 [id number] tablet by it y of tablet 00:00: 04:59 mouth in [place] 00 :00 the [facility] and 1 tablet at noon and 1 tablet in the evening. Do all this for 30 days. methocarbam 2022-0 3- No [id number] 750mg Take 1 Univers oL 750 mg 09-08 [id number] tablet by it y of tablet 00:00: 04:59 mouth in [place] 00 :00 the [facility] and 1 tablet at noon and 1 tablet in the evening. Do all this for 30 days. methocarbam 2022-0 3- No [id number] 750mg Take 1 Univers oL 750 mg 09-08 [id number] tablet by it y of tablet 00:00: 04:59 mouth in [place] 00 :00 the [facility] and 1 tablet at noon and 1 tablet in the evening. Do all this for 30 days. methocarbam 2022-0 3- No [id number] 750mg Take 1 Univers oL 750 mg 09-08 [id number] tablet by it y of tablet 00:00: 04:59 mouth in [place] 00 :00 the [facility] and 1 tablet at noon and 1 tablet in the evening. Do all this for 30 days. methocarbam 2022-0 3- No [id number] 750mg Take 1 Univers oL 750 mg 09-08 [id number] tablet by it y of tablet 00:00: 04:59 mouth in [place] 00 :00 the [facility] and 1 tablet at noon and 1 tablet in the evening. Do all this for 30 days. methocarbam 2022-0 3- No [id number] 750mg Take 1 Univers oL 750 mg 09-08 [id number] tablet by it y of tablet 00:00: 04:59 mouth in [place] 00 :00 the [facility] morning Branch and 1 tablet at noon and 1 tablet in the evening. Do all this for 30 days. methocarbam 2022-2022- No [id number] 750mg Take 1 Univers oL 750 mg 09-08 [id number] tablet by it y of tablet 00:00: 04:59 mouth in [place] 00 :00 the [facility] morning Branch and 1 tablet at noon and 1 tablet in the evening. Do all this for 30 days. methocarbam 2022-2022- No [id number] 750mg Take 1 Univers oL 750 mg 09-08 [id number] tablet by it y of tablet 00:00: 04:59 mouth in [place] 00 :00 the [facility] morning [place] and 1 tablet at noon and 1 tablet in the evening. Do all this for 30 days. docusate 2022-2022- No [id number] 100mg Take 1 Univers 100 mg 09-08 [id number] capsule by ity of capsule 00:00: 05:59 mouth in [place] 00 :00 the [facility] and 1 capsule in the evening. Do all this for 15 days. docusate 2022-0 2022- No [id number] 100mg Take 1 Univers 100 mg 09-08 [id number] capsule by ity of capsule 00:00: 05:59 mouth in [place] 00 :00 the [facility] and 1 capsule in the evening. Do all this for 15 days. gabapentin 2022-2022- No [id number] 300mg Take 1 Univers 300 mg 09-08 [id number] capsule by ity of capsule 00:00: 05:59 mouth in [place] 00 :00 the [facility] and 1 capsule at noon and 1 capsule in the evening. Do all this for 14 days. gabapentin 2022-0 2022- No [id number] 300mg Take 1 Univers 300 mg 09-08 [id number] capsule by ity of capsule 00:00: 05:59 mouth in [place] 00 :00 the [facility] and 1 capsule at noon and 1 [...] Indication s: acute pain ondansetron 2022- No [id number] 4mg Take 1 Univers (ZOFRAN) 4 09-08 [id number] tablet by i ty of mg tablet 00:00: 05:59 mouth [place] 00 :00 every 6 Medical (six) Branch hours for 20 doses. ondansetron 2022- No [id number] 4mg Take 1 Univers (ZOFRAN) 4 09-08 [id number] tablet by i ty of mg tablet [...] ENEMA) 01 Starting Medical (COMPOUNDED on Thu [place] ) Enem 225 09/07/22 at mL 0726, [...] IV ity of (DILAUDID) 00:27: 03:07 Push, [place] injection 50 :32 Q5MIN PRN, Medi [place] 0.2 mg 10 doses, Branch Starting on Sanjuana 09/04/22 at 1827, Until [place] 09/04/22 at 2107, Routine, Pain (scale 7-10), PACU
Us e approved by (Faculty): PACU USE -ANESTHESI A SERVICE-HY DROMORPHON E INJECTIONS lisinopriL 2022-0 Yes 20mg Take 20 mg U nivers 20 mg 2-09 by mouth ity of tablet 21:07: in the [place] [address] morning. Medical Branch gabapentin 2022-0 Yes 300mg Take 300 Un samia 300 mg 2-09 mg by ity of capsule 21:07: mouth in [place] [address] the Medical morning. Branch celecoxib 2022-0 Yes 200mg Take 200 Uni vers (CELEBREX) 2-09 mg by ity of 200 mg 21:07: mouth in [place] [address] the Medical morning. Branch diphenhydrA 2023-0 Yes 25mg 25 mg, [facility] 2- Oral, ity of (BENADRYL) 02:22: Q4HPRN, [place] tablet 25 33 Starting Medica l mg on Thu Branch 09/03/22 at 2021, Until Discontinu ed, Routine, Itching diphenhydrA 0 Yes 25mg 25 mg, [facility] 2- Oral, ity of (BENADRYL) 02:22: Q4HPRN, [place] tablet 25 33 Starting Medica l mg on Thu Branch 09/03/22 at 2021, Until Discontinu ed, Routine, Itching enoxaparin 2022- No [id number] 30mg inject 0.3 Univers 30 mg/0.3 09-04 [id number] mL under ity of mL 00:00: 04:59 the skin [place] injection 00 :00 every 12 Medica l (twelve) Branch hours for 56 days. enoxaparin 2022- No [id number] 30mg inject 0.3 Univers 30 mg/0.3 09-04 [id number] mL under ity of mL 00:00: 04:59 the skin [place] injection 00 :00 every 12 Medica l (twelve) Branch hours for 56 days. enoxaparin 2022- No [id number] 30mg inject 0.3 Univers 30 mg/0.3 09-04 [id number] mL under ity of mL 00:00: 04:59 the skin [place] injection 00 :00 every 12 Medica l (twelve) Branch hours for 56 days. enoxaparin 2022- No [id number] 30mg inject 0.3 Univers 30 mg/0.3 09-04 [id number] mL under ity of mL 00:00: 04:59 the skin [place] injection 00 :00 every 12 Medica l (twelve) Branch hours for 56 days. enoxaparin 2022-2022- No [id number] 30mg inject 0.3 Univers 30 mg/0.3 09-04 [id number] mL under ity of mL 00:00: 04:59 the skin [place] injection 00 :00 every 12 Medica l (twelve) Branch hours for 56 days. enoxaparin 2022- No [id number] 30mg inject 0.3 Univers 30 mg/0.3 09-04 [id number] mL under ity of mL 00:00: 04:59 the skin [place] injection 00 :00 every 12 Medica l (twelve) Branch hours for 56 days. enoxaparin 2023-0 3- No [id number] 30mg inject 0.3 Univers 30 mg/0.3 09-04 [id number] mL under ity of mL 00:00: 04:59 the skin [place] injection 00 :00 every 12 Medica l (twelve) Branch hours for 56 days. enoxaparin 2022-0 3- No [id number] 30mg inject 0.3 Univers 30 mg/0.3 09-04 [id number] mL under ity of mL 00:00: 04:59 the skin [place] injection 00 :00 every 12 Medica l (twelve) Branch hours for 56 days. enoxaparin 2022-0 3- No [id number] 30mg inject 0.3 Univers 30 mg/0.3 09-04 [id number] mL under ity of mL 00:00: 04:59 [...] 32 Starting Medica l tablet 1 on [facility] tablet 09/02/22 at 0920, Until Discontinu ed, Routine, Pain (scale 4-6) HYDROcodone 2023-0 Yes 1{tbl} 1 tablet, Univers -acetaminop 2-07 Oral, ity of hen (NORCO) 15:20: Q6HPRN, Andrei as 10-325 mg 32 Starting Medica l tablet 1 on [facility] tablet 09/02/22 at 0920, Until Discontinu [...] 00 First dose Medi [place] mg on [facility] 09/02/22 at 0915, Until Discontinu ed, [...] mg 00 First dose Medical on Thu [place] 09/02/22 at 0800, Until Discontinu ed, Routine [...] Starting Medi [place] tablet 1 on Thu [place] tablet 09/02/22 at 0715, Until Thu09/02/22 at 0913, Routine, Pain (scale 4-6) NaCl 0.9% 0 Yes 10mL 10 mL, Univer s (NS) 2-07 Slow IV ity of injection 13:13: Push, [place]N, [place] 10 mL 36 Starting Medical on Thu [place] 09/02/22 at 0713, Until Discontinu ed, Routine, line maintenanc e NaCl 0.9% 0 Yes 10mL 10 mL, Univer s (NS) 2-07 Slow IV ity of injection 13:13: Push, PRN, [place] 10 mL 36 Starting Medical on Thu [place] 09/02/22 at 0713, Until Discontinu ed, Routine, [...] 3 mg 03:00: First dose 00 on [facility] 08/31/22 at Branch 2100, Until Discontinu ed, [...] 00 :00 dose, On Medical mg(2.5 mg [facility] 08/30/22 Bran ch base)/3 mL at 2345, nebulizer Routine, solution 3 PACU mL polyethylen 2022-0 Yes 17g 17 g, Unive rs e glycol 2-05 Oral, ity of 3350 powder 04:53: QDAILYPRN, [place] 17 g 53 Starting Medical on [facility] 08/30/22 at 2253, Until Discontinu ed, Routine, Constipati on polyethylen 2022-0 Yes 17g 17 g, Unive rs e glycol 2-05 Oral, ity of 3350 powder 04:53: QDAILYPRN, [place] 17 g 53 Starting Medical on [facility] 08/30/22 at 2253, Until Discontinu ed, Routine, Constipati on traMADoL 2022-0 Yes 50mg 50 mg, Univers (ULTRAM) 2-05 Oral, ity of tablet 50 04:53: Q4HPRN, [place] mg 52 Starting Medical on [facility] 08/30/22 at 2253, Until Discontinu ed, Routine, [...] 2-05 Oral, ity of ) 04:53: Q6HPRN, [place] disintegrat 52 Starting Medi [place] ing tablet [...] Common -04 Spirit 00:00: - [facility]I 00 [facility] Bactrim DS Bactrim DS [...] 2022-11-05 20:31:00 171 mm[Hg] Univer sity of [facility] Diastolic blood 2022-11-05 20:31:00 99 mm[Hg] Unive rsity of pressure [facility] Heart rate 2022-11-05 20:31:00 90 /min Universi ty of [facility] Body temperature 2022-11-05 20:31:00 36.72 [place] Univ ersity of [facility] Body height 2022-11-05 20:31:00 154.9 cm Universi ty of [facility] Body weight 2022-11-05 20:31:00 57.153 kg Universi ty of [facility] BMI 2022-11-05 20:31:00 23.81 kg/m2 Universi ty of [facility] Body temperature 2022-09-25 16:44:00 36.67 [place] Univ ersity of [facility] Body height 2022-09-25 16:44:00 154.9 cm Universi ty of [facility] Body weight 2022-09-25 16:44:00 59.875 kg Universi ty of [place] [facility] [place] BMI 2022-09-25 16:44:00 24.94 kg/m2 Universi ty of [facility] Systolic blood 2022-09-08 22:22:00 138 mm[Hg] Univer sity of pressure [facility] Diastolic blood 2022-09-08 22:22:00 81 mm[Hg] Unive rsity of [facility] Heart rate 2022-09-08 22:22:00 66 /min Universi ty of [facility] Body temperature 2022-09-08 22:22:00 36.33 [place] Univ ersity of [facility] Respiratory rate 2022-09-08 22:22:00 18 /min [facility] Oxygen saturation in 2022-09-08 22:22:00 96 /min University Arterial blood by [facility] Pulse oximetry Branch Body weight 2022-09-05 17:00:00 62.1 kg Universi ty of [place] [facility] BMI 2022-09-05 17:00:00 25.87 kg/m2 Universi ty of [place] [facility] Body height 2022-09-02 07:20:00 154.9 cm Universi ty of [place] [facility] Systolic blood 2022-09-05 00:38:00 116 mm[Hg] Univer sity of pressure [place] [facility] Diastolic blood 2022-09-05 00:38:00 57 mm[Hg] Unive rsity of pressure [place] [facility] Heart rate 2022-09-05 00:38:00 70 /min Universi ty of [place] [facility] Body temperature 2022-09-05 00:38:00 36.56 [place] Univ ersity of [place] [facility] Respiratory rate 2022-09-05 00:38:00 8 /min Univ ersity of [place] [facility] Oxygen saturation in 2022-09-05 00:38:00 95 /min University of Arterial blood by [place] [facility] Pulse oximetry Branch Body height 2022-09-02 07:20:00 154.9 cm Universi ty of [place] [facility] Body weight 2022-09-02 07:20:00 62.1 kg Universi ty of [place] [facility] BMI 2022-09-02 07:20:00 25.87 kg/m2 Universi ty of [place] [facility] Systolic blood 2022-08-30 22:58:00 180 mm[Hg] Univer sity of pressure [place] [facility] Diastolic blood 2022-08-30 22:58:00 91 mm[Hg] Unive rsity of pressure [place] [facility] Heart rate 2022-08-30 22:58:00 82 /min Universi ty of [place] [facility] Respiratory rate 2022-08-30 22:58:00 16 /min Univ ersity of [place] [facility] Oxygen saturation in 2022-08-30 22:58:00 100 /min University of Arterial blood by [employer] [place] Pulse oximetry Branch Body temperature 2022-08-30 19:35:00 36.44 [facility] Body weight 2022-08-30 19:35:00 61.236 kg [facility] height 2021-10-23 12:10:00 62.00 [in_i] Common S [facility] weight 2021-10-23 12:10:00 135 [lb_av] [facility] bmi 2021-10-23 12:10:00 24.69 kg/m2 [facility] height 2020-12-26 08:20:00 62.00 [in_i] [facility] weight 2020-12-26 08:20:00 135 [lb_av] [facility] bmi 2020-12-26 08:20:00 24.69 kg/m2 [facility] height 2020-11-27 13:00:00 62.00 [in_i] [facility] weight 2020-11-27 13:00:00 135 [lb_av] [facility] 2020-11-27 13:00:00 24.69 kg/m2 [facility] Procedures Procedure Date / Time Performing Clinician Source Performed XR WRIST 3+ VW LEFT 2022-11-05 21:27:27 Pako Robbins [facility] XR WRIST 3+ VW LEFT 2022-09-25 17:14:57 Alejo Bergeron [facility] ASSIGNMENT OF BENEFITS 2022-09-25 16:29:43 Doctor Unassigned, Un [facility] [place] TIME OR 2022-09-05 00:18:14 Alejo Peguero [facility] (NON-REPORTABLE) Medical Branch [place] TIME OR 2022-09-05 00:18:14 Alejo Peguero [facility] (NON-REPORTABLE) [facility] DISTAL RADIUS ORIF 2022-09-04 21:42:00 Alejo Peguero [facility] EXTERNAL FIXATOR REMOVAL 2022-09-04 21:42:00 Alejo Peguero [facility] OF UPPER EXTREMITY Medical Branc h DISTAL RADIUS ORIF 2022-09-04 21:42:00 Alejo Peguero [facility] EXTERNAL FIXATOR REMOVAL 2022-09-04 21:42:00 Alejo Peguero [place] OF UPPER EXTREMITY Medical Branc h BASIC METABOLIC PANEL 2022-09-04 10:10:00 Andres Jimenez [facility] (NA, K, CL, CO2, GLUCOSE, Medica l Branch BUN, CREATININE, CA) CBC WITHOUT DIFF 2022-09-04 10:10:00 Andres Jimenez [facility] PROTHROMBIN TIME / INR 2022-09-04 10:10:00 Andres Jimenez [facility] ACTIVATED PARTIAL 2022-09-04 10:10:00 Andres Jimenez [facility] BASIC METABOLIC PANEL 2022-09-04 10:10:00 Andres Jimenez [facility] (NA, K, CL, CO2, GLUCOSE, Medica l Branch BUN, CREATININE, CA) CBC WITHOUT DIFF 2022-09-04 10:10:00 Andres Jimenez [facility] PROTHROMBIN TIME / INR 2022-09-04 10:10:00 Andres Jimenez [facility] ACTIVATED PARTIAL 2022-09-04 10:10:00 Andres Jimenez [facility] US DUPLEX VENOUS ARM 2022-09-03 15:45:00 Larisa Martines [facility] RIGHT - BY VASCULAR LAB Medical [facility] DUPLEX VENOUS ARM 2022-09-03 15:45:00 Larisa Martines [facility] RIGHT - BY VASCULAR LAB Medical Branch CBC WITHOUT DIFF 2022-09-01 16:54:00 Larisa Martines [facility] CBC WITHOUT DIFF 2022-09-01 16:54:00 Larisa Martines [facility] CBC WITHOUT DIFF 2022-09-01 16:54:00 Larisa Martines [facility] HB ECG ROUTINE & RHYTHM 2022-08-31 07:58:17 Larisa Martines [facility] HB ECG ROUTINE & RHYTHM 2022-08-31 07:58:17 Larisa Martines [facility] FL TIME OR 2022-08-31 04:15:00 Ja Jo [facility] (NON-REPORTABLE) Medical Branch [place] TIME OR 2022-08-31 04:15:00 Ja Jo Deford o [facility] (NON-REPORTABLE) Medical Branch [place] TIME OR 2022-08-31 04:15:00 Ja Jo [facility] (NON-REPORTABLE) Medical Branch ABORH CONFIRMATION (LAB 2022-08-31 02:42:00 Henri Phoenix [facility] ONLY) Medical Branch ABORH CONFIRMATION (LAB 2022-08-31 02:42:00 Henri Phoenix [facility] ONLY) Medical Branch ABORH CONFIRMATION (LAB 2022-08-31 02:42:00 Henri Phoenix [facility] ONLY) Medical Branch EXPLORATION VESSEL UPPER 2022-08-31 01:43:00 Ham Slater [facility] EXTERNAL FIXATOR 2022-08-31 01:43:00 Elyssa [facility] PLACEMENT FOR UPPER Medical Bran ch EXTREMITY LIGATION VESSEL UPPER 2022-08-31 01:43:00 Ham Slater [facility] EXPLORATION VESSEL UPPER 2022-08-31 01:43:00 Ham Slater [facility] EXTERNAL FIXATOR 2022-08-31 01:43:00 Elyssa [facility] PLACEMENT FOR UPPER Medical Bran ch EXTREMITY LIGATION VESSEL UPPER 2022-08-31 01:43:00 Ham Slater [facility] XR WRIST <3 VW LEFT 2022-08-30 23:25:00 Larisa Martines [facility] XR WRIST <3 VW LEFT 2022-08-30 23:25:00 Larisa Martines [facility] XR WRIST <3 VW LEFT 2022-08-30 23:25:00 Larisa Martines [facility] CBC WITH DIFF 2022-08-30 22:37:00 Henri Phoenix [facility] PROTHROMBIN TIME / INR 2022-08-30 22:37:00 Henri Phoenix [facility] ACTIVATED PARTIAL 2022-08-30 22:37:00 Henri [facility] WITH DIFF 2022-08-30 22:37:00 Henri Phoenix [facility] PROTHROMBIN TIME / INR 2022-08-30 22:37:00 Henri Phoenix [facility] ACTIVATED PARTIAL 2022-08-30 22:37:00 Henri Phoenix [facility] CBC WITH DIFF 2022-08-30 22:37:00 Henri Phoenix Deford o f [facility] PROTHROMBIN TIME / INR 2022-08-30 22:37:00 Henri Phoenix [facility] ACTIVATED PARTIAL 2022-08-30 22:37:00 Henri Phoenix [facility] XR ELBOW <3 VW LEFT 2022-08-30 20:42:00 Debi Frye [facility] XR FOREARM 2 VW LEFT 2022-08-30 20:42:00 Henri Phoenix [facility] XR HAND <3 VW LEFT 2022-08-30 20:42:00 Henri Phoeinx [facility] [place] XR WRIST <3 VW LEFT 2022-08-30 20:42:00 Henri Phoenix [facility] [place] XR ELBOW <3 VW LEFT 2022-08-30 20:42:00 Debi Frye [facility] XR FOREARM 2 VW LEFT 2022-08-30 20:42:00 Henri Phoenix [facility] XR HAND <3 VW LEFT 2022-08-30 20:42:00 Henri Phoenix [facility] Medical Branch XR WRIST <3 VW LEFT 2022-08-30 20:42:00 Henri Phoenix [facility] Medical Branch XR ELBOW <3 VW LEFT 2022-08-30 20:42:00 Debi Frye [facility] Medical Branch XR FOREARM 2 VW LEFT 2022-08-30 20:42:00 Henri Phoenix [facility] XR HAND <3 VW LEFT 2022-08-30 20:42:00 Henri Phoenix [facility] y [facility] Medical Branch XR WRIST <3 VW LEFT 2022-08-30 20:42:00 Henri Phoenix [facility] COMP. METABOLIC PANEL 2022-08-30 20:21:00 Henri Phoenix [facility] ([id number]) Medical Branch COMP. METABOLIC PANEL 2022-08-30 20:21:00 Henri Phoenix [facility] ([id number]) Medical Branch COMP. METABOLIC PANEL 2022-08-30 20:21:00 Henri Phoenix [facility] ([id number]) [facility] HB ABO GROUPING 2022-08-30 20:19:00 Henri Phoenix [facility] HB ABO GROUPING 2022-08-30 20:19:00 Henri Phoenix [facility] HB ABO GROUPING 2022-08-30 20:19:00 Henri Phoenix [facility] HOSPITAL ADMISSION 2022-08-30 06:01:00 Doctor Unasswilber [facility] EMERGENCY SERVICES 2022-08-30 06:01:00 Doctor Unassigned, [facility] AGREEMENTS AND [place] [facility] [place] AUTHORIZATIONS HOSPITAL ADMISSION 2022-08-30 06:01:00 Doctor Unasswilber [facility] HOSPITAL ADMISSION 2022-08-30 06:01:00 Doctor Unasswilber, [facility] [place] [facility] [place] Encounters Start End Encounter Admission Attending Care Care Encounter Source Date/Time Date/Time Type Type Clinicians Facility Department ID 2021-11-26 Outpatient Araujo, Na STLMLC STLC [id number] 2 Common 15:30:02 [facility] 2021-11-25 Outpatient Araujo, Na STLMLC STLMLC [id number] 2 Common 08:44:00 [facility] 2021-10-23 Outpatient Araujo, Na STLMLC STLMLC [id number] 2 Common 07:18:01 [facility] 2021-10-21 Outpatient Araujo, Na STLMLC STLMLC [id number] 2 Common 09:07:00 [facility] 2021-08-21 Outpatient Araujo, Na STLMLC STLC [id number] 2 Common 13:42:36 [facility] 2021-08-21 Outpatient Araujo, Na [facility] [id number] 2 Common 13:22:56 [id number] [facility] 2021-08-21 Outpatient Araujo, Na [facility] [id number] 2 Common 13:09:15 [id number] [facility] 2021-08-21 Outpatient Araujo, Na [facility] [id number] 2 Common 12:58:54 [id number] [facility] 2022-12-29 2022-12-29 [facility] [id number] Univers 14:00:00 14:00:00 ALEJO claire [facility] 2022-11-05 2022-11-05 [facility] [id number] Univers 16:00:00 23:59:00 Encounter Alejo SPECIALTY [id number] ity of CARE 4.2.7.2.686 [facility] AT [id number] Ne marilynnbessy LINDSAYClaire 809 [facility] 2022-11-05 2022-11-05 [facility] [id number] Univers 15:30:00 16:42:36 ALEJO claire [facility] 2022-11-05 2022-11-05 Office [facility] [id number] Univers 15:30:00 16:42:36 Visit Alejo SPECIALTY [id number] ity of CARE 4.2.7.2.686 [facility] [place] AT [id number] Ne marilynnbessy LINDSAYClaire 198 [facility] 2022-11-05 2022-11-05 Telephone [facility] [id number] Univers 00:00:00 00:00:00 Alejo SPECIALTY [id number] ity of CARE 4.2.7.2.686 [facility] [place] AT [id number] Ne marilynnbessy LINDSAYClaire 198 [facility] 2022-10-22 2022-10-22 Telephone [facility] [id number] Univers 00:00:00 00:00:00 Alejo SPECIALTY [id number] [place] [id number] Ne heidy VICTORY 198 [facility] 2022-10-21 2022-10-21 [facility] [id number] Univers 00:00:00 00:00:00 Alejo PRIMARY [id number] [place] [id number] Ne dical [address] [place] 2022-10-13 2022-10-13 Outpatient R [facility] [id number] Univers 12:50:00 12:50:00 ALEJO [facility] 2022-09-27 2022-09-27 Telephone [facility] [id number] [facility] 00:00:00 00:00:00 Alejo PRIMARY [id number] [place] [id number] Ne marilynnal [address] [place] 2022-09-25 2022-09-25 [facility] [id number] Univers 10:54:10 23:59:00 Encounter Alejo PRIMARY [id number] [place] [id number] Ne dical [address] [place] 2022-09-25 2022-09-25 Outpatient R [facility] [id number] Univers 09:40:00 11:58:17 ALEJO claire [facility] 2022-09-25 2022-09-25 Office [facility] [id number] Univers 09:40:00 11:58:17 Visit Alejo PRIMARY 350.1.13.10 [place] [id number] Ne dical [address] [place] 2022-09-25 2022-09-25 Orders Doctor ALEJO 1.2.840.114 [id number] Univers 00:00:00 00:00:00 Only Unassigned ELSIE 350.1.13.10 ity of [facility] 2.7.2.686 Andrei as [id number] [facility] 009 Branch 2022-09-09 2022-09-09 Transition LOUISE Peñaloza 1.2.840.114 [id number] Univers 00:00:00 00:00:00 of Care Allan HUFFMAN 350.1.13.10 ity of [address] [id number] [facility] 403 Branch 2022-08-30 2022-09-08 Hospital Henri Phoenix 1.2.840.11 [id number] Univers 13:37:00 18:34:00 Encounter Elyssa, Alejo ZIMMERMAN 350.1.13.10 ity of [place] [address].7.2.686 Andrei as [id number] [facility] 097 Branch 2022-08-30 2022-09-08 Inpatient X ELYSSA [facility] [id number] Univers 13:37:00 18:34:00 ALEJO steveclaire [facility] 2022-09-04 2022-09-04 Surgery MEI Peguero [id number] Univers 16:00:00 18:44:00 Alejo ZIMMERMAN 350.1.13.10 it y of [address]686 Andrei as [id number] [facility] 103 Branch 2022-08-30 2022-08-30 Surgery MEI Slater 1.2.840.114 [id number] Univers 18:45:00 20:22:00 Ham ZIMMERMAN 350.1.13.10 i ty of [place] [address].7.2.686 Andrei as [id number] [facility] 103 Branch 2021-11-27 2021-11-27 OFFICE [facility] [id number] Co mmon 00:00:00 00:00:00 VISIT EST Spir it PT LEVEL 3 - [facility] 2021-11-04 2021-11-04 (TEL) [facility] [id number] Co mmon 00:00:00 00:00:00 Spirit - [facility] 2021-10-23 2021-10-23 OFFICE STLMLC STLMLC [id number] Co mmon 00:00:00 00:00:00 VISIT Spirit ESTAB PT - [facility] LEVEL 4 [facility] 2021-10-23 2021-10-23 (TEL) STLMLC STLMLC [id number] Co mmon 00:00:00 00:00:00 [facility] 2021-09-30 2021-09-30 (TEL) STLMLC STLMLC [id number] Co mmon 00:00:00 00:00:00 [facility] 2021-02-05 2021-02-05 (TEL) STLMLC STLMLC [id number] Co mmon 00:00:00 00:00:00 [facility] 2020-12-26 2020-12-26 OFFICE STLMLC STLMLC [id number] Co mmon 00:00:00 00:00:00 VISIT EST Spir it PT LEVEL 3 [facility] 2020-11-27 2020-11-27 Outpatient STLMLC STLMLC [id number] Common 00:00:00 00:00:00 [facility] 2020-11-27 2020-11-27 OFFICE STLMLC STLMLC [id number] Co mmon 00:00:00 00:00:00 VISIT EST Spir it PT LEVEL 3 [facility] 2019-05-31 2019-05-31 [facility] [id number] Common 09:52:00 09:52:00 [facility] Care [facility] 2018-10-21 2018-10-21 [facility] [id number] Common 16:20:00 16:20:[address] [facility] 2018-09-27 2018-09-27 Outpatient [facility] [id number] Common 15:00:00 15:00:[address] [facility] 2017-11-25 2017-11-25 Outpatient [facility] [id number] Common 06:50:00 06:50:[email or web address] [facility] 2017-11-24 2017-11-24 Outpatient Asmita Peralta [id number] Common 15:14:00 15:14:00 t [address] [facility] 2017-11-10 2017-11-10 Outpatient Asmita Peralta 13 [id number] Common 10:30:00 10:30:[email or web address] [facility] Results Test Description Test Time Test Comments [...] l/abnormal. Lab Interpretation (test code = Normal 46402-8) [facility] / [id number] 10:45:22 Test Item Value Reference Range Interpretation Comments PROTIME PATIENT (test 11.2 See_Comment [Auto mated message] code = 5964-2) The system [employer] generated this result transmitted ref erence range: 10.1 - 1 2.6 Seconds. The re ference range was not u sed to interpret this result as normal/abnor mal. INR (test code = 6301-6) 1.0 Nor mal INR <1.1; Warfarin Therap eutic range 2.0 to 3. 0 or 2.5 to 3.5, dep ending upon the indica tions. Lab Interpretation (test Normal code = 01968-5) [facility] THRMPLAS [id number] 10:45:22 Test Item Value Reference Range Interpretation Comments APTT Patient (test code = 29 See_Comment [ Automated message] 3173-2) The system [employer] generated this result transmitted ref erence range: 26 - 36 Seconds. The re ference range was not u sed to interpret this result as normal/abnor mal. Lab Interpretation (test Normal code = 92271-3) [facility] Time / [id number] 10:45:22 Test Item Value Reference Range Interpretation Comments PROTIME PATIENT (test 11.2 See_Comment [Auto mated message] code = 5964-2) The system [employer] generated this result transmitted ref erence range: 10.1 - 1 2.6 Seconds. The re ference range was not u sed to interpret this result as normal/abnor mal. INR (test code = 6301-6) 1.0 Nor mal INR <1.1; Warfarin Therap eutic range 2.0 to 3. 0 or 2.5 to 3.5, dep ending upon the indica tions. Lab Interpretation (test Normal code = 04208-1) [facility] METABOLIC PANEL (NA, K, CL, CO2, GLUCOSE, BUN, CREATININE, CA)2022-09-04 10:44:41 Test Item Value Reference Range Interpretation Comments NA (test code = 134 mmol/L 135-145 L 3907141013) K (test code = 4.8 mmol/L 3.5-5.0 4599038186) CL (test code = 103 mmol/L 98-108 8486764005) CO2 TOTAL (test code = 28 mmol/L 23-31 1632473748) AGAP (test code = 3 2-16 0712602897) BUN (test code = 14 mg/dL 7-23 1905564604) GLUCOSE (test code = 103 mg/dL 70-110 0841767810) CREATININE (test code = 0.95 mg/dL 0.50-1.04 1332479925) CALCIUM (test code = 8.2 mg/dL 8.6-10.6 L 6722226114) eGFR (test code = 58.2 mL/min/1.73m2 1691211654) PRITESH (test code = PRITESH) Association of [...] tests). Lab Interpretation Abnormal (test code = 62301-6) [facility] METABOLIC PANEL (NA, K, CL, CO2, GLUCOSE, BUN, CREATININE, CA)2022-09-04 10:44:41 Test Item Value Reference Range Interpretation Comments NA (test code = 134 mmol/L 135-145 L 0439068306) K (test code = 4.8 mmol/L 3.5-5.0 6747666726) CL (test code = 103 mmol/L 98-108 4856640694) CO2 TOTAL (test code = 28 mmol/L 23-31 8869708114) AGAP (test code = 3 2-16 9366453571) BUN (test code = 14 mg/dL 7-23 4066251541) GLUCOSE (test code = 103 mg/dL 70-110 4316301297) CREATININE (test code = 0.95 mg/dL 0.50-1.04 3633294850) CALCIUM (test code = 8.2 mg/dL 8.6-10.6 L 6633737801) eGFR (test code = 58.2 mL/min/1.73m2 1374368810) PRITESH (test code = PRITESH) Association of [...] tests). Lab Interpretation Abnormal (test code = 82995-8) [facility] WITHOUT [id number] 10:24:39 Test Item Value Reference Range Interpretation Comments WBC (test code = 6690-2) 6.14 See_Comment [A utomated message] The system [employer] generated this result transmit adele reference range : 4.30 - 11.10 10*3/?L. The reference range was not used to interpret this result as normal/abnormal . RBC (test code = 789-8) 3.03 See_Comment L [Au tomated message] The system [employer] generated this result transmit adele reference range [...] 308 See_Comment [Au tomated message] The system [employer] generated this result transmit adele reference range : 166 - 358 10*3/?L. The reference range was not used to interpret this result as normal/abnormal . MPV (test code = 8.6 fL 9.5-12.9 L 52661-6) RDW-CV (test code = 13.9 % 12.0-15.5 788-0) RDW-SD (test code = 46.2 fL 39.0-49.9 18181-2) NRBC x10^3 (test code = See_Comment [Au tomated message] 6730983294) The system [employer] generated this result transmit adele reference range : 10*3/?L. The reference range was not used to interpret this result as normal/abnormal . NRBC/100 WBC (test code 0.0 See_Comment [Au tomated message] = 6070049009) The system [facility] generated this result transmit adele reference range : 0.0 - 10.0 /100 WBC s. The reference r yusra was not used to interpret this result as normal/abnormal . IPF % (test code = 9109399195) Lab Interpretation (test Abnormal code = 70341-6) [facility] WITHOUT [id number] 10:24:39 Test Item Value Reference Range Interpretation Comments WBC (test code = 6690-2) 6.14 See_Comment [A utomated message] The system [facility] generated this result transmit adele reference range : 4.30 - 11.10 10*3/?L. The reference range was not used to interpret this result as normal/abnormal . RBC (test code = 789-8) 3.03 See_Comment L [Au tomated message] The system [facility] generated this result transmit adele reference [...] See_Comment [Au tomated message] The system [employer] generated this result transmit adele reference range : 166 - 358 10*3/?L. The reference range was not used to interpret this result as normal/abnormal . MPV (test code = 8.6 fL 9.5-12.9 L 33598-3) RDW-CV (test code = 13.9 % 12.0-15.5 788-0) RDW-SD (test code = 46.2 fL 39.0-49.9 02668-1) NRBC x10^3 (test code = See_Comment [Au tomated message] 8893393710) The system [employer] generated this result transmit adele reference range : 10*3/?L. The reference range was not used to interpret this result as normal/abnormal . NRBC/100 WBC (test code 0.0 See_Comment [Au tomated message] = 1052262277) The system [facility] generated this result transmit adele reference range : 0.0 - 10.0 /100 WBC s. The reference r yusra was not used to interpret this result as normal/abnormal . IPF % (test code = 2011385489) Lab Interpretation (test Abnormal code = 62162-6) [facility] WITHOUT [id number] 17:35:12 Test Item Value Reference Range Interpretation Comments WBC (test code = 6690-2) 7.12 See_Comment [A utomated message] The system [employer] generated this result transmit adele reference range : 4.30 - 11.10 10*3/?L. The reference range was not used to interpret this result as normal/abnormal . RBC (test code = 789-8) 2.90 See_Comment L [Au tomated message] The system [employer] generated this result transmit adele reference range [...] See_Comment [Au tomated message] The system [employer] generated this result transmit adele reference range : 166 - 358 10*3/?L. The reference range was not used to interpret this result as normal/abnormal . MPV (test code = 8.9 fL 9.5-12.9 L 33258-7) RDW-CV (test code = 14.1 % 12.0-15.5 788-0) RDW-SD (test code = 48.3 fL 39.0-49.9 32364-8) NRBC x10^3 (test code = See_Comment [Au tomated message] 9073979305) The system [employer] generated this result transmit adele reference range : 10*3/?L. The reference range was not used to interpret this result as normal/abnormal . NRBC/100 WBC (test code 0.0 See_Comment [Au tomated message] = 3411732129) The system [facility] generated this result transmit adele reference range : 0.0 - 10.0 /100 WBC s. The reference r yusra was not used to interpret this result as normal/abnormal . IPF % (test code = 0148184071) Lab Interpretation (test Abnormal code = 13828-2) [facility] WITHOUT [id number] 17:35:12 Test Item Value Reference Range Interpretation Comments WBC (test code = 6690-2) 7.12 See_Comment [A utomated message] The system [employer] generated this result transmit adele reference range : 4.30 - 11.10 10*3/?L. The reference range was not used to interpret this result as normal/abnormal . RBC (test code = 789-8) 2.90 See_Comment L [Au tomated message] The system [employer] generated this result transmit adele reference range [...] See_Comment [Au tomated message] The system [employer] generated this result transmit adele reference range : 166 - 358 10*3/?L. The reference range was not used to interpret this result as normal/abnormal . MPV (test code = 8.9 fL 9.5-12.9 L 57641-4) RDW-CV (test code = 14.1 % 12.0-15.5 788-0) RDW-SD (test code = 48.3 fL 39.0-49.9 50486-8) NRBC x10^3 (test code = See_Comment [Au tomated message] 6151677570) The system [employer] generated this result transmit adele reference range : 10*3/?L. The reference range was not used to interpret this result as normal/abnormal . NRBC/100 WBC (test code 0.0 See_Comment [Au tomated message] = 9744629474) The system [employer] generated this result transmit adele reference range : 0.0 - 10.0 /100 WBC s. The reference r yusra was not used to interpret this result as normal/abnormal . IPF % (test code = 3643282983) Lab Interpretation (test Abnormal code = 22114-4) [facility] WITHOUT [id number] 17:35:12 Test Item Value Reference Range Interpretation Comments WBC (test code = 6690-2) 7.12 See_Comment [A utomated message] The system [employer] generated this result transmit adele reference range : 4.30 - 11.10 10*3/?L. The reference range was not used to interpret this result as normal/abnormal . RBC (test code = 789-8) 2.90 See_Comment L [Au tomated message] The system [employer] generated this result transmit adele reference range [...] See_Comment [Au tomated message] The system [employer] generated this result transmit adele reference range : 166 - 358 10*3/?L. The reference range was not used to interpret this result as normal/abnormal . MPV (test code = 8.9 fL 9.5-12.9 L 38784-3) RDW-CV (test code = 14.1 % 12.0-15.5 788-0) RDW-SD (test code = 48.3 fL 39.0-49.9 59705-9) NRBC x10^3 (test code = See_Comment [Au tomated message] [id number]) The system [employer] generated this result transmit adele reference range : 10*3/?L. The reference range was not used to interpret this result as normal/abnormal . NRBC/100 WBC (test code 0.0 See_Comment [Au tomated message] = 1076173507) The [facility] this result transmit adele reference range : 0.0 - 10.0 /100 WBC s. The reference r yusra was not used to interpret this result as normal/abnormal . IPF % (test code = 0555910343) Lab Interpretation (test Abnormal code = 10158-0) [facility] Confirmation (Lab Only)2022-08-31 03:15:36 Test Item Value Reference Range Interpretation Comments ABO & RH (test AB Positive Performed at [facility] code = 20) Laboratory Serv [facility] Blood Bank[address] [place] [address]Qmhe Free: [phone] A No. [id number] [facility] Confirmation (Lab Only)2022-08-31 03:15:36 Test Item Value Reference Range Interpretation Comments ABO & RH (test AB Positive Performed at [facility] code = 20) Laboratory Serv [facility] [address] [place] [address]Zmmx Free: [phone] A No. [id number] [facility] Confirmation (Lab Only)2022-08-31 03:15:36 Test Item Value Reference Range Interpretation Comments ABO & RH (test AB Positive Performed at [facility] code = 20) Laboratory Serv [facility] Blood [address] [id number] Free: [phone] A No. [id number] [facility] [id number] 22:58:55 Test Item Value Reference Range Interpretation Comments APTT Patient (test code 25 See_Comment L [Au tomated message] = 3173-2) The system [employer] generated this result transmitted ref erence range: 26 - 36 Seconds. The reference range was not used to int erpret this result as normal/abnormal . Lab Interpretation (test Abnormal code = 36155-3) [facility] / [id number] 22:58:55 Test Item Value Reference Range Interpretation Comments PROTIME PATIENT (test 11.1 See_Comment [Auto mated message] code = 5964-2) The system [employer] generated this result transmitted ref erence range: 10.1 - 1 2.6 Seconds. The re ference range was not u sed to interpret this result as normal/abnor mal. INR (test code = 6301-6) 1.0 Nor mal INR <1.1; Warfarin Therap eutic range 2.0 to 3. 0 or 2.5 to 3.5, dep ending upon the indica tions. Lab Interpretation (test Normal code = 62830-5) [facility] [id number] 22:58:55 Test Item Value Reference Range Interpretation Comments APTT Patient (test code 25 See_Comment L [Au tomated message] = 3173-2) The system [employer] generated this result transmitted ref erence range: 26 - 36 Seconds. The reference range was not used to int erpret this result as normal/abnormal . Lab Interpretation (test Abnormal code = 36726-6) [facility] / [id number] 22:58:55 Test Item Value Reference Range Interpretation Comments PROTIME PATIENT (test 11.1 See_Comment [Auto mated message] code = 5964-2) The system [employer] generated this result transmitted ref erence range: 10.1 - 1 2.6 Seconds. The re ference range was not u sed to interpret this result as normal/abnor mal. INR (test code = 6301-6) 1.0 Nor mal INR <1.1; Warfarin Therap eutic range 2.0 to 3. 0 or 2.5 to 3.5, dep ending upon the indica tions. Lab Interpretation (test Normal code = 50070-6) [facility] [id number] 22:58:55 Test Item Value Reference Range Interpretation Comments APTT Patient (test code 25 See_Comment L [Au tomated message] = 3173-2) The system [employer] generated this result transmitted ref erence range: 26 - 36 Seconds. The reference range was not used to int erpret this result as normal/abnormal . Lab Interpretation (test Abnormal code = 32698-3) [facility] / [id number] 22:58:55 Test Item Value Reference Range Interpretation Comments PROTIME PATIENT (test 11.1 See_Comment [Auto mated message] code = 5964-2) The system [employer] generated this result transmitted ref erence range: 10.1 - 1 2.6 Seconds. The re ference range was not u sed to interpret this result as normal/abnor mal. INR (test code = 6301-6) 1.0 Nor mal INR <1.1; Warfarin Therap eutic range 2.0 to 3. 0 or 2.5 to 3.5, dep ending upon the indica tions. Lab Interpretation (test Normal code = 64215-3) [facility] WITH [id number] 22:56:34 Test Item Value Reference Range Interpretation Comments WBC (test code = 7.44 See_Comment [Automated 0890-2) message] The sy stem which generated this [...] RDW-SD (test code = 44.8 fL 39.0-49.9 86561-2) RDW-CV (test code = 13.8 % 12.0-15.5 788-0) PLT (test code = 334 See_Comment [Automated 777-3) message] The sy stem which generated this result transmitted reference range : 166 - 358 10*3/ ?L. The reference r yusra was not used to interpret this result as normal/abnormal . MPV (test code = 8.8 fL 9.5-12.9 L 14037-5) NRBC/100 WBC (test 0.0 See_Comment [Automat ed code = 2528612974) message] The system which generated this result transmitted reference range : 0.0 - 10.0 /100 WBCs. The refer ence range was not u sed to interpret th is result as normal/abnormal . NRBC x10^3 (test code See_Comment [Auto mated = 3684306156) message] The s ystem which generated this result transmitted reference range : 10*3/?L. The reference range was not used to interpret this result as normal/abnormal . GRAN MAT (NEUT) % 69.1 % (test code = 770-8) IMM GRAN % (test code 0.30 % = 3764979664) LYMPH % (test code = 19.4 % 736-9) MONO % (test code = 7.3 % 5905-5) EOS % (test code = 3.2 % 713-8) BASO % (test code = 0.7 % 706-2) GRAN MAT x10^3(ANC) 5.15 10*3/uL 1.88-7.09 (test code = 7940516463) IMM GRAN x10^3 (test 0.00-0.06 code = 6836434043) LYMPH x10^3 (test code 1.44 10*3/uL 1.32-3.29 = 731-0) MONO x10^3 (test code 0.54 10*3/uL 0.33-0.92 = 742-7) EOS x10^3 (test code = 0.24 10*3/uL 0.03-0.39 711-2) BASO x10^3 (test code 0.05 10*3/uL 0.01-0.07 = 704-7) Lab Interpretation Abnormal (test code = 78787-2) [facility] WITH [id number] 22:56:34 Test Item Value Reference Range Interpretation Comments WBC (test code = 7.44 See_Comment [Automated 4290-2) message] The sy stem which generated this result transmitted reference range : 4.30 - 11.10 10*3/?L. The reference range was not used to interpret this result as normal/abnormal . RBC (test code = 3.73 See_Comment L [Automated 899-8) message] The sy stem which generated this [...] RDW-SD (test code = 44.8 fL 39.0-49.9 84945-4) RDW-CV (test code = 13.8 % 12.0-15.5 788-0) PLT (test code = 334 See_Comment [Automated 777-3) message] The sy stem which generated this result transmitted reference range : 166 - 358 10*3/ ?L. The reference r yusra was not used to interpret this result as normal/abnormal . MPV (test code = 8.8 fL 9.5-12.9 L 36294-3) NRBC/100 WBC (test 0.0 See_Comment [Automat ed code = 4538294709) message] The system which generated this result transmitted reference range : 0.0 - 10.0 /100 WBCs. The refer ence range was not u sed to interpret th is result as normal/abnormal . NRBC x10^3 (test code See_Comment [Auto mated = 5774246080) message] The s ystem which generated this result transmitted reference range : 10*3/?L. The reference range was not used to interpret this result as normal/abnormal . GRAN MAT (NEUT) % 69.1 % (test code = 770-8) IMM GRAN % (test code 0.30 % = 6596546193) LYMPH % (test code = 19.4 % 736-9) MONO % (test code = 7.3 % 5905-5) EOS % (test code = 3.2 % 713-8) BASO % (test code = 0.7 % 706-2) GRAN MAT x10^3(ANC) 5.15 10*3/uL 1.88-7.09 (test code = 6092165188) IMM GRAN x10^3 (test 0.00-0.06 code = 6414649605) LYMPH x10^3 (test code 1.44 10*3/uL 1.32-3.29 = 731-0) MONO x10^3 (test code 0.54 10*3/uL 0.33-0.92 = 742-7) EOS x10^3 (test code = 0.24 10*3/uL 0.03-0.39 711-2) BASO x10^3 (test code 0.05 10*3/uL 0.01-0.07 = 704-7) Lab Interpretation Abnormal (test code = 51691-0) [facility] WITH [id number] 22:56:34 Test Item Value Reference Range Interpretation Comments WBC (test code = 7.44 See_Comment [Automated 5203-2) message] The sy stem which generated this result transmitted reference range : 4.30 - 11.10 10*3/?L. The reference range was not used to interpret this result as normal/abnormal . RBC (test code = 3.73 See_Comment L [Automated 929-8) message] The sy stem which generated this [...] RDW-SD (test code = 44.8 fL 39.0-49.9 88640-8) RDW-CV (test code = 13.8 % 12.0-15.5 788-0) PLT (test code = 334 See_Comment [Automated 887-3) message] The sy stem which generated this result transmitted reference range : 166 - 358 10*3/ ?L. The reference r yusra was not used to interpret this result as normal/abnormal . MPV (test code = 8.8 fL 9.5-12.9 L 92541-0) NRBC/100 WBC (test 0.0 See_Comment [Automat ed code = 2686044867) message] The system which generated this result transmitted reference range : 0.0 - 10.0 /100 WBCs. The refer ence range was not u sed to interpret th is result as normal/abnormal . NRBC x10^3 (test code See_Comment [Auto mated = 9673927066) message] The s ystem which generated this result transmitted reference range : 10*3/?L. The reference range was not used to interpret this result as normal/abnormal . GRAN MAT (NEUT) % 69.1 % (test code = 770-8) IMM GRAN % (test code 0.30 % = 2459756378) LYMPH % (test code = 19.4 % 736-9) MONO % (test code = 7.3 % 5905-5) EOS % (test code = 3.2 % 713-8) BASO % (test code = 0.7 % 706-2) GRAN MAT x10^3(ANC) 5.15 10*3/uL 1.88-7.09 (test code = 2009027882) IMM GRAN x10^3 (test 0.00-0.06 code = 1932593421) LYMPH x10^3 (test code 1.44 10*3/uL 1.32-3.29 = 731-0) MONO x10^3 (test code 0.54 10*3/uL 0.33-0.92 = 742-7) EOS x10^3 (test code = 0.24 10*3/uL 0.03-0.39 711-2) BASO x10^3 (test code 0.05 10*3/uL 0.01-0.07 = 704-7) Lab Interpretation Abnormal (test code = 91958-0) [facility] ON[facility] [id number] 21:05:30 Test Item Value Reference Range Interpretation Comments ABO & RH (test AB POSITIVE Performed at [facility] code = 20) Laboratory Serv [facility] Blood [facility] [place] [address]Ajze Free: [phone] A No. [id number] IAT (test code = Negative Performed a t [facility] 1185) Laboratory [facility] Blood [address] [address]Okcb Free: [phone] A No. [id number] [facility] - ONCE [id number] 21:05:30 Test Item Value Reference Range Interpretation Comments ABO & RH (test AB POSITIVE Performed at [facility] code = 20) Laboratory [facility] Blood [address] [address]Jytg Free: [phone] A No. [id number] IAT (test code = Negative Performed a t [facility] 1185) Laboratory [facility] Blood [address] [address]Yypc Free: [phone] A No. [id number] [facility] - ONCE [id number] 21:05:30 Test Item Value Reference Range Interpretation Comments ABO & RH (test AB POSITIVE Performed at [facility] code = 20) Laboratory [facility] Blood [address] [address]Shxt Free: [phone] A No. [id number] IAT (test code = Negative Performed a t [facility] 1185) Laboratory [facility] Blood [address] [address]Vigk Free: [phone] A No. [id number] [facility] METABOLIC PANEL ([id number])2022-08-30 20:43:30 Test Item Value Reference Range Interpretation Comments NA (test code = 140 mmol/L 135-145 1754839950) K (test code = 4.0 mmol/L 3.5-5.0 5144292899) CL (test code = 109 mmol/L 98-108 H 9498739731) CO2 TOTAL (test code = 21 mmol/L 23-31 L 5371841004) AGAP (test code = 10 2-16 0107169881) BUN (test code = 15 mg/dL 7-23 4047760024) GLUCOSE (test code = 106 mg/dL 70-110 2902341244) CREATININE (test code = 0.76 mg/dL 0.50-1.04 0951583018) TOTAL BILI (test code = 0.5 mg/dL 0.1-1.2 9815424059) CALCIUM (test code = 8.6 mg/dL 8.6-10.6 0555381085) T PROTEIN (test code = 6.7 g/dL 6.3-8.2 7318262012) ALBUMIN (test code = 3.9 g/dL 3.5-5.0 8948626561) ALK PHOS (test code = 79 U/L 34-122 2324432658) ALTv (test code = 27 U/L 5-35 1742-6) AST(SGOT) (test code = 47 U/L 13-40 H 6614019576) eGFR (test code = 75.2 mL/min/1.73m2 1717190361) PRITESH (test code = PRITESH) Association of [...] tests). Lab Interpretation Abnormal (test code = 20043-0) [facility]. METABOLIC PANEL ([id number])2022-08-30 20:43:30 Test Item Value Reference Range Interpretation Comments NA (test code = 140 mmol/L 135-145 8147498148) K (test code = 4.0 mmol/L 3.5-5.0 2854672039) CL (test code = 109 mmol/L 98-108 H 1646131012) CO2 TOTAL (test code = 21 mmol/L 23-31 L 9560001930) AGAP (test code = 10 2-16 4341865844) BUN (test code = 15 mg/dL 7-23 9407587778) GLUCOSE (test code = 106 mg/dL 70-110 0374549053) CREATININE (test code = 0.76 mg/dL 0.50-1.04 3709410635) TOTAL BILI (test code = 0.5 mg/dL 0.1-1.6 7051873559) CALCIUM (test code = 8.6 mg/dL 8.6-10.6 3169169129) T PROTEIN (test code = 6.7 g/dL 6.3-8.2 8148501111) ALBUMIN (test code = 3.9 g/dL 3.5-5.0 1825268221) ALK PHOS (test code = 79 U/L 34-122 2948436878) ALTv (test code = 27 U/L 5-35 1742-6) AST(SGOT) (test code = 47 U/L 13-40 H 1427094110) eGFR (test code = 75.2 mL/min/1.73m2 0672442030) PRITESH (test code = PRITESH) Association of [...] tests). Lab Interpretation Abnormal (test code = 14509-1) [facility]. METABOLIC PANEL ([id number])2022-08-30 20:43:30 Test Item Value Reference Range Interpretation Comments NA (test code = 140 mmol/L 135-145 0862027322) K (test code = 4.0 mmol/L 3.5-5.0 5070301764) CL (test code = 109 mmol/L 98-108 H 1369409383) CO2 TOTAL (test code = 21 mmol/L 23-31 L 2156998396) AGAP (test code = 10 2-16 1591473316) BUN (test code = 15 mg/dL 7-23 6441237169) GLUCOSE (test code = 106 mg/dL 70-110 6147980396) CREATININE (test code = 0.76 mg/dL 0.50-1.04 0494356017) TOTAL BILI (test code = 0.5 mg/dL 0.1-1.0 0958088075) CALCIUM (test code = 8.6 mg/dL 8.6-10.6 8054823726) T PROTEIN (test code = 6.7 g/dL 6.3-8.2 6449027635) ALBUMIN (test code = 3.9 g/dL 3.5-5.0 1589781313) ALK PHOS (test code = 79 U/L 34-122 0332195834) ALTv (test code = 27 U/L 5-35 1742-6) AST(SGOT) (test code = 47 U/L 13-40 H 6883536900) eGFR (test code = 75.2 mL/min/1.73m2 1443376476) PRITESH (test code = PRITESH) Association of [...] tests). Lab Interpretation Abnormal (test code = 82878-9) [facility]"
--- NOTE | 2023-04-30 16:06 | ER ---
Nurse's Notes [facility] Name: Jose Enrique Yin Age: 72 yrs Sex: Female : 1950 Arrival Date: 04/30/2023 Time: 15:54 Bed IW1 Private MD: Diagnosis: Osteoarthritis of hip, unspecified;Essential (primary) hypertension Presentation: 04/30 16:00 Chief complaint: Patient states: C/O pain to left hip and left rotator cuff. Reports ld1 history of arthritis. Out of blood pressure meds. Coronavirus screen: At this time, the client does not indicate any symptoms associated with coronavirus-19. Ebola Screen: No symptoms or risks identified at this time. Initial Sepsis Screen: Does the patient meet any 2 criteria? No. Patient's initial sepsis screen is negative. Does the patient have a suspected source of infection? No. Patient's initial sepsis screen is negative. Risk Assessment: Do you want to hurt yourself or someone else? Patient reports no desire to harm self or others. Onset of symptoms was April 30, 2023. 16:00 Method Of Arrival: Ambulatory ld1 16:00 Acuity: YONAS 4 ld1 Triage Assessment: 15:59 General: Appears in no apparent distress. comfortable, Behavior is calm, cooperative, ld1 appropriate for age. Pain: Complains of pain in left hip Pain does not radiate. Pain currently is 9 out of 10 on a pain scale. Quality of pain is described as throbbing. EENT: No signs and/or symptoms were reported regarding the EENT system. Neuro: Level of Consciousness is awake, alert, obeys commands, Oriented to person, place, time, situation. Cardiovascular: Capillary refill < 3 seconds Patient's skin is warm and dry. Respiratory: Airway is patent Respiratory effort is even, unlabored. GI: Abdomen is round non-distended. : No signs and/or symptoms were reported regarding the genitourinary system. Derm: No signs and/or symptoms reported regarding the dermatologic system. Musculoskeletal: No signs and/or symptoms reported regarding the musculoskeletal system. Historical: - Allergies: 15:59 No Known Allergies; ld1 - PMHx: 15:59 Arthritis; Hypertensive disorder; ld1 - PSHx: 15:59 left arm; ld1 - Immunization history:: Adult Immunizations up to date. - Social history:: Smoking status: Patient denies any tobacco usage or history of. Patient/guardian denies using alcohol. Screenin:14 [facility] ED Fall Risk Assessment (Adult) History of falling in the last 3 months, ld1 including since admission No falls in past 3 months (0 pts). Abuse screen: Denies threats or abuse. Denies injuries from another. Nutritional screening: No deficits noted. Tuberculosis screening: No symptoms or risk factors identified. Vital Signs: 16:00 BP 148 / 85; Pulse 90; Resp 18; Temp 97.9(O); Pulse Ox 98% on R/A; Weight 61.23 kg; ld1 Height 5 ft. 2 in. ; Pain 9/10; 16:00 Body Mass Index 24.69 (61.23 kg, 157.48 cm) ld1 16:00 Pain Scale: Adult ld1 ED Course: 15:58 Patient arrived in ED. mg5 15:58 [facility]ruitt [facility] sb4 15:58 Jose Juan Birmingham MD is Attending Physician. sb4 15:59 Arm band placed on right wrist. ld1 16:01 Triage completed. ld1 16:14 Patient has correct armband on for positive identification. cafeteria monitor on. Pulse ld1 ox on. NIBP on. 16:14 No provider procedures requiring assistance completed. Patient did not have IV access ld1 during this emergency room visit. Administered Medications: 16:08 Drug: Ketorolac IM 30 mg IM once Route: IM; Site: right gluteus; ld1 16:08 Drug: Dexamethasone IM 10 mg IM once Route: IM; Site: left deltoid; ld1 Medication: 16:14 VIS not applicable for this client. ld1 Outcome: 16:05 Discharge ordered by . sb4 16:14 Discharged to home ambulatory, ld1 16:14 Condition: stable 16:14 Discharge instructions given to patient, Instructed on discharge instructions, follow up and referral plans. medication usage, Demonstrated understanding of instructions, follow-up care, medications, Prescriptions given X 1, 16:15 Patient left the ED. ld1 16:22 Patient left the ED. ld1 Signatures: Rosa Claudio RN RN ld1 Bernie Pruitt PA-C PA-C sb4 Shayy Tang mg5
--- NOTE | 2023-04-30 16:06 | EDPHYS ---
Physician Documentation [facility] Name: Jose Enrique Yin Age: 72 yrs Sex: Female : 1950 Arrival Date: 04/30/2023 Time: 15:54 Bed IW1 Private MD: ED Physician Jose Juan Birmingham HPI: 04/30 16:26 This 72 yrs old Female presents to ER via Ambulatory with complaints of hip and sb4 shoulder pain. 16:26 Patient states that she has chronic left rotator cuff pain as well as left hip sb4 arthritis. She occasionally gets flareups. She was seen here a little over a month ago and given medication that she states helped her pain significantly. She is here requesting the same medication to help alleviate her pain. She states that she has not been able to see her PCP due to insurance reasons but has an appointment at the end of the month. She denies any change or new symptoms. Historical: - Allergies: 15:59 No Known Allergies; ld1 - PMHx: 15:59 Arthritis; Hypertensive disorder; ld1 - PSHx: 15:59 left arm; ld1 - Immunization history:: Adult Immunizations up to date. - Social history:: Smoking status: Patient denies any tobacco usage or history of. Patient/guardian denies using alcohol. ROS: 16:26 Constitutional: Negative for fever, chills, and weight loss, sb4 16:26 MS/extremity: Positive for left hip pain and left shoulder pain, 16:26 All other systems are negative, Exam: 16:26 Constitutional: This is a well developed, well nourished patient who is awake, alert, sb4 and in no acute distress. Head/Face: Normocephalic, atraumatic. Eyes: Extra-ocular motions intact. Periorbital areas with no swelling, redness, or edema. ENT: Mucous membranes moist. Skin: Warm, dry with normal turgor. Normal color with no rashes, no lesions, and no evidence of cellulitis. Neuro: Awake and alert, GCS 15, oriented to person, place, time, and situation. Motor strength 5/5 in all extremities. Sensory grossly intact. Psych: Awake, alert, with orientation to person, place and time. Behavior, mood, and affect are within normal limits. 16:26 Musculoskeletal/extremity: ROM: limited active range of motion due to pain, in the left arm and left leg, Circulation is intact in all extremities. Pulses: are normal with no appreciated deficits, Perfusion: the patient is normally perfused throughout, Perfusion: the extremity is normally perfused throughout, Sensation intact. Vital Signs: 16:00 BP 148 / 85; Pulse 90; Resp 18; Temp 97.9(O); Pulse Ox 98% on R/A; Weight 61.23 kg; ld1 Height 5 ft. 2 in. ; Pain 9/10; 16:00 Body Mass Index 24.69 (61.23 kg, 157.48 cm) ld1 16:00 Pain Scale: Adult ld1 MDM: 16:00 Patient medically screened. sb4 16:26 Differential diagnosis: arthritis, dusty, strain. Data reviewed: vital signs, nurses sb4 notes, and as a result, I will discharge patient. Counseling: I had a detailed discussion with the patient and/or guardian regarding the historical points, exam findings, and any diagnostic results supporting the discharge/admit diagnosis, the presence of at least one elevated blood pressure reading (>120/80) during this emergency department visit, the need for outpatient follow up, for definitive care, to return to the emergency department if symptoms worsen or persist or if there are any questions or concerns that arise at home. Administered Medications: 16:08 Drug: Ketorolac IM 30 mg IM once Route: IM; Site: right gluteus; ld1 16:08 Drug: Dexamethasone IM 10 mg IM once Route: IM; Site: left deltoid; ld1 Disposition Summary: 04/30/23 16:05 Discharge Ordered Notes: Location: Home sb4 Problem: an ongoing problem sb4 Symptoms: have improved sb4 Condition: Stable sb4 Diagnosis - Osteoarthritis of hip, unspecified sb4 - Essential (primary) hypertension sb4 Followup: sb4 - With: Private Physician - When: 2 - 3 days - Reason: Recheck today's complaints, Continuance of care, Re-evaluation by your physician Discharge Instructions: - Discharge Summary Sheet sb4 Forms: - Medication Reconciliation Form sb4 - Thank You Letter sb4 - Antibiotic Education sb4 - Prescription Opioid Use sb4 - Patient Portal Instructions sb4 - Leadership Thank You Letter sb4 Prescriptions: - Prednisone 20 mg Oral Tablet - take 1 tablet ORAL route once daily for 5 days; 5 tablet; Refills: 0, Product sb4 Selection Permitted - Lisinopril 20 mg Oral tablet - take 1 tablet ORAL route once daily; 30 tablet; Refills: 0, Product Selection sb4 Permitted - Diclofenac Sodium 75 mg Oral Tablet Sustained Release - take 1 tablet ORAL route 2 times per day; 30 tablet; Refills: 0, Product sb4 Selection Permitted Signatures: Rosa Claudio, ANTONIO RN ld1 Bernie Pruitt PA-C PA-C sb4
[2023-04-30] MEDS ORDERED: KETOROLAC 30 MG/ML INJ ONE (16:17)
[2023-04-30] MEDS ORDERED: dexAMETHasone 10 MG/ML VIAL ONE (16:17)
[2023-04-30 17:52] VITALS: BP 148/85; TEMP 97.9; O2SAT 98
== END 2023-04-30 16:22 | disposition home or self-care (01) ==
LOC: ER 15:54
DX: M16.12 Unilateral primary osteoarthritis, left hip (principal); M25.512 Pain in left shoulder; I10 Essential (primary) hypertension
CPT/HCPCS: 96372; 99284; J1100

== ENCOUNTER 2023-05-28 11:46 | Emergency (ER) | payer OTHER ==
--- OUTSIDE RECORDS SUMMARY | 2023-05-28 11:51 | XMS REPORT | Continuity of Care Document ---
:1950 Author Organization [facility] t Address [address] [place] [address] [place] [id number] Care Team Providers Name Role Phone NADEEN ARAUJO Primary Care Physician Unavailable Nadeen Araujo L Attending Clinician Unavailable ALEJO PEGUERO Attending Clinician Unavailable ALEJO BERGERON Attending Clinician Unavailable Marielena CESAR, Alejo Attending Clinician Elyssa DONAHUE MD, John Attending Clinician Doctor Unassigned, Tropic Attending Clinician Unavailable Allan Peñaloza RN Attending Clinician Unavailable Henri Phoenix MD Attending Clinician Ham Slater MD Attending Clinician Elyssa DONAHUE MD, John Admitting Clinician ALEJO BERGERON Admitting Clinician Unavailable Payers Payer Name Policy Type Policy Number Effective Date Expiration Date Lisette lionel ROCHA/[facility] [id number] 2022 DUAL COMP HMO D 00:00:00 SNP MEDICAID OF [id number] 2022 [place] 00:[place]:00 [employer] MEDICARE [id number] 2020 Common Sp malissa 00:00:00 [facility] MEDICARE C1 [id number] 2020 Common Sp malissa 00:00:00 [facility] MEDICARE C1 [id number] 2020 Common Sp malissa 00:00:00 [facility] Problems Condition Condition Condition Status Onset Resolution [...] mon of n problem Spirit cardiovasc - [facility] ular [facility] [id number] Primary Problem Commo n osteoarthr Spirit itis - [facility] involving [facility] joints [facility] [id number] Osteoarthr Problem Co mmon itis of Spirit multiple - 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 and osteoarthr Me dical thigh itis type Center Swelling Swelling Problem Commo n Spirit [facility] Unsteady Unsteady Problem Commo n gait gait [facility] Osteopenia Osteopenia Problem C [facility] Hypertensi HTN Problem Commo n on (hypertens Spirit ion) [facility] Anxiety Anxiety Problem Common [facility] [id number] Depression Problem Co mmon , Spirit recurrent [...] SDOH Social Unive rsity of Connections Get [place] [facility] ical Together Branch History SDOH Social Unive rsity of Connections [facility] Branch History SDOH Social Unive rsity of Connections [place] [facility] Membership Branch History SDOH Social Unive rsity of Connections [place] [facility] Meetings Branch History of tobacco Cigarette Smoker University of use [place] [facility] Exposure to 2022-10-26 2022-11-05 Not sure University of SARS-CoV-2 (event) 00:00:00 15:21:00 [place] [facility] Tobacco use and 2022-08-31 2022-08-31 User of Universit y of exposure 00:00:00 00:00:00 smokeless [place] [facility] tobacco Branch History SDOH 2022-08-31 2022-08-31 0 University o f Alcohol Std Drinks 00:00:00 00:00:00 [place] [facility] History SDOH 2022-08-31 2022-08-31 1 University o f Alcohol Binge 00:00:00 00:00:00 [place] [facility] History SDOH Social 2022-08-31 2022-08-31 5 Unive rsity of Connections Phone 00:00:00 00:00:00 [place] M edical Branch History SDOH Social 2022-08-31 2022-08-31 4 Unive rsity of Connections Living 00:00:00 00:00:00 [place] [facility] History SDOH 2022-08-31 2022-08-31 0 University o f Physical Activity 00:00:00 00:00:00 [place] [facility] DPW Branch History SDOH 2022-08-31 2022-08-31 0 University o f Physical Activity 00:00:00 00:00:00 [place] [facility] MPS Branch History SDOH 2022-08-31 2022-08-31 2 University o f Financial 00:00:00 00:00:00 [place] [facility] History SDOH Food 2022-08-31 2022-08-31 3 Univers ity of Worry 00:00:00 00:00:00 [place] [facility] History SDOH Food 2022-08-31 2022-08-31 2 Univers ity of Scarcity 00:00:00 00:00:00 [place] [facility] History SDOH 2022-08-31 2022-08-31 2 University o f Transport Med 00:00:00 00:00:00 [place] [facility] History SDOH 2022-08-31 2022-08-31 2 University o f Transport Non-Med 00:00:00 00:00:00 [facility] ed[facility] Branch Sex Assigned At [birth year] Universit y of 00:00:00 00:00:00 [facility] Smoking Status Start Date Stop Date Source Smokes tobacco daily 2022-08-31 00:00:[address] [facility] Never Smoker Common Spirit [facility] Medications Ordered Filled Start Stop Current Ordering [...] Indication s: acute pain gabapentin 2022-0 Yes [id number] 300mg Take 1 Univers 300 mg 4-12 [id number] capsule by ity o f capsule 00:00: mouth at [place] [address] bedtime. Medical Branch gabapentin 2022-0 Yes [id number] 300mg Take 1 Univers 300 mg 4-12 [id number] capsule by ity o f capsule 00:00: mouth at [place] [address] bedtime. Medical Branch gabapentin 2022-0 Yes [id number] 300mg Take 1 Univers 300 mg 4-12 [id number] capsule by ity o f capsule 00:00: mouth at [place] [address] bedtime. Medical Branch gabapentin 2022-0 Yes [id number] 300mg Take 1 Univers 300 mg 4-12 [id number] capsule by ity o f capsule 00:00: mouth at [place] [address] bedtime. Medical Branch gabapentin 2022-0 Yes [id number] 300mg Take 1 Univers 300 mg 4-12 [id number] capsule by ity o f capsule 00:00: mouth at [place] 00 bedtime. Medical Branch gabapentin 3-0 Yes [id number] 300mg Take 1 Univers 300 mg 4-12 [id number] capsule by ity o f capsule 00:00: [...] mouth ity of tablet 18:34: in the [place] [address] morning. Medical Branch gabapentin 2023-0 Yes 300mg Take 300 Un samia 300 mg 2-13 mg by ity of capsule 18:34: mouth in [place] [address] the Medical morning. Branch celecoxib 2023-0 Yes 200mg Take 200 Uni vers (CELEBREX) 2-13 mg by ity of 200 mg 18:34: mouth in [place] [address] the Medical morning. Branch lisinopriL 2023-0 Yes 20mg Take 20 mg U nivers 20 mg 2-13 by mouth ity of tablet 18:34: in the [place] [address] morning. Medical Branch gabapentin 2023-0 Yes 300mg Take 300 Un samia 300 mg 2-13 mg by ity of capsule 18:34: mouth in [place] [address] the Medical morning. Branch celecoxib 2023-0 Yes 200mg Take 200 Uni vers (CELEBREX) 2-13 mg by ity of 200 mg 18:34: mouth in [place] [address] the Medical morning. Branch lisinopriL 2023-0 Yes 20mg Take 20 mg U nivers 20 mg 2-13 by mouth ity of tablet 18:34: in the [place] [address] morning. Medical Branch gabapentin 2023-0 Yes 300mg Take 300 Un samia 300 mg 2-13 mg by ity of capsule 18:34: mouth in [place] [address] the Medical morning. Branch celecoxib 2023-0 Yes 200mg Take 200 Uni vers (CELEBREX) 2-13 mg by ity of 200 mg 18:34: mouth in [facility] 36 the Medical morning. Branch lisinopriL 2023-0 Yes 20mg Take 20 mg U nivers 20 mg 2-13 by mouth ity of tablet 18:34: in the [place] [address] morning. Medical Branch gabapentin 2023-0 Yes 300mg Take 300 Un samia 300 mg 2-13 mg by ity of capsule 18:34: mouth in [place] [address] the Medical morning. Branch celecoxib 2023-0 Yes 200mg Take 200 Uni vers (CELEBREX) 2-13 mg by ity of 200 mg 18:34: mouth in [place] [address] the Medical morning. Branch lisinopriL 2023-0 Yes 20mg Take 20 mg U nivers 20 mg 2-13 by mouth ity of tablet 18:34: in the [place] [address] morning. Medical Branch gabapentin 2023-0 Yes 300mg Take 300 Un samia 300 mg 2-13 mg by ity of capsule 18:34: mouth in [place] [address] the Medical morning. Branch celecoxib 2023-0 Yes 200mg Take 200 Uni vers (CELEBREX) 2-13 mg by ity of 200 mg 18:34: mouth in [place] [address] the Medical morning. Branch lisinopriL 2023-0 Yes 20mg Take 20 mg U nivers 20 mg 2-13 by mouth ity of tablet 18:34: in the [place] [address] morning. Medical Branch gabapentin 2023-0 Yes 300mg Take 300 Un samia 300 mg 2-13 mg by ity of capsule 18:34: mouth in [place] [address] the Medical morning. Branch celecoxib 2023-0 Yes 200mg Take 200 Uni vers (CELEBREX) 2-13 mg by ity of 200 mg 18:34: mouth in [facility] 36 the Medical morning. Branch lisinopriL 2023-0 Yes 20mg Take 20 mg U nivers 20 mg 2-13 by mouth ity of tablet 18:34: in the [place] [address] morning. Medical Branch gabapentin 2023-0 Yes 300mg Take 300 Un samia 300 mg 2-13 mg by ity of capsule 18:34: mouth in [place] [address] the Medical morning. Branch celecoxib 2023-0 Yes 200mg Take 200 Uni vers (CELEBREX) 2-13 mg by ity of 200 mg 18:34: mouth in [place] capsule 36 the Medical morning. Branch lisinopriL 2023-0 Yes 20mg Take 20 mg U nivers 20 mg 2-13 by mouth ity of tablet 18:34: in the [place] [address] morning. Medical Branch gabapentin 2023-0 Yes 300mg Take 300 Un samia 300 mg 2-13 mg by ity of capsule 18:34: mouth in [place] [address] the Medical morning. Branch celecoxib 2023-0 Yes 200mg Take 200 Uni vers (CELEBREX) 2-13 mg by ity of 200 mg 18:34: mouth in [place] capsule 36 the Medical morning. Branch lisinopriL 2023-0 Yes 20mg Take 20 mg U nivers 20 mg 2-13 by mouth ity of tablet 18:34: in the [place] [address] morning. Medical Branch gabapentin 2023-0 Yes 300mg Take 300 Un samia 300 mg 2-13 mg by ity of capsule 18:34: mouth in [place] [address] the Medical morning. Branch celecoxib 2023-0 Yes 200mg Take 200 Uni vers (CELEBREX) 2-13 mg by ity of 200 mg 18:34: mouth in [place] capsule the Medical morning. Branch lisinopriL 2023-0 Yes 20mg Take 20 mg U nivers 20 mg 2-13 by mouth ity of tablet 18:34: in the [place] [address] morning. Medical Branch gabapentin 2023-0 Yes 300mg Take 300 Un samia 300 mg 2-13 mg by ity of capsule 18:34: mouth in [place] [address] the Medical morning. Branch celecoxib 2023-0 Yes 200mg Take 200 Uni vers (CELEBREX) 2-13 mg by ity of 200 mg 18:34: mouth in [place] capsule 36 the Medical morning. Branch lisinopriL 2023-0 Yes 20mg Take 20 mg U nivers 20 mg 2-13 by mouth ity of tablet 18:34: in the [place] [address] morning. Medical Branch gabapentin 2023-0 Yes 300mg Take 300 Un samia 300 mg 2-13 mg by ity of capsule 18:34: mouth in [place] [address] the Medical morning. Branch celecoxib 2023-0 Yes 200mg Take 200 Uni vers (CELEBREX) 2-13 mg by ity of 200 mg 18:34: mouth in [place] capsule 36 the Medical morning. Branch lisinopriL 2023-0 Yes 20mg Take 20 mg U nivers 20 mg 2-13 by mouth ity of tablet 18:34: in the [place] [address] morning. Medical Branch gabapentin 2023-0 Yes 300mg Take 300 Un samia 300 mg 2-13 mg by ity of capsule 18:34: mouth in [place] [address] the Medical morning. Branch celecoxib 2023-0 Yes 200mg Take 200 Uni vers (CELEBREX) 2-13 mg by ity of 200 mg 18:34: mouth in [place] [address] the Medical morning. Branch lisinopriL 2023-0 Yes 20mg Take 20 mg U nivers 20 mg 2-13 by mouth ity of tablet 18:34: in the [place] [address] morning. Medical Branch gabapentin 2023-0 Yes 300mg Take 300 Un samia 300 mg 2-13 mg by ity of capsule 18:34: mouth in [place] [address] the Medical morning. Branch celecoxib 2023-0 Yes 200mg Take 200 Uni vers (CELEBREX) 2-13 mg by ity of 200 mg 18:34: mouth in [place] [address] the Medical morning. Branch lisinopriL 2023-0 Yes 20mg Take 20 mg U nivers 20 mg 2-13 by mouth ity of tablet 18:34: in the [place] [address] morning. Medical Branch gabapentin 2023-0 Yes 300mg Take 300 Un samia 300 mg 2-13 mg by ity of capsule 18:34: mouth in [place] [address] the Medical morning. Branch celecoxib 2023-0 Yes 200mg Take 200 Uni vers (CELEBREX) 2-13 mg by ity of 200 mg 18:34: mouth in [place] [address] the Medical morning. Branch lisinopriL 2023-0 Yes 20mg Take 20 mg U nivers 20 mg 2-13 by mouth ity of tablet 18:34: in the [place] [address] morning. Medical Branch gabapentin 2023-0 Yes 300mg Take 300 Un samia 300 mg 2-13 mg by ity of capsule 18:34: mouth in [place] [address] the Medical morning. Branch celecoxib 2023-0 Yes 200mg Take 200 Uni vers (CELEBREX) 2-13 mg by ity of 200 mg 18:34: mouth in [place] [address] the Medical morning. Branch lisinopriL 2023-0 Yes 20mg Take 20 mg U nivers 20 mg 2-13 by mouth ity of tablet 18:34: in the [place] [address] morning. Medical Branch gabapentin 2022-0 Yes 300mg Take 300 Un samia 300 mg 2-13 mg by ity of capsule 18:34: mouth in [place] [address] the Medical morning. Branch celecoxib 2022-0 Yes 200mg Take 200 Uni vers (CELEBREX) 2-13 mg by ity of 200 mg 18:34: mouth in [facility] 36 the Medical morning. Branch methocarbam 2022-0 3- No [id number] 750mg Take 1 Univers oL 750 mg 09-08 [id number] tablet by it y of tablet 00:00: 04:59 mouth in [place] 00 :00 the [facility] and 1 tablet at noon and 1 tablet in the evening. Do all this for 30 days. methocarbam 2022-0 3- No [id number] 750mg Take 1 Univers oL 750 mg 09-08 [id number] tablet by it y of tablet 00:00: 04:59 mouth in [place] 00 :00 the [facility] and 1 tablet at noon and 1 tablet in the evening. Do all this for 30 days. methocarbam 2022-0 3- No [id number] 750mg Take 1 Univers oL 750 mg 09-08 [id number] tablet by it y of tablet 00:00: 04:59 mouth in [place] 00 :00 the [facility] and 1 tablet at noon and 1 tablet in the evening. Do all this for 30 days. methocarbam 2022-0 3- No [id number] 750mg Take 1 Univers oL 750 mg 09-08 [id number] tablet by it y of tablet 00:00: 04:59 mouth in [place] 00 :00 the [facility] and 1 tablet at noon and 1 tablet in the evening. Do all this for 30 days. methocarbam 2022-0 3- No [id number] 750mg Take 1 Univers oL 750 mg 09-08 [id number] tablet by it y of tablet 00:00: 04:59 mouth in [place] 00 :00 the [facility] and 1 tablet at noon and 1 tablet in the evening. Do all this for 30 days. methocarbam 2022-0 3- No [id number] 750mg Take 1 Univers oL 750 mg 09-08 [id number] tablet by it y of tablet 00:00: 04:59 mouth in [place] 00 :00 the [facility] morning Branch and 1 tablet at noon and 1 tablet in the evening. Do all this for 30 days. methocarbam 2022-2022- No [id number] 750mg Take 1 Univers oL 750 mg 09-08 [id number] tablet by it y of tablet 00:00: 04:59 mouth in [place] 00 :00 the [facility] morning Branch and 1 tablet at noon and 1 tablet in the evening. Do all this for 30 days. methocarbam 2022-2022- No [id number] 750mg Take 1 Univers oL 750 mg 09-08 [id number] tablet by it y of tablet 00:00: 04:59 mouth in [place] 00 :00 the [facility] morning [place] and 1 tablet at noon and 1 tablet in the evening. Do all this for 30 days. docusate 2022-2022- No [id number] 100mg Take 1 Univers 100 mg 09-08 [id number] capsule by ity of capsule 00:00: 05:59 mouth in [place] 00 :00 the [facility] and 1 capsule in the evening. Do all this for 15 days. docusate 2022-0 2022- No [id number] 100mg Take 1 Univers 100 mg 09-08 [id number] capsule by ity of capsule 00:00: 05:59 mouth in [place] 00 :00 the [facility] and 1 capsule in the evening. Do all this for 15 days. gabapentin 2022-2022- No [id number] 300mg Take 1 Univers 300 mg 09-08 [id number] capsule by ity of capsule 00:00: 05:59 mouth in [place] 00 :00 the [facility] and 1 capsule at noon and 1 capsule in the evening. Do all this for 14 days. gabapentin 2022-0 2022- No [id number] 300mg Take 1 Univers 300 mg 09-08 [id number] capsule by ity of capsule 00:00: 05:59 mouth in [place] 00 :00 the [facility] and 1 capsule at noon and 1 [...] Indication s: acute pain ondansetron 2022- No [id number] 4mg Take 1 Univers (ZOFRAN) 4 09-08 [id number] tablet by i ty of mg tablet 00:00: 05:59 mouth [place] 00 :00 every 6 Medical (six) Branch hours for 20 doses. ondansetron 2022- No [id number] 4mg Take 1 Univers (ZOFRAN) 4 09-08 [id number] tablet by i ty of mg tablet [...] ENEMA) 01 Starting Medical (COMPOUNDED on Thu [place] ) Enem 225 09/07/22 at mL 0726, [...] IV ity of (DILAUDID) 00:27: 03:07 Push, [place] injection 50 :32 Q5MIN PRN, Medi [place] 0.2 mg 10 doses, Branch Starting on Sanjuana 09/04/22 at 1827, Until Sanjuana 09/04/22 at 2107, Routine, Pain (scale 7-10), PACU
Us e approved by (Faculty): PACU USE -ANESTHESI A SERVICE-HY DROMORPHON E INJECTIONS lisinopriL 2022-0 Yes 20mg Take 20 mg U nivers 20 mg 2-09 by mouth ity of tablet 21:07: in the [place] [address] morning. Medical Branch gabapentin 2022-0 Yes 300mg Take 300 Un samia 300 mg 2-09 mg by ity of capsule 21:07: mouth in [place] [address] the Medical morning. Branch celecoxib 2022-0 Yes 200mg Take 200 Uni vers (CELEBREX) 2-09 mg by ity of 200 mg 21:07: mouth in [place] [address] the Medical morning. Branch diphenhydrA 2023-0 Yes 25mg 25 mg, [facility] 2- Oral, ity of (BENADRYL) 02:22: Q4HPRN, [place] tablet 25 33 Starting Medica l mg on Thu Branch 09/03/22 at 2021, Until Discontinu ed, Routine, Itching diphenhydrA 0 Yes 25mg 25 mg, [facility] 2- Oral, ity of (BENADRYL) 02:22: Q4HPRN, [place] tablet 25 33 Starting Medica l mg on Thu Branch 09/03/22 at 2021, Until Discontinu ed, Routine, Itching enoxaparin 2022- No [id number] 30mg inject 0.3 Univers 30 mg/0.3 09-04 [id number] mL under ity of mL 00:00: 04:59 the skin [place] injection 00 :00 every 12 Medica l (twelve) Branch hours for 56 days. enoxaparin 2022- No [id number] 30mg inject 0.3 Univers 30 mg/0.3 09-04 [id number] mL under ity of mL 00:00: 04:59 the skin [place] injection 00 :00 every 12 Medica l (twelve) Branch hours for 56 days. enoxaparin 2022- No [id number] 30mg inject 0.3 Univers 30 mg/0.3 09-04 [id number] mL under ity of mL 00:00: 04:59 the skin [place] injection 00 :00 every 12 Medica l (twelve) Branch hours for 56 days. enoxaparin 2022- No [id number] 30mg inject 0.3 Univers 30 mg/0.3 09-04 [id number] mL under ity of mL 00:00: 04:59 the skin [place] injection 00 :00 every 12 Medica l (twelve) Branch hours for 56 days. enoxaparin 2022-2022- No [id number] 30mg inject 0.3 Univers 30 mg/0.3 09-04 [id number] mL under ity of mL 00:00: 04:59 the skin [place] injection 00 :00 every 12 Medica l (twelve) Branch hours for 56 days. enoxaparin 2022- No [id number] 30mg inject 0.3 Univers 30 mg/0.3 09-04 [id number] mL under ity of mL 00:00: 04:59 the skin [place] injection 00 :00 every 12 Medica l (twelve) Branch hours for 56 days. enoxaparin 2023-0 3- No [id number] 30mg inject 0.3 Univers 30 mg/0.3 09-04 [id number] mL under ity of mL 00:00: 04:59 the skin [place] injection 00 :00 every 12 Medica l (twelve) Branch hours for 56 days. enoxaparin 2022-0 3- No [id number] 30mg inject 0.3 Univers 30 mg/0.3 09-04 [id number] mL under ity of mL 00:00: 04:59 the skin [place] injection 00 :00 every 12 Medica l (twelve) Branch hours for 56 days. enoxaparin 2022-0 3- No [id number] 30mg inject 0.3 Univers 30 mg/0.3 09-04 [id number] mL under ity of mL 00:00: 04:59 [...] 32 Starting Medica l tablet 1 on [facility] tablet 09/02/22 at 0920, Until Discontinu ed, Routine, Pain (scale 4-6) HYDROcodone 2023-0 Yes 1{tbl} 1 tablet, Univers -acetaminop 2-07 Oral, ity of hen (NORCO) 15:20: Q6HPRN, [place] as 10-325 mg 32 Starting Medica l tablet 1 on [facility] tablet 09/02/22 at 0920, Until Discontinu [...] 00 First dose Medi [place] mg on [facility] 09/02/22 at 0915, Until Discontinu ed, [...] mg 00 First dose Medical on Thu [place] 09/02/22 at 0800, Until Discontinu ed, Routine [...] Starting Medi [place] tablet 1 on Thu [place] tablet 09/02/22 at 0715, Until Thu09/02/22 at 0913, Routine, Pain (scale 4-6) NaCl 0.9% 0 Yes 10mL 10 mL, Univer s (NS) 2-07 Slow IV ity of injection 13:13: Push, [place], [place] 10 mL 36 Starting Medical on Thu [place] 09/02/22 at 0713, Until Discontinu ed, Routine, line maintenanc e NaCl 0.9% 0 Yes 10mL 10 mL, Univer s (NS) 2-07 Slow IV ity of injection 13:13: Push, PRN, [place] 10 mL 36 Starting Medical on Thu [place] 09/02/22 at 0713, Until Discontinu ed, Routine, [...] 3 mg 03:00: First dose 00 on [facility] 08/31/22 at Branch 2100, Until Discontinu ed, [...] 00 :00 dose, On Medical mg(2.5 mg Rust 08/30/22 Bran ch base)/3 mL at 2345, nebulizer Routine, solution 3 PACU mL polyethylen 2022-0 Yes 17g 17 g, Unive rs e glycol 2-05 Oral, ity of 3350 powder 04:53: QDAILYPRN, [place] 17 g 53 Starting Medical on [facility] 08/30/22 at 2253, Until Discontinu ed, Routine, Constipati on polyethylen 2022-0 Yes 17g 17 g, Unive rs e glycol 2-05 Oral, ity of 3350 powder 04:53: QDAILYPRN, [place] 17 g 53 Starting Medical on [facility] 08/30/22 at 2253, Until Discontinu ed, Routine, Constipati on traMADoL 2022-0 Yes 50mg 50 mg, Univers (ULTRAM) 2-05 Oral, ity of tablet 50 04:53: Q4HPRN, [place] mg 52 Starting Medical on [facility] 08/30/22 at 2253, Until Discontinu ed, Routine, [...] 2-05 Oral, ity of ) 04:53: Q6HPRN, [place] disintegrat 52 Starting Medi [place] ing tablet [...] Common -04 Spirit 00:00: - [facility]I 00 [facility] Bactrim DS Bactrim DS No 1{table BID [...] 2022-11-05 20:31:00 171 mm[Hg] Univer sity of [facility] Diastolic blood 2022-11-05 20:31:00 99 mm[Hg] Unive rsity of pressure [facility] Heart rate 2022-11-05 20:31:00 90 /min Universi ty of [facility] Body temperature 2022-11-05 20:31:00 36.72 Malaika Univ [address] [facility] Body height 2022-11-05 20:31:00 154.9 [address] [facility] Body weight 2022-11-05 20:31:00 57.[address] [facility] BMI 2022-11-05 20:31:00 23.81 kg/m2 Universi ty of [facility] Body temperature 2022-09-25 16:44:00 36.67 Malaika Univ ersity of [facility] Body height 2022-09-25 16:44:00 154.[address] [facility] Body weight 2022-09-25 16:44:00 59.875 kg Universi ty of [place] Medical [place] BMI 2022-09-25 16:44:00 24.94 kg/m2 Universi ty of [facility] Systolic blood 2022-09-08 22:22:00 138 mm[Hg] Univer sity of pressure [facility] Diastolic blood 2022-09-08 22:22:00 81 mm[Hg] Unive rsity of [facility] Heart rate 2022-09-08 22:22:00 66 /min Universi ty of [facility] Body temperature 2022-09-08 22:22:00 36.33 Malaika Univ ersity of [facility] Respiratory rate 2022-09-08 22:22:00 18 /min [facility] Oxygen saturation in 2022-09-08 22:22:00 96 /min University Arterial blood by [facility] Pulse oximetry Branch Body weight 2022-09-05 17:00:00 62.1 kg Universi ty of [place] [facility] BMI 2022-09-05 17:00:00 25.87 kg/m2 Universi ty of [place] [facility] Body height 2022-09-02 07:20:00 154.9 cm Universi ty of [place] [facility] Systolic blood 2022-09-05 00:38:00 116 mm[Hg] Univer sity of pressure [place] [facility] Diastolic blood 2022-09-05 00:38:00 57 mm[Hg] Unive rsity of pressure [place] [facility] Heart rate 2022-09-05 00:38:00 70 /min Universi ty of [place] [facility] Body temperature 2022-09-05 00:38:00 36.56 Malaika Univ ersity of [place] [facility] Respiratory rate 2022-09-05 00:38:00 8 /min Univ ersity of [place] [facility] Oxygen saturation in 2022-09-05 00:38:00 95 /min University of Arterial blood by [place] [facility] Pulse oximetry Branch Body height 2022-09-02 07:20:00 154.9 cm Universi ty of [place] [facility] Body weight 2022-09-02 07:20:00 62.1 kg Universi ty of [place] [facility] BMI 2022-09-02 07:20:00 25.87 kg/m2 Universi ty of [place] [facility] Systolic blood 2022-08-30 22:58:00 180 mm[Hg] Univer sity of pressure [place] [facility] Diastolic blood 2022-08-30 22:58:00 91 mm[Hg] [facility] Heart rate 2022-08-30 22:58:00 82 /min [facility] Respiratory rate 2022-08-30 22:58:00 16 /min [facility] Oxygen saturation in 2022-08-30 22:58:00 100 /min [facility] of Arterial blood by [facility] [place] Pulse oximetry Branch Body temperature 2022-08-30 19:35:00 36.44 Malaika [facility] Body weight 2022-08-30 19:35:00 61.236 kg [facility] height 2021-10-23 12:10:00 62.00 [in_i] [facility] weight 2021-10-23 12:10:00 135 [lb_av] [facility] bmi 2021-10-23 12:10:00 24.69 kg/m2 [facility] height 2020-12-26 08:20:00 62.00 [in_i] [facility] weight 2020-12-26 08:20:00 135 [lb_av] [facility] bmi 2020-12-26 08:20:00 24.69 kg/m2 [facility] height 2020-11-27 13:00:00 62.00 [in_i] [facility] weight 2020-11-27 13:00:00 135 [lb_av] [facility] 2020-11-27 13:00:00 24.69 kg/m2 [facility] Procedures Procedure Date / Time Performing Clinician Source Performed XR WRIST 3+ VW LEFT 2022-11-05 21:27:27 Pako Robbins [facility] XR WRIST 3+ VW LEFT 2022-09-25 17:14:57 Alejo Bergeron [facility] ASSIGNMENT OF BENEFITS 2022-09-25 16:29:43 Doctor Unassigned, Un [facility] [place] TIME OR 2022-09-05 00:18:14 Alejo Peguero [facility] (NON-REPORTABLE) Medical Branch [place] TIME OR 2022-09-05 00:18:14 Alejo Peguero [facility] (NON-REPORTABLE) [facility] [place] DISTAL RADIUS ORIF 2022-09-04 21:42:00 Alejo Peguero [facility] EXTERNAL FIXATOR REMOVAL 2022-09-04 21:42:00 Alejo Peguero [facility] OF UPPER EXTREMITY Medical Branc h DISTAL RADIUS ORIF 2022-09-04 21:42:00 Alejo Peguero [facility] EXTERNAL FIXATOR REMOVAL 2022-09-04 21:42:00 Alejo Peguero of [place] OF UPPER EXTREMITY Medical Branc h BASIC METABOLIC PANEL 2022-09-04 10:10:00 Andres Jimenez [facility] (NA, K, CL, CO2, GLUCOSE, Medica l Branch BUN, CREATININE, CA) CBC WITHOUT DIFF 2022-09-04 10:10:00 Andres Jimenez [facility] PROTHROMBIN TIME / INR 2022-09-04 10:10:00 Andres Jimenez [facility] ACTIVATED PARTIAL 2022-09-04 10:10:00 Andres Jimenez [facility] BASIC METABOLIC PANEL 2022-09-04 10:10:00 Andres Jimenez [facility] (NA, K, CL, CO2, GLUCOSE, Medica l Branch BUN, CREATININE, CA) CBC WITHOUT DIFF 2022-09-04 10:10:00 Andres Jimenez [facility] PROTHROMBIN TIME / INR 2022-09-04 10:10:00 Andres Jimenez [facility] ACTIVATED PARTIAL 2022-09-04 10:10:00 Andres Jimenez [facility] US DUPLEX VENOUS ARM 2022-09-03 15:45:00 Larisa Martines [facility] RIGHT - BY VASCULAR LAB Medical [facility] DUPLEX VENOUS ARM 2022-09-03 15:45:00 Larisa Martines [facility] RIGHT - BY VASCULAR LAB Medical Branch CBC WITHOUT DIFF 2022-09-01 16:54:00 Larisa Martines [facility] CBC WITHOUT DIFF 2022-09-01 16:54:00 Larisa Martines [facility] CBC WITHOUT DIFF 2022-09-01 16:54:00 Larisa Martines [facility] HB ECG ROUTINE & RHYTHM 2022-08-31 07:58:17 Larisa Martines [facility] HB ECG ROUTINE & RHYTHM 2022-08-31 07:58:17 Lraisa Martines [facility] FL TIME OR 2022-08-31 04:15:00 Ja Jo [facility] (NON-REPORTABLE) Medical Branch [place] TIME OR 2022-08-31 04:15:00 Ja Jo [place] [facility] (NON-REPORTABLE) Medical Branch [place] TIME OR 2022-08-31 04:15:00 Ja Jo [facility] (NON-REPORTABLE) Medical Branch ABORH CONFIRMATION (LAB 2022-08-31 02:42:00 Henri Phoenix [facility] ONLY) Medical Branch ABORH CONFIRMATION (LAB 2022-08-31 02:42:00 Henri Phoenix [facility] ONLY) Medical Branch ABORH CONFIRMATION (LAB 2022-08-31 02:42:00 Henri Phoenix [facility] ONLY) Medical Branch EXPLORATION VESSEL UPPER 2022-08-31 01:43:00 Ham Slater [facility] EXTERNAL FIXATOR 2022-08-31 01:43:00 Elyssa [facility] PLACEMENT FOR UPPER Medical Bran ch EXTREMITY LIGATION VESSEL UPPER 2022-08-31 01:43:00 Ham Slater [facility] EXPLORATION VESSEL UPPER 2022-08-31 01:43:00 Ham Slater [facility] EXTERNAL FIXATOR 2022-08-31 01:43:00 Elyssa [facility] PLACEMENT FOR UPPER Medical Bran ch EXTREMITY LIGATION VESSEL UPPER 2022-08-31 01:43:00 Ham Slater [facility] XR WRIST <3 VW LEFT 2022-08-30 23:25:00 Larisa Martines [facility] XR WRIST <3 VW LEFT 2022-08-30 23:25:00 Larisa Martines [facility] XR WRIST <3 VW LEFT 2022-08-30 23:25:00 Larisa Martines [facility] CBC WITH DIFF 2022-08-30 22:37:00 Henri Phoenix [facility] PROTHROMBIN TIME / INR 2022-08-30 22:37:00 Henri Phoenix [facility] ACTIVATED PARTIAL 2022-08-30 22:37:00 Henri [facility] CBC WITH DIFF 2022-08-30 22:37:00 Henri Phoenix [facility] PROTHROMBIN TIME / INR 2022-08-30 22:37:00 Henri Phoenix [facility] ACTIVATED PARTIAL 2022-08-30 22:37:00 Henri Phoenix [facility] CBC WITH DIFF 2022-08-30 22:37:00 Henri Phoenix [place] [facility] PROTHROMBIN TIME / INR 2022-08-30 22:37:00 Henri Phoenix [facility] ACTIVATED PARTIAL 2022-08-30 22:37:00 Henri Phoenix [facility] XR ELBOW <3 VW LEFT 2022-08-30 20:42:00 Debi Frye [facility] XR FOREARM 2 VW LEFT 2022-08-30 20:42:00 Henri Phoenix [facility] XR HAND <3 VW LEFT 2022-08-30 20:42:00 Henri Phoenix [facility] XR WRIST <3 VW LEFT 2022-08-30 20:42:00 Henri Phoenix [facility] XR ELBOW <3 VW LEFT 2022-08-30 20:42:00 Debi Frye [facility] XR FOREARM 2 VW LEFT 2022-08-30 20:42:00 Henri Phoenix [facility] XR HAND <3 VW LEFT 2022-08-30 20:42:00 Henri Phoenix [facility] Medical Branch XR WRIST <3 VW LEFT 2022-08-30 20:42:00 Henri Phoenix [facility] Medical Branch XR ELBOW <3 VW LEFT 2022-08-30 20:42:00 Debi Frye [facility] Medical Branch XR FOREARM 2 VW LEFT 2022-08-30 20:42:00 Henri Phoenix [facility] XR HAND <3 VW LEFT 2022-08-30 20:42:[address] [facility] y [facility] Medical Branch XR WRIST <3 VW LEFT 2022-08-30 20:42:00 Henri Phoenix [facility] COMP. METABOLIC PANEL 2022-08-30 20:21:00 Henri Phoenix [facility] ([id number]) Medical Branch COMP. METABOLIC PANEL 2022-08-30 20:21:00 Henri Phoenix [facility] ([id number]) Medical Branch COMP. METABOLIC PANEL 2022-08-30 20:21:00 Henri Phoenix [facility] ([id number]) [facility] [place] HB ABO GROUPING 2022-08-30 20:19:00 Henri Phoenix [facility] HB ABO GROUPING 2022-08-30 20:19:00 Henri Phoenix [facility] HB ABO GROUPING 2022-08-30 20:19:00 Henri Phoenix [facility] HOSPITAL ADMISSION 2022-08-30 06:01:00 Doctor Unasswilber [facility] [place] EMERGENCY SERVICES 2022-08-30 06:01:00 Doctor Unassigned, [facility] AGREEMENTS AND [facility] AUTHORIZATIONS HOSPITAL ADMISSION 2022-08-30 06:01:00 Doctor Unasswilber [facility] [place] HOSPITAL ADMISSION 2022-08-30 06:01:00 Doctor Unasswilber, [facility] Encounters Start End Encounter Admission Attending Care Care Encounter Source Date/Time Date/Time Type Type Clinicians Facility Department ID 2021-11-26 Outpatient Araujo, Na STLMLC STLC [id number] 2 Common 15:30:02 [facility] 2021-11-25 Outpatient Araujo, Na STLMLC STLMLC [id number] 2 Common 08:44:00 [facility] 2021-10-23 Outpatient Araujo, Na STLMLC STLMLC [id number] 2 Common 07:18:01 [facility] 2021-10-21 Outpatient Araujo, Na STLMLC STLMLC [id number] 2 Common 09:07:00 [facility] 2021-08-21 Outpatient Araujo, Na STLMLC STLC [id number] 2 Common 13:42:36 [facility] 2021-08-21 Outpatient Araujo, Na [facility]ISS[facility] [id number] 2 Common 13:22:56 [id number] [facility] 2021-08-21 Outpatient Araujo, Na [facility]ISS[facility] [id number] 2 Common 13:09:15 [id number] [facility] 2021-08-21 Outpatient Araujo, Na [facility] [id number] 2 Common 12:58:54 [id number] [facility] 2022-12-29 2022-12-29 [facility] [id number] Univers 14:00:00 14:00:00 ALEJO claire [facility] 2022-11-05 2022-11-05 [facility] [id number] Univers 16:00:00 23:59:00 Encounter Alejo SPECIALTY [id number] ity of CARE 4.2.7.2.686 [facility] [place] AT [phone] Il marilynnbessy LINDSAYClaire 809 [facility] 2022-11-05 2022-11-05 [facility] [id number] Univers 15:30:00 16:42:36 ALEJO claire [facility] 2022-11-05 2022-11-05 Office [facility] [id number] Univers 15:30:00 16:42:36 Visit Alejo SPECIALTY [id number] ity of CARE 4.2.7.2.686 [facility] [place] AT [phone] Il marilynnbessy LINDSAYClaire 198 [facility] 2022-11-05 2022-11-05 Telephone [facility] [id number] Univers 00:00:00 00:00:00 Alejo SPECIALTY [id number] ity of CARE 4.2.7.2.686 [facility] [place] AT [phone] Il marilynnbessy LINDSAYClaire 198 [facility] 2022-10-22 2022-10-22 Telephone [facility] [id number] Univers 00:00:00 00:00:00 Alejo SPECIALTY [id number] [place] [phone] Il heidy VICTORY 198 [facility] 2022-10-21 2022-10-21 [facility] [id number] Univers 00:00:00 00:00:00 Alejo PRIMARY [id number] [place] [id number] [place] dical 198 [place] 2022-10-13 2022-10-13 Outpatient R [facility] [id number] Univers 12:50:00 12:50:00 ALEJO [facility] 2022-09-27 2022-09-27 Telephone [facility] [id number] [facility] 00:00:00 00:00:00 Alejo PRIMARY [id number] it [place] [id number] Il marilynnal 198 [place] 2022-09-25 2022-09-25 [facility] [id number] Univers 10:54:10 23:59:00 Encounter Alejo PRIMARY [id number] [place] [id number] Il dical 807 [place] 2022-09-25 2022-09-25 Outpatient R [facility] [id number] Univers 09:40:00 11:58:17 ALEJO claire [facility] 2022-09-25 2022-09-25 Office [facility] [id number] Univers 09:40:00 11:58:17 Visit Alejo PRIMARY 350.1.13.10 it [place] [id number] Il dical 198 [place] 2022-09-25 2022-09-25 Orders Doctor ALEJO 1.2.840.114 [id number] Univers 00:00:00 00:00:00 Only Unassigned ELSIE 350.1.13.10 ity of [facility] 2.7.2.686 Andrei as [phone] [facility] 009 Branch 2022-09-09 2022-09-09 Transition LOUISE Peñaloza 1.2.840.114 [id number] Univers 00:00:00 00:00:00 of Care Allan HUFFMAN 350.1.13.10 ity of [address] [phone] [facility] 403 Branch 2022-08-30 2022-09-08 Hospital Henri Phoenix 1.2.840.11 [id number] Univers 13:37:00 18:34:00 Encounter Elyssa, Alejo ZIMMERMAN 350.1.13.10 ity of [place] [address].7.2.686 Andrei as [phone] [facility] 097 Branch 2022-08-30 2022-09-08 Inpatient X ELYSSA [facility] [id number] Univers 13:37:00 18:34:00 ALEJO steveclaire [facility] 2022-09-04 2022-09-04 Surgery MEI Peguero [id number] Univers 16:00:00 18:44:00 Alejo ZIMMERMAN 350.1.13.10 it y of [address]686 Andrei as [phone] [facility] 103 Branch 2022-08-30 2022-08-30 Surgery MEI Slater 1.2.840.114 [id number] Univers 18:45:00 20:22:00 Ham ZIMMERMAN 350.1.13.10 i ty of [place] [address].7.2.686 Andrei as [id number] [facility] 103 Branch 2021-11-27 2021-11-27 [facility] [id number] Co mmon 00:00:00 00:00:00 VISIT EST Spir it PT LEVEL 3 - [facility] 2021-11-04 2021-11-04 (TEL) [facility] [id number] Co mmon 00:00:00 00:00:00 Spirit [facility] 2021-10-23 2021-10-23 OFFICE STLMLC STLMLC [id number] Co mmon 00:00:00 00:00:00 VISIT Spirit ESTAB PT - [facility] LEVEL 4 [facility] 2021-10-23 2021-10-23 (TEL) STLMLC STLMLC [id number] Co mmon 00:00:00 00:00:00 [facility] 2021-09-30 2021-09-30 (TEL) STLMLC STLMLC [id number] Co mmon 00:00:00 00:00:00 [facility] 2021-02-05 2021-02-05 (TEL) STLMLC STLMLC [id number] Co mmon 00:00:00 00:00:00 [facility] 2020-12-26 2020-12-26 OFFICE STLMLC STLMLC [id number] Co mmon 00:00:00 00:00:00 VISIT EST Spir it PT LEVEL 3 [facility] 2020-11-27 2020-11-27 Outpatient STLMLC STLMLC [id number] Common 00:00:00 00:00:00 [facility] 2020-11-27 2020-11-27 OFFICE STLMLC STLMLC [id number] Co mmon 00:00:00 00:00:00 VISIT EST Spir it PT LEVEL 3 [facility] 2019-05-31 2019-05-31 [facility] [id number] Common 09:52:00 09:52:00 [facility] 2018-10-21 2018-10-21 [facility] [id number] Common 16:20:00 16:20:[address] [facility] 2018-09-27 2018-09-27 [facility] [id number] Common 15:00:00 15:00:[address] [facility] 2017-11-25 2017-11-25 [facility] 13 [id number] Common 06:50:00 06:50:[address] [email or web address] [address] [facility] 2017-11-24 2017-11-24 Outpatient Asmita Peralta 13 [id number] Common 15:14:00 15:14:00 t [address] [employer] [address] [facility] 2017-11-10 2017-11-10 Outpatient Asmita Peralta 13 [id number] Common 10:30:00 10:30:00 t [email or web address] [address] [facility] Results Test Description Test Time Test Comments [...] l/abnormal. Lab Interpretation (test code = Normal 60357-1) [facility] / [id number] 10:45:22 Test Item Value Reference Range Interpretation Comments PROTIME PATIENT (test 11.2 See_Comment [Auto mated message] code = 5964-2) The system [employer] ich generated this result transmitted ref erence range: 10.1 - 1 2.6 Seconds. The re ference range was not u sed to interpret this result as normal/abnor mal. INR (test code = 6301-6) 1.0 Nor mal INR <1.1; Warfarin Therap eutic range 2.0 to 3. 0 or 2.5 to 3.5, dep ending upon the indica tions. Lab Interpretation (test Normal code = 42835-3) [facility]IAL THRMPLAS [id number] 10:45:22 Test Item Value Reference Range Interpretation Comments APTT Patient (test code = 29 See_Comment [ Automated message] 3173-2) The system [employer] h generated this result transmitted ref erence range: 26 - 36 Seconds. The re ference range was not u sed to interpret this result as normal/abnor mal. Lab Interpretation (test Normal code = 96523-5) [facility] Time / [id number] 10:45:22 Test Item Value Reference Range Interpretation Comments PROTIME PATIENT (test 11.2 See_Comment [Auto mated message] code = 5964-2) The system [employer] generated this result transmitted ref erence range: 10.1 - 1 2.6 Seconds. The re ference range was not u sed to interpret this result as normal/abnor mal. INR (test code = 6301-6) 1.0 Nor mal INR <1.1; Warfarin Therap eutic range 2.0 to 3. 0 or 2.5 to 3.5, dep ending upon the indica tions. Lab Interpretation (test Normal code = 91755-2) [facility] METABOLIC PANEL (NA, K, CL, CO2, GLUCOSE, BUN, CREATININE, CA)2022-09-04 10:44:41 Test Item Value Reference Range Interpretation Comments NA (test code = 134 mmol/L 135-145 L 5129159542) K (test code = 4.8 mmol/L 3.5-5.0 3225634977) CL (test code = 103 mmol/L 98-108 6654317915) CO2 TOTAL (test code = 28 mmol/L 23-31 6084480115) AGAP (test code = 3 2-16 0007359113) BUN (test code = 14 mg/dL 7-23 4610471122) GLUCOSE (test code = 103 mg/dL 70-110 7793533560) CREATININE (test code = 0.95 mg/dL 0.50-1.04 0075825094) CALCIUM (test code = 8.2 mg/dL 8.6-10.6 L 0171613610) eGFR (test code = 58.2 mL/min/1.73m2 8999104005) PRITESH (test code = PRITESH) Association of [...] tests). Lab Interpretation Abnormal (test code = 73712-3) [facility] METABOLIC PANEL (NA, K, CL, CO2, GLUCOSE, BUN, CREATININE, CA)2022-09-04 10:44:41 Test Item Value Reference Range Interpretation Comments NA (test code = 134 mmol/L 135-145 L 0461022209) K (test code = 4.8 mmol/L 3.5-5.0 0586682922) CL (test code = 103 mmol/L 98-108 4726554946) CO2 TOTAL (test code = 28 mmol/L 23-31 1471152703) AGAP (test code = 3 2-16 1100588602) BUN (test code = 14 mg/dL 7-23 0928135670) GLUCOSE (test code = 103 mg/dL 70-110 3313328345) CREATININE (test code = 0.95 mg/dL 0.50-1.04 5379346625) CALCIUM (test code = 8.2 mg/dL 8.6-10.6 L 5185290044) eGFR (test code = 58.2 mL/min/1.73m2 7429985756) PRITESH (test code = PRITESH) Association of [...] tests). Lab Interpretation Abnormal (test code = 78350-7) [facility] WITHOUT [id number] 10:24:39 Test Item Value Reference Range Interpretation Comments WBC (test code = 6690-2) 6.14 See_Comment [A utomated message] The system [employer] generated this result transmit adele reference range : 4.30 - 11.10 10*3/?L. The reference range was not used to interpret this result as normal/abnormal . RBC (test code = 789-8) 3.03 See_Comment L [Au tomated message] The system [employer] generated this result transmit adele reference range [...] 308 See_Comment [Au tomated message] The system [employer] generated this result transmit adele reference range : 166 - 358 10*3/?L. The reference range was not used to interpret this result as normal/abnormal . MPV (test code = 8.6 fL 9.5-12.9 L 39024-1) RDW-CV (test code = 13.9 % 12.0-15.5 788-0) RDW-SD (test code = 46.2 fL 39.0-49.9 11133-8) NRBC x10^3 (test code = See_Comment [Au tomated message] 3980818701) The system [employer] generated this result transmit adele reference range : 10*3/?L. The reference range was not used to interpret this result as normal/abnormal . NRBC/100 WBC (test code 0.0 See_Comment [Au tomated message] = 2404500112) The system [facility] generated this result transmit adele reference range : 0.0 - 10.0 /100 WBC s. The reference r yusra was not used to interpret this result as normal/abnormal . IPF % (test code = 4834211381) Lab Interpretation (test Abnormal code = 29115-5) [facility] WITHOUT [id number] 10:24:39 Test Item Value Reference Range Interpretation Comments WBC (test code = 6690-2) 6.14 See_Comment [A utomated message] The system [facility] generated this result transmit adele reference range : 4.30 - 11.10 10*3/?L. The reference range was not used to interpret this result as normal/abnormal . RBC (test code = 789-8) 3.03 See_Comment L [Au tomated message] The system [facility] generated this result transmit adlee reference range : 3.93 - 5.25 10* [...] 308 See_Comment [Au tomated message] The system [employer] generated this result transmit adele reference range : 166 - 358 10*3/?L. The reference range was not used to interpret this result as normal/abnormal . MPV (test code = 8.6 fL 9.5-12.9 L 81505-2) RDW-CV (test code = 13.9 % 12.0-15.5 788-0) RDW-SD (test code = 46.2 fL 39.0-49.9 03705-6) NRBC x10^3 (test code = See_Comment [Au tomated message] 2606403227) The system [employer] generated this result transmit adele reference range : 10*3/?L. The reference range was not used to interpret this result as normal/abnormal . NRBC/100 WBC (test code 0.0 See_Comment [Au tomated message] = 8514435586) The system [facility] generated this result transmit adele reference range : 0.0 - 10.0 /100 WBC s. The reference r yusra was not used to interpret this result as normal/abnormal . IPF % (test code = 9209477560) Lab Interpretation (test Abnormal code = 61213-1) [facility] [id number] 17:35:12 Test Item Value Reference Range Interpretation Comments WBC (test code = 6690-2) 7.12 See_Comment [A utomated message] The system [employer] generated this result transmit adele reference range : 4.30 - 11.10 10*3/?L. The reference range was not used to interpret this result as normal/abnormal . RBC (test code = 789-8) 2.90 See_Comment L [Au tomated message] The system [employer] generated this result transmit adele reference range [...] 282 See_Comment [Au tomated message] The system [employer] generated this result transmit adele reference range : 166 - 358 10*3/?L. The reference range was not used to interpret this result as normal/abnormal . MPV (test code = 8.9 fL 9.5-12.9 L 47472-1) RDW-CV (test code = 14.1 % 12.0-15.5 788-0) RDW-SD (test code = 48.3 fL 39.0-49.9 36808-2) NRBC x10^3 (test code = See_Comment [Au tomated message] 4259503716) The system [employer] generated this result transmit adele reference range : 10*3/?L. The reference range was not used to interpret this result as normal/abnormal . NRBC/100 WBC (test code 0.0 See_Comment [Au tomated message] = 4145665895) The system [facility] generated this result transmit adele reference range : 0.0 - 10.0 /100 WBC s. The reference r yusra was not used to interpret this result as normal/abnormal . IPF % (test code = 7556791473) Lab Interpretation (test Abnormal code = 16338-6) [facility] WITHOUT [id number] 17:35:12 Test Item Value Reference Range Interpretation Comments WBC (test code = 6690-2) 7.12 See_Comment [A utomated message] The system [employer] generated this result transmit adele reference range : 4.30 - 11.10 10*3/?L. The reference range was not used to interpret this result as normal/abnormal . RBC (test code = 789-8) 2.90 See_Comment L [Au tomated message] The system [employer] generated this result transmit adele reference range [...] 282 See_Comment [Au tomated message] The system [employer] generated this result transmit adele reference range : 166 - 358 10*3/?L. The reference range was not used to interpret this result as normal/abnormal . MPV (test code = 8.9 fL 9.5-12.9 L 74028-9) RDW-CV (test code = 14.1 % 12.0-15.5 788-0) RDW-SD (test code = 48.3 fL 39.0-49.9 81478-4) NRBC x10^3 (test code = See_Comment [Au tomated message] 6616373752) The system [employer] generated this result transmit adele reference range : 10*3/?L. The reference range was not used to interpret this result as normal/abnormal . NRBC/100 WBC (test code 0.0 See_Comment [Au tomated message] = 5381509911) The system [employer] generated this result transmit adele reference range : 0.0 - 10.0 /100 WBC s. The reference r yusra was not used to interpret this result as normal/abnormal . IPF % (test code = [id number]) Lab Interpretation (test Abnormal code = 67233-2) [facility] WITHOUT [id number] 17:35:12 Test Item Value Reference Range Interpretation Comments WBC (test code = 6690-2) 7.12 See_Comment [A utomated message] The system [employer] generated this result transmit adele reference range : 4.30 - 11.10 10*3/?L. The reference range was not used to interpret this result as normal/abnormal . RBC (test code = 789-8) 2.90 See_Comment L [Au tomated message] The system [employer] generated this result transmit adele reference range [...] 282 See_Comment [Au tomated message] The system [employer] generated this result transmit adele reference range : 166 - 358 10*3/?L. The reference range was not used to interpret this result as normal/abnormal . MPV (test code = 8.9 fL 9.5-12.9 L 83497-9) RDW-CV (test code = 14.1 % 12.0-15.5 788-0) RDW-SD (test code = 48.3 fL 39.0-49.9 12401-8) NRBC x10^3 (test code = See_Comment [Au tomated message] [id number]) The system [employer] generated this result transmit adele reference range : 10*3/?L. The reference range was not used to interpret this result as normal/abnormal . NRBC/100 WBC (test code 0.0 See_Comment [Au tomated message] = 0343304121) The [facility] generated this result transmit adele reference range : 0.0 - 10.0 /100 WBC s. The reference r yusra was not used to interpret this result as normal/abnormal . IPF % (test code = 9182985083) Lab Interpretation (test Abnormal code = 30104-5) [facility] Confirmation (Lab Only)2022-08-31 03:15:36 Test Item Value Reference Range Interpretation Comments ABO & RH (test AB Positive Performed at [facility] code = 20) Laboratory Serv [facility] [place] [address]Wbdh Free: [phone] A No. [id number] [facility] Confirmation (Lab Only)2022-08-31 03:15:36 Test Item Value Reference Range Interpretation Comments ABO & RH (test AB Positive Performed at [facility] code = 20) Laboratory Serv [facility] [address] [place] [address]Cdos Free: [phone] A No. [id number] [facility] Confirmation (Lab Only)2022-08-31 03:15:36 Test Item Value Reference Range Interpretation Comments ABO & RH (test AB Positive Performed at [facility] code = 20) Laboratory Serv [facility] Blood [address] [id number] Free: [phone] A No. [id number] [facility] [id number] 22:58:55 Test Item Value Reference Range Interpretation Comments APTT Patient (test code 25 See_Comment L [Au tomated message] = 3173-2) The system [employer] generated this result transmitted ref erence range: 26 - 36 Seconds. The reference range was not used to int erpret this result as normal/abnormal . Lab Interpretation (test Abnormal code = 71456-5) [facility] Center[facility] / [id number] 22:58:55 Test Item Value Reference Range Interpretation Comments PROTIME PATIENT (test 11.1 See_Comment [Auto mated message] code = 5964-2) The system [employer] ich generated this result transmitted ref erence range: 10.1 - 1 2.6 Seconds. The re ference range was not u sed to interpret this result as normal/abnor mal. INR (test code = 6301-6) 1.0 Nor mal INR <1.1; Warfarin Therap eutic range 2.0 to 3. 0 or 2.5 to 3.5, dep ending upon the indica tions. Lab Interpretation (test Normal code = 59433-9) [facility] [id number] 22:58:55 Test Item Value Reference Range Interpretation Comments APTT Patient (test code 25 See_Comment L [Au tomated message] = 3173-2) The system [employer] generated this result transmitted ref erence range: 26 - 36 Seconds. The reference range was not used to int erpret this result as normal/abnormal . Lab Interpretation (test Abnormal code = 97403-1) [facility] / [id number] 22:58:55 Test Item Value Reference Range Interpretation Comments PROTIME PATIENT (test 11.1 See_Comment [Auto mated message] code = 5964-2) The system [employer] generated this result transmitted ref erence range: 10.1 - 1 2.6 Seconds. The re ference range was not u sed to interpret this result as normal/abnor mal. INR (test code = 6301-6) 1.0 Nor mal INR <1.1; Warfarin Therap eutic range 2.0 to 3. 0 or 2.5 to 3.5, dep ending upon the indica tions. Lab Interpretation (test Normal code = 78869-3) [facility] [id number] 22:58:55 Test Item Value Reference Range Interpretation Comments APTT Patient (test code 25 See_Comment L [Au tomated message] = 3173-2) The system [employer] generated this result transmitted ref erence range: 26 - 36 Seconds. The reference range was not used to int erpret this result as normal/abnormal . Lab Interpretation (test Abnormal code = 22510-3) [facility] Center[facility] / [id number] 22:58:55 Test Item Value Reference Range Interpretation Comments PROTIME PATIENT (test 11.1 See_Comment [Auto mated message] code = 5964-2) The system [employer] generated this result transmitted ref erence range: 10.1 - 1 2.6 Seconds. The re ference range was not u sed to interpret this result as normal/abnor mal. INR (test code = 6301-6) 1.0 Nor mal INR <1.1; Warfarin Therap eutic range 2.0 to 3. 0 or 2.5 to 3.5, dep ending upon the indica tions. Lab Interpretation (test Normal code = 40653-2) [facility] WITH [id number] 22:56:34 Test Item Value Reference Range Interpretation Comments WBC (test code = 7.44 See_Comment [Automated 4690-2) message] The sy stem which generated this [...] RDW-SD (test code = 44.8 fL 39.0-49.9 40396-1) RDW-CV (test code = 13.8 % 12.0-15.5 788-0) PLT (test code = 334 See_Comment [Automated 777-3) message] The sy stem which generated this result transmitted reference range : 166 - 358 10*3/ ?L. The reference r yusra was not used to interpret this result as normal/abnormal . MPV (test code = 8.8 fL 9.5-12.9 L 01797-0) NRBC/100 WBC (test 0.0 See_Comment [Automat ed code = 4817138792) message] The system which generated this result transmitted reference range : 0.0 - 10.0 /100 WBCs. The refer ence range was not u sed to interpret th is result as normal/abnormal . NRBC x10^3 (test code See_Comment [Auto mated = 4030780301) message] The s ystem which generated this result transmitted reference range : 10*3/?L. The reference range was not used to interpret this result as normal/abnormal . GRAN MAT (NEUT) % 69.1 % (test code = 770-8) IMM GRAN % (test code 0.30 % = 1766967320) LYMPH % (test code = 19.4 % 736-9) MONO % (test code = 7.3 % 5905-5) EOS % (test code = 3.2 % 713-8) BASO % (test code = 0.7 % 706-2) GRAN MAT x10^3(ANC) 5.15 10*3/uL 1.88-7.09 (test code = 0581867184) IMM GRAN x10^3 (test 0.00-0.06 code = 0437806354) LYMPH x10^3 (test code 1.44 10*3/uL 1.32-3.29 = 731-0) MONO x10^3 (test code 0.54 10*3/uL 0.33-0.92 = 742-7) EOS x10^3 (test code = 0.24 10*3/uL 0.03-0.39 711-2) BASO x10^3 (test code 0.05 10*3/uL 0.01-0.07 = 704-7) Lab Interpretation Abnormal (test code = 49437-8) [facility] WITH [id number] 22:56:34 Test Item Value Reference Range Interpretation Comments WBC (test code = 7.44 See_Comment [Automated 8190-2) message] The sy stem which generated this result transmitted reference range : 4.30 - 11.10 10*3/?L. The reference range was not used to interpret this result as normal/abnormal . RBC (test code = 3.73 See_Comment L [Automated 749-8) message] The sy stem which generated this [...] RDW-SD (test code = 44.8 fL 39.0-49.9 80060-5) RDW-CV (test code = 13.8 % 12.0-15.5 788-0) PLT (test code = 334 See_Comment [Automated 777-3) message] The sy stem which generated this result transmitted reference range : 166 - 358 10*3/ ?L. The reference r yusra was not used to interpret this result as normal/abnormal . MPV (test code = 8.8 fL 9.5-12.9 L 24530-7) NRBC/100 WBC (test 0.0 See_Comment [Automat ed code = 4917007656) message] The system which generated this result transmitted reference range : 0.0 - 10.0 /100 WBCs. The refer ence range was not u sed to interpret th is result as normal/abnormal . NRBC x10^3 (test code See_Comment [Auto mated = 0474520757) message] The s ystem which generated this result transmitted reference range : 10*3/?L. The reference range was not used to interpret this result as normal/abnormal . GRAN MAT (NEUT) % 69.1 % (test code = 770-8) IMM GRAN % (test code 0.30 % = 6898083242) LYMPH % (test code = 19.4 % 736-9) MONO % (test code = 7.3 % 5905-5) EOS % (test code = 3.2 % 713-8) BASO % (test code = 0.7 % 706-2) GRAN MAT x10^3(ANC) 5.15 10*3/uL 1.88-7.09 (test code = 0076475031) IMM GRAN x10^3 (test 0.00-0.06 code = 2515925021) LYMPH x10^3 (test code 1.44 10*3/uL 1.32-3.29 = 731-0) MONO x10^3 (test code 0.54 10*3/uL 0.33-0.92 = 742-7) EOS x10^3 (test code = 0.24 10*3/uL 0.03-0.39 711-2) BASO x10^3 (test code 0.05 10*3/uL 0.01-0.07 = 704-7) Lab Interpretation Abnormal (test code = 21799-7) [facility] WITH [id number] 22:56:34 Test Item Value Reference Range Interpretation Comments WBC (test code = 7.44 See_Comment [Automated 7888-2) message] The sy stem which generated this result transmitted reference range : 4.30 - 11.10 10*3/?L. The reference range was not used to interpret this result as normal/abnormal . RBC (test code = 3.73 See_Comment L [Automated 279-8) message] The sy stem which generated this [...] RDW-SD (test code = 44.8 fL 39.0-49.9 85451-9) RDW-CV (test code = 13.8 % 12.0-15.5 788-0) PLT (test code = 334 See_Comment [Automated 337-3) message] The sy stem which generated this result transmitted reference range : 166 - 358 10*3/ ?L. The reference r yusra was not used to interpret this result as normal/abnormal . MPV (test code = 8.8 fL 9.5-12.9 L 16523-3) NRBC/100 WBC (test 0.0 See_Comment [Automat ed code = 4796375640) message] The system which generated this result transmitted reference range : 0.0 - 10.0 /100 WBCs. The refer ence range was not u sed to interpret th is result as normal/abnormal . NRBC x10^3 (test code See_Comment [Auto mated = 8156821170) message] The s ystem which generated this result transmitted reference range : 10*3/?L. The reference range was not used to interpret this result as normal/abnormal . GRAN MAT (NEUT) % 69.1 % (test code = 770-8) IMM GRAN % (test code 0.30 % = 5950262536) LYMPH % (test code = 19.4 % 736-9) MONO % (test code = 7.3 % 5905-5) EOS % (test code = 3.2 % 713-8) BASO % (test code = 0.7 % 706-2) GRAN MAT x10^3(ANC) 5.15 10*3/uL 1.88-7.09 (test code = 0944675368) IMM GRAN x10^3 (test 0.00-0.06 code = 9549044588) LYMPH x10^3 (test code 1.44 10*3/uL 1.32-3.29 = 731-0) MONO x10^3 (test code 0.54 10*3/uL 0.33-0.92 = 742-7) EOS x10^3 (test code = 0.24 10*3/uL 0.03-0.39 711-2) BASO x10^3 (test code 0.05 10*3/uL 0.01-0.07 = 704-7) Lab Interpretation Abnormal (test code = 90585-6) [facility] Center[facility] and Screen - ONCE [id number] 21:05:30 Test Item Value Reference Range Interpretation Comments ABO & RH (test AB POSITIVE Performed at [facility] code = 20) Laboratory Serv [facility] [place] [address]Mybn Free: [phone] A No. [id number] IAT (test code = Negative Performed a t FLMB 1185) Laboratory [facility] Blood [address] [address]Gozf Free: [phone] A No. [id number] [facility] CenterType and Screen - ONCE [id number] 21:05:30 Test Item Value Reference Range Interpretation Comments ABO & RH (test AB POSITIVE Performed at [facility] code = 20) Laboratory [facility] Blood [address] [id number] Free: [phone] A No. [id number] IAT (test code = Negative Performed a t FLMB 1185) Laboratory [facility] Blood [address] [address]Ngqn Free: [phone] A No. [id number] [facility] Center[facility] Screen - ONCE [id number] 21:05:30 Test Item Value Reference Range Interpretation Comments ABO & RH (test AB POSITIVE Performed at [facility] code = 20) Laboratory [facility] Blood [address] [address]Jlgw Free: [phone] A No. [id number] IAT (test code = Negative Performed a t FLMB 1185) Laboratory [facility] Blood [address] [address]Bdrc Free: [phone] A No. [id number] [facility] CenterCOMP. METABOLIC PANEL ([id number])2022-08-30 20:43:30 Test Item Value Reference Range Interpretation Comments NA (test code = 140 mmol/L 135-145 5964105429) K (test code = 4.0 mmol/L 3.5-5.0 3380592750) CL (test code = 109 mmol/L 98-108 H 4728092768) CO2 TOTAL (test code = 21 mmol/L 23-31 L 2244954624) AGAP (test code = 10 2-16 1769327096) BUN (test code = 15 mg/dL 7-23 9317408924) GLUCOSE (test code = 106 mg/dL 70-110 5511950948) CREATININE (test code = 0.76 mg/dL 0.50-1.04 8852681112) TOTAL BILI (test code = 0.5 mg/dL 0.1-1.6 2483835804) CALCIUM (test code = 8.6 mg/dL 8.6-10.6 7607215200) T PROTEIN (test code = 6.7 g/dL 6.3-8.2 3489748349) ALBUMIN (test code = 3.9 g/dL 3.5-5.0 1554604888) ALK PHOS (test code = 79 U/L 34-122 0454686100) ALTv (test code = 27 U/L 5-35 1742-6) AST(SGOT) (test code = 47 U/L 13-40 H 0523305012) eGFR (test code = 75.2 mL/min/1.73m2 3811749396) PRITESH (test code = PRITESH) Association of [...] tests). Lab Interpretation Abnormal (test code = 20702-9) [facility]. METABOLIC PANEL ([id number])2022-08-30 20:43:30 Test Item Value Reference Range Interpretation Comments NA (test code = 140 mmol/L 135-145 2052272357) K (test code = 4.0 mmol/L 3.5-5.0 1568822652) CL (test code = 109 mmol/L 98-108 H 6318128799) CO2 TOTAL (test code = 21 mmol/L 23-31 L 5116560180) AGAP (test code = 10 2-16 5250517312) BUN (test code = 15 mg/dL 7-23 4322193366) GLUCOSE (test code = 106 mg/dL 70-110 6302164804) CREATININE (test code = 0.76 mg/dL 0.50-1.04 5928691456) TOTAL BILI (test code = 0.5 mg/dL 0.1-1.2 6940567472) CALCIUM (test code = 8.6 mg/dL 8.6-10.6 7237012458) T PROTEIN (test code = 6.7 g/dL 6.3-8.2 2069329531) ALBUMIN (test code = 3.9 g/dL 3.5-5.0 8235013359) ALK PHOS (test code = 79 U/L 34-122 0877754741) ALTv (test code = 27 U/L 5-35 1742-6) AST(SGOT) (test code = 47 U/L 13-40 H 7056804873) eGFR (test code = 75.2 mL/min/1.73m2 9221324370) PRITESH (test code = PRITESH) Association of [...] tests). Lab Interpretation Abnormal (test code = 65237-0) [facility]. METABOLIC PANEL ([id number])2022-08-30 20:43:30 Test Item Value Reference Range Interpretation Comments NA (test code = 140 mmol/L 135-145 1117952593) K (test code = 4.0 mmol/L 3.5-5.0 9503259686) CL (test code = 109 mmol/L 98-108 H 4163595574) CO2 TOTAL (test code = 21 mmol/L 23-31 L 5151256305) AGAP (test code = 10 2-16 1949140753) BUN (test code = 15 mg/dL 7-23 9793116786) GLUCOSE (test code = 106 mg/dL 70-110 1457038084) CREATININE (test code = 0.76 mg/dL 0.50-1.04 5052562220) TOTAL BILI (test code = 0.5 mg/dL 0.1-1.4 0955147057) CALCIUM (test code = 8.6 mg/dL 8.6-10.6 3998025921) T PROTEIN (test code = 6.7 g/dL 6.3-8.2 6086743771) ALBUMIN (test code = 3.9 g/dL 3.5-5.0 3252726073) ALK PHOS (test code = 79 U/L 34-122 7609728473) ALTv (test code = 27 U/L 5-35 1742-6) AST(SGOT) (test code = 47 U/L 13-40 H 6033679000) eGFR (test code = 75.2 mL/min/1.73m2 9316914880) PRITESH (test code = PRITESH) Association of [...] tests). Lab Interpretation Abnormal (test code = 48911-2) [facility]"
--- NOTE | 2023-05-28 12:04 | EDPHYS ---
Physician Documentation [facility] Name: Jose Enrique Yin Age: 72 yrs Sex: Female : 1950 Arrival Date: 05/28/2023 Time: 11:46 Bed 10 Private MD: ED Physician Estefany Devlin HPI: 05/28 12:00 This 72 yrs old Female presents to ER via Ambulatory with complaints of Pain. jh7 12:00 Patient complains of chronic left hip pain due to arthritis. She is requesting [facility] medications to help with symptom relief. Denies any injury, trauma, or any other symptoms.. Historical: - Allergies: 11:59 Codeine; ll1 - PMHx: 11:59 Arthritis; Hypertensive disorder; ll1 - PSHx: 11:59 left arm; ll1 - Immunization history:: Adult Immunizations up to date. - Social history:: Smoking status: Patient reports the use of cigarette tobacco products, smokes one-half pack cigarettes per day. ROS: 12:00 Constitutional: Negative for fever, chills, and weight loss, Eyes: Negative for injury, jh7 pain, redness, and discharge, Neck: Negative for injury, pain, and swelling, Cardiovascular: Negative for chest pain, palpitations, and edema, Respiratory: Negative for shortness of breath, cough, wheezing, and pleuritic chest pain, Abdomen/GI: Negative for abdominal pain, nausea, vomiting, diarrhea, and constipation, Back: Negative for injury and pain, Skin: Negative for injury, rash, and discoloration, Neuro: Negative for headache, weakness, numbness, tingling, and seizure, 12:00 MS/extremity: Positive for pain, of the left hip, Negative for injury or acute deformity, 12:00 All other systems are negative, Exam: 12:00 Constitutional: This is a well developed, well nourished patient who is awake, alert, jh7 and in no acute distress. Head/Face: Normocephalic, atraumatic. Neck: Trachea midline, no thyromegaly or masses palpated, and no cervical lymphadenopathy. Supple, full range of motion without nuchal rigidity, or vertebral point tenderness. No Meningismus. Cardiovascular: Regular rate and rhythm with a normal S1 and S2. No gallops, murmurs, or rubs. Normal PMI, no JVD. No pulse deficits. Respiratory: Lungs have equal breath sounds bilaterally, clear to auscultation and percussion. No rales, rhonchi or wheezes noted. No increased work of breathing, no retractions or nasal flaring. Skin: Warm, dry with normal turgor. Normal color with no rashes, no lesions, and no evidence of cellulitis. MS/ Extremity: Pulses equal, no cyanosis. Neurovascular intact. Full, normal range of motion. Neuro: Awake and alert, GCS 15, oriented to person, place, time, and situation. Normal gait. 12:00 Musculoskeletal/extremity: Extremities: noted in the left hip pain: ROM: full active range of motion, in all extremities, Circulation is intact in all extremities. Pulses: are normal with no appreciated deficits, Perfusion: the patient is Perfusion: the extremity is normally perfused throughout, pink, warm, with brisk capillary refill, Sensation intact. Vital Signs: 11:59 BP 153 / 95; Pulse 72; Resp 17; Temp 98.1; Pulse Ox 100% ; Weight 58.97 kg; Height 5 ll1 ft. 2 in. ; Pain 9/10; 11:59 Body Mass Index 23.78 (58.97 kg, 157.48 cm) ll1 11:59 Pain Scale: Adult ll1 MDM: 11:50 Patient medically screened. [facility] 12:15 Differential diagnosis: Arthritis. Data reviewed: vital signs, nurses notes. I [facility] considered the following discharge prescriptions or medication management in the emergency department Medications were administered in the Emergency Department. See MAR. Care significantly affected by the following chronic conditions: Hypertension. Counseling: I had a detailed discussion with the patient and/or guardian regarding the historical points, exam findings, and any diagnostic results supporting the discharge/admit diagnosis, to return to the emergency department if symptoms worsen or persist or if there are any questions or concerns that arise at home. Response to treatment: the patient's symptoms have markedly improved after treatment. Special discussion: Patient requested refill of her lisinopril. Informed her that we would give 1 more refill, but that she would need to follow-up with her primary care doctor for further refills.. Administered Medications: 12:11 Drug: Dexamethasone IM 10 mg IM once Route: IM; Site: Ventrogluteal RIGHT; cp4 12:31 Follow up: Response: No adverse reaction; Pain is decreased ll1 12:11 Drug: Ketorolac IM 30 mg IM once Route: IM; Site: Ventrogluteal RIGHT; cp4 12:31 Follow up: Response: No adverse reaction; Pain is decreased ll1 Disposition Summary: 05/28/23 12:03 Discharge Ordered Notes: Location: Home [facility] Problem: chronic [facility] Symptoms: are unchanged [facility] Condition: Stable [facility] Diagnosis - Osteoarthritis of hip, unspecified [facility] Followup: [facility] - With: Private Physician - When: 2 - 3 days - Reason: Recheck today's complaints Discharge Instructions: - Discharge Summary Sheet [facility] - Arthritis [facility] - Osteoarthritis [facility] Forms: - Medication Reconciliation Form [facility] - Thank You Letter [facility] - Patient Portal Instructions [facility] - Leadership Thank You Letter [facility] Prescriptions: - Lisinopril 20 mg Oral Tablet - take 1 tablet ORAL route once daily; 20 tablet; Refills: 0, Product Selection [facility] Permitted - Diclofenac Sodium 75 mg Oral Tablet Sustained Release - take 1 tablet ORAL route 2 times per day; 30 tablet; Refills: 0, Product [facility] Selection Permitted Signatures: Taylor Maldonado RN RN ll1 Fatimah Spring FNP OB SCRUB TECH 7 Ellen Godoy cp4
--- NOTE | 2023-05-28 12:04 | ER ---
Nurse's Notes [facility] Name: Jose Enrique Yin Age: 72 yrs Sex: Female : 1950 Arrival Date: 05/28/2023 Time: 11:46 Bed 10 Private MD: Diagnosis: Osteoarthritis of hip, unspecified Presentation: 05/28 11:59 Chief complaint: Patient states: Arthritis pain is worse than usual for 3-4 days. In ll1 between doctors right now. Coronavirus screen: Client denies travel out of the [place] in the last 14 days. At this time, the client does not indicate any symptoms associated with coronavirus-19. Ebola Screen: Patient denies travel to an Ebola-affected area in the 21 days before illness onset. Initial Sepsis Screen: Does the patient meet any 2 criteria? No. Patient's initial sepsis screen is negative. Does the patient have a suspected source of infection? Yes: Bone or joint infection. Risk Assessment: Do you want to hurt yourself or someone else? Patient reports no desire to harm self or others. Onset of symptoms was May 25, 2023. 11:59 Method Of Arrival: Ambulatory ll1 11:59 Acuity: YONAS 4 ll1 Triage Assessment: 12:00 General: Appears uncomfortable, Behavior is calm, cooperative, appropriate for age. ll1 Pain: Complains of pain in back/hips Pain currently is 9 out of 10 on a pain scale. Musculoskeletal: Circulation, motion, and sensation intact. Capillary refill < 3 seconds. Historical: - Allergies: 11:59 Codeine; ll1 - PMHx: 11:59 Arthritis; Hypertensive disorder; ll1 - PSHx: 11:59 left arm; ll1 - Immunization history:: Adult Immunizations up to date. - Social history:: Smoking status: Patient reports the use of cigarette tobacco products, smokes one-half pack cigarettes per day. Screenin:12 [facility] ED Fall Risk Assessment (Adult) History of falling in the last 3 months, cp4 including since admission No falls in past 3 months (0 pts) Confusion or Disorientation No (0 pts) Intoxicated or Sedated No (0 pts) Impaired Gait No (0 pts) Mobility Assist Device Used No (0 pt) Altered Elimination No (0 pt) Score/Fall Risk Level 0 - 2 = Low Risk Oriented to surroundings, Maintained a safe environment, Educated pt \T\ family on fall prevention, incl call for assistance when getting out of bed, Hourly rounding (assess needs \T\ fall precautionary measures) done. Abuse screen: Denies threats or abuse. Nutritional screening: No deficits noted. Tuberculosis screening: No symptoms or risk factors identified. Assessment: 12:12 General: Appears in no apparent distress. Behavior is calm, cooperative, appropriate cp4 for age. Pain: Pain currently is 9 out of 10 on a pain scale. 12:31 Reassessment: No changes from previously documented assessment. Patient and/or family ll1 updated on plan of care and expected duration. Pain level reassessed. Vital Signs: 11:59 BP 153 / 95; Pulse 72; Resp 17; Temp 98.1; Pulse Ox 100% ; Weight 58.97 kg; Height 5 ll1 ft. 2 in. ; Pain 9/10; 11:59 Body Mass Index 23.78 (58.97 kg, 157.48 cm) ll1 11:59 Pain Scale: Adult ll1 ED Course: 11:48 Patient arrived in ED. mg5 11:50 [facility] jh7 11:50 Estefany Devlin MD is Attending Physician. jh7 11:59 Arm band placed on Patient placed in an exam room, on a stretcher. ll1 12:00 Triage completed. ll1 12:03 Ellen Godoy is Primary Nurse. cp4 12:12 Bed in low position. Call light in reach. Side rails up X 1. Provided Education on: cp4 chronic pain. 12:12 No provider procedures requiring assistance completed. Patient did not have IV access cp4 during this emergency room visit. 12:42 Primary Nurse role handed off by Ellen Godoy ll1 Administered Medications: 12:11 Drug: Dexamethasone IM 10 mg IM once Route: IM; Site: Ventrogluteal RIGHT; cp4 12:31 Follow up: Response: No adverse reaction; Pain is decreased ll1 12:11 Drug: Ketorolac IM 30 mg IM once Route: IM; Site: Ventrogluteal RIGHT; cp4 12:31 Follow up: Response: No adverse reaction; Pain is decreased ll1 Medication: 12:12 VIS not applicable for this client. cp4 Outcome: 12:03 Discharge ordered by . 7 12:31 Discharged to home ambulatory, [facility] 12:31 Condition: stable 12:31 Discharge instructions given to patient, Instructed on discharge instructions, follow up and referral plans. Demonstrated understanding of instructions, follow-up care, 12:32 Patient left the ED. 1 12:47 Patient left the ED. 1 Signatures: Taylor Maldonado RN RN ll1 Fatimah Spring, HOME FIRE ALARM INSTALLER HOME FIRE ALARM INSTALLER 7 Shayy Tang 5 Ellen Godoy 4
[2023-05-28] MEDS ORDERED: dexAMETHasone 10 MG/ML VIAL ONE (12:20)
[2023-05-28] MEDS ORDERED: KETOROLAC 30 MG/ML INJ ONE (12:20)
[2023-05-28 12:37] VITALS: BP 153/95; TEMP 98.1; O2SAT 100
== END 2023-05-28 12:47 | disposition home or self-care (01) ==
LOC: ER 11:46
DX: M16.12 Unilateral primary osteoarthritis, left hip (principal); I10 Essential (primary) hypertension; F17.210 Nicotine dependence, cigarettes, uncomplicated; Z88.5 Allergy status to narcotic agent
CPT/HCPCS: 96372; 99284; J1100

== ENCOUNTER 2023-10-24 01:14 | Emergency (ER) | payer OTHER ==
--- OUTSIDE RECORDS SUMMARY | 2023-10-24 01:21 | XMS REPORT | Continuity of Care Document ---
Author Name Unknown Address [address] [facility] [address] [place] [address] [facility] thconnect Address [address] [facility] [address] [place] [address] Care Team Providers Care Claim Taker Name Role Phone GAYLE, NADEEN Primary Care Physician Unavailab Saida Sorensen Attending Clinician Unavailable Nadeen Santizo L Attending Clinician Unavailable ALEJO PEGUERO Attending Clinician Unavailable ALEJO BERGERON Attending Clinician Unavailable Alejo Peguero MD Attending Clinician Elyssa DONAHUE MD, John Attending Clinician Doctor Unassigned, Westley Attending Clinician U more Peñaloza RN, Allan Rodriguez Attending Clinician Unavail jenna Phoenix MD, Henri Castro Attending Clinician [phone] Nohemy CESAR, Ham Attending Clinician [phone] Elyssa DONAHUE MD, John Admitting Clinician ALEJO BERGERON Admitting Clinician Unavailable Payers Payer Name Policy Type Policy Number Effective Date Expirati on Date Source [facility] DUAL COMP HMO D [facility] [id number] 2022 00:00:00 [place] [id number] 2022 00:00:00 [employer] MEDICARE C1 [id number] 2020 00:00:00 [facility] HUMAN MEDICARE C1 [id number] 2020 00:00:00 [facility] MEDICARE C1 [id number] 2020 00:00:00 [facility] Problems Condition Name Condition Details Condition Category Status Onset Date Resolution Date Last Treatment Date Treating Clinician Comments Source Osteoporos is Osteoporos is Disease Recurre nce 09-01 00:00: 00 [facility] 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 Active 08-30 00:00: 00 [facility] Open fracture of left wrist, initial encounter Open fracture of left wrist, initial encounter Disease Active 08-30 00:00: 00 [facility] Disorder of cardiovasc ular system Circulatio n problem Problem [facility] [id number] Primary osteoarthr itis involving multiple joints Problem [facility] [id number] Osteoarthr itis of multiple joints, unspecifie d osteoarthr itis type Problem [facility] Chronic pain Other chronic pain Problem [facility] Migraine Migraines Problem Commo n [facility] Hepatitis Hepatitis Problem Comm on [facility] [id number] Current moderate episode of major depressive disorder without prior episode Problem Common [facility] Kidney stone Kidney stones Problem [facility] Localized, primary osteoarthr itis of the pelvic region and thigh Osteoarthr itis of right hip, unspecifie d osteoarthr itis type Problem [facility] Swelling Swelling Problem [facility] Unsteady gait Unsteady gait Problem [facility] Osteopenia Osteopenia Problem Co mmon [facility] Hypertensi on HTN (hypertens ion) Problem [facility] Anxiety Anxiety Problem [facility] [id number] Depression , recurrent Problem [facility] Allergies, Adverse Reactions, Alerts Allergy Name Allergy Type Status Severity Reaction(s) Onset Date Inactive Date Treating Clinician Comments Source CODEINE DRUG INGREDI Active N/V 03-14 00:00: 00 [facility] Codeine Propensi ty to adverse reaction s Active Nausea and/or Vomiting 03-14 00:00: 00 [facility] Social History Social Habit Start Date Stop Date Quantity Comments Source History SDOH Alcohol Frequency [facility] History SDOH Social Connections Get Together [facility] History SDOH Social Connections [facility] History SDOH Social Connections Membership [facility] History SDOH Social Connections Meetings [facility] History of tobacco use Cigarette Smoker [facility] Exposure to SARS-CoV-2 (event) 2022-10-26 00:00:00 2022-11-05 15:21:00 Not sure [facility] Tobacco use and exposure 2022-08-31 00:00:00 2022-08-31 00:00:00 User of smokeless tobacco [facility] History SDOH Alcohol Std Drinks 2022-08-31 00:00:00 2022-08-31 00:00:00 0 [facility] History SDOH Alcohol Binge 2022-08-31 00:00:00 2022-08-31 00:00:00 1 [facility] History SDOH Social Connections Phone 2022-08-31 00:00:00 2022-08-31 00:00:00 5 [facility] History SDOH Social Connections Living 2022-08-31 00:00:00 2022-08-31 00:00:00 4 [facility] History SDOH Physical Activity DPW 2022-08-31 00:00:00 2022-08-31 00:00:00 0 [facility] History SDOH Physical Activity MPS 2022-08-31 00:00:00 2022-08-31 00:00:00 0 [facility] History SDOH Financial 2022-08-31 00:00:00 2022-08-31 00:00:00 2 [facility] History SDOH Food Worry 2022-08-31 00:00:00 2022-08-31 00:00:00 3 [facility] History SDOH Food Scarcity 2022-08-31 00:00:00 2022-08-31 00:00:00 2 [facility] History SDOH Transport Med 2022-08-31 00:00:00 2022-08-31 00:00:00 2 [facility] History SDOH Transport Non-Med 2022-08-31 00:00:00 2022-08-31 00:00:00 2 [facility] Sex Assigned At 1950 00:00:00 1950 00:00:00 [facility] Smoking Status Start Date Stop Date Source Smokes tobacco daily 2022-08-31 00:00:00 [facility] Never Smoker [facility] Medications Ordered Medication Name Filled Medication Name Start Date Stop Date Current Medication? Ordering Clinician Indication Dosage Frequency Signature (SIG) Comments Components Source traMADoL 50 mg tablet 11-09 00:00: 00 11-17 04:59 :00 No [id number] 50mg Take 1 tablet by mouth every 6 (six) hours as needed for Pain (scale 7-10) for up to 7 days. Indication s: acute pain [facility] gabapentin 300 mg capsule 11-05 00:00: 00 Yes [id number] 300mg Take 1 capsule by mouth at bedtime. [facility] gabapentin 300 mg capsule 11-05 00:00: 00 Yes [id number] 300mg Take 1 capsule by mouth at bedtime. [facility] gabapentin 300 mg capsule 0 12 00:00: 00 Yes [id number] 300mg Take 1 capsule by mouth at bedtime. [facility] gabapentin 300 mg capsule 0 12 00:00: 00 Yes [id number] 300mg Take 1 capsule by mouth at bedtime. [facility] gabapentin 300 mg capsule 0 12 00:00: 00 Yes [id number] 300mg Take 1 capsule by mouth at bedtime. [facility] gabapentin 300 mg capsule 0 4-12 00:00: 00 Yes [id number] 300mg Take 1 capsule by mouth at bedtime. [facility] traMADoL 50 mg tablet 2022-0 4-12 00:00: 00 11-13 04:59 :00 No [id number] 50mg Take 1 tablet by mouth every 6 (six) hours as needed for Pain (scale 7-10) for up to 7 days. Indication s: acute pain [facility] traMADoL 50 mg tablet 0 4-12 00:00: 00 11-13 04:59 :00 No 4647 50mg Take 1 tablet by mouth every 6 (six) hours as needed for Pain (scale 7-10) for up to 7 days. Indication s: acute pain [facility] traMADoL 50 mg tablet 4-12 00:00: 00 11-13 04:59 :00 No 4647 50mg Take 1 tablet by mouth every 6 (six) hours as needed for Pain (scale 7-10) for up to 7 days. Indication s: acute pain [facility] traMADoL 50 mg tablet 0 4-12 00:00: 00 11-13 04:59 :00 No 4647 50mg Take 1 tablet by mouth every 6 (six) hours as needed for Pain (scale 7-10) for up to 7 days. Indication s: acute pain [facility] traMADoL 50 mg tablet 412 00:00: 00 11-13 04:59 :00 No 4647 50mg Take 1 tablet by mouth every 6 (six) hours as needed for Pain (scale 7-10) for up to 7 days. Indication s: acute pain [facility] traMADoL 50 mg tablet 0 4-12 00:00: 00 11-13 04:59 :00 No 4647 50mg Take 1 tablet by mouth every 6 (six) hours as needed for Pain (scale 7-10) for up to 7 days. Indication s: acute pain [facility] HYDROcodone -acetaminop hen (NORCO) 10-325 mg tablet 3-04 00:00: 00 Yes 4647 1{tbl} Take 1 tablet by mouth every 6 (six) hours as needed for Pain (scale 7-10). Indication s: acute pain [facility] HYDROcodone -acetaminop hen (NORCO) 10-325 mg tablet 2023-0 3-04 00:00: 00 Yes 4647 1{tbl} Take 1 tablet by mouth every 6 (six) hours as needed for Pain (scale 7-10). Indication s: acute pain [facility] HYDROcodone -acetaminop hen (NORCO) 10-325 mg tablet 2023-0 3-04 00:00: 00 Yes 4647 1{tbl} Take 1 tablet by mouth every 6 (six) hours as needed for Pain (scale 7-10). Indication s: acute pain [facility] HYDROcodone -acetaminop hen (NORCO) 10-325 mg tablet 2023-0 3-04 00:00: 00 Yes 4647 1{tbl} Take 1 tablet by mouth every 6 (six) hours as needed for Pain (scale 7-10). Indication s: acute pain [facility] HYDROcodone -acetaminop hen (NORCO) 10-325 mg tablet 2023-0 3-04 00:00: 00 Yes 4647 1{tbl} Take 1 tablet by mouth every 6 (six) hours as needed for Pain (scale 7-10). Indication s: acute pain [facility] HYDROcodone -acetaminop hen (NORCO) 10-325 mg tablet 2023-0 3-04 00:00: 00 Yes 4647 1{tbl} Take 1 tablet by mouth every 6 (six) hours as needed for Pain (scale 7-10). Indication s: acute pain [facility] HYDROcodone -acetaminop hen (NORCO) 10-325 mg tablet 2023-0 3-04 00:00: 00 Yes 4647 1{tbl} Take 1 tablet by mouth every 6 (six) hours as needed for Pain (scale 7-10). Indication s: acute pain [facility] HYDROcodone -acetaminop hen (NORCO) 10-325 mg tablet 2023-0 3-04 00:00: 00 Yes 4647 1{tbl} Take 1 tablet by mouth every 6 (six) hours as needed for Pain (scale 7-10). Indication s: acute pain [facility] HYDROcodone -acetaminop hen (NORCO) 10-325 mg tablet 0 3-04 00:00: 00 Yes 4647 1{tbl} Take 1 tablet by mouth every 6 (six) hours as needed for Pain (scale 7-10). Indication s: acute pain [facility] HYDROcodone -acetaminop hen (NORCO) 10-325 mg tablet 2022-0 304 00:00: 00 09-27 00:00 :00 No 4647 1{tbl} Take 1 tablet by mouth every 6 (six) hours as needed for Pain (scale 7-10) for up to 7 days. Indication s: acute pain [facility] HYDROcodone -acetaminop hen (NORCO) 5-325 mg tablet 2022-0 3 00:00: 00 10-03 05:59 :00 No 4647 1{tbl} Take 1 tablet by mouth every 6 (six) hours as needed for Pain (scale 7-10) for up to 7 days. Indication s: acute pain [facility] HYDROcodone -acetaminop hen (NORCO) 5-325 mg tablet 2022-0 09-25 00:00: 00 10-03 05:59 :00 No 4647 1{tbl} Take 1 tablet by mouth every 6 (six) hours as needed for Pain (scale 7-10) for up to 7 days. Indication s: acute pain [facility] HYDROcodone -acetaminop hen (NORCO) 5-325 mg tablet 2022-0 3-02 00:00: 00 10-03 05:59 :00 No 4647 1{tbl} Take 1 tablet by mouth every 6 (six) hours as needed for Pain (scale 7-10) for up to 7 days. Indication s: acute pain [facility] HYDROcodone -acetaminop hen (NORCO) 5-325 mg tablet 2022-0 3-02 00:00: 00 10-03 05:59 :00 No 4647 1{tbl} Take 1 tablet by mouth every 6 (six) hours as needed for Pain (scale 7-10) for up to 7 days. Indication s: acute pain [facility] HYDROcodone -acetaminop hen (NORCO) 5-325 mg tablet 09-25 00:00: 00 10-03 05:59 :00 No 4647 1{tbl} Take 1 tablet by mouth every 6 (six) hours as needed for Pain (scale 7-10) for up to 7 days. Indication s: acute pain [facility] lisinopriL 20 mg tablet 09-08 18:34: 36 Yes 20mg Take 20 mg by mouth in the morning. [facility] gabapentin 300 mg capsule 0 09-08 18:34: 36 Yes 300mg Take 300 mg by mouth in the morning. [facility] celecoxib (CELEBREX) 200 mg capsule 0 09-08 18:34: 36 Yes 200mg Take 200 mg by mouth in the morning. [facility] lisinopriL 20 mg tablet 0 09-08 18:34: 36 Yes 20mg Take 20 mg by mouth in the morning. [facility] gabapentin 300 mg capsule 0 09-08 18:34: 36 Yes 300mg Take 300 mg by mouth in the morning. [facility] celecoxib (CELEBREX) 200 mg capsule 0 09-08 18:34: 36 Yes 200mg Take 200 mg by mouth in the morning. [facility] lisinopriL 20 mg tablet 09-08 18:34: 36 Yes 20mg Take 20 mg by mouth in the morning. [facility] gabapentin 300 mg capsule 0 09-08 18:34: 36 Yes 300mg Take 300 mg by mouth in the morning. [facility] celecoxib (CELEBREX) 200 mg capsule 0 09-08 18:34: 36 Yes 200mg Take 200 mg by mouth in the morning. [facility] lisinopriL 20 mg tablet 0 09-08 18:34: 36 Yes 20mg Take 20 mg by mouth in the morning. [facility] gabapentin 300 mg capsule 2022-0 09-08 18:34: 36 Yes 300mg Take 300 mg by mouth in the morning. [facility] celecoxib (CELEBREX) 200 mg capsule 3-0 - 18:34: 36 Yes 200mg Take 200 mg by mouth in the morning. [facility] lisinopriL 20 mg tablet 3-0 - 18:34: 36 Yes 20mg Take 20 mg by mouth in the morning. [facility] gabapentin 300 mg capsule 3-0 - 18:34: 36 Yes 300mg Take 300 mg by mouth in the morning. [facility] celecoxib (CELEBREX) 200 mg capsule 3-0 - 18:34: 36 Yes 200mg Take 200 mg by mouth in the morning. [facility] lisinopriL 20 mg tablet 3-0 09-08 18:34: 36 Yes 20mg Take 20 mg by mouth in the morning. [facility] gabapentin 300 mg capsule 3-0 09-08 18:34: 36 Yes 300mg Take 300 mg by mouth in the morning. [facility] celecoxib (CELEBREX) 200 mg capsule 3-0 09-08 18:34: 36 Yes 200mg Take 200 mg by mouth in the morning. [facility] lisinopriL 20 mg tablet 3-0 09-08 18:34: 36 Yes 20mg Take 20 mg by mouth in the morning. [facility] gabapentin 300 mg capsule 3-0 09-08 18:34: 36 Yes 300mg Take 300 mg by mouth in the morning. [facility] celecoxib (CELEBREX) 200 mg capsule 3-0 09-08 18:34: 36 Yes 200mg Take 200 mg by mouth in the morning. [facility] lisinopriL 20 mg tablet 3-0 09-08 18:34: 36 Yes 20mg Take 20 mg by mouth in the morning. [facility] gabapentin 300 mg capsule 3-0 - 18:34: 36 Yes 300mg Take 300 mg by mouth in the morning. [facility] celecoxib (CELEBREX) 200 mg capsule 3-0 - 18:34: 36 Yes 200mg Take 200 mg by mouth in the morning. [facility] lisinopriL 20 mg tablet 3-0 2-13 18:34: 36 Yes 20mg Take 20 mg by mouth in the morning. [facility] gabapentin 300 mg capsule 3-0 -13 18:34: 36 Yes 300mg Take 300 mg by mouth in the morning. [facility] celecoxib (CELEBREX) 200 mg capsule 3-0 - 18:34: 36 Yes 200mg Take 200 mg by mouth in the morning. [facility] lisinopriL 20 mg tablet 3-0 - 18:34: 36 Yes 20mg Take 20 mg by mouth in the morning. [facility] gabapentin 300 mg capsule 3-0 - 18:34: 36 Yes 300mg Take 300 mg by mouth in the morning. [facility] celecoxib (CELEBREX) 200 mg capsule 3-0 - 18:34: 36 Yes 200mg Take 200 mg by mouth in the morning. [facility] lisinopriL 20 mg tablet 3-0 - 18:34: 36 Yes 20mg Take 20 mg by mouth in the morning. [facility] gabapentin 300 mg capsule 3-0 09-08 18:34: 36 Yes 300mg Take 300 mg by mouth in the morning. [facility] celecoxib (CELEBREX) 200 mg capsule 3-0 - 18:34: 36 Yes 200mg Take 200 mg by mouth in the morning. [facility] lisinopriL 20 mg tablet 3-0 - 18:34: 36 Yes 20mg Take 20 mg by mouth in the morning. [facility] gabapentin 300 mg capsule 3-0 -13 18:34: 36 Yes 300mg Take 300 mg by mouth in the morning. [facility] celecoxib (CELEBREX) 200 mg capsule 3-0 - 18:34: 36 Yes 200mg Take 200 mg by mouth in the morning. [facility] lisinopriL 20 mg tablet 2023-0 -13 18:34: 36 Yes 20mg Take 20 mg by mouth in the morning. [facility] gabapentin 300 mg capsule 2022-0 09-08 18:34: 36 Yes 300mg Take 300 mg by mouth in the morning. [facility] celecoxib (CELEBREX) 200 mg capsule 2022-0 09-08 18:34: 36 Yes 200mg Take 200 mg by mouth in the morning. [facility] lisinopriL 20 mg tablet 2022-0 09-08 18:34: 36 Yes 20mg Take 20 mg by mouth in the morning. [facility] gabapentin 300 mg capsule 2022-0 09-08 18:34: 36 Yes 300mg Take 300 mg by mouth in the morning. [facility] celecoxib (CELEBREX) 200 mg capsule 2022-0 09-08 18:34: 36 Yes 200mg Take 200 mg by mouth in the morning. [facility] lisinopriL 20 mg tablet 2022-0 09-08 18:34: 36 Yes 20mg Take 20 mg by mouth in the morning. [facility] gabapentin 300 mg capsule 2022-0 09-08 18:34: 36 Yes 300mg Take 300 mg by mouth in the morning. [facility] celecoxib (CELEBREX) 200 mg capsule 2022-0 09-08 18:34: 36 Yes 200mg Take 200 mg by mouth in the morning. [facility] lisinopriL 20 mg tablet 2022-0 09-08 18:34: 36 Yes 20mg Take 20 mg by mouth in the morning. [facility] gabapentin 300 mg capsule 2022-0 09-08 18:34: 36 Yes 300mg Take 300 mg by mouth in the morning. [facility] celecoxib (CELEBREX) 200 mg capsule 2022-0 09-08 18:34: 36 Yes 200mg Take 200 mg by mouth in the morning. [facility] methocarbam oL 750 mg tablet 09-08 00:00: 00 10-09 04:59 :00 No [id number] 750mg Take 1 tablet by mouth in the morning and 1 tablet at noon and 1 tablet in the evening. Do all this for 30 days. [facility] methocarbam oL 750 mg tablet 2022-0 2-13 00:00: 00 10-09 04:59 :00 No [id number] 750mg Take 1 tablet by mouth in the morning and 1 tablet at noon and 1 tablet in the evening. Do all this for 30 days. [facility] methocarbam oL 750 mg tablet 2022-0 213 00:00: 00 10-09 04:59 :00 No [id number] 750mg Take 1 tablet by mouth in the morning and 1 tablet at noon and 1 tablet in the evening. Do all this for 30 days. [facility] methocarbam oL 750 mg tablet 2022-0 213 00:00: 00 10-09 04:59 :00 No [id number] 750mg Take 1 tablet by mouth in the morning and 1 tablet at noon and 1 tablet in the evening. Do all this for 30 days. [facility] methocarbam oL 750 mg tablet 2022-0 2 00:00: 00 10-09 04:59 :00 No [id number] 750mg Take 1 tablet by mouth in the morning and 1 tablet at noon and 1 tablet in the evening. Do all this for 30 days. [facility] methocarbam oL 750 mg tablet 2022-0 213 00:00: 00 10-09 04:59 :00 No [id number] 750mg Take 1 tablet by mouth in the morning and 1 tablet at noon and 1 tablet in the evening. Do all this for 30 days. [facility] methocarbam oL 750 mg tablet 2022-0 213 00:00: 00 10-09 04:59 :00 No [id number] 750mg Take 1 tablet by mouth in the morning and 1 tablet at noon and 1 tablet in the evening. Do all this for 30 days. [facility] methocarbam oL 750 mg tablet 2022-0 213 00:00: 00 10-09 04:59 :00 No [id number] 750mg Take 1 tablet by mouth in the morning and 1 tablet at noon and 1 tablet in the evening. Do all this for 30 days. [facility] docusate 100 mg capsule 0 2-13 00:00: 00 09-24 05:59 :00 No [id number] 100mg Take 1 capsule by mouth in the morning and 1 capsule in the evening. Do all this for 15 days. [facility] docusate 100 mg capsule 0 2-13 00:00: 00 09-24 05:59 :00 No [id number] 100mg Take 1 capsule by mouth in the morning and 1 capsule in the evening. Do all this for 15 days. [facility] gabapentin 300 mg capsule 2-13 00:00: 00 09-23 05:59 :00 No [id number] 300mg Take 1 capsule by mouth in the morning and 1 capsule at noon and 1 capsule in the evening. Do all this for 14 days. [facility] gabapentin 300 mg capsule 2-13 00:00: 00 09-23 05:59 :00 No [id number] 300mg Take 1 capsule by mouth in the morning and 1 capsule at noon and 1 capsule in the evening. Do all this for 14 days. [facility] traMADoL 50 mg tablet 2-13 00:00: 00 09-16 05:59 :00 No [id number] 50mg Take 1 tablet by mouth every 6 (six) hours as needed for Pain (scale 4-6) or Pain (scale 7-10) for up to 7 days. Indication s: acute pain [facility] HYDROcodone -acetaminop hen 10-325 mg tablet 2-13 00:00: 00 09-16 05:59 :00 No 4647 1{tbl} Take 1 tablet by mouth every 6 (six) hours as needed for Pain (scale 4-6) or Pain (scale 7-10) for up to 7 days. Indication s: acute pain [facility] traMADoL 50 mg tablet 0 2-13 00:00: 00 09-16 05:59 :00 No 4647 50mg Take 1 tablet by mouth every 6 (six) hours as needed for Pain (scale 4-6) or Pain (scale 7-10) for up to 7 days. Indication s: acute pain [facility] HYDROcodone -acetaminop hen 10-325 mg tablet 09-08 00:00: 00 09-16 05:59 :00 No 4647 1{tbl} Take 1 tablet by mouth every 6 (six) hours as needed for Pain (scale 4-6) or Pain (scale 7-10) for up to 7 days. Indication s: acute pain [facility] ondansetron (ZOFRAN) 4 mg tablet 09-08 00:00: 00 09-14 05:59 :00 No [id number] 4mg Take 1 tablet by mouth every 6 (six) hours for 20 doses. [facility] ondansetron (ZOFRAN) 4 mg tablet 09-08 00:00: 00 09-14 05:59 :00 No [id number] 4mg Take 1 tablet by mouth every 6 (six) hours for 20 doses. [facility] polyethylen e glycol 3350 powder 17 g 09-07 13:30: 00 Yes 17g 17 g, Oral, DAILY, First dose on Thu09/07/22 at 0730, Until Discontinu ed, Routine [facility] glycerin/mi neral oil (AGLO ENEMA) (COMPOUNDED ) Enem 225 mL 09-07 13:26: 01 Yes 225mL 225 mL, Rectal, PRN, Starting on Thu09/07/22 at 0726, Until Discontinu ed, Routine, Constipati on unresolved by oral medication s [facility] bisacodyL (DULCOLAX) suppository 10 mg 09-07 13:25: 35 Yes 10mg 10 mg, Rectal, QHSPRN, Starting on Thu09/07/22 at 0725, Until Discontinu ed, Routine, Constipati on, Constipati on unresolved by oral medication s [facility] morpHINE (2 mg/mL) injection 2 mg 09-06 05:59: 18 Yes 2mg 2 mg, Slow IV Push, Q6HPRN, Starting on Thu09/05/22 at 2359, Until Discontinu ed, Routine, give for breakthrou gh pain after first line oral pain medication s have been given [facility] HYDROmorphO ne (DILAUDID) injection 0.2 mg 09-05 00:27: 50 09-05 03:07 :32 No .2mg 0.2 mg, Slow IV Push, Q5MIN PRN, 10 doses, Starting on Sanjuana 09/04/22 at 1827, Until Sanjuana 09/04/22 at 2107, Routine, Pain (scale 7-10), PACU
Us e approved by (Faculty): PACU USE -ANESTHESI A SERVICE-HY DROMORPHON E INJECTIONS [facility] lisinopriL 20 mg tablet 09-04 21:07: 32 Yes 20mg Take 20 mg by mouth in the morning. [facility] gabapentin 300 mg capsule 09-04 21:07: 32 Yes 300mg Take 300 mg by mouth in the morning. [facility] celecoxib (CELEBREX) 200 mg capsule 09-04 21:07: 32 Yes 200mg Take 200 mg by mouth in the morning. [facility] diphenhydrA MINE (BENADRYL) tablet 25 mg 09-04 02:22: 33 Yes 25mg 25 mg, Oral, Q4HPRN, Starting on Thu09/03/22 at 2021, Until Discontinu ed, Routine, Itching [facility] diphenhydrA MINE (BENADRYL) tablet 25 mg 09-04 02:22: 33 Yes 25mg 25 mg, Oral, Q4HPRN, Starting on Thu09/03/22 at 2021, Until Discontinu ed, Routine, Itching [facility] enoxaparin 30 mg/0.3 mL injection 09-04 00:00: 00 10-31 04:59 :00 No [id number] 30mg inject 0.3 mL under the skin every 12 (twelve) hours for 56 days. [facility] enoxaparin 30 mg/0.3 mL injection 0 2- 00:00: 00 10-31 04:59 :00 No [id number] 30mg inject 0.3 mL under the skin every 12 (twelve) hours for 56 days. [facility] enoxaparin 30 mg/0.3 mL injection 0 2 00:00: 00 10-31 04:59 :00 No [id number] 30mg inject 0.3 mL under the skin every 12 (twelve) hours for 56 days. [facility] enoxaparin 30 mg/0.3 mL injection 0 09-04 00:00: 00 10-31 04:59 :00 No [id number] 30mg inject 0.3 mL under the skin every 12 (twelve) hours for 56 days. [facility] enoxaparin 30 mg/0.3 mL injection 0 09-04 00:00: 00 10-31 04:59 :00 No [id number] 30mg inject 0.3 mL under the skin every 12 (twelve) hours for 56 days. [facility] enoxaparin 30 mg/0.3 mL injection 09-04 00:00: 00 10-31 04:59 :00 No [id number] 30mg inject 0.3 mL under the skin every 12 (twelve) hours for 56 days. [facility] enoxaparin 30 mg/0.3 mL injection 0 09-04 00:00: 00 10-31 04:59 :00 No [id number] 30mg inject 0.3 mL under the skin every 12 (twelve) hours for 56 days. [facility] enoxaparin 30 mg/0.3 mL injection 0 2- 00:00: 00 10-31 04:59 :00 No [id number] 30mg inject 0.3 mL under the skin every 12 (twelve) hours for 56 days. [facility] enoxaparin 30 mg/0.3 mL injection 20209-04 00:00: 00 10-31 04:59 :00 No [id number] 30mg inject 0.3 mL under the skin every 12 (twelve) hours for 56 days. [facility] butalbital- acetaminoph en-caff (ESGIC) 50-325-40 mg tablet 1 tablet 09-03 17:12: 19 Yes 1{tbl} 1 tablet, Oral, QDAILYPRN, Starting on Thu09/03/22 at 1112, Until Discontinu ed, Routine, headache [facility] butalbital- acetaminoph en-caff (ESGIC) 50-325-40 mg tablet 1 tablet 09-03 17:12: 19 Yes 1{tbl} 1 tablet, Oral, QDAILYPRN, Starting on Thu09/03/22 at 1112, Until Discontinu ed, Routine, headache [facility] gabapentin (NEURONTIN) capsule 300 mg 09-02 20:00: 00 Yes 300mg 300 mg, Oral, TID, First dose (after last modificati on) on Thu09/02/22 at 1400, Until Discontinu ed, Routine [facility] gabapentin (NEURONTIN) capsule 300 mg 09-02 20:00: 00 Yes 300mg 300 mg, Oral, TID, First dose (after last modificati on) on Thu09/02/22 at 1400, Until Discontinu ed, Routine [facility] HYDROcodone -acetaminop hen (NORCO) 10-325 mg tablet 1 tablet 09-02 15:20: 32 Yes 1{tbl} 1 tablet, Oral, Q6HPRN, Starting on Thu09/02/22 at 0920, Until Discontinu ed, Routine, Pain (scale 4-6) [facility] HYDROcodone -acetaminop hen (NORCO) 10-325 mg tablet 1 tablet 09-02 15:20: 32 Yes 1{tbl} 1 tablet, Oral, Q6HPRN, Starting on Thu09/02/22 at 0920, Until Discontinu ed, Routine, Pain (scale 4-6) [facility] lisinopriL (PRINIVIL,Z ESTRIL) tablet 20 mg 09-02 15:15: 00 Yes 20mg 20 mg, Oral, DAILY, First dose on Thu09/02/22 at 0915, Until Discontinu ed, Routine [facility] lisinopriL (PRINIVIL,Z ESTRIL) tablet 20 mg 09-02 15:15: 00 Yes 20mg 20 mg, Oral, DAILY, First dose on Thu09/02/22 at 0915, Until Discontinu ed, Routine [facility] enoxaparin (LOVENOX) injection 30 mg 09-02 14:00: 00 Yes 30mg 30 mg, Subcutaneo us, Q12H, First dose on Thu09/02/22 at 0800, Until Discontinu ed, Routine [facility] methocarbam oL (ROBAXIN) tablet 750 mg 09-02 14:00: 00 Yes 750mg 750 mg, Oral, QID, First dose (after last modificati on) on Thu09/02/22 at 0800, Until Discontinu ed, Routine [facility] enoxaparin (LOVENOX) injection 30 mg 09-02 14:00: 00 Yes 30mg 30 mg, Subcutaneo us, Q12H, First dose on Thu09/02/22 at 0800, Until Discontinu ed, Routine [facility] methocarbam oL (ROBAXIN) tablet 750 mg 09-02 14:00: 00 Yes 750mg 750 mg, Oral, QID, First dose (after last modificati on) on Thu09/02/22 at 0800, Until Discontinu ed, Routine [facility] HYDROcodone -acetaminop hen (NORCO 5) 5-325 mg tablet 1 tablet 09-02 13:15: 00 09-02 15:13 :32 No 1{tbl} 1 tablet, Oral, Q4HPRN, Starting on Thu09/02/22 at 0715, Until Thu09/02/22 at 0913, Routine, Pain (scale 4-6) [facility] NaCl 0.9% (NS) injection 10 mL 09-02 13:13: 36 Yes 10mL 10 mL, Slow IV Push, PRN, Starting on Thu09/02/22 at 0713, Until Discontinu ed, Routine, line maintenanc e [facility] NaCl 0.9% (NS) injection 10 mL 09-02 13:13: 36 Yes 10mL 10 mL, Slow IV Push, PRN, Starting on Thu09/02/22 at 0713, Until Discontinu ed, Routine, line maintenanc e [facility] gabapentin (NEURONTIN) capsule 300 mg 09-02 02:00: 00 09-02 15:13 :33 No 300mg 300 mg, Oral, BID, First dose (after last modificati on) on Thu09/01/22 at 2000, Until Discontinu ed, Routine [facility] NaCl 0.9% (NS) injection 10 mL 09-01 15:09: 49 Yes 10mL 10 mL, Slow IV Push, PRN, Starting on Thu09/01/22 at 0909, Until Discontinu ed, Routine, line maintenanc e [facility] lidocaine 1% (PF) (XYLOCAINE) injection 5 mL 09-01 15:09: 49 Yes 5mL 5 mL, Subcutaneo us, PRN, Starting on Thu09/01/22 at 0909, Until Discontinu ed, Routine, Local anesthesia [facility] NaCl 0.9% (NS) injection 10 mL 09-01 15:09: 49 Yes 10mL 10 mL, Slow IV Push, PRN, Starting on Thu09/01/22 at 0909, Until Discontinu ed, Routine, line maintenanc e [facility] lidocaine 1% (PF) (XYLOCAINE) injection 5 mL 09-01 15:09: 49 Yes 5mL 5 mL, Subcutaneo us, PRN, Starting on Thu09/01/22 at 0909, Until Discontinu ed, Routine, Local anesthesia [facility] NaCl 0.9% (NS) injection 10 mL 09-01 15:09: 49 Yes 10mL 10 mL, Slow IV Push, PRN, Starting on Thu09/01/22 at 0909, Until Discontinu ed, Routine, line maintenanc e [facility] lidocaine 1% (PF) (XYLOCAINE) injection 5 mL 09-01 15:09: 49 Yes 5mL 5 mL, Subcutaneo us, PRN, Starting on Thu09/01/22 at 0909, Until Discontinu ed, Routine, Local anesthesia [facility] melatonin (MELATIN) tablet 3 mg 09-01 03:00: 00 Yes 3mg 3 mg, Oral, QHS, First dose on 08/31/22 at 2100, Until Discontinu ed, Routine [facility] melatonin (MELATIN) tablet 3 mg 09-01 03:00: 00 Yes 3mg 3 mg, Oral, QHS, First dose on 08/31/22 at 2100, Until Discontinu ed, Routine [facility] melatonin (MELATIN) tablet 3 mg 09-01 03:00: 00 Yes 3mg 3 mg, Oral, QHS, First dose on 08/31/22 at 2100, Until Discontinu ed, Routine [facility] methocarbam oL (ROBAXIN) tablet 500 mg 08-31 17:15: 00 Yes 500mg 500 mg, Oral, QID, First dose on 08/31/22 at 1115, Until Discontinu ed, Routine [facility] methocarbam oL (ROBAXIN) tablet 500 mg 08-31 17:15: 00 09-02 13:10 :43 No 500mg 500 mg, Oral, QID, First dose on 08/31/22 at 1115, Until Discontinu ed, Routine [facility] ipratropium -albuteroL (DUONEB) 0.5 mg-3 mg(2.5 mg base)/3 mL nebulizer solution 3 mL 08-31 05:45: 00 08-31 05:11 :00 No 3mL 3 mL, Inhalation , ONCE, 1 dose, On 08/30/22 at 2345, Routine, PACU [facility] polyethylen e glycol 3350 powder 17 g 08-31 04:53: 53 Yes 17g 17 g, Oral, QDAILYPRN, Starting on 08/30/22 at 2253, Until Discontinu ed, Routine, Constipati on [facility] polyethylen e glycol 3350 powder 17 g 08-31 04:53: 53 Yes 17g 17 g, Oral, QDAILYPRN, Starting on 08/30/22 at 2253, Until Discontinu ed, Routine, Constipati on [facility] traMADoL (ULTRAM) tablet 50 mg 08-31 04:53: 52 Yes 50mg 50 mg, Oral, Q4HPRN, Starting on 08/30/22 at 2253, Until Discontinu ed, Routine, Pain (scale 7-10) [facility] ondansetron (ZOFRAN-ODT ) disintegrat ing tablet 4 mg 08-31 04:53: 52 Yes 4mg 4 mg, Oral, Q6HPRN, Starting on 08/30/22 at 2253, Until Discontinu ed, Routine, Nausea and Vomiting (N/V) [facility] traMADoL (ULTRAM) tablet 50 mg 08-31 04:53: 52 Yes 50mg 50 mg, Oral, Q4HPRN, Starting on 08/30/22 at 2253, Until Discontinu ed, Routine, Pain (scale 7-10) [facility] HYDROcodone -acetaminop hen (NORCO 5) 5-325 mg tablet 1 tablet 08-31 04:53: 52 Yes 1{tbl} 1 tablet, Oral, Q6HPRN, Starting on 08/30/22 at 2253, Until Discontinu ed, Routine, Pain (scale 4-6) [facility] ondansetron (ZOFRAN-ODT ) disintegrat ing tablet 4 mg 05 04:53: 52 Yes 4mg 4 mg, Oral, Q6HPRN, Starting on 08/30/22 at 2253, Until Discontinu ed, Routine, Nausea and Vomiting (N/V) [facility] traMADoL (ULTRAM) tablet 50 mg 08-31 04:53: 52 Yes 50mg 50 mg, Oral, Q4HPRN, Starting on 08/30/22 at 2253, Until Discontinu ed, Routine, Pain (scale 7-10) [facility] ondansetron (ZOFRAN-ODT ) disintegrat ing tablet 4 mg 08-31 04:53: 52 Yes 4mg 4 mg, Oral, Q6HPRN, Starting on 08/30/22 at 2253, Until Discontinu ed, Routine, Nausea and Vomiting (N/V) [facility] HYDROcodone -acetaminop hen (NORCO 5) 5-325 mg tablet 1 tablet 08-31 04:53: 52 09-02 13:11 :09 No 1{tbl} 1 tablet, Oral, Q6HPRN, Starting on 08/30/22 at 2253, Until 09/02/22 at 0711, Routine, Pain (scale 4-6) [facility] lactated ringers IV infusion 1,000 mL 08-31 04:45: 00 Yes 1000mL at 75 mL/hr, 1,000 mL, IV Infusion, CONTINUOUS , Starting on 08/30/22 at 2245, Until Discontinu ed, Routine, PACU [facility] lactated ringers IV infusion 1,000 mL 08-31 04:45: 00 Yes 1000mL at 75 mL/hr, 1,000 mL, IV Infusion, CONTINUOUS , Starting on 08/30/22 at 2245, Until Discontinu ed, Routine, PACU [facility] lactated ringers IV infusion 1,000 mL 08-31 04:45: 00 Yes 1000mL at 75 mL/hr, 1,000 mL, IV Infusion, CONTINUOUS , Starting on 08/30/22 at 2245, Until Discontinu ed, Routine, PACU [facility] FENTanyl PF (SUBLIMAZE (PF)) injection 25 mcg 08-31 04:41: 58 08-31 07:00 :00 No 25ug 25 mcg, Slow IV Push, Q5MIN PRN, 4 doses, Starting on 08/30/22 at 2241, Until Discontinu ed, Routine, Pain (scale 4-6), PACU [facility] morpHINE (4 mg/mL) injection 4 mg 08-31 01:30: 00 08-31 01:21 :00 No 4mg 4 mg, Slow IV Push, ONCE, 1 dose, On 08/30/22 at 1930, STAT [facility] morpHINE (2 mg/mL) injection 6 mg 08-31 00:30: 00 08-30 23:30 :00 No 6mg 6 mg, Slow IV Push, ONCE, 1 dose, On 08/30/22 at 1830, STAT [facility] diphenhydrA MINE (BENADRYL) injection 25 mg 08-30 23:45: 00 08-30 23:43 :00 No 25mg 25 mg, Slow IV Push, ONCE, 1 dose, On 08/30/22 at 1745, STAT [facility] proMETHazin e (PHENERGAN) 12.5 mg in NS 50 mL IV piggyback (CNR) 08-30 23:30: 00 08-30 23:58 :00 No 12.5mg 12.5 mg, IV Piggyback, at 200 mL/hr Administer over 15 Minutes, ONCE, 1 dose, On 08/30/22 at 1730, MARTHA [facility] FENTanyl PF (SUBLIMAZE (PF)) injection 150 mcg 08-30 22:15: 00 08-30 23:15 :00 No 150ug 150 mcg, Slow IV Push, ONCE, 1 dose, On 08/30/22 at 1615, Routine [facility] Lisinopril Lisinopril 09-27 00:00: 00 Yes Na Santizo 1 tablet [facility] Bactrim DS 800-160 MG Bactrim DS 800-160 MG 09-27 00:00: 00 No 1{table t} BID Bactrim DS 800-160 MG Bactrim DS 800-160 MG Bactrim DS 800-160 MG 2019-0 3 00:00: 00 No 1{table t} BID Bactrim DS 800-160 MG Bactrim DS 800-160 MG Bactrim DS 800-160 MG 2018-0 3 00:00: 00 No 1{table t} BID Bactrim DS 800-160 MG Bactrim DS 800-160 MG Bactrim DS 800-160 MG 2018-0 3 00:00: 00 No 1{table t} BID Bactrim DS 800-160 MG Bactrim DS 800-160 MG Bactrim DS 800-160 MG 2018-0 3 00:00: 00 No 1{table t} BID Bactrim DS 800-160 MG Bactrim DS 800-160 MG Bactrim DS 800-160 MG 2018- 3 00:00: 00 No 1{table t} BID Bactrim DS 800-160 MG Bactrim DS 800-160 MG Bactrim DS 800-160 MG 2018-0 09-27 00:00: 00 No 1{table t} BID Bactrim DS 800-160 MG Bactrim DS 800-160 MG Bactrim DS 800-160 MG 2018-0 09-27 00:00: 00 No 1{table t} BID Bactrim DS 800-160 MG Bactrim DS 800-160 MG Bactrim DS 800-160 MG 2018-09-27 00:00: 00 No 1{table t} BID Bactrim DS 800-160 MG Zofran 4 MG Zofran 4 MG 2017-0 17 00:00: 00 No Zofran 4 MG Zofran 4 MG Zofran 4 MG 2017-0 17 00:00: 00 No Zofran 4 MG Zofran 4 MG Zofran 4 MG 2017-0 17 00:00: 00 No Zofran 4 MG Zofran 4 MG Zofran 4 MG 2017-0 17 00:00: 00 No Zofran 4 MG Zofran 4 MG Zofran 4 MG 2017-0 17 00:00: 00 No Zofran 4 MG Zofran 4 MG Zofran 4 MG 2017-0 17 00:00: 00 No Zofran 4 MG Zofran 4 MG Zofran 4 MG 2017-0 4-17 00:00: 00 No Zofran 4 MG Zofran 4 MG Zofran 4 MG 2017-0 4-17 00:00: 00 No Zofran 4 MG Zofran 4 MG Zofran 4 MG 2017-0 4-17 00:00: 00 No Zofran 4 MG Lisinopril 20 MG Lisinopril 20 MG No 1{table t} QD Lisinopril 20 MG Lisinopril 20 MG Lisinopril 20 MG No QD Lisinopril 20 MG Lisinopril 20 MG Lisinopril 20 MG No QD Lisinopril 20 MG Lisinopril 20 MG Lisinopril 20 MG No 1{table t} QD Lisinopril 20 MG Gabapentin 600 MG Gabapentin 600 MG No Gabapentin 600 MG buPROPion HCl ER (XL) 150 MG buPROPion HCl ER (XL) 150 MG No 1{table t_in_th e_morni ng} QD buPROPion HCl ER (XL) 150 MG CeleBREX 200 MG CeleBREX 200 MG No 1{capsu le_with _food} QD CeleBREX 200 MG Lisinopril 20 MG Lisinopril 20 MG No 1{table t} QD Lisinopril 20 MG buPROPion HCl ER (XL) 150 MG buPROPion HCl ER (XL) 150 MG No 1{table t_in_th e_morni ng} QD buPROPion HCl ER (XL) 150 MG Lisinopril 20 MG Lisinopril 20 MG No QD Lisinopril 20 MG Gabapentin 600 MG Gabapentin 600 MG No Gabapentin 600 MG CeleBREX 200 MG CeleBREX 200 MG No 1{capsu le_with _food} QD CeleBREX 200 MG Lisinopril 20 MG Lisinopril 20 MG No QD Lisinopril 20 MG Lisinopril 30 MG Lisinopril 30 MG No 1{table t} QD Lisinopril 30 MG buPROPion HCl ER (XL) 300 MG buPROPion HCl ER (XL) 300 MG No 1{table t_in_th e_morni ng} QD buPROPion HCl ER (XL) 300 MG CeleBREX 200 MG CeleBREX 200 MG No 1{capsu le_with _food} QD CeleBREX 200 MG Gabapentin 600 MG Gabapentin 600 MG No Gabapentin 600 MG Celecoxib 200 MG Celecoxib 200 MG No Celecoxib 200 MG Lisinopril 20 MG Lisinopril 20 MG No QD Lisinopril 20 MG buPROPion HCl ER (XL) 300 MG buPROPion HCl ER (XL) 300 MG No buPROPion HCl ER (XL) 300 MG Lisinopril 30 MG Lisinopril 30 MG No Lisinopril 30 MG Gabapentin 600 MG Gabapentin 600 MG No Gabapentin 600 MG Celecoxib 200 MG Celecoxib 200 MG No Celecoxib 200 MG Lisinopril 20 MG Lisinopril 20 MG No QD Lisinopril 20 MG buPROPion HCl ER (XL) 300 MG buPROPion HCl ER (XL) 300 MG No buPROPion HCl ER (XL) 300 MG Lisinopril 30 MG Lisinopril 30 MG No Lisinopril 30 MG Gabapentin 600 MG Gabapentin 600 MG No Gabapentin 600 MG Celebrex 200 MG Celebrex 200 MG No 1{capsu le_with _food} QD Celebrex 200 MG Lisinopril 20 MG Lisinopril 20 MG No 1{table t} QD Lisinopril 20 MG Lisinopril 20 MG Lisinopril 20 MG No 1{table t} QD Lisinopril 20 MG CeleBREX 200 MG CeleBREX 200 MG No 1{capsu le_with _food} QD CeleBREX 200 MG CeleBREX 200 MG CeleBREX 200 MG 10-30 00:00 :00 No 1{capsu le_with _food} QD CeleBREX 200 MG CeleBREX 200 MG CeleBREX 200 MG 08-04 00:00 :00 No 1{capsu le_with _food} QD CeleBREX 200 MG Vital Signs Vital Name Observation Time Observation Value Comments S ourjun Systolic blood pressure 2022-11-05 20:31:00 171 mm[Hg] [facility] Diastolic blood pressure 2022-11-05 20:31:00 99 mm[Hg] [facility] Heart rate 2022-11-05 20:31:00 90 /min [facility] Body temperature 2022-11-05 20:31:00 36.72 Malaika [facility] Body height 2022-11-05 20:31:00 154.9 cm [facility] Body weight 2022-11-05 20:31:00 57.153 kg [facility] BMI 2022-11-05 20:31:00 23.81 kg/m2 [facility] Body temperature 2022-09-25 16:44:00 36.67 Malaika [facility] Body height 2022-09-25 16:44:00 154.9 cm [facility] Body weight 2022-09-25 16:44:00 59.875 kg [facility] BMI 2022-09-25 16:44:00 24.94 kg/m2 [facility] Systolic blood pressure 2022-09-08 22:22:00 138 mm[Hg] [facility] Diastolic blood pressure 2022-09-08 22:22:00 81 mm[Hg] [facility] Heart rate 2022-09-08 22:22:00 66 /min [facility] Body temperature 2022-09-08 22:22:00 36.33 Malaika [facility] Respiratory rate 2022-09-08 22:22:00 18 /min [facility] Oxygen saturation in Arterial blood by Pulse oximetry 2022-09-08 22:22:00 96 /min [facility] Body weight 2022-09-05 17:00:00 62.1 kg [facility] BMI 2022-09-05 17:00:00 25.87 kg/m2 [facility] Body height 2022-09-02 07:20:00 154.9 cm [facility] Systolic blood pressure 2022-09-05 00:38:00 116 mm[Hg] [facility] Diastolic blood pressure 2022-09-05 00:38:00 57 mm[Hg] [facility] Heart rate 2022-09-05 00:38:00 70 /min [facility] Body temperature 2022-09-05 00:38:00 36.56 Malaika [facility] Respiratory rate 2022-09-05 00:38:00 8 /min [facility] Oxygen saturation in Arterial blood by Pulse oximetry 2022-09-05 00:38:00 95 /min [facility] Body height 2022-09-02 07:20:00 154.9 cm [facility] Body weight 2022-09-02 07:20:00 62.1 kg [facility] BMI 2022-09-02 07:20:00 25.87 kg/m2 [facility] Systolic blood pressure 2022-08-30 22:58:00 180 mm[Hg] [facility] Diastolic blood pressure 2022-08-30 22:58:00 91 mm[Hg] [facility] Heart rate 2022-08-30 22:58:00 82 /min [facility] Respiratory rate 2022-08-30 22:58:00 16 /min [facility] Oxygen saturation in Arterial blood by Pulse oximetry 2022-08-30 22:58:00 100 /min [facility] Body temperature 2022-08-30 19:35:00 36.44 Malaika [facility] Body weight 2022-08-30 19:35:00 61.236 kg [facility] acute hospital height 2021-10-23 12:10:00 62.00 [in_i] Com [facility] weight 2021-10-23 12:10:00 135 [lb_av] Comm on [facility] bmi 2021-10-23 12:10:00 24.69 kg/m2 Comm on [facility] height 2020-12-26 08:20:00 62.00 [in_i] Com [facility] weight 2020-12-26 08:20:00 135 [lb_av] Comm on [facility] bmi 2020-12-26 08:20:00 24.69 kg/m2 Comm on [facility] height 2020-11-27 13:00:00 62.00 [in_i] Com [facility] weight 2020-11-27 13:00:00 135 [lb_av] Comm on [facility] bmi 2020-11-27 13:00:00 24.69 kg/m2 Comm [facility] Procedures Procedure Date / Time Performed Performing Clinician Source XR WRIST 3+ VW LEFT 2022-11-05 21:27:27 Pako Robbins [facility] XR WRIST 3+ VW LEFT 2022-09-25 17:14:57 Alejo Bergeron [facility] ASSIGNMENT OF BENEFITS 2022-09-25 16:29:43 Docto r Unassigned, [place] [facility] FL TIME OR (NON-REPORTABLE) 2022-09-05 00:18:14 Faillace [facility] FL TIME OR (NON-REPORTABLE) 2022-09-05 00:18:14 Faillajun [facility] DISTAL RADIUS ORIF 2022-09-04 21:42:00 Faillace [facility] EXTERNAL FIXATOR REMOVAL OF UPPER EXTREMITY 2022-09-04 21:42:00 Faillace [facility] DISTAL RADIUS ORIF 2022-09-04 21:42:00 Faillace, [facility] EXTERNAL FIXATOR REMOVAL OF UPPER EXTREMITY 2022-09-04 21:42:00 Faillace [facility] BASIC METABOLIC PANEL (NA, K, CL, CO2, GLUCOSE, BUN, CREATININE, CA) 2022-09-04 10:10:00 Andres Jimenez [facility] CBC WITHOUT DIFF 2022-09-04 10:10[facility] 2022-09-04 10:10:00 Madison Jimenez [facility] ACTIVATED PARTIAL THRMPLAS JEANIE 2022-09-04 10:10:00 Andres Jimenez [facility] BASIC METABOLIC PANEL (NA, K, CL, CO2, GLUCOSE, BUN, CREATININE, CA) 2022-09-04 10:10:00 Andres Jimenez [facility] CBC WITHOUT DIFF 2022-09-04 10:10:00 Andres Jimenez [facility] PROTHROMBIN TIME / INR 2022-09-04 10:10:00 Madison Jimenez [facility] ACTIVATED PARTIAL THRMPLAS JEANIE 2022-09-04 10:10:00 Andres Jimenez [facility] DUPLEX VENOUS ARM RIGHT - BY VASCULAR LAB 2022-09-03 15:45:00 Larisa Martines [facility] DUPLEX VENOUS ARM RIGHT - BY VASCULAR LAB 2022-09-03 15:45:00 Larisa Martines [facility] CBC WITHOUT DIFF 2022-09-01 16:54:00 Larisa Martines [facility] CBC WITHOUT DIFF 2022-09-01 16:54:00 Larisa Martines [facility] CBC WITHOUT DIFF 2022-09-01 16:54:00 Larisa Martines [facility] HB ECG ROUTINE & RHYTHM STRIP 2022-08-31 07:58:17 Larisa Martines [facility] HB ECG ROUTINE & RHYTHM STRIP 2022-08-31 07:58:17 Larisa Martines [facility] FL TIME OR (NON-REPORTABLE) 2022-08-31 04:15:00 Ja Jo [facility] FL TIME OR (NON-REPORTABLE) 2022-08-31 04:15:00 Ja Jo [facility] FL TIME OR (NON-REPORTABLE) 2022-08-31 04:15:00 Ja Jo [facility] ABORH CONFIRMATION (LAB ONLY) 2022-08-31 02:42:00 Henri Phoenix [facility] ABORH CONFIRMATION (LAB ONLY) 2022-08-31 02:42:00 Henir Phoenix [facility] ABORH CONFIRMATION (LAB ONLY) 2022-08-31 02:42:00 Henri Phoenix [facility] EXPLORATION VESSEL UPPER EXTREMITY 2022-08-31 01:43:00 Ham Slater [facility] EXTERNAL FIXATOR PLACEMENT FOR UPPER EXTREMITY 2022-08-31 01:43:00 Alejo Bergeron [facility] LIGATION VESSEL UPPER EXTREMITY 2022-08-31 01:43:00 Ham Slater [facility] EXPLORATION VESSEL UPPER EXTREMITY 2022-08-31 01:43:00 Ham Slater [facility] EXTERNAL FIXATOR PLACEMENT FOR UPPER EXTREMITY 2022-08-31 01:43:00 Alejo Bergeron [facility] LIGATION VESSEL UPPER EXTREMITY 2022-08-31 01:43:00 Ham Slater [facility] XR WRIST <3 VW LEFT 2022-08-30 23:25:00 Imelda Martines [facility] XR WRIST <3 VW LEFT 2022-08-30 23:25:00 Imelda Martines [facility] XR WRIST <3 VW LEFT 2022-08-30 23:25:00 Imelda [facility] CBC WITH DIFF 2022-08-30 22:37:00 Henri Phoenix [facility] PROTHROMBIN TIME / INR 2022-08-30 22:37:00 Sera Phoenix [facility] ACTIVATED PARTIAL THRMPLAS JEANIE 2022-08-30 22:37:00 Henri Phoenix [facility] CBC WITH DIFF 2022-08-30 22:37:00 Henri Phoenix [facility] PROTHROMBIN TIME / INR 2022-08-30 22:37:00 Sera Phoenix [facility] ACTIVATED PARTIAL THRMPLAS JEANIE 2022-08-30 22:37:00 Henri Phoenix [facility] CBC WITH DIFF 2022-08-30 22:37:00 Henri Phoenix [facility] PROTHROMBIN TIME / INR 2022-08-30 22:37:00 Sera Phoenix [facility] ACTIVATED PARTIAL THRMPLAS JEANIE 2022-08-30 22:37:00 Henri Phoenix [facility] XR ELBOW <3 VW LEFT 2022-08-30 20:42:00 Debi Frye [facility] XR FOREARM 2 VW LEFT 2022-08-30 20:42:00 Henri Phoenix [facility] XR HAND <3 VW LEFT 2022-08-30 20:42:00 Henri Phoenix [facility] XR WRIST <3 VW LEFT 2022-08-30 20:42:00 Henri Phoenix [facility] XR ELBOW <3 VW LEFT 2022-08-30 20:42:00 Debi Frye [facility] XR FOREARM 2 VW LEFT 2022-08-30 20:42:00 Henri Phoenix [facility] XR HAND <3 VW LEFT 2022-08-30 20:42:00 Henri Phoenix [facility] XR WRIST <3 VW LEFT 2022-08-30 20:42:00 Henri Phoenix [facility] XR ELBOW <3 VW LEFT 2022-08-30 20:42:00 Debi Frye [facility] XR FOREARM 2 VW LEFT 2022-08-30 20:42:00 Henri Phoenix [facility] XR HAND <3 VW LEFT 2022-08-30 20:42:00 Henri Phoenix [facility] XR WRIST <3 VW LEFT 2022-08-30 20:42:00 Henri Phoenix [facility] COMP. METABOLIC PANEL (15682) 2022-08-30 20:21:00 Henri Phoenix [facility] COMP. METABOLIC PANEL (89716) 2022-08-30 20:21:00 Henri Phoenix [facility] COMP. METABOLIC PANEL (00332) 2022-08-30 20:21:00 Henri Phoenix [facility] HB ABO GROUPING 2022-08-30 20:19:00 Henri Phoenix [facility] HB ABO GROUPING 2022-08-30 20:19:00 Henri Pheonix [facility] HB ABO GROUPING 2022-08-30 20:19:00 Henri Phoenix [facility] HOSPITAL ADMISSION 2022-08-30 06:01:00 Doctor Un assigned, [facility] EMERGENCY SERVICES AGREEMENTS AND AUTHORIZATIONS 2022-08-30 06:01:00 Doctor Unassigned, [place] [facility] HOSPITAL ADMISSION 2022-08-30 06:01:00 Doctor Un assigned, [place] [facility] HOSPITAL ADMISSION 2022-08-30 06:01:00 Doctor Un assigned, [facility] Encounters Start Date/Time End Date/Time Encounter Type Admission Type Attending [facility] Care Facility Care Department Encounter ID Source 2023-08-04 08:21:00 Outpatient Saida Arana [facility] [id number] [facility] 2023-06-25 16:29:00 Outpatient Saida Arana [facility] [id number] [facility] 2021-11-26 15:30:02 Outpatient SantizoNadeen dolan [facility]LMLC ST[facility] [id number] [facility] 2021-11-25 08:44:00 Outpatient Nadeen Santizo [facility] ST[facility] [id number] [facility] 2021-10-23 07:18:01 Outpatient Nadeen Santizo [facility] ST[facility] [id number] [facility] 2021-10-21 09:07:00 Outpatient Nadeen Santizo [facility] ST[facility] [id number] [facility] 2021-08-21 13:42:36 Outpatient Nadeen Santizo [facility] [id number] [facility] 2021-08-21 13:22:56 Outpatient Nadeen Santizo [facility] ST[facility] [id number] [facility] 2021-08-21 13:09:15 Outpatient Nadeen Santizo [facility] ST[facility] [id number] [facility] 2021-08-21 12:58:54 Outpatient Nadeen Santizo [facility] ST[facility] [id number] [facility] 2023-05-04 00:00:00 2023-05-04 00:00:00 (TEL) STLMLC ST[facility] [id number] [facility] 2022-12-29 14:00:00 2022-12-29 14:00:00 Outpatient ALEJO REARDON [facility] [id number] [facility] 2022-11-05 16:00:00 2022-11-05 23:59:00 Hospital Encounter Alejo Peguero [facility] 1.2.840.114 350.1.13.10 4.2.7.2.686 [id number] [facility] 2022-11-05 15:30:00 2022-11-05 16:42:36 Outpatient R ALEJO PEGUERO [facility] [id number] [facility] 2022-11-05 15:30:00 2022-11-05 16:42:36 Office Visit Alejo Peguero [facility] [place] [facility] 1.2.840.114 350.1.13.10 4.2.7.2.686 [id number] [facility] 2022-11-05 00:00:00 2022-11-05 00:00:00 Telephone Marielena [facility] 1.2.840.114 350.1.13.10 4.2.7.2.686 [id number] [facility] 2022-10-22 00:00:00 2022-10-22 00:00:00 Telephone Marielena [facility] 1.2.840.114 350.1.13.10 4.2.7.2.686 [id number] [facility] 2022-10-21 00:00:00 2022-10-21 00:00:00 Telephone Alejo Peguero [facility] [place] 1.2.840.114 350.1.13.10 4.2.7.2.686 [id number] [facility] 2022-10-13 12:50:00 2022-10-13 12:50:00 Outpatient R ALEJO PEGUERO [facility] [id number] [facility] 2022-09-27 00:00:00 2022-09-27 00:00:00 Telephone Alejo Bergerno [facility] 1.2.840.114 350.1.13.10 4.2.7.2.686 [id number] [facility] 2022-09-25 10:54:10 2022-09-25 23:59:00 Hospital Encounter Alejo Bergeron [facility] 1.2.840.114 350.1.13.10 4.2.7.2.686 [id number] [facility] 2022-09-25 09:40:00 2022-09-25 11:58:17 Outpatient R [facility]YSSA [facility] [id number] [facility] 2022-09-25 09:40:00 2022-09-25 11:58:17 Office Visit Alejo Bergeron [facility] 1.2.840.114 350.1.13.10 4.2.7.2.686 [id number] [facility] 2022-09-25 00:00:00 2022-09-25 00:00:00 Orders Only Doctor Unassigned, [place] [facility] 1.2.840.114 350.1.13.10 4.2.7.2.686 [id number] [facility] 2022-09-09 00:00:00 2022-09-09 00:00:00 Transition of Care Allan Peñaloza 1.2.840.114 350.1.13.10 4.2.7.2.686 [id number] [facility] 2022-08-30 13:37:00 2022-09-08 18:34:00 Hospital Encounter Henri Phoenix [facility] 1.2.840.114 350.1.13.10 4.2.7.2.686 [id number] [facility] 2022-08-30 13:37:00 2022-09-08 18:34:00 Inpatient X ALEJO BERGERON [facility] [id number] [facility] 2022-09-04 16:00:00 2022-09-04 18:44:00 Surgery Alejo Peguero [facility] 1.2.840.114 350.1.13.10 4.2.7.2.686 [id number] [facility] 2022-08-30 18:45:00 2022-08-30 20:22:00 Surgery Ham Slater [facility] 1.2.840.114 350.1.13.10 4.2.7.2.686 [id number] [facility] 2021-11-27 00:00:00 2021-11-27 00:00:00 OFFICE VISIT EST PT LEVEL 3 [facility] ST[facility] [id number] [facility] 2021-11-04 00:00:00 2021-11-04 00:00:00 (TEL) [facility]C [facility] [id number] [facility] 2021-10-23 00:00:00 2021-10-23 00:00:00 OFFICE VISIT ESTAB PT LEVEL 4 [facility] ST[facility] [id number] [facility] 2021-10-23 00:00:00 2021-10-23 00:00:00 (TEL) STLMLC [facility] [id number] [facility] 2021-09-30 00:00:00 2021-09-30 00:00:00 (TEL) STLMLC ST[facility]C [id number] [facility] 2021-02-05 00:00:00 2021-02-05 00:00:00 (TEL) STLMLC [facility]C [id number] [facility] 2020-12-26 00:00:00 2020-12-26 00:00:00 OFFICE VISIT EST PT LEVEL 3 [facility] [id number] [facility] 2020-11-27 00:00:00 2020-11-27 00:00:00 [facility] [id number] [facility] 2020-11-27 00:00:00 2020-11-27 00:00:00 OFFICE VISIT EST PT LEVEL 3 [facility] [id number] [facility] 2019-05-31 09:52:00 2019-05-31 09:52:00 [facility] [id number] [facility] 2018-10-21 16:20:00 2018-10-21 16:20:00 Outpatient [facility] [id number] [facility] 2018-09-27 15:00:00 2018-09-27 15:00:00 Outpatient [facility] [id number] [facility] 2017-11-25 06:50:00 2017-11-25 06:50:00 Outpatient [facility] [id number] [facility] 2017-11-24 15:14:00 2017-11-24 15:14:00 Outpatient [facility] [id number] [facility] 2017-11-10 10:30:00 2017-11-10 10:30:00 Outpatient [facility] [id number] [facility] Results Test Description Test Time Test Comments Results Result Co mments Source [facility] / [id number] 10:45:22* Test Item Value Reference Range Interpretation Comme nts PROTIME PATIENT (test code = 5964-2) 11.2 See_Comment [Automated Classiphixa ge] The system which generated this result transmitted reference range: 10.1 - 12.6 Seconds. The reference range was not used to interpret this result as normal/abnormal. INR (test code = 6301-6) 1.0 Normal INR <1.1; Warfarin Therapeutic range 2.0 to 3.0 or 2.5 to 3.5, depending upon the indications. Lab Interpretation (test code = 59807-5) [facility] [id number] 10:45:22* Test Item Value Reference Range Interpretation Comme [facility] APTT Patient (test code = 3173-2) 29 See_Comment [Automated Classiphixa Maraquia] The system which generated this result transmitted reference range: 26 - 36 Seconds. The reference range was not used to interpret this result as normal/abnormal. Lab Interpretation (test code = 65980-9) [facility] / [id number] 10:45:22* Test Item Value Reference Range Interpretation Comme [facility] PROTIME PATIENT (test code = 5964-2) 11.2 See_Comment [Automated Signdat] The system which generated this result transmitted reference range: 10.1 - 12.6 Seconds. The reference range was not used to interpret this result as normal/abnormal. INR (test code = 6301-6) 1.0 Normal INR <1.1; Warfarin Therapeutic range 2.0 to 3.0 or 2.5 to 3.5, depending upon the indications. Lab Interpretation (test code = 65741-1) [facility] (NA, K, CL, CO2, GLUCOSE, BUN, CREATININE, CA)2022-09-04 10:44:41* Test Item Value Reference Range Interpretation Comme [facility] NA (test code = 9922548635) 134 mmol/L 135-145 L K (test code = 5387890069) 4.8 mmol/L 3.5-5.0 CL (test code = 7322324979) 103 mmol/L 98-108 CO2 TOTAL (test code = 0349793787) 28 mmol/L 23-31 AGAP (test code = 1219427742) 3 2-16 BUN (test code = 4162029436) 14 mg/dL 7-23 GLUCOSE (test code = 7438036950) 103 mg/dL 70-110 CREATININE (test code = 1081912921) 0.95 mg/dL 0.50-1.04 CALCIUM (test code = 6856091112) 8.2 mg/dL 8.6-10.6 L eGFR (test code = 0782011798) 58.2 mL/min/1.73m2 PRITESH (test code = PRITESH) Association of [...] or abnormalities in imaging tests). Lab Interpretation (test code = 26287-8) [facility] (NA, K, CL, CO2, GLUCOSE, BUN, CREATININE, CA)2022-09-04 10:44:41* Test Item Value Reference Range Interpretation Comme nts NA (test code = 4185532709) 134 mmol/L 135-145 L K (test code = 0104043846) 4.8 mmol/L 3.5-5.0 CL (test code = 1538115173) 103 mmol/L 98-108 CO2 TOTAL (test code = 7596595466) 28 mmol/L 23-31 AGAP (test code = 8583605174) 3 2-16 BUN (test code = 9572286431) 14 mg/dL 7-23 GLUCOSE (test code = 0507214511) 103 mg/dL 70-110 CREATININE (test code = 0575970781) 0.95 mg/dL 0.50-1.04 CALCIUM (test code = 6745930815) 8.2 mg/dL 8.6-10.6 L eGFR (test code = 4991680521) 58.2 mL/min/1.73m2 PRITESH (test code = PRITESH) Association of [...] or abnormalities in imaging tests). Lab Interpretation (test code = 31176-8) Abnormal [facility] WITHOUT [id number] 10:24:39* Test Item Value Reference Range Interpretation Comme nts WBC (test code = 6690-2) 6.14 See_Comment [Automated message] The system which generated this result transmitted reference range: 4.30 - 11.10 10*3/?L. The reference range was not used to interpret this result as normal/abnormal. RBC (test code = 789-8) 3.03 See_Comment L [Automated message] The system which generated this result transmitted reference range: 3.93 - 5.25 10*6/?L. The reference range was not used to interpret this result as normal/abnormal. HGB (test code = 718-7) 8.9 g/dL 11.6-15.0 L HCT (test code = 4544-3) 27.6 % 35.7-45.2 L MCH (test code = 785-6) 29.4 pg 25.9-32.8 MCV (test code = 787-2) 91.1 fL 80.6-95.5 MCHC (test code = 786-4) 32.2 g/dL 31.6-35.1 PLT (test code = 777-3) 308 See_Comment [Automated message] The system which generated this result transmitted reference range: 166 - 358 10*3/?L. The reference range was not used to interpret this result as normal/abnormal. MPV (test code = 05976-0) 8.6 fL 9.5-12.9 L RDW-CV (test code = 788-0) 13.9 % 12.0-15.5 RDW-SD (test code = 93058-1) 46.2 fL 39.0-49.9 NRBC x10^3 (test code = 1218779795) See_Comment [Automated Classiphixa ge] The system which generated this result transmitted reference range: 10*3/?L. The reference range was not used to interpret this result as normal/abnormal. NRBC/100 WBC (test code = 4684319862) 0.0 See_Comment [Automated Classiphixa ge] The system which generated this result transmitted reference range: 0.0 - 10.0 /100 WBCs. The reference range was not used to interpret this result as normal/abnormal. IPF % (test code = 6798076394) Lab Interpretation (test code = 26542-0) Abnormal [facility] WITHOUT [id number] 10:24:39* Test Item Value Reference Range Interpretation Comme nts WBC (test code = 6690-2) 6.14 See_Comment [Automated message] The system which generated this result transmitted reference range: 4.30 - 11.10 10*3/?L. The reference range was not used to interpret this result as normal/abnormal. RBC (test code = 789-8) 3.03 See_Comment L [Automated message] The system which generated this result transmitted reference range: 3.93 - 5.25 10*6/?L. The reference range was not used to interpret this result as normal/abnormal. HGB (test code = 718-7) 8.9 g/dL 11.6-15.0 L HCT (test code = 4544-3) 27.6 % 35.7-45.2 L MCH (test code = 785-6) 29.4 pg 25.9-32.8 MCV (test code = 787-2) 91.1 fL 80.6-95.5 MCHC (test code = 786-4) 32.2 g/dL 31.6-35.1 PLT (test code = 777-3) 308 See_Comment [Automated message] The system which generated this result transmitted reference range: 166 - 358 10*3/?L. The reference range was not used to interpret this result as normal/abnormal. MPV (test code = 76294-0) 8.6 fL 9.5-12.9 L RDW-CV (test code = 788-0) 13.9 % 12.0-15.5 RDW-SD (test code = 81903-9) 46.2 fL 39.0-49.9 NRBC x10^3 (test code = 4546627069) See_Comment [Automated messa ge] The system which generated this result transmitted reference range: 10*3/?L. The reference range was not used to interpret this result as normal/abnormal. NRBC/100 WBC (test code = 0995105232) 0.0 See_Comment [Automated messa ge] The system which generated this result transmitted reference range: 0.0 - 10.0 /100 WBCs. The reference range was not used to interpret this result as normal/abnormal. IPF % (test code = 9122621724) Lab Interpretation (test code = 54975-1) Abnormal [facility] WITHOUT [id number] 17:35:12* Test Item Value Reference Range Interpretation Comme nts WBC (test code = 6690-2) 7.12 See_Comment [Automated message] The system which generated this result transmitted reference range: 4.30 - 11.10 10*3/?L. The reference range was not used to interpret this result as normal/abnormal. RBC (test code = 789-8) 2.90 See_Comment L [Automated message] The system which generated this result transmitted reference range: 3.93 - 5.25 10*6/?L. The reference range was not used to interpret this result as normal/abnormal. HGB (test code = 718-7) 8.5 g/dL 11.6-15.0 L HCT (test code = 4544-3) 26.8 % 35.7-45.2 L MCH (test code = 785-6) 29.3 pg 25.9-32.8 MCV (test code = 787-2) 92.4 fL 80.6-95.5 MCHC (test code = 786-4) 31.7 g/dL 31.6-35.1 PLT (test code = 777-3) 282 See_Comment [Automated message] The system which generated this result transmitted reference range: 166 - 358 10*3/?L. The reference range was not used to interpret this result as normal/abnormal. MPV (test code = 83663-6) 8.9 fL 9.5-12.9 L RDW-CV (test code = 788-0) 14.1 % 12.0-15.5 RDW-SD (test code = 33167-9) 48.3 fL 39.0-49.9 NRBC x10^3 (test code = 1434807925) See_Comment [Automated Classiphixa ge] The system which generated this result transmitted reference range: 10*3/?L. The reference range was not used to interpret this result as normal/abnormal. NRBC/100 WBC (test code = 6805366608) 0.0 See_Comment [Automated messa ge] The system which generated this result transmitted reference range: 0.0 - 10.0 /100 WBCs. The reference range was not used to interpret this result as normal/abnormal. IPF % (test code = 4520296968) Lab Interpretation (test code = 80407-6) Abnormal [facility] WITHOUT [id number] 17:35:12* Test Item Value Reference Range Interpretation Comme nts WBC (test code = 6690-2) 7.12 See_Comment [Automated message] The system which generated this result transmitted reference range: 4.30 - 11.10 10*3/?L. The reference range was not used to interpret this result as normal/abnormal. RBC (test code = 789-8) 2.90 See_Comment L [Automated message] The system which generated this result transmitted reference range: 3.93 - 5.25 10*6/?L. The reference range was not used to interpret this result as normal/abnormal. HGB (test code = 718-7) 8.5 g/dL 11.6-15.0 L HCT (test code = 4544-3) 26.8 % 35.7-45.2 L MCH (test code = 785-6) 29.3 pg 25.9-32.8 MCV (test code = 787-2) 92.4 fL 80.6-95.5 MCHC (test code = 786-4) 31.7 g/dL 31.6-35.1 PLT (test code = 777-3) 282 See_Comment [Automated message] The system which generated this result transmitted reference range: 166 - 358 10*3/?L. The reference range was not used to interpret this result as normal/abnormal. MPV (test code = 16725-8) 8.9 fL 9.5-12.9 L RDW-CV (test code = 788-0) 14.1 % 12.0-15.5 RDW-SD (test code = 75721-5) 48.3 fL 39.0-49.9 NRBC x10^3 (test code = 0474216495) See_Comment [Automated messa ge] The system which generated this result transmitted reference range: 10*3/?L. The reference range was not used to interpret this result as normal/abnormal. NRBC/100 WBC (test code = 2704414657) 0.0 See_Comment [Automated messa ge] The system which generated this result transmitted reference range: 0.0 - 10.0 /100 WBCs. The reference range was not used to interpret this result as normal/abnormal. IPF % (test code = 4682763575) Lab Interpretation (test code = 34652-8) Abnormal [facility] WITHOUT [id number] 17:35:12* Test Item Value Reference Range Interpretation Comme nts WBC (test code = 6690-2) 7.12 See_Comment [Automated message] The system which generated this result transmitted reference range: 4.30 - 11.10 10*3/?L. The reference range was not used to interpret this result as normal/abnormal. RBC (test code = 789-8) 2.90 See_Comment L [Automated message] The system which generated this result transmitted reference range: 3.93 - 5.25 10*6/?L. The reference range was not used to interpret this result as normal/abnormal. HGB (test code = 718-7) 8.5 g/dL 11.6-15.0 L HCT (test code = 4544-3) 26.8 % 35.7-45.2 L MCH (test code = 785-6) 29.3 pg 25.9-32.8 MCV (test code = 787-2) 92.4 fL 80.6-95.5 MCHC (test code = 786-4) 31.7 g/dL 31.6-35.1 PLT (test code = 777-3) 282 See_Comment [Automated message] The system which generated this result transmitted reference range: 166 - 358 10*3/?L. The reference range was not used to interpret this result as normal/abnormal. MPV (test code = 48931-8) 8.9 fL 9.5-12.9 L RDW-CV (test code = 788-0) 14.1 % 12.0-15.5 RDW-SD (test code = 72191-9) 48.3 fL 39.0-49.9 NRBC x10^3 (test code = 7785486144) See_Comment [Automated messa ge] The system which generated this result transmitted reference range: 10*3/?L. The reference range was not used to interpret this result as normal/abnormal. NRBC/100 WBC (test code = 1917958952) 0.0 See_Comment [Automated messa ge] The system which generated this result transmitted reference range: 0.0 - 10.0 /100 WBCs. The reference range was not used to interpret this result as normal/abnormal. IPF % (test code = 9122750477) Lab Interpretation (test code = 01620-7) Abnormal [facility] Confirmation (Lab Only)2022-08-31 03:15:36* Test Item Value Reference Range Interpretation Comme nts ABO & RH (test code = 20) AB Positive Performed at [facility] Laboratory Services - [facility] Blood [address] Free: [phone] No. [id number] [facility] Confirmation (Lab Only)2022-08-31 03:15:36* Test Item Value Reference Range Interpretation Comme nts ABO & RH (test code = 20) AB Positive Performed at [facility] Laboratory Services - [address] Free: [phone] No. [id number] [facility] Confirmation (Lab Only)2022-08-31 03:15:36* Test Item Value Reference Range Interpretation Comme nts ABO & RH (test code = 20) AB Positive Performed at [facility] Laboratory Services - [address] Free: [phone] No. [id number] [facility] [id number] 22:58:55* Test Item Value Reference Range Interpretation Comme [facility] APTT Patient (test code = 3173-2) 25 See_Comment L [Automated messa ge] The system which generated this result transmitted reference range: 26 - 36 Seconds. The reference range was not used to interpret this result as normal/abnormal. Lab Interpretation (test code = 88648-3) [facility]normal [facility] / [id number] 22:58:55* Test Item Value Reference Range Interpretation Comme [facility] PROTIME PATIENT (test code = 5964-2) 11.1 See_Comment [Automated messa ge] The system which generated this result transmitted reference range: 10.1 - 12.6 Seconds. The reference range was not used to interpret this result as normal/abnormal. INR (test code = 6301-6) 1.0 Normal INR <1.1; Warfarin Therapeutic range 2.0 to 3.0 or 2.5 to 3.5, depending upon the indications. Lab Interpretation (test code = 58969-6) Normal [facility] [id number] 22:58:55* Test Item Value Reference Range Interpretation Comme nts APTT Patient (test code = 3173-2) 25 See_Comment L [Automated messa ge] The system which generated this result transmitted reference range: 26 - 36 Seconds. The reference range was not used to interpret this result as normal/abnormal. Lab Interpretation (test code = 66975-1) [facility]normal [facility] / [id number] 22:58:55* Test Item Value Reference Range Interpretation Comme nts PROTIME PATIENT (test code = 5964-2) 11.1 See_Comment [Automated messa ge] The system which generated this result transmitted reference range: 10.1 - 12.6 Seconds. The reference range was not used to interpret this result as normal/abnormal. INR (test code = 6301-6) 1.0 Normal INR <1.1; Warfarin Therapeutic range 2.0 to 3.0 or 2.5 to 3.5, depending upon the indications. Lab Interpretation (test code = 89620-6) [facility] [id number] 22:58:55* Test Item Value Reference Range Interpretation Comme nts APTT Patient (test code = 3173-2) 25 See_Comment L [Automated messa ge] The system which generated this result transmitted reference range: 26 - 36 Seconds. The reference range was not used to interpret this result as normal/abnormal. Lab Interpretation (test code = 25852-5) [facility]normal [facility] Center[facility] / [id number] 22:58:55* Test Item Value Reference Range Interpretation Comme nts PROTIME PATIENT (test code = 5964-2) 11.1 See_Comment [Automated messa ge] The system which generated this result transmitted reference range: 10.1 - 12.6 Seconds. The reference range was not used to interpret this result as normal/abnormal. INR (test code = 6301-6) 1.0 Normal INR <1.1; Warfarin Therapeutic range 2.0 to 3.0 or 2.5 to 3.5, depending upon the indications. Lab Interpretation (test code = 77010-6) Normal [facility] WITH [id number] 22:56:34* Test Item Value Reference Range Interpretation Comme nts WBC (test code = 6690-2) 7.44 See_Comment [Automated messa ge] The system which generated this result transmitted reference range: 4.30 - 11.10 10*3/?L. The reference range was not used to interpret this result as normal/abnormal. RBC (test code = 789-8) 3.73 See_Comment L [Automated messa ge] The system which generated this result transmitted reference range: 3.93 - 5.25 10*6/?L. The reference range was not used to interpret this result as normal/abnormal. HGB (test code = 718-7) 10.9 g/dL 11.6-15.0 L HCT (test code = 4544-3) 33.3 % 35.7-45.2 L MCV (test code = 787-2) 89.3 fL 80.6-95.5 MCH (test code = 785-6) 29.2 pg 25.9-32.8 MCHC (test code = 786-4) 32.7 g/dL 31.6-35.1 RDW-SD (test code = 47629-5) 44.8 fL 39.0-49.9 RDW-CV (test code = 788-0) 13.8 % 12.0-15.5 PLT (test code = 777-3) 334 See_Comment [Automated messa ge] The system which generated this result transmitted reference range: 166 - 358 10*3/?L. The reference range was not used to interpret this result as normal/abnormal. MPV (test code = 32109-3) 8.8 fL 9.5-12.9 L NRBC/100 WBC (test code = 0622225677) 0.0 See_Comment [Automated me ssage] The system which generated this result transmitted reference range: 0.0 - 10.0 /100 WBCs. The reference range was not used to interpret this result as normal/abnormal. NRBC x10^3 (test code = 5422095294) See_Comment [Automated messa ge] The system which generated this result transmitted reference range: 10*3/?L. The reference range was not used to interpret this result as normal/abnormal. GRAN MAT (NEUT) % (test code = 770-8) 69.1 % IMM GRAN % (test code = 2697417606) 0.30 % LYMPH % (test code = 736-9) 19.4 % MONO % (test code = 5905-5) 7.3 % EOS % (test code = 713-8) 3.2 % BASO % (test code = 706-2) 0.7 % GRAN MAT x10^3(ANC) (test code = 1303392033) 5.15 10*3/uL 1.88-7.09 IMM GRAN x10^3 (test code = 0375586411) 0.00-0.06 LYMPH x10^3 (test code = 731-0) 1.44 10*3/uL 1.32-3.29 MONO x10^3 (test code = 742-7) 0.54 10*3/uL 0.33-0.92 EOS x10^3 (test code = 711-2) 0.24 10*3/uL 0.03-0.39 BASO x10^3 (test code = 704-7) 0.05 10*3/uL 0.01-0.07 Lab Interpretation (test code = 51879-4) Abnormal [facility] WITH [id number] 22:56:34* Test Item Value Reference Range Interpretation Comme nts WBC (test code = 6690-2) 7.44 See_Comment [Automated messa ge] The system which generated this result transmitted reference range: 4.30 - 11.10 10*3/?L. The reference range was not used to interpret this result as normal/abnormal. RBC (test code = 789-8) 3.73 See_Comment L [Automated messa ge] The system which generated this result transmitted reference range: 3.93 - 5.25 10*6/?L. The reference range was not used to interpret this result as normal/abnormal. HGB (test code = 718-7) 10.9 g/dL 11.6-15.0 L HCT (test code = 4544-3) 33.3 % 35.7-45.2 L MCV (test code = 787-2) 89.3 fL 80.6-95.5 MCH (test code = 785-6) 29.2 pg 25.9-32.8 MCHC (test code = 786-4) 32.7 g/dL 31.6-35.1 RDW-SD (test code = 64209-6) 44.8 fL 39.0-49.9 RDW-CV (test code = 788-0) 13.8 % 12.0-15.5 PLT (test code = 777-3) 334 See_Comment [Automated messa ge] The system which generated this result transmitted reference range: 166 - 358 10*3/?L. The reference range was not used to interpret this result as normal/abnormal. MPV (test code = 91726-5) 8.8 fL 9.5-12.9 L NRBC/100 WBC (test code = 6325930726) 0.0 See_Comment [Automated [employer] ssage] The system which generated this result transmitted reference range: 0.0 - 10.0 /100 WBCs. The reference range was not used to interpret this result as normal/abnormal. NRBC x10^3 (test code = 8610058977) See_Comment [Automated messa ge] The system which generated this result transmitted reference range: 10*3/?L. The reference range was not used to interpret this result as normal/abnormal. GRAN MAT (NEUT) % (test code = 770-8) 69.1 % IMM GRAN % (test code = 3044046888) 0.30 % LYMPH % (test code = 736-9) 19.4 % MONO % (test code = 5905-5) 7.3 % EOS % (test code = 713-8) 3.2 % BASO % (test code = 706-2) 0.7 % GRAN MAT x10^3(ANC) (test code = 7032260971) 5.15 10*3/uL 1.88-7.09 IMM GRAN x10^3 (test code = 8262166367) 0.00-0.06 LYMPH x10^3 (test code = 731-0) 1.44 10*3/uL 1.32-3.29 MONO x10^3 (test code = 742-7) 0.54 10*3/uL 0.33-0.92 EOS x10^3 (test code = 711-2) 0.24 10*3/uL 0.03-0.39 BASO x10^3 (test code = 704-7) 0.05 10*3/uL 0.01-0.07 Lab Interpretation (test code = 41683-4) Abnormal [facility] WITH [id number] 22:56:34* Test Item Value Reference Range Interpretation Comme nts WBC (test code = 6690-2) 7.44 See_Comment [Automated messa ge] The system which generated this result transmitted reference range: 4.30 - 11.10 10*3/?L. The reference range was not used to interpret this result as normal/abnormal. RBC (test code = 789-8) 3.73 See_Comment L [Automated messa ge] The system which generated this result transmitted reference range: 3.93 - 5.25 10*6/?L. The reference range was not used to interpret this result as normal/abnormal. HGB (test code = 718-7) 10.9 g/dL 11.6-15.0 L HCT (test code = 4544-3) 33.3 % 35.7-45.2 L MCV (test code = 787-2) 89.3 fL 80.6-95.5 MCH (test code = 785-6) 29.2 pg 25.9-32.8 MCHC (test code = 786-4) 32.7 g/dL 31.6-35.1 RDW-SD (test code = 34486-5) 44.8 fL 39.0-49.9 RDW-CV (test code = 788-0) 13.8 % 12.0-15.5 PLT (test code = 777-3) 334 See_Comment [Automated messa ge] The system which generated this result transmitted reference range: 166 - 358 10*3/?L. The reference range was not used to interpret this result as normal/abnormal. MPV (test code = 78440-4) 8.8 fL 9.5-12.9 L NRBC/100 WBC (test code = 8667043051) 0.0 See_Comment [Automated me ssage] The system which generated this result transmitted reference range: 0.0 - 10.0 /100 WBCs. The reference range was not used to interpret this result as normal/abnormal. NRBC x10^3 (test code = 8604866023) See_Comment [Automated messa ge] The system which generated this result transmitted reference range: 10*3/?L. The reference range was not used to interpret this result as normal/abnormal. GRAN MAT (NEUT) % (test code = 770-8) 69.1 % IMM GRAN % (test code = 9410923733) 0.30 % LYMPH % (test code = 736-9) 19.4 % MONO % (test code = 5905-5) 7.3 % EOS % (test code = 713-8) 3.2 % BASO % (test code = 706-2) 0.7 % GRAN MAT x10^3(ANC) (test code = 6312354675) 5.15 10*3/uL 1.88-7.09 IMM GRAN x10^3 (test code = 1964661153) 0.00-0.06 LYMPH x10^3 (test code = 731-0) 1.44 10*3/uL 1.32-3.29 MONO x10^3 (test code = 742-7) 0.54 10*3/uL 0.33-0.92 EOS x10^3 (test code = 711-2) 0.24 10*3/uL 0.03-0.39 BASO x10^3 (test code = 704-7) 0.05 10*3/uL 0.01-0.07 Lab Interpretation (test code = 59241-2) [facility] - ON[facility] [id number] 21:05:30* Test Item Value Reference Range Interpretation Comme nts ABO & RH (test code = 20) AB POSITIVE Performed at [facility] Laboratory Services - [facility] Blood [address] Free: [phone] No. [id number] IAT (test code = 1185) Negative Performed at [facility] Laboratory Services - [facility] Blood [address] Free: [phone] No. [id number] [facility] - ONCE [id number] 21:05:30* Test Item Value Reference Range Interpretation Comme nts ABO & RH (test code = 20) AB POSITIVE Performed at [facility] Laboratory Services - [address] Free: [phone] No. [id number] IAT (test code = 1185) Negative Performed at [facility] Laboratory Services [address] Free: [phone] No. [id number] [facility] - ONCE [id number] 21:05:30* Test Item Value Reference Range Interpretation Comme nts ABO & RH (test code = 20) AB POSITIVE Performed at [facility] Laboratory Services [address] Free: [phone] No. [id number] IAT (test code = 1185) Negative Performed at [facility] Laboratory Services - [address] Free: [phone] No. [id number] [facility]. METABOLIC PANEL ([id number])2022-08-30 20:43:30* Test Item Value Reference Range Interpretation Comme nts NA (test code = 6350523736) 140 mmol/L 135-145 K (test code = 7123528211) 4.0 mmol/L 3.5-5.0 CL (test code = 2842137059) 109 mmol/L 98-108 H CO2 TOTAL (test code = 9732842082) 21 mmol/L 23-31 L AGAP (test code = 1850995883) 10 2-16 BUN (test code = 7010411254) 15 mg/dL 7-23 GLUCOSE (test code = 4785081326) 106 mg/dL 70-110 CREATININE (test code = 6058702998) 0.76 mg/dL 0.50-1.04 TOTAL BILI (test code = 9977603007) 0.5 mg/dL 0.1-1.1 CALCIUM (test code = 6786579530) 8.6 mg/dL 8.6-10.6 T PROTEIN (test code = 3392646486) 6.7 g/dL 6.3-8.2 ALBUMIN (test code = 6449818049) 3.9 g/dL 3.5-5.0 ALK PHOS (test code = 6080624067) 79 U/L 34-122 ALTv (test code = 1742-6) 27 U/L 5-35 AST(SGOT) (test code = 0917219543) 47 U/L 13-40 H eGFR (test code = 2643003215) 75.2 mL/min/1.73m2 PRITESH (test code = PRITESH) Association of [...] or abnormalities in imaging tests). Lab Interpretation (test code = 84701-6) Abnormal [facility]. METABOLIC PANEL ([id number])2022-08-30 20:43:30* Test Item Value Reference Range Interpretation Comme nts NA (test code = 2224085643) 140 mmol/L 135-145 K (test code = 6015056436) 4.0 mmol/L 3.5-5.0 CL (test code = 6425219862) 109 mmol/L 98-108 H CO2 TOTAL (test code = 7802893781) 21 mmol/L 23-31 L AGAP (test code = 1807338187) 10 2-16 BUN (test code = 0380085439) 15 mg/dL 7-23 GLUCOSE (test code = 2938815263) 106 mg/dL 70-110 CREATININE (test code = 6120592269) 0.76 mg/dL 0.50-1.04 TOTAL BILI (test code = 3467660816) 0.5 mg/dL 0.1-1.1 CALCIUM (test code = 8648763338) 8.6 mg/dL 8.6-10.6 T PROTEIN (test code = 0386811643) 6.7 g/dL 6.3-8.2 ALBUMIN (test code = 4984224674) 3.9 g/dL 3.5-5.0 ALK PHOS (test code = 3273646042) 79 U/L 34-122 ALTv (test code = 1742-6) 27 U/L 5-35 AST(SGOT) (test code = 3288974652) 47 U/L 13-40 H eGFR (test code = 3311857218) 75.2 mL/min/1.73m2 PRITESH (test code = PRITESH) Association of [...] or abnormalities in imaging tests). Lab Interpretation (test code = 81555-6) Abnormal [facility]. METABOLIC PANEL ([id number])2022-08-30 20:43:30* Test Item Value Reference Range Interpretation Comme nts NA (test code = 3329112858) 140 mmol/L 135-145 K (test code = 0950430529) 4.0 mmol/L 3.5-5.0 CL (test code = 0492016102) 109 mmol/L 98-108 H CO2 TOTAL (test code = 6770491481) 21 mmol/L 23-31 L AGAP (test code = 9139277180) 10 2-16 BUN (test code = 6301614299) 15 mg/dL 7-23 GLUCOSE (test code = 3342949484) 106 mg/dL 70-110 CREATININE (test code = 1600851577) 0.76 mg/dL 0.50-1.04 TOTAL BILI (test code = 2016207070) 0.5 mg/dL 0.1-1.1 CALCIUM (test code = 6817409787) 8.6 mg/dL 8.6-10.6 T PROTEIN (test code = 8707792704) 6.7 g/dL 6.3-8.2 ALBUMIN (test code = 3877392315) 3.9 g/dL 3.5-5.0 ALK PHOS (test code = 5343284197) 79 U/L 34-122 ALTv (test code = 1742-6) 27 U/L 5-35 AST(SGOT) (test code = 3884341345) 47 U/L 13-40 H eGFR (test code = 3242705125) 75.2 mL/min/1.73m2 PRITESH (test code = PRITESH) Association of [...] or abnormalities in imaging tests). Lab Interpretation (test code = 82857-4) Abnormal [facility]"
--- NOTE | 2023-10-24 02:19 | ER ---
Nurse's Notes [facility] Name: Jose Enrique iYn Age: 73 yrs Sex: Female : 1950 Arrival Date: 10/24/2023 Time: 01:14 Bed 11 Private MD: Diagnosis: Rheumatoid arthritis, unspecified;Essential (primary) hypertension Presentation: 10/23 01:55 Chief complaint: Patient states: I am having severe arthritis pain all over. Having pf1 sever left shoulder pain. Pt states she is out of her medications. Coronavirus screen: Vaccine status: Patient reports being unvaccinated. Ebola Screen: Patient negative for fever greater than or equal to 101.5 degrees Fahrenheit, and additional compatible Ebola Virus Disease symptoms. Initial Sepsis Screen: Does the patient meet any 2 criteria? No. Patient's initial sepsis screen is negative. Risk Assessment: Do you want to hurt yourself or someone else? Patient reports no desire to harm self or others. Onset of symptoms was October 21, 2023. 01:55 Method Of Arrival: Ambulatory pf1 01:55 Acuity: YONAS 3 pf1 02:33 Initial Sepsis Screen: Does the patient have a suspected source of infection? No. ha1 Patient's initial sepsis screen is negative. Triage Assessment: 02:01 General: Appears uncomfortable, well groomed, well nourished, Behavior is calm. Pain:. pf1 Historical: - Allergies: 02:01 Codeine; pf1 - PMHx: 02:01 Arthritis; Hypertensive disorder; pf1 - PSHx: 02:01 left arm; pf1 - Immunization history:: Adult Immunizations up to date. - Social history:: Smoking status: Patient reports the use of cigarette tobacco products, smokes one pack cigarettes per day. - Family history:: not pertinent. Screenin:31 [facility] ED Fall Risk Assessment (Adult) History of falling in the last 3 months, ha1 including since admission No falls in past 3 months (0 pts) Confusion or Disorientation No (0 pts) Intoxicated or Sedated No (0 pts) Impaired Gait No (0 pts) Mobility Assist Device Used No (0 pt) Altered Elimination No (0 pt) Score/Fall Risk Level 0 - 2 = Low Risk Oriented to surroundings, Maintained a safe environment, Hourly rounding (assess needs \T\ fall precautionary measures) done. Abuse screen: Denies threats or abuse. Denies injuries from another. Nutritional screening: No deficits noted. Tuberculosis screening: No symptoms or risk factors identified. Assessment: 02:00 General: Appears uncomfortable, Behavior is calm, cooperative. Pain: Complains of pain ha1 in left arm Pain does not radiate. Pain currently is 7 out of 10 on a pain scale. Quality of pain is described as throbbing. Neuro: Level of Consciousness is awake, alert, obeys commands, Oriented to person, place, time, situation. Cardiovascular: Respiratory: Airway is patent Respiratory effort is even, unlabored, Respiratory pattern is regular, symmetrical. Vital Signs: 01:55 BP 134 / 75; Pulse 79; Resp 18; Temp 97.9; Pulse Ox 100% ; Weight 58.97 kg; Height 5 pf1 ft. 2 in. ; Pain 9/10; 01:55 Body Mass Index 23.78 (58.97 kg, 157.48 cm) pf1 01:55 Pain Scale: Adult pf1 ED Course: 01:17 Patient arrived in ED. gm2 01:18 Lefty Lovelace MD is Attending Physician. rt 02:01 Triage completed. pf1 02:03 Arm band placed on right wrist. ha1 02:03 Patient has correct armband on for positive identification. Bed in low position. Call ha1 light in reach. Side rails up X 1. 02:32 No provider procedures requiring assistance completed. Patient did not have IV access ha1 during this emergency room visit. 02:33 Provided Education on: medication administration . ha1 Administered Medications: 02:27 Drug: Ketorolac IM 15 mg IM once Route: IM; Site: right gluteus; cg 02:33 Follow up: Response: No adverse reaction ha1 Medication: 02:32 VIS not applicable for this client. ha1 Outcome: 02:18 Discharge ordered by MD. rt 02:32 Discharged to home ambulatory, ha1 02:32 Condition: stable 02:32 Discharge instructions given to patient, Instructed on discharge instructions, follow up and referral plans. medication usage, Demonstrated understanding of instructions, follow-up care, medications, Prescriptions given X 3, 02:34 Patient left the ED. ha1 Signatures: Ruthy Humphreys RN RN cg Molly Oneill RN RN ha1 Lefty Lovelace MD MD rt Sandra Jimenes RN RN pf1 [place] gm2
--- NOTE | 2023-10-24 02:19 | EDPHYS ---
Physician Documentation [facility] Name: Jose Enrique Yin Age: 73 yrs Sex: Female : 1950 Arrival Date: 10/24/2023 Time: 01:14 Bed 11 Private MD: ED Physician Lefty Lovelace HPI: 10/23 04:13 This 73 yrs old Female presents to ER via Ambulatory with complaints of Arm Pain, RA rt PAIN. 04:13 Patient presents to the ED with joint pain, to her hands, shoulders. She states this rt consistent with prior episodes of rheumatoid arthritis. She states that she is out of her diclofenac. Is requesting Toradol, steroids, diclofenac prescription as well as a refill of her lisinopril. Denies other acute complaints at this time, symptoms are moderate in severity, aching nature, nonradiating, no other aggravating or alleviating factors.. Historical: - Allergies: 02:01 Codeine; pf1 - PMHx: 02:01 Arthritis; Hypertensive disorder; pf1 - PSHx: 02:01 left arm; pf1 - Immunization history:: Adult Immunizations up to date. - Social history:: Smoking status: Patient reports the use of cigarette tobacco products, smokes one pack cigarettes per day. - Family history:: not pertinent. ROS: 04:13 Constitutional: Negative for fever, chills, and weight loss, Cardiovascular: Negative rt for chest pain, palpitations, and edema, Respiratory: Negative for shortness of breath, cough, wheezing, and pleuritic chest pain, Abdomen/GI: Negative for abdominal pain, nausea, vomiting, diarrhea, and constipation, Skin: Negative for injury, rash, and discoloration, Neuro: Negative for headache, weakness, numbness, tingling, and seizure, Psych: Negative for depression, anxiety, suicide ideation, homicidal ideation, and hallucinations, 04:13 MS/extremity: Positive for pain, Negative for injury or acute deformity, Exam: 04:13 Constitutional: This is a well developed, well nourished patient who is awake, alert, rt and in no acute distress. Head/Face: Normocephalic, atraumatic. Chest/axilla: Normal chest wall appearance and motion. Nontender with no deformity. No lesions are appreciated. Cardiovascular: Regular rate and rhythm with a normal S1 and S2. No gallops, murmurs, or rubs. Normal PMI, no JVD. No pulse deficits. Respiratory: Lungs have equal breath sounds bilaterally, clear to auscultation and percussion. No rales, rhonchi or wheezes noted. No increased work of breathing, no retractions or nasal flaring. Abdomen/GI: Soft, non-tender, with normal bowel sounds. No distension or tympany. No guarding or rebound. No evidence of tenderness throughout. Skin: Warm, dry with normal turgor. Normal color with no rashes, no lesions, and no evidence of cellulitis. Neuro: Awake and alert, GCS 15, oriented to person, place, time, and situation. Cranial nerves II-XII grossly intact. Motor strength 5/5 in all extremities. Sensory grossly intact. Cerebellar exam normal. Normal gait. Vital Signs: 01:55 BP 134 / 75; Pulse 79; Resp 18; Temp 97.9; Pulse Ox 100% ; Weight 58.97 kg; Height 5 pf1 ft. 2 in. ; Pain 9/10; 01:55 Body Mass Index 23.78 (58.97 kg, 157.48 cm) pf1 01:55 Pain Scale: Adult pf1 MDM: 02:13 Patient medically screened. rt 04:13 Differential diagnosis: Rheumatoid arthritis. Data reviewed: vital signs, nurses notes. rt Test considered but Not performed: Labs: Stable vital signs, pain consistent with prior episodes of rheumatoid arthritis, do not believe the laboratory evaluation is indicated at this time.. Care significantly affected by the following chronic conditions: Rheumatoid arthritis, hypertension. Counseling: I had a detailed discussion with the patient and/or guardian regarding the historical points, exam findings, and any diagnostic results supporting the discharge/admit diagnosis, the need for outpatient follow up. Response to treatment: the patient's symptoms have mildly improved after treatment. Administered Medications: 02:27 Drug: Ketorolac IM 15 mg IM once Route: IM; Site: right gluteus; cg 02:33 Follow up: Response: No adverse reaction ha1 Disposition Summary: 10/24/23 02:18 Discharge Ordered Notes: Location: Home rt Problem: an acute exacerbation rt Symptoms: have improved rt Condition: Stable rt Diagnosis - Rheumatoid arthritis, unspecified rt - Essential (primary) hypertension rt Followup: rt - With: Private Physician - When: 2 - 3 days - Reason: Discharge Instructions: - Discharge Summary Sheet rt - Hypertension, Adult rt - Rheumatoid Arthritis rt Forms: - Medication Reconciliation Form rt - Thank You Letter rt - Antibiotic Education rt - Prescription Opioid Use rt - Patient Portal Instructions rt - Leadership Thank You Letter rt Prescriptions: - Lisinopril 20 mg Oral tablet - take 1 tablet ORAL route once daily; 30 tablet; Refills: 0, Product Selection rt Permitted - Diclofenac Sodium 75 mg Oral Tablet Sustained Release - take 1 tablet ORAL route 2 times per day; 30 tablet; Refills: 0, Product rt Selection Permitted - Prednisone 20 mg Oral Tablet - take 2 tablets ORAL route once daily for 5 days; 10 tablet; Refills: 0, Product rt Selection Permitted Signatures: Ruthy Humphreys RN RN Lefty Lovelace MD MD rt Sandra Jimenes RN RN pf1 Molly Oneill RN ha1
[2023-10-24] MEDS ORDERED: KETOROLAC 30 MG/ML INJ ONE (02:21)
[2023-10-24 03:19] VITALS: BP 134/75; TEMP 97.9; O2SAT 100
== END 2023-10-24 02:34 | disposition home or self-care (01) ==
LOC: ER 01:14
DX: M06.9 Rheumatoid arthritis, unspecified (principal); I10 Essential (primary) hypertension; F17.210 Nicotine dependence, cigarettes, uncomplicated; Z88.5 Allergy status to narcotic agent
CPT/HCPCS: 96372; 99284

== ENCOUNTER 2024-06-20 23:24 | Emergency (ER) | payer OTHER, SELFPAY ==
--- OUTSIDE RECORDS SUMMARY | 2024-06-20 23:28 | XMS REPORT | Continuity of Care Document ---
Author Name Unknown Address [address] [place] [address] [facility] thconnect Address [address] [place] [address] Care Team Providers Care Estate Planning Counselor Name Role Phone GAYLE, NADEEN Primary Care Physician Unavailab Saida Sorensen Attending Clinician Unavailable Nadeen Santizo L Attending Clinician Unavailable ALEJO PEGUERO Attending Clinician Unavailable ALEJO BERGERON Attending Clinician Unavailable Alejo Peguero MD Attending Clinician Elyssa DONAHUE MD, John Attending Clinician Doctor Unassigned, [place] Attending Clinician U more Peñaloza RN, Allan Rodriguez Attending Clinician Unavail jenna Phoenix MD, Henri Castro Attending Clinician Nohemy CESAR, Ham Attending Clinician [phone] Elyssa DONAHUE MD, John Admitting Clinician ALEJO BERGERON Admitting Clinician Unavailable Payers Payer Name Policy Type Policy Number Effective Date Expirati on Date Source [facility] DUAL COMP HMO D [facility] [id number] 2022 00:00:00 [place] [id number] 2022 00:00:00 [employer] MEDICARE C1 [id number] 2020 00:00:00 [facility] HUMAN MEDICARE C1 [id number] 2020 00:00:00 [facility] MEDICARE C1 [id number] 2020 00:00:00 [facility] Problems Condition Name Condition Details Condition Category Status Onset Date Resolution Date Last Treatment Date Treating Clinician Comments Source Osteoporos is Osteoporos is Disease Recurre nce 09-01 00:00: 00 [facility] 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 Active 08-30 00:00: 00 [facility] Open fracture of left wrist, initial encounter Open fracture of left wrist, initial encounter Disease Active 08-30 00:00: 00 [facility] Disorder of cardiovasc ular system Circulatio n problem Problem [facility] [id number] Primary osteoarthr itis involving multiple joints Problem [facility] [id number] Osteoarthr itis of multiple joints, unspecifie d osteoarthr itis type Problem [facility] Chronic pain Other chronic pain Problem [facility] Migraine Migraines Problem Commo n [facility] Hepatitis Hepatitis Problem Comm on [facility] [id number] Current moderate episode of major depressive disorder without prior episode Problem Common [facility] Kidney stone Kidney stones Problem [facility] Localized, primary osteoarthr itis of the pelvic region and thigh Osteoarthr itis of right hip, unspecifie d osteoarthr itis type Problem [facility] Swelling Swelling Problem [facility] Unsteady gait Unsteady gait Problem [facility] Osteopenia Osteopenia Problem Co mmon [facility] Hypertensi on HTN (hypertens ion) Problem [facility] Anxiety Anxiety Problem [facility] [id number] Depression , recurrent Problem [facility] Allergies, Adverse Reactions, Alerts Allergy Name Allergy Type Status Severity Reaction(s) Onset Date Inactive Date Treating Clinician Comments Source CODEINE DRUG INGREDI Active N/V 03-14 00:00: 00 [facility] Codeine Propensi ty to adverse reaction s Active Nausea and/or Vomiting 03-14 00:00: 00 [facility] Social History Social Habit Start Date Stop Date Quantity Comments Source History SDOH Alcohol Frequency [facility] History SDOH Social Connections Get Together [facility] History SDOH Social Connections [facility] History SDOH Social Connections Membership [facility] History SDOH Social Connections Meetings [facility] History of tobacco use Cigarette Smoker [facility] Exposure to SARS-CoV-2 (event) 2022-10-26 00:00:00 2022-11-05 15:21:[address] [facility] Tobacco use and exposure 2022-08-31 00:00:00 2022-08-31 00:00:[address] [facility] History SDOH Alcohol Std Drinks 2022-08-31 00:00:00 2022-08-31 00:00:[address] [facility] History SDOH Alcohol Binge 2022-08-31 00:00:00 2022-08-31 00:00:[address] [facility] History SDOH Social Connections Phone 2022-08-31 00:00:00 2022-08-31 00:00:[address] [facility] History SDOH Social Connections Living 2022-08-31 00:00:00 2022-08-31 00:00:[address] [facility] History SDOH Physical Activity DPW 2022-08-31 00:00:00 2022-08-31 00:00:[address] [facility] History SDOH Physical Activity MPS 2022-08-31 00:00:00 2022-08-31 00:00:[address] [facility] History SDOH Financial 2022-08-31 00:00:00 2022-08-31 00:00:[address] [facility] History SDOH Food Worry 2022-08-31 00:00:00 2022-08-31 00:00:[address] [facility] History SDOH Food Scarcity 2022-08-31 00:00:00 2022-08-31 00:00:[address] [facility] History SDOH Transport Med 2022-08-31 00:00:00 2022-08-31 00:00:[address] [facility] History SDOH Transport Non-Med 2022-08-31 00:00:00 2022-08-31 00:00:[address] [facility] Sex Ass[birth year] At 1950 00:00:00 1950 00:00:00 [facility] Smoking Status Start Date Stop Date Source Smokes tobacco daily 2022-08-31 00:00:00 [facility] Never Smoker [facility] Medications Ordered Medication Name Filled Medication Name Start Date Stop Date Current Medication? Ordering Clinician Indication Dosage Frequency Signature (SIG) Comments Components Source traMADoL 50 mg tablet 16 00:00: 00 11-17 04:59 :00 No [id number] 50mg Take 1 tablet by mouth every 6 (six) hours as needed for Pain (scale 7-10) for up to 7 days. Indication s: acute pain [facility] gabapentin 300 mg capsule 12 00:00: 00 Yes [id number] 300mg Take 1 capsule by mouth at bedtime. [facility] traMADoL 50 mg tablet 12 00:00: 00 11-13 04:59 :00 No 4647 50mg Take 1 tablet by mouth every 6 (six) hours as needed for Pain (scale 7-10) for up to 7 days. Indication s: acute pain [facility] HYDROcodone -acetaminop hen (NORCO) 10-325 mg tablet - 00:00: 00 09-27 00:00 :00 No 4647 1{tbl} Take 1 tablet by mouth every 6 (six) hours as needed for Pain (scale 7-10) for up to 7 days. Indication s: acute pain [facility] HYDROcodone -acetaminop hen (NORCO) 5-325 mg tablet 2023-0 3-02 00:00: 00 10-03 05:59 :00 No 4647 1{tbl} Take 1 tablet by mouth every 6 (six) hours as needed for Pain (scale 7-10) for up to 7 days. Indication s: acute pain [facility] gabapentin 300 mg capsule 09-08 18:34: 36 Yes 300mg Take 300 mg by mouth in the morning. [facility] methocarbam oL 750 mg tablet 09-08 00:00: 00 10-09 04:59 :00 No [id number] 750mg Take 1 tablet by mouth in the morning and 1 tablet at noon and 1 tablet in the evening. Do all this for 30 days. [facility] docusate 100 mg capsule 09-08 00:00: 00 09-24 05:59 :00 No [id number] 100mg Take 1 capsule by mouth in the morning and 1 capsule in the evening. Do all this for 15 days. [facility] gabapentin 300 mg capsule 09-08 00:00: 00 09-23 05:59 :00 No [id number] 300mg Take 1 capsule by mouth in the morning and 1 capsule at noon and 1 capsule in the evening. Do all this for 14 days. [facility] traMADoL 50 mg tablet 09-08 00:00: 00 09-16 05:59 :00 No 4647 50mg Take 1 tablet by mouth every 6 (six) hours as needed for Pain (scale 4-6) or Pain (scale 7-10) for up to 7 days. Indication s: acute pain [facility] HYDROcodone -acetaminop hen 10-325 mg tablet 09-08 00:00: 00 09-16 05:59 :00 No 4647 1{tbl} Take 1 tablet by mouth every 6 (six) hours as needed for Pain (scale 4-6) or Pain (scale 7-10) for up to 7 days. Indication s: acute pain [facility] ondansetron (ZOFRAN) 4 mg tablet 09-08 00:00: 00 09-14 05:59 :00 No [id number] 4mg Take 1 tablet by mouth every 6 (six) hours for 20 doses. [facility] polyethylen e glycol 3350 powder 17 g 09-07 13:30: 00 Yes 17g 17 g, Oral, DAILY, First dose on Thu09/07/22 at 0730, Until Discontinu ed, Routine [facility] glycerin/mi neral oil (AGLO ENEMA) (COMPOUNDED ) Enem 225 mL 09-07 13:26: 01 Yes 225mL 225 mL, Rectal, PRN, Starting on 09/07/22 at 0726, Until Discontinu ed, Routine, Constipati on unresolved by oral medication s [facility] bisacodyL (DULCOLAX) suppository 10 mg 09-07 13:25: 35 Yes 10mg 10 mg, Rectal, QHSPRN, Starting on Thu09/07/22 at 0725, Until Discontinu ed, Routine, Constipati on, Constipati on unresolved by oral medication s [facility] morpHINE (2 mg/mL) injection 2 mg 09-06 05:59: 18 Yes 2mg 2 mg, Slow IV Push, Q6HPRN, Starting on Thu09/05/22 at 2359, Until Discontinu ed, Routine, give for breakthrou gh pain after first line oral pain medication s have been given [facility] HYDROmorphO ne (DILAUDID) injection 0.2 mg 09-05 00:27: 50 09-05 03:07 :32 No .2mg 0.2 mg, Slow IV Push, Q5MIN PRN, 10 doses, Starting on Sanjuana 09/04/22 at 1827, Until Sanjuana 09/04/22 at 2107, Routine, Pain (scale 7-10), PACU
Us e approved by (Faculty): PACU USE -ANESTHESI A SERVICE-HY DROMORPHON E INJECTIONS [facility] gabapentin 300 mg capsule 09-04 21:07: 32 Yes 300mg Take 300 mg by mouth in the morning. [facility] diphenhydrA MINE (BENADRYL) tablet 25 mg 09-04 02:22: 33 Yes 25mg 25 mg, Oral, Q4HPRN, Starting on Thu09/03/22 at 2022, Until Discontinu ed, Routine, Itching [facility] enoxaparin 30 mg/0.3 mL injection 09-04 00:00: 00 10-31 04:59 :00 No [id number] 30mg inject 0.3 mL under the skin every 12 (twelve) hours for 56 days. [facility] butalbital- acetaminoph en-caff (ESGIC) 50-325-40 mg tablet 1 tablet 09-03 17:12: 19 Yes 1{tbl} 1 tablet, Oral, QDAILYPRN, Starting on Thu09/03/22 at 1112, Until Discontinu ed, Routine, headache [facility] gabapentin (NEURONTIN) capsule 300 mg 09-02 20:00: 00 Yes 300mg 300 mg, Oral, TID, First dose (after last modificati on) on Thu09/02/22 at 1400, Until Discontinu ed, Routine [facility] HYDROcodone -acetaminop hen (NORCO) 10-325 mg tablet 1 tablet 09-02 15:20: 32 Yes 1{tbl} 1 tablet, Oral, Q6HPRN, Starting on Thu09/02/22 at 0920, Until Discontinu ed, Routine, Pain (scale 4-6) [facility] enoxaparin (LOVENOX) injection 30 mg 09-02 14:00: 00 Yes 30mg 30 mg, Subcutaneo us, Q12H, First dose on Thu09/02/22 at 0800, Until Discontinu ed, Routine [facility] methocarbam oL (ROBAXIN) tablet 750 mg 09-02 14:00: 00 Yes 750mg 750 mg, Oral, QID, First dose (after last modificati on) on Thu09/02/22 at 0800, Until Discontinu ed, Routine [facility] methocarbam oL (ROBAXIN) tablet 750 mg 09-02 14:00: 00 Yes 750mg 750 mg, Oral, QID, First dose (after last modificati on) on Thu09/02/22 at 0800, Until Discontinu ed, Routine [facility] HYDROcodone -acetaminop hen (NORCO 5) 5-325 mg tablet 1 tablet 09-02 13:15: 00 09-02 15:13 :32 No 1{tbl} 1 tablet, Oral, Q4HPRN, Starting on Thu09/02/22 at 0715, Until Thu09/02/22 at 0913, Routine, Pain (scale 4-6) [facility] NaCl 0.9% (NS) injection 10 mL 09-02 13:13: 36 Yes 10mL 10 mL, Slow IV Push, PRN, Starting on Thu09/02/22 at 0713, Until Discontinu ed, Routine, line maintenanc e [facility] gabapentin (NEURONTIN) capsule 300 mg 09-02 02:00: 00 09-02 15:13 :33 No 300mg 300 mg, Oral, BID, First dose (after last modificati on) on Thu09/01/22 at 2000, Until Discontinu ed, Routine [facility] NaCl 0.9% (NS) injection 10 mL 09-01 15:09: 49 Yes 10mL 10 mL, Slow IV Push, PRN, Starting on Thu09/01/22 at 0909, Until Discontinu ed, Routine, line maintenanc e [facility] lidocaine 1% (PF) (XYLOCAINE) injection 5 mL 09-01 15:09: 49 Yes 5mL 5 mL, Subcutaneo us, PRN, Starting on Thu09/01/22 at 0909, Until Discontinu ed, Routine, Local anesthesia [facility] melatonin (MELATIN) tablet 3 mg 09-01 03:00: 00 Yes 3mg 3 mg, Oral, QHS, First dose on Thu08/31/22 at 2100, Until Discontinu ed, Routine [facility] methocarbam oL (ROBAXIN) tablet 500 mg 08-31 17:15: 00 09-02 13:10 :43 No 500mg 500 mg, Oral, QID, First dose on 08/31/22 at 1115, Until Discontinu ed, Routine [facility] ipratropium -albuteroL (DUONEB) 0.5 mg-3 mg(2.5 mg base)/3 mL nebulizer solution 3 mL 08-31 05:45: 00 08-31 05:11 :00 No 3mL 3 mL, Inhalation , ONCE, 1 dose, On 08/30/22 at 2345, Routine, PACU [facility] polyethylen e glycol 3350 powder 17 g 08-31 04:53: 53 Yes 17g 17 g, Oral, QDAILYPRN, Starting on 08/30/22 at 2253, Until Discontinu ed, Routine, Constipati on [facility] traMADoL (ULTRAM) tablet 50 mg 08-31 04:53: 52 Yes 50mg 50 mg, Oral, Q4HPRN, Starting on 08/30/22 at 2253, Until Discontinu ed, Routine, Pain (scale 7-10) [facility] ondansetron (ZOFRAN-ODT ) disintegrat ing tablet 4 mg 08-31 04:53: 52 Yes 4mg 4 mg, Oral, Q6HPRN, Starting on 08/30/22 at 2253, Until Discontinu ed, Routine, Nausea and Vomiting (N/V) [facility] HYDROcodone -acetaminop hen (NORCO 5) 5-325 mg tablet 1 tablet 08-31 04:53: 52 09-02 13:11 :09 No 1{tbl} 1 tablet, Oral, Q6HPRN, Starting on 08/30/22 at 2253, Until 09/02/22 at 0711, Routine, Pain (scale 4-6) [facility] lactated ringers IV infusion 1,000 mL 08-31 04:45: 00 Yes 1000mL at 75 mL/hr, 1,000 mL, IV Infusion, CONTINUOUS , Starting on 08/30/22 at 2245, Until Discontinu ed, Routine, PACU [facility] FENTanyl PF (SUBLIMAZE (PF)) injection 25 mcg 08-31 04:41: 58 08-31 07:00 :00 No 25ug 25 mcg, Slow IV Push, Q5MIN PRN, 4 doses, Starting on 08/30/22 at 2241, Until Discontinu ed, Routine, Pain (scale 4-6), PACU [facility] morpHINE (4 mg/mL) injection 4 mg 08-31 01:30: 00 08-31 01:21 :00 No 4mg 4 mg, Slow IV Push, ONCE, 1 dose, On 08/30/22 at 1930, STAT [facility] morpHINE (2 mg/mL) injection 6 mg 08-31 00:30: 00 08-30 23:30 :00 No 6mg 6 mg, Slow IV Push, ONCE, 1 dose, On 08/30/22 at 1830, STAT [facility] diphenhydrA MINE (BENADRYL) injection 25 mg 08-30 23:45: 00 08-30 23:43 :00 No 25mg 25 mg, Slow IV Push, ONCE, 1 dose, On 08/30/22 at 1745, STAT [facility] proMETHazin e (PHENERGAN) 12.5 mg in NS 50 mL IV piggyback (CNR) 08-30 23:30: 00 08-30 23:58 :00 No 12.5mg 12.5 mg, IV Piggyback, at 200 mL/hr Administer over 15 Minutes, ONCE, 1 dose, On 08/30/22 at 1730, MARTHA [facility] FENTanyl PF (SUBLIMAZE (PF)) injection 150 mcg 08-30 22:15: 00 08-30 23:15 :00 No 150ug 150 mcg, Slow IV Push, ONCE, 1 dose, On 08/30/22 at 1615, Routine [facility] Lisinopril Lisinopril 09-27 00:00: 00 Yes Na Santizo 1 tablet [facility] Bactrim DS 800-160 MG Bactrim DS 800-160 [...] MG Zofran 4 MG Zofran 4 MG 17 00:00: 00 No Zofran 4 MG Zofran 4 MG Zofran 4 MG 17 00:00: 00 No Zofran 4 MG Zofran 4 MG Zofran 4 MG 2017-17 00:00: 00 No Zofran 4 MG Zofran 4 MG Zofran 4 MG 17 00:00: 00 No Zofran 4 MG Zofran 4 MG Zofran 4 MG 17 00:00: 00 No Zofran 4 MG CeleBREX 200 MG CeleBREX 200 MG [...] buPROPion HCl ER (XL) 150 MG Lisinopril 30 MG Lisinopril 30 MG No 1{table t} QD Lisinopril 30 MG buPROPion HCl ER (XL) 300 MG buPROPion HCl ER (XL) 300 MG No 1{table t_in_th e_morni ng} QD buPROPion HCl ER (XL) 300 MG Vital Signs Vital Name Observation Time Observation Value Comments S ource Systolic blood pressure 2022-11-05 20:31:00 171 mm[Hg] [facility] Diastolic blood pressure 2022-11-05 20:31:00 99 mm[Hg] [facility] Heart rate 2022-11-05 20:31:00 90 /min [facility] Body temperature 2022-11-05 20:31:00 36.72 [facility] Body height 2022-11-05 20:31:00 154.9 cm [facility] Body weight 2022-11-05 20:31:00 57.153 kg [facility] BMI 2022-11-05 20:31:00 23.81 kg/m2 [facility] Body temperature 2022-09-25 16:44:00 36.67 [facility] Body height 2022-09-25 16:44:00 154.9 cm [facility] Body weight 2022-09-25 16:44:00 59.875 kg [facility] BMI 2022-09-25 16:44:00 24.94 kg/m2 [facility] Systolic blood pressure 2022-09-08 22:22:00 138 mm[Hg] [facility] Diastolic blood pressure 2022-09-08 22:22:00 81 mm[Hg] [facility] Heart rate 2022-09-08 22:22:00 66 /min [facility] Body temperature 2022-09-08 22:22:[address] [facility] Respiratory rate 2022-09-08 22:22:00 18 /min [facility] Oxygen saturation in Arterial blood by Pulse oximetry 2022-09-08 22:22:00 96 /min [facility] Body weight 2022-09-05 17:00:00 62.1 kg [facility] BMI 2022-09-05 17:00:00 25.87 kg/m2 [facility] Body height 2022-09-02 07:20:00 154.9 cm [facility] Systolic blood pressure 2022-09-05 00:38:00 116 mm[Hg] [facility] Diastolic blood pressure 2022-09-05 00:38:00 57 mm[Hg] [facility] Heart rate 2022-09-05 00:38:00 70 /min [facility] Body temperature 2022-09-05 00:38:[address] [facility] Respiratory rate 2022-09-05 00:38:00 8 /min [facility] Oxygen saturation in Arterial blood by Pulse oximetry 2022-09-05 00:38:00 95 /min [facility] Body height 2022-09-02 07:20:00 154.9 cm [facility] Body weight 2022-09-02 07:20:00 62.1 kg [facility] BMI 2022-09-02 07:20:00 25.87 kg/m2 [facility] Systolic blood pressure 2022-08-30 22:58:00 180 mm[Hg] [facility] Diastolic blood pressure 2022-08-30 22:58:00 91 mm[Hg] [facility] Heart rate 2022-08-30 22:58:00 82 /min [facility] Respiratory rate 2022-08-30 22:58:00 16 /min [facility] Oxygen saturation in Arterial blood by Pulse oximetry 2022-08-30 22:58:00 100 /min [facility] Body temperature 2022-08-30 19:35:[address] [facility] Body weight 2022-08-30 19:35:00 61.236 kg [facility] height 2021-10-23 12:10:00 62.00 [in_i] Com [facility] weight 2021-10-23 12:10:00 135 [lb_av] Comm on [facility] bmi 2021-10-23 12:10:00 24.69 kg/m2 Comm on [facility] height 2020-12-26 08:20:00 62.00 [in_i] Com [facility] weight 2020-12-26 08:20:00 135 [lb_av] Comm on [facility] bmi 2020-12-26 08:20:00 24.69 kg/m2 Comm on [facility] height 2020-11-27 13:00:00 62.00 [in_i] Com [facility] weight 2020-11-27 13:00:00 135 [lb_av] Comm on [facility] bmi 2020-11-27 13:00:00 24.69 kg/m2 Comm on [facility] Procedures Procedure Date / Time Performed Performing Clinician Source XR WRIST 3+ VW LEFT 2022-11-05 21:27:[address] [facility] XR WRIST 3+ VW LEFT 2022-09-25 17:14:[address] [facility] ASSIGNMENT OF BENEFITS 2022-09-25 16:29:43 Docto r Unassigned, [place] [facility] FL TIME OR (NON-REPORTABLE) 2022-09-05 00:18:14 Faillajun [facility] FL TIME OR (NON-REPORTABLE) 2022-09-05 00:18:14 Failkey [facility] DISTAL RADIUS ORIF 2022-09-04 21:42:00 Faillajun [facility] EXTERNAL FIXATOR REMOVAL OF UPPER EXTREMITY 2022-09-04 21:42:00 Faillace [facility] DISTAL RADIUS ORIF 2022-09-04 21:42:00 Faillace, [facility] EXTERNAL FIXATOR REMOVAL OF UPPER EXTREMITY 2022-09-04 21:42:00 Failkey [facility] BASIC METABOLIC PANEL (NA, K, CL, CO2, GLUCOSE, BUN, CREATININE, CA) 2022-09-04 10:10:[address] [facility] CBC WITHOUT DIFF 2022-09-04 10:10:00 Andres Jimenez [facility] PROTHROMBIN TIME / INR 2022-09-04 10:10:[address] [facility] ACTIVATED PARTIAL THRMPLAS JEANIE 2022-09-04 10:10:[address] [facility] BASIC METABOLIC PANEL (NA, K, CL, CO2, GLUCOSE, BUN, CREATININE, CA) 2022-09-04 10:10:[address] [facility] CBC WITHOUT DIFF 2022-09-04 10:10:00 Andres Jimenez [facility] PROTHROMBIN TIME / INR 2022-09-04 10:10:[address] [facility] ACTIVATED PARTIAL THRMPLAS JEANIE 2022-09-04 10:10:[address] [facility] US DUPLEX VENOUS ARM RIGHT - BY VASCULAR LAB 2022-09-03 15:45:00 Larisa Martines [facility] DUPLEX VENOUS ARM RIGHT - BY VASCULAR LAB 2022-09-03 15:45:00 Larisa Martines [facility] CBC WITHOUT DIFF 2022-09-01 16:54:[address] [facility] CBC WITHOUT DIFF 2022-09-01 16:54:[address] [facility] CBC WITHOUT DIFF 2022-09-01 16:54:[address] [facility] HB ECG ROUTINE & RHYTHM STRIP 2022-08-31 07:58:[address] [facility] HB ECG ROUTINE & RHYTHM STRIP 2022-08-31 07:58:[address] [facility] FL TIME OR (NON-REPORTABLE) 2022-08-31 04:15:[address] [facility] FL TIME OR (NON-REPORTABLE) 2022-08-31 04:15:[address] [facility] FL TIME OR (NON-REPORTABLE) 2022-08-31 04:15:[address] [facility] ABORH CONFIRMATION (LAB ONLY) 2022-08-31 02:42:[address] [facility] ABORH CONFIRMATION (LAB ONLY) 2022-08-31 02:42:[address] [facility] ABORH CONFIRMATION (LAB ONLY) 2022-08-31 02:42:[address] [facility] EXPLORATION VESSEL UPPER EXTREMITY 2022-08-31 01:43:[address] [facility] EXTERNAL FIXATOR PLACEMENT FOR UPPER EXTREMITY 2022-08-31 01:43:00 Elyssa [facility] LIGATION VESSEL UPPER EXTREMITY 2022-08-31 01:43:[address] [facility] EXPLORATION VESSEL UPPER EXTREMITY 2022-08-31 01:43:[address] [facility] EXTERNAL FIXATOR PLACEMENT FOR UPPER EXTREMITY 2022-08-31 01:43:[address] [facility] LIGATION VESSEL UPPER EXTREMITY 2022-08-31 01:43:[address] [facility] XR WRIST <3 VW LEFT 2022-08-30 23:25:[address] [facility] XR WRIST <3 VW LEFT 2022-08-30 23:25:[address] [facility] XR WRIST <3 VW LEFT 2022-08-30 23:25:[address] [facility] CBC WITH DIFF 2022-08-30 22:37:00 Henri Phoenix [facility] PROTHROMBIN TIME / INR 2022-08-30 22:37:[address] [facility] ACTIVATED PARTIAL THRMPLAS JEANIE 2022-08-30 22:37:[address] [facility] CBC WITH DIFF 2022-08-30 22:37:00 Henri Phoenix [facility] PROTHROMBIN TIME / INR 2022-08-30 22:37:[address] [facility] ACTIVATED PARTIAL THRMPLAS JEANIE 2022-08-30 22:37:[address] [facility] CBC WITH DIFF 2022-08-30 22:37:00 Henri Phoenix [facility] PROTHROMBIN TIME / INR 2022-08-30 22:37:[address] [facility] ACTIVATED PARTIAL THRMPLAS JEANIE 2022-08-30 22:37:[address] [facility] XR ELBOW <3 VW LEFT 2022-08-30 20:42:[address] [facility] XR FOREARM 2 VW LEFT 2022-08-30 20:42:[address] [facility] XR HAND <3 VW LEFT 2022-08-30 20:42:[address] [facility] XR WRIST <3 VW LEFT 2022-08-30 20:42:[address] [facility] XR ELBOW <3 VW LEFT 2022-08-30 20:42:[address] [facility] XR FOREARM 2 VW LEFT 2022-08-30 20:42:[address] [facility] XR HAND <3 VW LEFT 2022-08-30 20:42:[address] [facility] XR WRIST <3 VW LEFT 2022-08-30 20:42:[address] [facility] XR ELBOW <3 VW LEFT 2022-08-30 20:42:[address] [facility] XR FOREARM 2 VW LEFT 2022-08-30 20:42:[address] [facility] XR HAND <3 VW LEFT 2022-08-30 20:42:[address] [facility] XR WRIST <3 VW LEFT 2022-08-30 20:42:[address] [facility] COMP. METABOLIC PANEL (97715) 2022-08-30 20:21:[address] [facility] COMP. METABOLIC PANEL (54298) 2022-08-30 20:21:[address] [facility] COMP. METABOLIC PANEL (22300) 2022-08-30 20:21:[address] [facility] HB ABO GROUPING 2022-08-30 20:19:00 Henri Phoenix [facility] HB ABO GROUPING 2022-08-30 20:19:00 Henri Phoenix [facility] HB ABO GROUPING 2022-08-30 20:19:00 Henri Phoenix [facility] HOSPITAL ADMISSION 2022-08-30 06:01:00 Doctor Un assigned, [place] [facility] EMERGENCY SERVICES AGREEMENTS AND AUTHORIZATIONS 2022-08-30 06:01:00 Doctor Unassigned, [place] [facility] HOSPITAL ADMISSION 2022-08-30 06:01:00 Doctor Un assigned, [place] [facility] ADMISSION 2022-08-30 06:01:00 Doctor Un assigned, [place] [facility] Encounters Start Date/Time End Date/Time Encounter Type Admission Type Attending [facility] Care Facility Care Department Encounter ID Source 2024-05-02 14:55:00 Outpatient Saida Arana [facility] [id number] [facility] 2023-08-04 08:21:00 Outpatient Saida Arana [facility] [id number] [facility] 2023-06-25 16:29:00 Outpatient Saida Arana [facility] [id number] [facility] 2021-11-26 15:30:02 Outpatient Santizo, Na STLMLC STL[facility] [id number] [facility] 2021-11-25 08:44:00 Outpatient Santizo, Na STLMLC STLMLC [id number] [facility] 2021-10-23 07:18:01 Outpatient Santizo, Na STLMLC STLMLC [id number] [facility] 2021-10-21 09:07:00 Outpatient Santizo, Na STLMLC STLMLC [id number] [facility] 2021-08-21 13:42:36 Outpatient Santizo, Na STLMLC STLMLC [id number] [facility] 2021-08-21 13:22:56 Outpatient Nadeen Santizo STLMLC STLMLC [id number] [facility] 2021-08-21 13:09:15 Outpatient Nadeen Santizo STLMLC STLMLC [id number] [facility] 2021-08-21 12:58:54 Outpatient Nadeen Santizo STLMLC STLMLC [id number] [facility] 2023-05-04 00:00:00 2023-05-04 00:00:00 (TEL) STLMLC STLMLC [id number] [facility] 2022-12-29 14:00:00 2022-12-29 14:00:00 Outpatient R ALEJO PEGUERO [facility] [id number] [facility] 2022-11-05 16:00:00 2022-11-05 23:59:00 Hospital Encounter JosiahkeyAlejo [facility] 1.2.840.114 350.1.13.10 4.2.7.2.686 [id number] [facility] 2022-11-05 15:30:00 2022-11-05 16:42:36 Outpatient R ALEJO PEGUERO [facility] [id number] [facility] 2022-11-05 15:30:00 2022-11-05 16:42:36 Office Visit Alejo Peguero [facility] [place] [facility] 1.2.840.114 350.1.13.10 4.2.7.2.686 [id number] [facility] 2022-11-05 00:00:00 2022-11-05 00:00:00 Telephone Josiahkey [facility] 1.2.840.114 350.1.13.10 4.2.7.2.686 [id number] [facility] 2022-10-22 00:00:00 2022-10-22 00:00:00 Telephone Marielena [facility] 1.2.840.114 350.1.13.10 4.2.7.2.686 [id number] [facility] 2022-10-21 00:00:00 2022-10-21 00:00:00 Telephone JosiahAlejo mackey [facility] 1.2.840.114 350.1.13.10 4.2.7.2.686 [id number] [facility] 2022-10-13 12:50:00 2022-10-13 12:50:00 Outpatient R ALEJO PEGUERO [facility] [id number] [facility] 2022-09-27 00:00:00 2022-09-27 00:00:00 Telephone Alejo Bergeron [facility] 1.2.840.114 350.1.13.10 4.2.7.2.686 [id number] [facility] 2022-09-25 10:54:10 2022-09-25 23:59:00 Hospital Encounter Alejo Bergeron [facility] 1.2.840.114 350.1.13.10 4.2.7.2.686 [id number] [facility] 2022-09-25 09:40:00 2022-09-25 11:58:17 Outpatient R [facility]SSA [facility] [id number] [facility] 2022-09-25 09:40:00 2022-09-25 11:58:17 Office Visit Elyssa [facility] 1.2.840.114 350.1.13.10 4.2.7.2.686 [id number] [facility] 2022-09-25 00:00:00 2022-09-25 00:00:00 Orders Only Doctor Unassigned, [place] [facility] 1.2.840.114 350.1.13.10 4.2.7.2.686 [id number] [facility] 2022-09-09 00:00:00 2022-09-09 00:00:00 Transition of Care Allan [facility] 1.2.840.114 350.1.13.10 4.2.7.2.686 [id number] [facility] 2022-08-30 13:37:00 2022-09-08 18:34:00 Hospital Encounter Henri Phoenix [facility] 1.2840.114 350.1.13.10 4.2.7.2.686 [id number] [facility] 2022-08-30 13:37:00 2022-09-08 18:34:00 Inpatient X ELYSSA [facility] [id number] [facility] 2022-09-04 16:00:00 2022-09-04 18:44:00 Surgery Marielena [facility] 1.2840.114 350.1.13.10 4.2.7.2.686 [id number] [facility] 2022-08-30 18:45:00 2022-08-30 20:22:00 Surgery SlaterHam [facility] 1.2.840.114 350.1.13.10 4.2.7.2.686 [id number] [facility] 2021-11-27 00:00:00 2021-11-27 00:00:00 OFFICE VISIT EST PT LEVEL 3 STLMLC STLMLC [id number] [facility] 2021-11-04 00:00:00 2021-11-04 00:00:00 (TEL) STLMLC STLMLC [id number] [facility] 2021-10-23 00:00:00 2021-10-23 00:00:00 OFFICE VISIT ESTAB PT LEVEL 4 STLMLC STLMLC [id number] [facility] 2021-10-23 00:00:00 2021-10-23 00:00:00 (TEL) STLMLC STLMLC [id number] [facility] 2021-09-30 00:00:00 2021-09-30 00:00:00 (TEL) STLMLC STLMLC [id number] [facility] 2021-02-05 00:00:00 2021-02-05 00:00:00 (TEL) STLMLC STLMLC [id number] [facility] 2020-12-26 00:00:00 2020-12-26 00:00:00 OFFICE VISIT EST PT LEVEL 3 STLMLC STLMLC [id number] [facility] 2020-11-27 00:00:00 2020-11-27 00:00:00 Outpatient STLMLC STLMLC [id number] [facility] 2020-11-27 00:00:00 2020-11-27 00:00:00 OFFICE VISIT EST PT LEVEL 3 STLMLC STLMLC [id number] [facility] 2019-05-31 09:52:00 2019-05-31 09:52:00 [facility] [id number] [facility] 2018-10-21 16:20:00 2018-10-21 16:20:00 [facility] [id number] [facility] 2018-09-27 15:00:00 2018-09-27 15:00:00 Outpatient [facility] [id number] [facility] 2017-11-25 06:50:00 2017-11-25 06:50:00 Outpatient [facility] [id number] [facility] 2017-11-24 15:14:00 2017-11-24 15:14:00 Outpatient [facility] [id number] [facility] 2017-11-10 10:30:00 2017-11-10 10:30:00 Outpatient [facility] [id number] [facility] Results Test Description Test Time Test Comments Results Result Co mments Source [facility] / [id number] 10:45:22* Test Item Value Reference Range Interpretation Comme nts PROTIME PATIENT (test code = 5964-2) 11.2 See_Comment [Automated [employer]] The system which generated this result transmitted reference range: 10.1 - 12.6 Seconds. The reference range was not used to interpret this result as normal/abnormal. INR (test code = 6301-6) 1.0 Normal INR <1.1; Warfarin Therapeutic range 2.0 to 3.0 or 2.5 to 3.5, depending upon the indications. Lab Interpretation (test code = 67501-2) Normal [facility] [id number] 10:45:22* Test Item Value Reference Range Interpretation Comme nts APTT Patient (test code = 3173-2) 29 See_Comment [Automated [employer]] The system which generated this result transmitted reference range: 26 - 36 Seconds. The reference range was not used to interpret this result as normal/abnormal. Lab Interpretation (test code = 36757-9) Normal [facility] Time / [id number] 10:45:22* Test Item Value Reference Range Interpretation Comme nts PROTIME PATIENT (test code = 5964-2) 11.2 See_Comment [Automated [employer]] The system which generated this result transmitted reference range: 10.1 - 12.6 Seconds. The reference range was not used to interpret this result as normal/abnormal. INR (test code = 6301-6) 1.0 Normal INR <1.1; Warfarin Therapeutic range 2.0 to 3.0 or 2.5 to 3.5, depending upon the indications. Lab Interpretation (test code = 50086-5) Normal [facility]OLIC PAN[facility] (NA, K, CL, CO2, GLUCOSE, BUN, CREATININE, CA)2022-09-04 10:44:41* Test Item Value Reference Range Interpretation Comme [facility] NA (test code = 4733027169) 134 mmol/L 135-145 L K (test code = 3965569320) 4.8 mmol/L 3.5-5.0 CL (test code = 6191234549) 103 mmol/L 98-108 CO2 TOTAL (test code = 9087928090) 28 mmol/L 23-31 AGAP (test code = 6520541169) 3 2-16 BUN (test code = 8015798305) 14 mg/dL 7-23 GLUCOSE (test code = 2326018991) 103 mg/dL 70-110 CREATININE (test code = 6854591681) 0.95 mg/dL 0.50-1.04 CALCIUM (test code = 1610239198) 8.2 mg/dL 8.6-10.6 L eGFR (test code = 6271777778) 58.2 mL/min/1.73m2 PRITESH (test code = PRITESH) [...] imaging tests). Lab Interpretation (test code = 08912-5) Abnormal [facility] (NA, K, CL, CO2, GLUCOSE, BUN, CREATININE, CA)2022-09-04 10:44:41* Test Item Value Reference Range Interpretation Comme nts NA (test code = 5128377406) 134 mmol/L 135-145 L K (test code = 3357354595) 4.8 mmol/L 3.5-5.0 CL (test code = 5451432337) 103 mmol/L 98-108 CO2 TOTAL (test code = 6375371827) 28 mmol/L 23-31 AGAP (test code = 6275910077) 3 2-16 BUN (test code = 1946568722) 14 mg/dL 7-23 GLUCOSE (test code = 6361564017) 103 mg/dL 70-110 CREATININE (test code = 8038164996) 0.95 mg/dL 0.50-1.04 CALCIUM (test code = 6836952289) 8.2 mg/dL 8.6-10.6 L eGFR (test code = 7197802552) 58.2 mL/min/1.73m2 PRITESH (test code = PRITESH) [...] imaging tests). Lab Interpretation (test code = 25899-7) Abnormal [facility] WITHOUT [id number] 10:24:39* Test Item Value Reference Range Interpretation [...] result as normal/abnormal. MPV (test code = 95722-3) 8.6 fL 9.5-12.9 L RDW-CV (test code = 788-0) 13.9 % 12.0-15.5 RDW-SD (test code = 89408-7) 46.2 fL 39.0-49.9 NRBC x10^3 (test code = 8428630355) See_Comment [Automated messa ge] The system which generated this result transmitted reference range: 10*3/?L. The reference range was not used to interpret this result as normal/abnormal. NRBC/100 WBC (test code = 1234332933) 0.0 See_Comment [Automated [employer]] The system which generated this result transmitted reference range: 0.0 - 10.0 /100 WBCs. The reference range was not used to interpret this result as normal/abnormal. IPF % (test code = 8156080835) Lab Interpretation (test code = 32702-3) Abnormal [facility] WITHOUT [id number] 10:24:39* Test Item Value Reference Range Interpretation [...] result as normal/abnormal. MPV (test code = 26651-4) 8.6 fL 9.5-12.9 L RDW-CV (test code = 788-0) 13.9 % 12.0-15.5 RDW-SD (test code = 77385-5) 46.2 fL 39.0-49.9 NRBC x10^3 (test code = 1382464689) See_Comment [Automated [employer]] The system which generated this result transmitted reference range: 10*3/?L. The reference range was not used to interpret this result as normal/abnormal. NRBC/100 WBC (test code = 0614451290) 0.0 See_Comment [Automated [employer]] The system which generated this result transmitted reference range: 0.0 - 10.0 /100 WBCs. The reference range was not used to interpret this result as normal/abnormal. IPF % (test code = 8212608816) Lab Interpretation (test code = 26057-2) Abnormal [facility] WITHOUT [id number] 17:35:12* Test Item Value Reference Range Interpretation [...] result as normal/abnormal. MPV (test code = 34293-2) 8.9 fL 9.5-12.9 L RDW-CV (test code = 788-0) 14.1 % 12.0-15.5 RDW-SD (test code = 72260-1) 48.3 fL 39.0-49.9 NRBC x10^3 (test code = 8351247452) See_Comment [Automated [employer]] The system which generated this result transmitted reference range: 10*3/?L. The reference range was not used to interpret this result as normal/abnormal. NRBC/100 WBC (test code = 8148880944) 0.0 See_Comment [Automated [employer]] The system which generated this result transmitted reference range: 0.0 - 10.0 /100 WBCs. The reference range was not used to interpret this result as normal/abnormal. IPF % (test code = 3770336775) Lab Interpretation (test code = 62264-8) Abnormal [facility] WITHOUT [id number] 17:35:12* Test Item Value Reference Range Interpretation [...] result as normal/abnormal. MPV (test code = 35941-9) 8.9 fL 9.5-12.9 L RDW-CV (test code = 788-0) 14.1 % 12.0-15.5 RDW-SD (test code = 59300-5) 48.3 fL 39.0-49.9 NRBC x10^3 (test code = 7354045958) See_Comment [Automated messa ge] The system which generated this result transmitted reference range: 10*3/?L. The reference range was not used to interpret this result as normal/abnormal. NRBC/100 WBC (test code = 5113360402) 0.0 See_Comment [Automated messa ge] The system which generated this result transmitted reference range: 0.0 - 10.0 /100 WBCs. The reference range was not used to interpret this result as normal/abnormal. IPF % (test code = 8481169040) Lab Interpretation (test code = 77438-2) Abnormal [facility] WITHOUT [id number] 17:35:12* Test Item Value Reference Range Interpretation [...] result as normal/abnormal. MPV (test code = 37141-8) 8.9 fL 9.5-12.9 L RDW-CV (test code = 788-0) 14.1 % 12.0-15.5 RDW-SD (test code = 12170-3) 48.3 fL 39.0-49.9 NRBC x10^3 (test code = 9882671591) See_Comment [Automated messa ge] The system which generated this result transmitted reference range: 10*3/?L. The reference range was not used to interpret this result as normal/abnormal. NRBC/100 WBC (test code = 0226331312) 0.0 See_Comment [Automated messa ge] The system which generated this result transmitted reference range: 0.0 - 10.0 /100 WBCs. The reference range was not used to interpret this result as normal/abnormal. IPF % (test code = 2324264032) Lab Interpretation (test code = 12039-5) Abnormal [facility]irm[facility] (Lab Only)2022-08-31 03:15:36* Test Item Value Reference Range Interpretation Comme nts ABO & RH (test code = 20) AB Positive Performed at [facility] Laboratory Services - [facility] Blood [address] Free: [phone] No. [id number] [facility] Confirmation (Lab Only)2022-08-31 03:15:36* Test Item Value Reference Range Interpretation Comme nts ABO & RH (test code = 20) AB Positive Performed at [facility] Laboratory Services - [address] Free: [phone] No. [id number] [facility] Confirmation (Lab Only)2022-08-31 03:15:36* Test Item Value Reference Range Interpretation Comme nts ABO & RH (test code = 20) AB Positive Performed at [facility] Laboratory Services - [address] Free: [phone] No. [id number] [facility] [id number] 22:58:55* Test Item Value Reference Range Interpretation Comme [facility] APTT Patient (test code = 3173-2) 25 See_Comment L [Automated messa ge] The system which generated this result transmitted reference range: 26 - 36 Seconds. The reference range was not used to interpret this result as normal/abnormal. Lab Interpretation (test code = 82683-8) Abnormal [facility] Time / [id number] 22:58:55* Test Item Value Reference Range Interpretation [...] the indications. Lab Interpretation (test code = 39776-6) Normal [facility] [id number] 22:58:55* Test Item Value Reference Range Interpretation Comme [facility] APTT Patient (test code = 3173-2) 25 See_Comment L [Automated messa ge] The system which generated this result transmitted reference range: 26 - 36 Seconds. The reference range was not used to interpret this result as normal/abnormal. Lab Interpretation (test code = 34559-2) Abnormal [facility] Time / [id number] 22:58:55* Test Item Value Reference Range Interpretation [...] the indications. Lab Interpretation (test code = 43357-9) Normal [facility] [id number] 22:58:55* Test Item Value Reference Range Interpretation Comme nts APTT Patient (test code = 3173-2) 25 See_Comment L [Automated messa ge] The system which generated this result transmitted reference range: 26 - 36 Seconds. The reference range was not used to interpret this result as normal/abnormal. Lab Interpretation (test code = 14917-5) Abnormal [facility] Time / [id number] 22:58:55* Test Item Value Reference Range Interpretation [...] the indications. Lab Interpretation (test code = 78597-4) Normal [facility] WITH [id number] 22:56:34* Test Item Value Reference Range Interpretation [...] 32.7 g/dL 31.6-35.1 RDW-SD (test code = 89609-9) 44.8 fL 39.0-49.9 RDW-CV (test code = 788-0) 13.8 % 12.0-15.5 PLT (test code = 777-3) 334 See_Comment [Automated messa ge] The system which generated this result transmitted reference range: 166 - 358 10*3/?L. The reference range was not used to interpret this result as normal/abnormal. MPV (test code = 77436-0) 8.8 fL 9.5-12.9 L NRBC/100 WBC (test code = 0683020636) 0.0 See_Comment [Automated me ssage] The system which generated this result transmitted reference range: 0.0 - 10.0 /100 WBCs. The reference range was not used to interpret this result as normal/abnormal. NRBC x10^3 (test code = 3613274129) See_Comment [Automated messa ge] The system which generated this result transmitted reference range: 10*3/?L. The reference range was not used to interpret this result as normal/abnormal. GRAN MAT (NEUT) % (test code = 770-8) 69.1 % IMM GRAN % (test code = 8433465879) 0.30 % LYMPH % (test code = 736-9) 19.4 % MONO % (test code = 5905-5) 7.3 % EOS % (test code = 713-8) 3.2 % BASO % (test code = 706-2) 0.7 % GRAN MAT x10^3(ANC) (test code = 5843070655) 5.15 10*3/uL 1.88-7.09 IMM GRAN x10^3 (test code = 4591504317) 0.00-0.06 LYMPH x10^3 (test code = 731-0) 1.44 10*3/uL 1.32-3.29 MONO x10^3 (test code = 742-7) 0.54 10*3/uL 0.33-0.92 EOS x10^3 (test code = 711-2) 0.24 10*3/uL 0.03-0.39 BASO x10^3 (test code = 704-7) 0.05 10*3/uL 0.01-0.07 Lab Interpretation (test code = 63526-0) Abnormal [facility] WITH [id number] 22:56:34* Test Item Value Reference Range Interpretation [...] 32.7 g/dL 31.6-35.1 RDW-SD (test code = 18977-0) 44.8 fL 39.0-49.9 RDW-CV (test code = 788-0) 13.8 % 12.0-15.5 PLT (test code = 777-3) 334 See_Comment [Automated messa ge] The system which generated this result transmitted reference range: 166 - 358 10*3/?L. The reference range was not used to interpret this result as normal/abnormal. MPV (test code = 53101-6) 8.8 fL 9.5-12.9 L NRBC/100 WBC (test code = 1890738270) 0.0 See_Comment [Automated me ssage] The system which generated this result transmitted reference range: 0.0 - 10.0 /100 WBCs. The reference range was not used to interpret this result as normal/abnormal. NRBC x10^3 (test code = 7209924746) See_Comment [Automated messa ge] The system which generated this result transmitted reference range: 10*3/?L. The reference range was not used to interpret this result as normal/abnormal. GRAN MAT (NEUT) % (test code = 770-8) 69.1 % IMM GRAN % (test code = 1824475957) 0.30 % LYMPH % (test code = 736-9) 19.4 % MONO % (test code = 5905-5) 7.3 % EOS % (test code = 713-8) 3.2 % BASO % (test code = 706-2) 0.7 % GRAN MAT x10^3(ANC) (test code = 5275121434) 5.15 10*3/uL 1.88-7.09 IMM GRAN x10^3 (test code = 8258714185) 0.00-0.06 LYMPH x10^3 (test code = 731-0) 1.44 10*3/uL 1.32-3.29 MONO x10^3 (test code = 742-7) 0.54 10*3/uL 0.33-0.92 EOS x10^3 (test code = 711-2) 0.24 10*3/uL 0.03-0.39 BASO x10^3 (test code = 704-7) 0.05 10*3/uL 0.01-0.07 Lab Interpretation (test code = 56259-7) Abnormal [facility] WITH [id number] 22:56:34* Test Item Value Reference Range Interpretation [...] 32.7 g/dL 31.6-35.1 RDW-SD (test code = 05566-3) 44.8 fL 39.0-49.9 RDW-CV (test code = 788-0) 13.8 % 12.0-15.5 PLT (test code = 777-3) 334 See_Comment [Automated messa ge] The system which generated this result transmitted reference range: 166 - 358 10*3/?L. The reference range was not used to interpret this result as normal/abnormal. MPV (test code = 07454-0) 8.8 fL 9.5-12.9 L NRBC/100 WBC (test code = 9259334226) 0.0 See_Comment [Automated MediSens ssage] The system which generated this result transmitted reference range: 0.0 - 10.0 /100 WBCs. The reference range was not used to interpret this result as normal/abnormal. NRBC x10^3 (test code = 3185554997) See_Comment [Automated messa ge] The system which generated this result transmitted reference range: 10*3/?L. The reference range was not used to interpret this result as normal/abnormal. GRAN MAT (NEUT) % (test code = 770-8) 69.1 % IMM GRAN % (test code = 5311044658) 0.30 % LYMPH % (test code = 736-9) 19.4 % MONO % (test code = 5905-5) 7.3 % EOS % (test code = 713-8) 3.2 % BASO % (test code = 706-2) 0.7 % GRAN MAT x10^3(ANC) (test code = 8091343502) 5.15 10*3/uL 1.88-7.09 IMM GRAN x10^3 (test code = 4692375353) 0.00-0.06 LYMPH x10^3 (test code = 731-0) 1.44 10*3/uL 1.32-3.29 MONO x10^3 (test code = 742-7) 0.54 10*3/uL 0.33-0.92 EOS x10^3 (test code = 711-2) 0.24 10*3/uL 0.03-0.39 BASO x10^3 (test code = 704-7) 0.05 10*3/uL 0.01-0.07 Lab Interpretation (test code = 74189-7) [facility]normal [facility] - [facility] [id number] 21:05:30* Test Item Value Reference Range Interpretation Comme nts ABO & RH (test code = 20) AB POSITIVE Performed at [facility] Laboratory Services - [facility] Blood [address] Free: [phone] No. [id number] IAT (test code = 1185) Negative Performed at [facility] Laboratory Services - [place] [address]Toll Free: [phone] No. [id number] [facility] and Screen - ONCE [id number] 21:05:30* Test Item Value Reference Range Interpretation Comme nts ABO & RH (test code = 20) AB POSITIVE Performed at [facility] Laboratory Services - [place] [id number] Free: [phone] No. [id number] IAT (test code = 1185) Negative Performed at [facility] Laboratory Services [address] [address]Pu[address] Free: [phone] No. [id number] [facility] - ONCE [id number] 21:05:30* Test Item Value Reference Range Interpretation Comme nts ABO & RH (test code = 20) AB POSITIVE Performed at [facility] Laboratory Services [place] [address]Toll Free: [phone] No. [id number] IAT (test code = 1185) Negative Performed at [facility] Laboratory Services - [address] [address]Ewdj Free: [phone] No. [id number] [facility] METABOLIC PANEL ([id number])2022-08-30 20:43:30* Test Item Value Reference Range Interpretation Comme nts NA (test code = 1670049626) 140 mmol/L 135-145 K (test code = 4316420438) 4.0 mmol/L 3.5-5.0 CL (test code = 3572389546) 109 mmol/L 98-108 H CO2 TOTAL (test code = 3537808916) 21 mmol/L 23-31 L AGAP (test code = 8768366772) 10 2-16 BUN (test code = 6617862426) 15 mg/dL 7-23 GLUCOSE (test code = 0431822958) 106 mg/dL 70-110 CREATININE (test code = 3810009545) 0.76 mg/dL 0.50-1.04 TOTAL BILI (test code = 1321024141) 0.5 mg/dL 0.1-1.1 CALCIUM (test code = 4993639926) 8.6 mg/dL 8.6-10.6 T PROTEIN (test code = 8534525108) 6.7 g/dL 6.3-8.2 ALBUMIN (test code = 7835819081) 3.9 g/dL 3.5-5.0 ALK PHOS (test code = 9521136790) 79 U/L 34-122 ALTv (test code = 1742-6) 27 U/L 5-35 AST(SGOT) (test code = 8794044001) 47 U/L 13-40 H eGFR (test code = 6942635486) 75.2 mL/min/1.73m2 PRITESH (test code = PRITESH) [...] imaging tests). Lab Interpretation (test code = 77802-7) Abnormal [facility]. METABOLIC PANEL ([id number])2022-08-30 20:43:30* Test Item Value Reference Range Interpretation Comme nts NA (test code = 0942458465) 140 mmol/L 135-145 K (test code = 7283591472) 4.0 mmol/L 3.5-5.0 CL (test code = 5977080518) 109 mmol/L 98-108 H CO2 TOTAL (test code = 1131132956) 21 mmol/L 23-31 L AGAP (test code = 2214143254) 10 2-16 BUN (test code = 9753655618) 15 mg/dL 7-23 GLUCOSE (test code = 8437804150) 106 mg/dL 70-110 CREATININE (test code = 2758300049) 0.76 mg/dL 0.50-1.04 TOTAL BILI (test code = 4316816313) 0.5 mg/dL 0.1-1.1 CALCIUM (test code = 4284810210) 8.6 mg/dL 8.6-10.6 T PROTEIN (test code = 5565635827) 6.7 g/dL 6.3-8.2 ALBUMIN (test code = 1808765936) 3.9 g/dL 3.5-5.0 ALK PHOS (test code = 1896576297) 79 U/L 34-122 ALTv (test code = 1742-6) 27 U/L 5-35 AST(SGOT) (test code = 3722611087) 47 U/L 13-40 H eGFR (test code = 0960407749) 75.2 mL/min/1.73m2 PRITESH (test code = PRITESH) [...] imaging tests). Lab Interpretation (test code = 26642-2) Abnormal [facility]. METABOLIC PANEL ([id number])2022-08-30 20:43:30* Test Item Value Reference Range Interpretation Comme nts NA (test code = 3075964638) 140 mmol/L 135-145 K (test code = 3432949225) 4.0 mmol/L 3.5-5.0 CL (test code = 5284148475) 109 mmol/L 98-108 H CO2 TOTAL (test code = 4991299396) 21 mmol/L 23-31 L AGAP (test code = 4216197868) 10 2-16 BUN (test code = 1172740590) 15 mg/dL 7-23 GLUCOSE (test code = 6779997343) 106 mg/dL 70-110 CREATININE (test code = 0439107923) 0.76 mg/dL 0.50-1.04 TOTAL BILI (test code = 0703593856) 0.5 mg/dL 0.1-1.1 CALCIUM (test code = 1603599363) 8.6 mg/dL 8.6-10.6 T PROTEIN (test code = 9656227958) 6.7 g/dL 6.3-8.2 ALBUMIN (test code = 5952357000) 3.9 g/dL 3.5-5.0 ALK PHOS (test code = 4596052095) 79 U/L 34-122 ALTv (test code = 1742-6) 27 U/L 5-35 AST(SGOT) (test code = 2301791655) 47 U/L 13-40 H eGFR (test code = 0766907973) 75.2 mL/min/1.73m2 PRITESH (test code = PRITESH) [...] imaging tests). Lab Interpretation (test code = 67759-0) Abnormal [facility]"
--- NOTE | 2024-06-20 23:57 | EDPHYS ---
Physician Documentation [facility] Name: Jose Enrique Yin Age: 74 yrs Sex: Female : 1950 Arrival Date: 06/20/2024 Time: 23:24 Bed 3 Private MD: ED Physician Lefty Lovelace HPI: 06/21 01:20 This 74 yrs old Female presents to ER via Wheelchair with complaints of Pain All Over, rt Headache, High Blood Pressure. 01:20 Patient with history of rheumatoid arthritis, hypertension presents to the ED with pain rt to her entire body. Is requesting refills of those. Has an appoint with her primary care on July 28. Which is consistent with previous episodes of rheumatoid arthritis flares. Patient also states that she has not had her blood pressure medicines in over a monthDenies other acute complaints at this time, symptoms are moderate severity, aching nature, no other aggravating or alleviating factors.. Historical: - Allergies: 06/20 23:44 Codeine; ha1 - PMHx: 23:44 Arthritis; Hypertensive disorder; ha1 - PSHx: 23:44 left arm; ha1 - Immunization history:: Adult Immunizations up to date. - Infectious Disease History:: Denies. - Social history:: Smoking status: Patient reports the use of cigarette tobacco products, smokes one-half pack cigarettes per day. - Family history:: not pertinent. ROS: 06/21 01:20 Cardiovascular: Negative for chest pain, palpitations, and edema, Respiratory: Negative rt for shortness of breath, cough, wheezing, and pleuritic chest pain, Abdomen/GI: Negative for abdominal pain, nausea, vomiting, diarrhea, and constipation, Skin: Negative for injury, rash, and discoloration, Constitutional: Positive for body aches, Negative for fatigue, Exam: 01:20 Constitutional: This is a well developed, well nourished patient who is awake, alert, rt and in no acute distress. Head/Face: Normocephalic, atraumatic. Chest/axilla: Normal chest wall appearance and motion. Nontender with no deformity. No lesions are appreciated. Cardiovascular: Regular rate and rhythm with a normal S1 and S2. No gallops, murmurs, or rubs. Normal PMI, no JVD. No pulse deficits. Respiratory: Lungs have equal breath sounds bilaterally, clear to auscultation and percussion. No rales, rhonchi or wheezes noted. No increased work of breathing, no retractions or nasal flaring. Abdomen/GI: Soft, non-tender, with normal bowel sounds. No distension or tympany. No guarding or rebound. No evidence of tenderness throughout. Skin: Warm, dry with normal turgor. Normal color with no rashes, no lesions, and no evidence of cellulitis. MS/ Extremity: Pulses equal, no cyanosis. Neurovascular intact. Full, normal range of motion. Vital Signs: 06/20 23:00 BP 185 / 98; Pulse 79; Resp 17 S; Temp 97.6(T); Pulse Ox 99% on R/A; Weight 61.23 kg; ha1 Height 5 ft. 2 in. ; 06/21 00:42 BP 187 / 97; Pulse 70; Resp 18; Temp 98.4; Pulse Ox 99% on R/A; Pain 0/10; mt4 06/20 23:00 Body Mass Index 24.69 (61.23 kg, 157.48 cm) ha1 06/21 00:42 Pain Scale: Adult mt4 MDM: 06/20 23:50 Medical Screening Exam initiated rt 06/21 01:20 Differential diagnosis: Hypertension, rheumatoid arthritis. Data reviewed: vital signs, rt nurses notes. I considered the following discharge prescriptions or medication management in the emergency department Medications were administered in the Emergency Department. See MAR. Test considered but Not performed: Other Details Patient denies any chest pain or shortness of breath, hypertension is asymptomatic, labs, EKG, imaging are not indicated. Care significantly affected by the following chronic conditions: Hypertension. Counseling: I had a detailed discussion with the patient and/or guardian regarding the historical points, exam findings, and any diagnostic results supporting the discharge/admit diagnosis, the presence of at least one elevated blood pressure reading (>120/80) during this emergency department visit, the need for outpatient follow up, to return to the emergency department if symptoms worsen or persist or if there are any questions or concerns that arise at home. Response to treatment: the patient's symptoms have markedly improved after treatment. Administered Medications: 00:05 Drug: Lisinopril PO 20 mg PO once Route: PO; cp4 00:36 Follow up: Response: No adverse reaction mt4 00:05 Drug: Dexamethasone IM 10 mg IM once Route: IM; Site: Ventrogluteal RIGHT; cp4 00:36 Follow up: Response: No adverse reaction mt4 00:05 Drug: Ketorolac IM 30 mg IM once Route: IM; Site: right ventrogluteal; cp4 00:36 Follow up: Response: No adverse reaction mt4 Disposition Summary: 06/20/24 23:57 Discharge Ordered Notes: Location: Home rt Problem: new rt Symptoms: have improved rt Condition: Stable rt Diagnosis - Essential (primary) hypertension rt - Rheumatoid arthritis, unspecified rt Followup: rt - With: Private Physician - When: 2 - 3 days - Reason: Discharge Instructions: - Discharge Summary Sheet rt - Hypertension, Adult rt - Rheumatoid Arthritis rt Forms: - Medication Reconciliation Form rt - Antibiotic Education rt - Prescription Opioid Use rt - Patient Portal Instructions rt - Leadership Thank You Letter rt Prescriptions: - Lisinopril 20 mg Oral tablet - take 1 tablet ORAL route once daily; 45 tablet; Refills: 0, Product Selection rt Permitted - Diclofenac Sodium 75 mg Oral Tablet Sustained Release - take 1 tablet ORAL route 2 times per day; 30 tablet; Refills: 0, Product rt Selection Permitted - Prednisone 20 mg Oral Tablet - take 2 tablets ORAL route once daily for 5 days; 10 tablet; Refills: 0, Product rt Selection Permitted Signatures: Molly Oneill RN RN ha1 Lefty Lovelace MD MD rt Potter, Christina cp4 Hugo Conteh RN mt4
--- NOTE | 2024-06-20 23:57 | ER ---
Nurse's Notes [facility] Name: Jose Enrique Yin Age: 74 yrs Sex: Female : 1950 Arrival Date: 06/20/2024 Time: 23:24 Bed 3 Private MD: Diagnosis: Essential (primary) hypertension;Rheumatoid arthritis, unspecified Presentation: 06/20 23:00 Chief complaint: Patient states: PAIN ALL OVER MY BODY DUE MY ARTHRITIS, OUT OF BLOOD ha1 PRESSURE MEDICATION. 23:00 Coronavirus screen: Vaccine status: Patient reports being unvaccinated. Ebola Screen: ha1 No symptoms or risks identified at this time. Initial Sepsis Screen: Does the patient meet any 2 criteria? No. Patient's initial sepsis screen is negative. Does the patient have a suspected source of infection? No. Patient's initial sepsis screen is negative. Risk Assessment: Do you want to hurt yourself or someone else? Patient reports no desire to harm self or others. Onset of symptoms was June 20, 2024. 23:00 Method Of Arrival: Wheelchair ha1 23:00 Acuity: YONAS 4 ha1 Triage Assessment: 06/21 00:43 Headache History: Denies prior headaches. Headache History: The patient has had mt4 previous headaches and this one is similar to previous episodes. General: Appears in no apparent distress. comfortable. Pain: Also complains of. Pain: Complains of pain in Generalized arthristis pain from head to toe as patient states Pain currently is 9 out of 10 on a pain scale. Pain began gradually. Neuro: Level of Consciousness is awake, alert, obeys commands, Oriented to person, place, time, situation, Gait is steady. Historical: - Allergies: 06/20 23:44 Codeine; ha1 - PMHx: 23:44 Arthritis; Hypertensive disorder; ha1 - PSHx: 23:44 left arm; ha1 - Immunization history:: Adult Immunizations up to date. - Infectious Disease History:: Denies. - Social history:: Smoking status: Patient reports the use of cigarette tobacco products, smokes one-half pack cigarettes per day. - Family history:: not pertinent. Screenin/26 00:09 [facility] ED Fall Risk Assessment (Adult) History of falling in the last 3 months, cp4 including since admission No falls in past 3 months (0 pts) Confusion or Disorientation No (0 pts) Intoxicated or Sedated No (0 pts) Impaired Gait No (0 pts) Mobility Assist Device Used No (0 pt) Altered Elimination No (0 pt) Score/Fall Risk Level 0 - 2 = Low Risk Oriented to surroundings, Maintained a safe environment, Assessed \\T\\ reinforced patient's understanding of fall precautions, Hourly rounding (assess needs \\T\\ fall precautionary measures) done. Abuse screen: Denies threats or abuse. Nutritional screening: No deficits noted. Tuberculosis screening: No symptoms or risk factors identified. Assessment: 00:09 General: Appears in no apparent distress. uncomfortable, Behavior is calm, cooperative, cp4 appropriate for age. Pain: Complains of pain in "all over". Neuro: Level of Consciousness is awake, alert, obeys commands, Oriented to person, place, time, situation. Cardiovascular: Patient's skin is warm and dry. Respiratory: Airway is patent Respiratory effort is even, unlabored. GI: No signs and/or symptoms were reported involving the gastrointestinal system. : No signs and/or symptoms were reported regarding the genitourinary system. EENT: No signs and/or symptoms were reported regarding the EENT system. Derm: No signs and/or symptoms reported regarding the dermatologic system. Musculoskeletal: No signs and/or symptoms reported regarding the musculoskeletal system. 00:11 Reassessment: Disposition pending. Patient on shot time. cp4 Vital Signs: 06/20 23:00 BP 185 / 98; Pulse 79; Resp 17 S; Temp 97.6(T); Pulse Ox 99% on R/A; Weight 61.23 kg; ha1 Height 5 ft. 2 in. ; 06/21 00:42 BP 187 / 97; Pulse 70; Resp 18; Temp 98.4; Pulse Ox 99% on R/A; Pain 0/10; mt4 06/20 23:00 Body Mass Index 24.69 (61.23 kg, 157.48 cm) ha1 06/21 00:42 Pain Scale: Adult mt4 ED Course: 06/20 23:27 Patient arrived in ED. jj6 23:27 Lefty Lovelace MD is Attending Physician. rt 23:44 Triage completed. ha1 06/21 00:05 Ellen Godoy is Primary Nurse. cp4 00:09 Bed in low position. Call light in reach. Side rails up X 1. cp4 00:09 No provider procedures requiring assistance completed. Patient did not have IV access cp4 during this emergency room visit. 00:43 Arm band placed on right wrist. mt4 00:45 Provided Education on: meds. mt4 Administered Medications: 00:05 Drug: Lisinopril PO 20 mg PO once Route: PO; cp4 00:36 Follow up: Response: No adverse reaction mt4 00:05 Drug: Dexamethasone IM 10 mg IM once Route: IM; Site: Ventrogluteal RIGHT; cp4 00:36 Follow up: Response: No adverse reaction mt4 00:05 Drug: Ketorolac IM 30 mg IM once Route: IM; Site: right ventrogluteal; cp4 00:36 Follow up: Response: No adverse reaction mt4 Medication: 00:09 VIS not applicable for this client. cp4 Outcome: 06/20 23:57 Discharge ordered by . rt 06/21 00:43 Admitted to ks4 Condition: stable Discharge instructions given to patient, Instructed on discharge instructions, follow up and referral plans. medication usage, Demonstrated understanding of instructions, follow-up care, medications, Prescriptions given X 3, 00:45 Patient left the ED. mt4 Signatures: Fatimah Bueno jj6 Molly Oneill, RN RN 1 Lefty Lovelace MD MD rt Potter, Christina cp4 Hugo Conteh RN RN mt4
[2024-06-20] MEDS ORDERED: KETOROLAC 30 MG/ML INJ ONE (23:59)
[2024-06-20] MEDS ORDERED: lisinopriL 20 MG TAB ONE (23:59)
[2024-06-20] MEDS ORDERED: dexAMETHasone 10 MG/ML VIAL ONE (23:59)
[2024-06-21 07:59] VITALS: BP 187/97; TEMP 98.4; O2SAT 99
== END 2024-06-21 00:45 | disposition home or self-care (01) ==
LOC: ER 23:24
DX: I10 Essential (primary) hypertension (principal); M06.9 Rheumatoid arthritis, unspecified; F17.210 Nicotine dependence, cigarettes, uncomplicated
CPT/HCPCS: 96372; 99285; J1100

== ENCOUNTER 2024-09-30 10:53 | Observation (INO) | payer OTHER ==
--- OUTSIDE RECORDS SUMMARY | 2024-09-30 10:58 | XMS REPORT | Continuity of Care Document ---
Author Name Unknown Address [address] [facility] [address] [place] [address] [facility] [place] Address [address] [facility] [address] [facility] [address] [place] [address] Care Team Providers Care Treasurer Name Role Phone GAYLE, NADEEN Primary Care Physician Unavailab Saida Sorensen Attending Clinician Unavailable Nadeen Santizo L Attending Clinician Unavailable ALEJO PEGUERO Attending Clinician Unavailable ALEJO BERGERON Attending Clinician Unavailable Alejo Peguero MD Attending Clinician [phone] Elyssa DONAHUE MD, John Attending Clinician [phone] Doctor Unassigned, Tancred Attending Clinician U more Peñaloza RN, Allan Rodriguez Attending Clinician Unavail jenna Phoenix MD, Henri Castro Attending Clinician [phone] Nohemy CESAR, Ham Attending Clinician [phone] Elyssa DONAHUE MD, John Admitting Clinician [phone] ALEJO BERGERON Admitting Clinician Unavailable Payers Payer Name Policy Type Policy Number Effective Date Expirati on Date Source [facility] DUAL COMP HMO D [facility] [id number] 2022 00:00:00 [place] [id number] 2022 00:00:00 [employer] MEDICARE C1 [id number] 2020 00:00:00 [facility] HUMAN MEDICARE C1 [id number] 2020 00:00:00 [facility] MEDICARE C1 [id number] 2020 00:00:00 [facility] Problems Condition Name Condition Details Condition Category Status Onset Date Resolution Date Last Treatment Date Treating Clinician Comments Source Osteoporos is Osteoporos is Disease Recurre nce 09-01 00:00: 00 [facility] 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 Active 08-30 00:00: 00 [facility] Open fracture of left wrist, initial encounter Open fracture of left wrist, initial encounter Disease Active 08-30 00:00: 00 [facility] Disorder of cardiovasc ular system Circulatio n problem Problem [facility] [id number] Primary osteoarthr itis involving multiple joints Problem [facility] [id number] Osteoarthr itis of multiple joints, unspecifie d osteoarthr itis type Problem [facility] Chronic pain Other chronic pain Problem [facility] Migraine Migraines Problem Commo n [facility] Hepatitis Hepatitis Problem Comm on [facility] [id number] Current moderate episode of major depressive disorder without prior episode Problem Common [facility] Kidney stone Kidney stones Problem [facility] Localized, primary osteoarthr itis of the pelvic region and thigh Osteoarthr itis of right hip, unspecifie d osteoarthr itis type Problem [facility] Swelling Swelling Problem [facility] Unsteady gait Unsteady gait Problem [facility] Osteopenia Osteopenia Problem Co mmon [facility] Hypertensi on HTN (hypertens ion) Problem [facility] Anxiety Anxiety Problem [facility] [id number] Depression , recurrent Problem [facility] Allergies, Adverse Reactions, Alerts Allergy Name Allergy Type Status Severity Reaction(s) Onset Date Inactive Date Treating Clinician Comments Source CODEINE DRUG INGREDI Active N/V 03-14 00:00: 00 [facility] Codeine Propensi ty to adverse reaction s Active Nausea and/or Vomiting 03-14 00:00: 00 [facility] Social History Social Habit Start Date Stop Date Quantity Comments Source History SDOH Alcohol Frequency [facility] History SDOH Social Connections Get Together [facility] History SDOH Social Connections [facility] History SDOH Social Connections Membership [facility] History SDOH Social Connections Meetings [facility] History of tobacco use Cigarette Smoker [facility] Exposure to SARS-CoV-2 (event) 2022-10-26 00:00:00 2022-11-05 15:21:00 Not sure [facility] Tobacco use and exposure 2022-08-31 00:00:00 2022-08-31 00:00:00 User of smokeless tobacco [facility] History SDOH Alcohol Std Drinks 2022-08-31 00:00:00 2022-08-31 00:00:00 0 [facility] History SDOH Alcohol Binge 2022-08-31 00:00:00 2022-08-31 00:00:00 1 [facility] History SDOH Social Connections Phone 2022-08-31 00:00:00 2022-08-31 00:00:00 5 [facility] History SDOH Social Connections Living 2022-08-31 00:00:00 2022-08-31 00:00:00 4 [facility] History SDOH Physical Activity DPW 2022-08-31 00:00:00 2022-08-31 00:00:00 0 [facility] History SDOH Physical Activity MPS 2022-08-31 00:00:00 2022-08-31 00:00:00 0 [facility] History SDOH Financial 2022-08-31 00:00:00 2022-08-31 00:00:00 2 [facility] History SDOH Food Worry 2022-08-31 00:00:00 2022-08-31 00:00:00 3 [facility] History SDOH Food Scarcity 2022-08-31 00:00:00 2022-08-31 00:00:00 2 [facility] History SDOH Transport Med 2022-08-31 00:00:00 2022-08-31 00:00:00 2 [facility] History SDOH Transport Non-Med 2022-08-31 00:00:00 2022-08-31 00:00:00 2 [facility] Sex Assigned At 1950 00:00:00 1950 00:00:00 [facility] Smoking Status Start Date Stop Date Source Smokes tobacco daily 2022-08-31 00:00:00 [facility] Never Smoker [facility] Medications Ordered Medication Name Filled Medication Name Start Date Stop Date Current Medication? Ordering Clinician Indication Dosage Frequency Signature (SIG) Comments Components Source traMADoL 50 mg tablet 11-09 00:00: 00 11-17 04:59 :00 No [id number] 50mg Take 1 tablet by mouth every 6 (six) hours as needed for Pain (scale 7-10) for up to 7 days. Indication s: acute pain [facility] gabapentin 300 mg capsule 11-05 00:00: 00 Yes [id number] 300mg Take 1 capsule by mouth at bedtime. [facility] traMADoL 50 mg tablet 11-05 00:00: 00 11-13 04:59 :00 No 4647 50mg Take 1 tablet by mouth every 6 (six) hours as needed for Pain (scale 7-10) for up to 7 days. Indication s: acute pain [facility] HYDROcodone -acetaminop hen (NORCO) 10-325 mg tablet 09-27 00:00: 00 09-27 00:00 :00 No 4647 1{tbl} Take 1 tablet by mouth every 6 (six) hours as needed for Pain (scale 7-10) for up to 7 days. Indication s: acute pain [facility] HYDROcodone -acetaminop hen (NORCO) 5-325 mg tablet 09-25 00:00: 00 10-03 05:59 :00 No 4647 1{tbl} Take 1 tablet by mouth every 6 (six) hours as needed for Pain (scale 7-10) for up to 7 days. Indication s: acute pain [facility] gabapentin 300 mg capsule 09-08 18:34: 36 Yes 300mg Take 300 mg by mouth in the morning. [facility] methocarbam oL 750 mg tablet 09-08 00:00: 00 10-09 04:59 :00 No [id number] 750mg Take 1 tablet by mouth in the morning and 1 tablet at noon and 1 tablet in the evening. Do all this for 30 days. [facility] docusate 100 mg capsule 09-08 00:00: 00 09-24 05:59 :00 No [id number] 100mg Take 1 capsule by mouth in the morning and 1 capsule in the evening. Do all this for 15 days. [facility] gabapentin 300 mg capsule 09-08 00:00: 00 09-23 05:59 :00 No [id number] 300mg Take 1 capsule by mouth in the morning and 1 capsule at noon and 1 capsule in the evening. Do all this for 14 days. [facility] traMADoL 50 mg tablet 09-08 00:00: 00 09-16 05:59 :00 No 4647 50mg Take 1 tablet by mouth every 6 (six) hours as needed for Pain (scale 4-6) or Pain (scale 7-10) for up to 7 days. Indication s: acute pain [facility] HYDROcodone -acetaminop hen 10-325 mg tablet 09-08 00:00: 00 09-16 05:59 :00 No 4647 1{tbl} Take 1 tablet by mouth every 6 (six) hours as needed for Pain (scale 4-6) or Pain (scale 7-10) for up to 7 days. Indication s: acute pain [facility] ondansetron (ZOFRAN) 4 mg tablet 09-08 00:00: 00 09-14 05:59 :00 No [id number] 4mg Take 1 tablet by mouth every 6 (six) hours for 20 doses. [facility] polyethylen e glycol 3350 powder 17 g 09-07 13:30: 00 Yes 17g 17 g, Oral, DAILY, First dose on Thu09/07/22 at 0730, Until Discontinu ed, Routine [facility] glycerin/mi neral oil (AGLO ENEMA) (COMPOUNDED ) Enem 225 mL 09-07 13:26: 01 Yes 225mL 225 mL, Rectal, PRN, Starting on Thu09/07/22 at 0726, Until Discontinu ed, Routine, Constipati on unresolved by oral medication s [facility] bisacodyL (DULCOLAX) suppository 10 mg 09-07 13:25: 35 Yes 10mg 10 mg, Rectal, QHSPRN, Starting on Thu09/07/22 at 0725, Until Discontinu ed, Routine, Constipati on, Constipati on unresolved by oral medication s [facility] morpHINE (2 mg/mL) injection 2 mg 09-06 05:59: 18 Yes 2mg 2 mg, Slow IV Push, Q6HPRN, Starting on Thu09/05/22 at 2359, Until Discontinu ed, Routine, give for breakthrou gh pain after first line oral pain medication s have been given [facility] HYDROmorphO ne (DILAUDID) injection 0.2 mg 09-05 00:27: 50 09-05 03:07 :32 No .2mg 0.2 mg, Slow IV Push, Q5MIN PRN, 10 doses, Starting on Sanjuana 09/04/22 at 1827, Until Sanjuana 09/04/22 at 2107, Routine, Pain (scale 7-10), PACU
Us e approved by (Faculty): PACU USE -ANESTHESI A SERVICE-HY DROMORPHON E INJECTIONS [facility] gabapentin 300 mg capsule 09-04 21:07: 32 Yes 300mg Take 300 mg by mouth in the morning. [facility] diphenhydrA MINE (BENADRYL) tablet 25 mg 09-04 02:22: 33 Yes 25mg 25 mg, Oral, Q4HPRN, Starting on Thu09/03/22 at 2022, Until Discontinu ed, Routine, Itching [facility] enoxaparin 30 mg/0.3 mL injection 09-04 00:00: 00 10-31 04:59 :00 No [id number] 30mg inject 0.3 mL under the skin every 12 (twelve) hours for 56 days. [facility] butalbital- acetaminoph en-caff (ESGIC) 50-325-40 mg tablet 1 tablet 09-03 17:12: 19 Yes 1{tbl} 1 tablet, Oral, QDAILYPRN, Starting on Thu09/03/22 at 1112, Until Discontinu ed, Routine, headache [facility] gabapentin (NEURONTIN) capsule 300 mg 09-02 20:00: 00 Yes 300mg 300 mg, Oral, TID, First dose (after last modificati on) on Thu09/02/22 at 1400, Until Discontinu ed, Routine [facility] HYDROcodone -acetaminop hen (NORCO) 10-325 mg tablet 1 tablet 09-02 15:20: 32 Yes 1{tbl} 1 tablet, Oral, Q6HPRN, Starting on Thu09/02/22 at 0920, Until Discontinu ed, Routine, Pain (scale 4-6) [facility] enoxaparin (LOVENOX) injection 30 mg 09-02 14:00: 00 Yes 30mg 30 mg, Subcutaneo us, Q12H, First dose on Thu09/02/22 at 0800, Until Discontinu ed, Routine [facility] methocarbam oL (ROBAXIN) tablet 750 mg 09-02 14:00: 00 Yes 750mg 750 mg, Oral, QID, First dose (after last modificati on) on Thu09/02/22 at 0800, Until Discontinu ed, Routine [facility] methocarbam oL (ROBAXIN) tablet 750 mg 09-02 14:00: 00 Yes 750mg 750 mg, Oral, QID, First dose (after last modificati on) on Thu09/02/22 at 0800, Until Discontinu ed, Routine [facility] HYDROcodone -acetaminop hen (NORCO 5) 5-325 mg tablet 1 tablet 09-02 13:15: 00 09-02 15:13 :32 No 1{tbl} 1 tablet, Oral, Q4HPRN, Starting on Thu09/02/22 at 0715, Until Thu09/02/22 at 0913, Routine, Pain (scale 4-6) [facility] NaCl 0.9% (NS) injection 10 mL 09-02 13:13: 36 Yes 10mL 10 mL, Slow IV Push, PRN, Starting on Thu09/02/22 at 0713, Until Discontinu ed, Routine, line maintenanc e [facility] gabapentin (NEURONTIN) capsule 300 mg 09-02 02:00: 00 09-02 15:13 :33 No 300mg 300 mg, Oral, BID, First dose (after last modificati on) on Thu09/01/22 at 2000, Until Discontinu ed, Routine [facility] NaCl 0.9% (NS) injection 10 mL 09-01 15:09: 49 Yes 10mL 10 mL, Slow IV Push, PRN, Starting on Thu09/01/22 at 0909, Until Discontinu ed, Routine, line maintenanc e [facility] lidocaine 1% (PF) (XYLOCAINE) injection 5 mL 09-01 15:09: 49 Yes 5mL 5 mL, Subcutaneo us, PRN, Starting on Thu09/01/22 at 0909, Until Discontinu ed, Routine, Local anesthesia [facility] melatonin (MELATIN) tablet 3 mg 09-01 03:00: 00 Yes 3mg 3 mg, Oral, QHS, First dose on Thu08/31/22 at 2100, Until Discontinu ed, Routine [facility] methocarbam oL (ROBAXIN) tablet 500 mg 08-31 17:15: 00 09-02 13:10 :43 No 500mg 500 mg, Oral, QID, First dose on 08/31/22 at 1115, Until Discontinu ed, Routine [facility] ipratropium -albuteroL (DUONEB) 0.5 mg-3 mg(2.5 mg base)/3 mL nebulizer solution 3 mL 08-31 05:45: 00 08-31 05:11 :00 No 3mL 3 mL, Inhalation , ONCE, 1 dose, On 08/30/22 at 2345, Routine, PACU [facility] polyethylen e glycol 3350 powder 17 g 08-31 04:53: 53 Yes 17g 17 g, Oral, QDAILYPRN, Starting on 08/30/22 at 2253, Until Discontinu ed, Routine, Constipati on [facility] traMADoL (ULTRAM) tablet 50 mg 08-31 04:53: 52 Yes 50mg 50 mg, Oral, Q4HPRN, Starting on 08/30/22 at 2253, Until Discontinu ed, Routine, Pain (scale 7-10) [facility] ondansetron (ZOFRAN-ODT ) disintegrat ing tablet 4 mg 08-31 04:53: 52 Yes 4mg 4 mg, Oral, Q6HPRN, Starting on 08/30/22 at 2253, Until Discontinu ed, Routine, Nausea and Vomiting (N/V) [facility] HYDROcodone -acetaminop hen (NORCO 5) 5-325 mg tablet 1 tablet 08-31 04:53: 52 09-02 13:11 :09 No 1{tbl} 1 tablet, Oral, Q6HPRN, Starting on 08/30/22 at 2253, Until 09/02/22 at 0711, Routine, Pain (scale 4-6) [facility] lactated ringers IV infusion 1,000 mL 08-31 04:45: 00 Yes 1000mL at 75 mL/hr, 1,000 mL, IV Infusion, CONTINUOUS , Starting on 08/30/22 at 2245, Until Discontinu ed, Routine, PACU [facility] FENTanyl PF (SUBLIMAZE (PF)) injection 25 mcg 08-31 04:41: 58 08-31 07:00 :00 No 25ug 25 mcg, Slow IV Push, Q5MIN PRN, 4 doses, Starting on 08/30/22 at 2241, Until Discontinu ed, Routine, Pain (scale 4-6), PACU [facility] morpHINE (4 mg/mL) injection 4 mg 08-31 01:30: 00 08-31 01:21 :00 No 4mg 4 mg, Slow IV Push, ONCE, 1 dose, On 08/30/22 at 1930, STAT [facility] morpHINE (2 mg/mL) injection 6 mg 08-31 00:30: 00 08-30 23:30 :00 No 6mg 6 mg, Slow IV Push, ONCE, 1 dose, On 08/30/22 at 1830, STAT [facility] diphenhydrA MINE (BENADRYL) injection 25 mg 08-30 23:45: 00 08-30 23:43 :00 No 25mg 25 mg, Slow IV Push, ONCE, 1 dose, On 08/30/22 at 1745, STAT [facility] proMETHazin e (PHENERGAN) 12.5 mg in NS 50 mL IV piggyback (CNR) 08-30 23:30: 00 08-30 23:58 :00 No 12.5mg 12.5 mg, IV Piggyback, at 200 mL/hr Administer over 15 Minutes, ONCE, 1 dose, On 08/30/22 at 1730, MARTHA [facility] FENTanyl PF (SUBLIMAZE (PF)) injection 150 mcg 08-30 22:15: 00 08-30 23:15 :00 No 150ug 150 mcg, Slow IV Push, ONCE, 1 dose, On 08/30/22 at 1615, Routine [facility] Lisinopril Lisinopril 09-27 00:00: 00 Yes Na Santizo 1 tablet [facility] Bactrim DS 800-160 MG Bactrim DS 800-160 [...] Systolic blood pressure 2022-11-05 20:31:00 171 mm[Hg] [facility] Diastolic blood pressure 2022-11-05 20:31:00 99 mm[Hg] [facility] Heart rate 2022-11-05 20:31:00 90 /min [facility] Body temperature 2022-11-05 20:31:00 36.72 [facility] Body height 2022-11-05 20:31:00 154.9 cm [facility] Body weight 2022-11-05 20:31:00 57.153 kg [facility] BMI 2022-11-05 20:31:00 23.81 kg/m2 [facility] Body temperature 2022-09-25 16:44:00 36.67 [facility] Body height 2022-09-25 16:44:00 154.9 cm [facility] Body weight 2022-09-25 16:44:00 59.875 kg [facility] BMI 2022-09-25 16:44:00 24.94 kg/m2 [facility] Systolic blood pressure 2022-09-08 22:22:00 138 mm[Hg] [facility] Diastolic blood pressure 2022-09-08 22:22:00 81 mm[Hg] [facility] Heart rate 2022-09-08 22:22:00 66 /min [facility] Body temperature 2022-09-08 22:22:00 36.33 Malaika [facility] Respiratory rate 2022-09-08 22:22:00 18 /min [facility] Oxygen saturation in Arterial blood by Pulse oximetry 2022-09-08 22:22:00 96 /min [facility] Body weight 2022-09-05 17:00:00 62.1 kg [facility] BMI 2022-09-05 17:00:00 25.87 kg/m2 [facility] Body height 2022-09-02 07:20:00 154.9 cm [facility] Systolic blood pressure 2022-09-05 00:38:00 116 mm[Hg] [facility] Diastolic blood pressure 2022-09-05 00:38:00 57 mm[Hg] [facility] Heart rate 2022-09-05 00:38:00 70 /min [facility] Body temperature 2022-09-05 00:38:00 36.56 Malaika [facility] Respiratory rate 2022-09-05 00:38:00 8 /min [facility] Oxygen saturation in Arterial blood by Pulse oximetry 2022-09-05 00:38:00 95 /min [facility] Body height 2022-09-02 07:20:00 154.9 cm [facility] Body weight 2022-09-02 07:20:00 62.1 kg [facility] BMI 2022-09-02 07:20:00 25.87 kg/m2 [facility] Systolic blood pressure 2022-08-30 22:58:00 180 mm[Hg] [facility] Diastolic blood pressure 2022-08-30 22:58:00 91 mm[Hg] [facility] Heart rate 2022-08-30 22:58:00 82 /min [facility] Respiratory rate 2022-08-30 22:58:00 16 /min [facility] Oxygen saturation in Arterial blood by Pulse oximetry 2022-08-30 22:58:00 100 /min [facility] Body temperature 2022-08-30 19:35:00 36.44 Malaika [facility] Body weight 2022-08-30 19:35:00 61.236 kg [facility] height 2021-10-23 12:10:00 62.00 [in_i] Com [facility] weight 2021-10-23 12:10:00 135 [lb_av] Comm on [facility] bmi 2021-10-23 12:10:00 24.69 kg/m2 Comm on [facility] bmi 2020-12-26 08:20:00 24.69 kg/m2 Comm on [facility] height 2020-12-26 08:20:00 62.00 [in_i] Com [facility] weight 2020-12-26 08:20:00 135 [lb_av] Comm on [facility] height 2020-11-27 13:00:00 62.00 [in_i] Com [facility] weight 2020-11-27 13:00:00 135 [lb_av] Comm on [facility] bmi 2020-11-27 13:00:00 24.69 kg/m2 Comm on [facility] Procedures Procedure Date / Time Performed Performing Clinician Source XR WRIST 3+ VW LEFT 2022-11-05 21:27:27 Pako Robbins [facility] XR WRIST 3+ VW LEFT 2022-09-25 17:14:57 Alejo Bergeron [facility] ASSIGNMENT OF BENEFITS 2022-09-25 16:29:43 Docto r Unassigned, Tancred [facility] FL TIME OR (NON-REPORTABLE) 2022-09-05 00:18:14 Faillajun, [facility] FL TIME OR (NON-REPORTABLE) 2022-09-05 00:18:14 FaillaAlejo barahona [facility] DISTAL RADIUS ORIF 2022-09-04 21:42:00 Faillace [facility] EXTERNAL FIXATOR REMOVAL OF UPPER EXTREMITY 2022-09-04 21:42:00 Faillace [facility] DISTAL RADIUS ORIF 2022-09-04 21:42:00 Faillace, [facility] EXTERNAL FIXATOR REMOVAL OF UPPER EXTREMITY 2022-09-04 21:42:00 Failkey [facility] BASIC METABOLIC PANEL (NA, K, CL, CO2, GLUCOSE, BUN, CREATININE, CA) 2022-09-04 10:10:00 Andres Jimenez [facility] CBC WITHOUT DIFF 2022-09-04 10:10:[address] [facility] PROTHROMBIN TIME / INR 2022-09-04 10:10:00 Madison Jimenez [facility] ACTIVATED PARTIAL THRMPLAS JEANIE 2022-09-04 10:10:00 Andres Jimenez [facility] BASIC METABOLIC PANEL (NA, K, CL, CO2, GLUCOSE, BUN, CREATININE, CA) 2022-09-04 10:10:00 Andres Jimenez [facility] CBC WITHOUT DIFF 2022-09-04 10:10:[address] [facility] PROTHROMBIN TIME / INR 2022-09-04 10:10:00 Madison Jimenez [facility] ACTIVATED PARTIAL THRMPLAS JEANIE 2022-09-04 10:10:00 Andres Jimenez [facility] US DUPLEX VENOUS ARM RIGHT - BY VASCULAR LAB 2022-09-03 15:45:00 Larisa Martines [facility] DUPLEX VENOUS ARM RIGHT - BY VASCULAR LAB 2022-09-03 15:45:00 Larisa Martines [facility] CBC WITHOUT DIFF 2022-09-01 16:54:00 Mya Martinesherine [facility] CBC WITHOUT DIFF 2022-09-01 16:54:00 Larisa Martines [facility] CBC WITHOUT DIFF 2022-09-01 16:54:00 Larisa Martines [facility] HB ECG ROUTINE & RHYTHM STRIP 2022-08-31 07:58:17 Larisa Martines [facility] HB ECG ROUTINE & RHYTHM STRIP 2022-08-31 07:58:17 Larisa Martines [facility] FL TIME OR (NON-REPORTABLE) 2022-08-31 04:15:00 Ja Jo [facility] FL TIME OR (NON-REPORTABLE) 2022-08-31 04:15:00 Ja Jo [facility] FL TIME OR (NON-REPORTABLE) 2022-08-31 04:15:00 Ja Jo [facility] ABORH CONFIRMATION (LAB ONLY) 2022-08-31 02:42:00 Henri Phoenix [facility] ABORH CONFIRMATION (LAB ONLY) 2022-08-31 02:42:00 Henri Phoenix [facility] ABORH CONFIRMATION (LAB ONLY) 2022-08-31 02:42:00 Henri Phoenix [facility] EXPLORATION VESSEL UPPER EXTREMITY 2022-08-31 01:43:00 Ham Slater [facility] EXTERNAL FIXATOR PLACEMENT FOR UPPER EXTREMITY 2022-08-31 01:43:00 Elyssa [facility] LIGATION VESSEL UPPER EXTREMITY 2022-08-31 01:43:00 Ham Slater [facility] EXPLORATION VESSEL UPPER EXTREMITY 2022-08-31 01:43:00 Ham Slater [facility] EXTERNAL FIXATOR PLACEMENT FOR UPPER EXTREMITY 2022-08-31 01:43:00 Alejo Bergeron [facility] LIGATION VESSEL UPPER EXTREMITY 2022-08-31 01:43:00 Ham Slater [facility] XR WRIST <3 VW LEFT 2022-08-30 23:25:00 Imelda Martines [facility] XR WRIST <3 VW LEFT 2022-08-30 23:25:00 Imelda Martines [facility] XR WRIST <3 VW LEFT 2022-08-30 23:25:00 Imelda Martines [facility] CBC WITH DIFF 2022-08-30 22:37:00 Henri Phoenix [facility] PROTHROMBIN TIME / INR 2022-08-30 22:37:00 Sera Phoenix [facility] ACTIVATED PARTIAL THRMPLAS JEANIE 2022-08-30 22:37:00 Henri Phoenix [facility] CBC WITH DIFF 2022-08-30 22:37:00 Henri Phoenix [facility] PROTHROMBIN TIME / INR 2022-08-30 22:37:00 Sera Phoenix [facility] ACTIVATED PARTIAL THRMPLAS JEANIE 2022-08-30 22:37:00 Henri Phoenix [facility] CBC WITH DIFF 2022-08-30 22:37:00 Henri Phoenix [facility] PROTHROMBIN TIME / INR 2022-08-30 22:37:00 Sera Phoenix [facility] ACTIVATED PARTIAL THRMPLAS JEANIE 2022-08-30 22:37:00 Henri Phoenix [facility] XR ELBOW <3 VW LEFT 2022-08-30 20:42:00 Debi Frye [facility] XR FOREARM 2 VW LEFT 2022-08-30 20:42:00 Henri Phoenix [facility] XR HAND <3 VW LEFT 2022-08-30 20:42:00 Henri Phoenix [facility] XR WRIST <3 VW LEFT 2022-08-30 20:42:00 Henri Phoenix [facility] XR ELBOW <3 VW LEFT 2022-08-30 20:42:00 Debi Frye [facility] XR FOREARM 2 VW LEFT 2022-08-30 20:42:00 Henri Phoenix [facility] XR HAND <3 VW LEFT 2022-08-30 20:42:00 Henri Phoenix [facility] XR WRIST <3 VW LEFT 2022-08-30 20:42:00 Henri Phoenix [facility] XR ELBOW <3 VW LEFT 2022-08-30 20:42:00 Debi Frye [facility] XR FOREARM 2 VW LEFT 2022-08-30 20:42:00 Henri Phoenix [facility] XR HAND <3 VW LEFT 2022-08-30 20:42:00 Henri Phoenix [facility] XR WRIST <3 VW LEFT 2022-08-30 20:42:00 Henri Phoenix [facility] COMP. METABOLIC PANEL (47445) 2022-08-30 20:21:00 Henri Phoenix [facility] COMP. METABOLIC PANEL (17794) 2022-08-30 20:21:00 Henri Phoenix [facility] COMP. METABOLIC PANEL (03011) 2022-08-30 20:21:00 Henri Phoenix [facility] HB ABO GROUPING 2022-08-30 20:19:00 [facility] HB ABO GROUPING 2022-08-30 20:19:00 [facility] HB ABO GROUPING 2022-08-30 20:19:00 [facility] HOSPITAL ADMISSION 2022-08-30 06:01:00 Doctor Un assigned, Tancred [facility] EMERGENCY SERVICES AGREEMENTS AND AUTHORIZATIONS 2022-08-30 06:01:00 Doctor Unassigned, Tancred [facility] HOSPITAL ADMISSION 2022-08-30 06:01:00 Doctor Un assigned, Tancred [facility] ADMISSION 2022-08-30 06:01:00 Doctor Un assigned, Tancred [facility] Encounters Start Date/Time End Date/Time Encounter Type Admission Type Attending [facility] Care Facility Care Department Encounter ID Source 2024-07-28 07:30:00 Outpatient Saida Arana [facility] [id number] [facility] 2024-05-02 14:55:00 Outpatient Saida Arana [facility] [id number] [facility] 2023-08-04 08:21:00 Outpatient Saida Arana [facility] [id number] [facility] 2023-06-25 16:29:00 Outpatient Saida Arana [facility] [id number] [facility] 2021-11-26 15:30:02 Outpatient Nadeen Santizo [facility] [id number] [facility] 2021-11-25 08:44:00 Outpatient Santizo, Na [facility] [id number] [facility] 2021-10-23 07:18:01 Outpatient Santizo, Na [facility] [id number] [facility] 2021-10-21 09:07:00 Outpatient Nadeen Santizo [facility] [id number] [facility] 2021-08-21 13:42:36 Outpatient Nadeen Santizo [facility] [id number] [facility] 2021-08-21 13:22:56 Outpatient Nadeen Santizo [facility] [id number] [facility] 2021-08-21 13:09:15 Outpatient Nadeen Santizo [facility] [id number] [facility] 2021-08-21 12:58:54 Outpatient Nadeen Santizo [facility] [id number] [facility] 2023-05-04 00:00:00 2023-05-04 00:00:00 (TEL) [facility] [id number] [facility] 2022-12-29 14:00:00 2022-12-29 14:00:00 Outpatient ALEJO REARDON [facility] [id number] [facility] 2022-11-05 16:00:00 2022-11-05 23:59:00 Hospital Encounter Alejo Peguero [facility] 1.2.840.114 350.1.13.10 4.2.7.2.686 [id number] [facility] 2022-11-05 15:30:00 2022-11-05 16:42:36 Outpatient R ALEJO PEGUERO [facility] [id number] [facility] 2022-11-05 15:30:00 2022-11-05 16:42:36 Office Visit Alejo Peguero [facility] 1.2.840.114 350.1.13.10 4.2.7.2.686 [id number] [facility] 2022-11-05 00:00:00 2022-11-05 00:00:00 Telephone Alejo Peguero [facility] 1.2.840.114 350.1.13.10 4.2.7.2.686 [id number] [facility] 2022-10-22 00:00:00 2022-10-22 00:00:00 Telephone Alejo Peguero [facility] 1.2.840.114 350.1.13.10 4.2.7.2.686 [id number] [facility] 2022-10-21 00:00:00 2022-10-21 00:00:00 Telephone Alejo Peguero [facility] 1.2840.114 350.1.13.10 4.2.7.2.686 [id number] [facility] 2022-10-13 12:50:00 2022-10-13 12:50:00 Outpatient R ALEJO PEGUERO [facility] [id number] [facility] 2022-09-27 00:00:00 2022-09-27 00:00:00 Telephone Alejo Bergeron [facility] 1.2840.114 350.1.13.10 4.2.7.2.686 [id number] [facility] 2022-09-25 10:54:10 2022-09-25 23:59:00 Hospital Encounter Alejo Bergeron [facility] 1.2.840.114 350.1.13.10 4.2.7.2.686 [id number] [facility] 2022-09-25 09:40:00 2022-09-25 11:58:17 Outpatient R ALEJO BERGERON [facility] [id number] [facility] 2022-09-25 09:40:00 2022-09-25 11:58:17 Office Visit Alejo Bergeron [facility] 1.2.840.114 350.1.13.10 4.2.7.2.686 [id number] [facility] 2022-09-25 00:00:00 2022-09-25 00:00:00 Orders Only Doctor Unassigned, Tancred [facility] 1.2.840.114 350.1.13.10 4.2.7.2.686 [id number] [facility] 2022-09-09 00:00:00 2022-09-09 00:00:00 Transition of Care Allan Peñaloza [facility] 1.2.840.114 350.1.13.10 4.2.7.2.686 [id number] [facility] 2022-08-30 13:37:00 2022-09-08 18:34:00 Hospital Encounter Henri Phoenix [facility] 1.2840.114 350.1.13.10 4.2.7.2.686 [id number] [facility] 2022-08-30 13:37:00 2022-09-08 18:34:00 [facility]patient [facility] [id number] [facility] 2022-09-04 16:00:00 2022-09-04 18:44:00 Surgery Alejo Peguero [facility] 1.2.840.114 350.1.13.10 4.2.7.2.686 [id number] [facility] 2022-08-30 18:45:00 2022-08-30 20:22:00 Surgery Ham Slater [facility] 1.2.840.114 350.1.13.10 4.2.7.2.686 [id number] [facility] 2021-11-27 00:00:00 2021-11-27 00:00:00 OFFICE VISIT EST PT LEVEL 3 [facility] ST[facility] [id number] [facility] 2021-11-04 00:00:00 2021-11-04 00:00:00 (TEL) [facility] [id number] [facility] 2021-10-23 00:00:00 2021-10-23 00:00:00 OFFICE VISIT ESTAB PT LEVEL 4 [facility] [id number] [facility] 2021-10-23 00:00:00 2021-10-23 00:00:00 (TEL) [facility] [id number] [facility] 2021-09-30 00:00:00 2021-09-30 00:00:00 (TEL) [facility] [id number] [facility] 2021-02-05 00:00:00 2021-02-05 00:00:00 (TEL) [facility] [id number] [facility] 2020-12-26 00:00:00 2020-12-26 00:00:00 OFFICE VISIT EST PT LEVEL 3 [facility] [id number] [facility] 2020-11-27 00:00:00 2020-11-27 00:00:00 Outpatient [facility] [id number] [facility] 2020-11-27 00:00:00 2020-11-27 00:00:00 OFFICE VISIT EST PT LEVEL 3 [facility] [id number] [facility] 2019-05-31 09:52:00 2019-05-31 09:52:00 [facility] [id number] [facility] 2018-10-21 16:20:00 2018-10-21 16:20:00 Outpatient [facility] [id number] [facility] 2018-09-27 15:00:00 2018-09-27 15:00:00 Outpatient [facility] [id number] [facility] 2017-11-25 06:50:00 2017-11-25 06:50:00 Outpatient [facility] [id number] [facility] 2017-11-24 15:14:00 2017-11-24 15:14:00 Outpatient [facility] [id number] [facility] 2017-11-10 10:30:00 2017-11-10 10:30:00 Outpatient [facility] [id number] [facility] Results Test Description Test Time Test Comments Results Result Co mments Source [facility] / [id number] 10:45:22* Test Item Value Reference Range Interpretation Comme nts PROTIME PATIENT (test code = 5964-2) 11.2 See_Comment [Automated messa ge] The system which generated this result transmitted reference range: 10.1 - 12.6 Seconds. The reference range was not used to interpret this result as normal/abnormal. INR (test code = 6301-6) 1.0 Normal INR <1.1; Warfarin Therapeutic range 2.0 to 3.0 or 2.5 to 3.5, depending upon the indications. Lab Interpretation (test code = 24264-7) Normal [facility] [id number] 10:45:22* Test Item Value Reference Range Interpretation Comme [facility] APTT Patient (test code = 3173-2) 29 See_Comment [Automated [employer]] The system which generated this result transmitted reference range: 26 - 36 Seconds. The reference range was not used to interpret this result as normal/abnormal. Lab Interpretation (test code = 68974-1) Normal [facility] / [id number] 10:45:22* Test Item Value Reference Range Interpretation Comme [facility] PROTIME PATIENT (test code = 5964-2) 11.2 See_Comment [Automated [employer]Sign.in] The system which generated this result transmitted reference range: 10.1 - 12.6 Seconds. The reference range was not used to interpret this result as normal/abnormal. INR (test code = 6301-6) 1.0 Normal INR <1.1; Warfarin Therapeutic range 2.0 to 3.0 or 2.5 to 3.5, depending upon the indications. Lab Interpretation (test code = 85252-8) Normal [facility] (NA, K, CL, CO2, GLUCOSE, BUN, CREATININE, CA)2022-09-04 10:44:41* Test Item Value Reference Range Interpretation Comme [facility] NA (test code = 7021883203) 134 mmol/L 135-145 L K (test code = 0989850360) 4.8 mmol/L 3.5-5.0 CL (test code = 7359104313) 103 mmol/L 98-108 CO2 TOTAL (test code = 6590956496) 28 mmol/L 23-31 AGAP (test code = 0022598647) 3 2-16 BUN (test code = 6993652996) 14 mg/dL 7-23 GLUCOSE (test code = 6532098450) 103 mg/dL 70-110 CREATININE (test code = 4297774867) 0.95 mg/dL 0.50-1.04 CALCIUM (test code = 8463945767) 8.2 mg/dL 8.6-10.6 L eGFR (test code = 1879764396) 58.2 mL/min/1.73m2 PRITESH (test code = PRITESH) [...] imaging tests). Lab Interpretation (test code = 91944-6) Abnormal [facility] METABOLIC PANEL (NA, K, CL, CO2, GLUCOSE, BUN, CREATININE, CA)2022-09-04 10:44:41* Test Item Value Reference Range Interpretation Comme nts NA (test code = 8525116447) 134 mmol/L 135-145 L K (test code = 9719432188) 4.8 mmol/L 3.5-5.0 CL (test code = 1236993011) 103 mmol/L 98-108 CO2 TOTAL (test code = 4917776891) 28 mmol/L 23-31 AGAP (test code = 4472649609) 3 2-16 BUN (test code = 3333736943) 14 mg/dL 7-23 GLUCOSE (test code = 7116666023) 103 mg/dL 70-110 CREATININE (test code = 3914955607) 0.95 mg/dL 0.50-1.04 CALCIUM (test code = 7763987554) 8.2 mg/dL 8.6-10.6 L eGFR (test code = 8353773032) 58.2 mL/min/1.73m2 PRITESH (test code = PRITESH) [...] imaging tests). Lab Interpretation (test code = 31497-8) Abnormal [facility] WITHOUT [id number] 10:24:39* Test Item Value Reference Range Interpretation [...] result as normal/abnormal. MPV (test code = 72897-7) 8.6 fL 9.5-12.9 L RDW-CV (test code = 788-0) 13.9 % 12.0-15.5 RDW-SD (test code = 18338-7) 46.2 fL 39.0-49.9 NRBC x10^3 (test code = 2564365322) See_Comment [Automated messa ge] The system which generated this result transmitted reference range: 10*3/?L. The reference range was not used to interpret this result as normal/abnormal. NRBC/100 WBC (test code = 5704043346) 0.0 See_Comment [Automated messa ge] The system which generated this result transmitted reference range: 0.0 - 10.0 /100 WBCs. The reference range was not used to interpret this result as normal/abnormal. IPF % (test code = 9690259426) Lab Interpretation (test code = 13215-3) Abnormal [facility] WITHOUT [id number] 10:24:39* Test Item Value Reference Range Interpretation [...] result as normal/abnormal. MPV (test code = 44225-6) 8.6 fL 9.5-12.9 L RDW-CV (test code = 788-0) 13.9 % 12.0-15.5 RDW-SD (test code = 32091-5) 46.2 fL 39.0-49.9 NRBC x10^3 (test code = 1376317995) See_Comment [Automated Lookouta ge] The system which generated this result transmitted reference range: 10*3/?L. The reference range was not used to interpret this result as normal/abnormal. NRBC/100 WBC (test code = 2097164993) 0.0 See_Comment [Automated Lookouta ge] The system which generated this result transmitted reference range: 0.0 - 10.0 /100 WBCs. The reference range was not used to interpret this result as normal/abnormal. IPF % (test code = 1277275242) Lab Interpretation (test code = 47162-1) Abnormal [facility] WITHOUT [id number] 17:35:12* Test Item Value Reference Range Interpretation [...] result as normal/abnormal. MPV (test code = 33656-6) 8.9 fL 9.5-12.9 L RDW-CV (test code = 788-0) 14.1 % 12.0-15.5 RDW-SD (test code = 11417-2) 48.3 fL 39.0-49.9 NRBC x10^3 (test code = 3303232355) See_Comment [Automated messa ge] The system which generated this result transmitted reference range: 10*3/?L. The reference range was not used to interpret this result as normal/abnormal. NRBC/100 WBC (test code = 6404507639) 0.0 See_Comment [Automated messa ge] The system which generated this result transmitted reference range: 0.0 - 10.0 /100 WBCs. The reference range was not used to interpret this result as normal/abnormal. IPF % (test code = 6162811613) Lab Interpretation (test code = 51678-4) Abnormal [facility] WITHOUT [id number] 17:35:12* Test Item Value Reference Range Interpretation [...] result as normal/abnormal. MPV (test code = 94969-4) 8.9 fL 9.5-12.9 L RDW-CV (test code = 788-0) 14.1 % 12.0-15.5 RDW-SD (test code = 53441-3) 48.3 fL 39.0-49.9 NRBC x10^3 (test code = 6719973707) See_Comment [Automated messa ge] The system which generated this result transmitted reference range: 10*3/?L. The reference range was not used to interpret this result as normal/abnormal. NRBC/100 WBC (test code = 7907682404) 0.0 See_Comment [Automated messa ge] The system which generated this result transmitted reference range: 0.0 - 10.0 /100 WBCs. The reference range was not used to interpret this result as normal/abnormal. IPF % (test code = 5314946468) Lab Interpretation (test code = 03722-3) Abnormal [facility] WITHOUT [id number] 17:35:12* Test Item Value Reference Range Interpretation [...] result as normal/abnormal. MPV (test code = 56583-6) 8.9 fL 9.5-12.9 L RDW-CV (test code = 788-0) 14.1 % 12.0-15.5 RDW-SD (test code = 21964-5) 48.3 fL 39.0-49.9 NRBC x10^3 (test code = 5870137528) See_Comment [Automated messa ge] The system which generated this result transmitted reference range: 10*3/?L. The reference range was not used to interpret this result as normal/abnormal. NRBC/100 WBC (test code = 2221492846) 0.0 See_Comment [Automated messa ge] The system which generated this result transmitted reference range: 0.0 - 10.0 /100 WBCs. The reference range was not used to interpret this result as normal/abnormal. IPF % (test code = 3331839989) Lab Interpretation (test code = 55994-4) Abnormal [facility] (Lab Only)2022-08-31 03:15:36* Test Item Value Reference Range Interpretation Comme nts ABO & RH (test code = 20) AB Positive Performed at [facility] Laboratory Services - [facility] Blood [address] Free: [phone] No. [id number] [facility] Confirmation (Lab Only)2022-08-31 03:15:36* Test Item Value Reference Range Interpretation Comme nts ABO & RH (test code = 20) AB Positive Performed at [facility] Laboratory Services - [address] Free: [phone] No. [id number] [facility] Confirmation (Lab Only)2022-08-31 03:15:36* Test Item Value Reference Range Interpretation Comme nts ABO & RH (test code = 20) AB Positive Performed at [facility] Laboratory Services - [address] Free: [phone] No. [id number] [facility] [id number] 22:58:55* Test Item Value Reference Range Interpretation Comme [facility] APTT Patient (test code = 3173-2) 25 See_Comment L [Automated messa ge] The system which generated this result transmitted reference range: 26 - 36 Seconds. The reference range was not used to interpret this result as normal/abnormal. Lab Interpretation (test code = 91549-1) Abnormal [facility] / [id number] 22:58:55* Test Item Value Reference Range Interpretation Comme [facility] PROTIME PATIENT (test code = 5964-2) [...] the indications. Lab Interpretation (test code = 27577-3) Normal [facility] [id number] 22:58:55* Test Item Value Reference Range Interpretation Comme nts APTT Patient (test code = 3173-2) 25 See_Comment L [Automated messa ge] The system which generated this result transmitted reference range: 26 - 36 Seconds. The reference range was not used to interpret this result as normal/abnormal. Lab Interpretation (test code = 94262-1) Abnormal [facility] / [id number] 22:58:55* Test Item Value Reference Range Interpretation [...] the indications. Lab Interpretation (test code = 34590-7) Normal [facility] [id number] 22:58:55* Test Item Value Reference Range Interpretation Comme nts APTT Patient (test code = 3173-2) 25 See_Comment L [Automated messa ge] The system which generated this result transmitted reference range: 26 - 36 Seconds. The reference range was not used to interpret this result as normal/abnormal. Lab Interpretation (test code = 81403-7) Abnormal [facility] / [id number] 22:58:55* Test Item Value Reference Range Interpretation [...] the indications. Lab Interpretation (test code = 78611-9) Normal [facility] WITH [id number] 22:56:34* Test Item Value Reference Range Interpretation [...] 32.7 g/dL 31.6-35.1 RDW-SD (test code = 39455-3) 44.8 fL 39.0-49.9 RDW-CV (test code = 788-0) 13.8 % 12.0-15.5 PLT (test code = 777-3) 334 See_Comment [Automated messa ge] The system which generated this result transmitted reference range: 166 - 358 10*3/?L. The reference range was not used to interpret this result as normal/abnormal. MPV (test code = 33456-5) 8.8 fL 9.5-12.9 L NRBC/100 WBC (test code = 0132139773) 0.0 See_Comment [Automated [employer] Lab ssage] The system which generated this result transmitted reference range: 0.0 - 10.0 /100 WBCs. The reference range was not used to interpret this result as normal/abnormal. NRBC x10^3 (test code = 7708687189) See_Comment [Automated messa ge] The system which generated this result transmitted reference range: 10*3/?L. The reference range was not used to interpret this result as normal/abnormal. GRAN MAT (NEUT) % (test code = 770-8) 69.1 % IMM GRAN % (test code = 6527970087) 0.30 % LYMPH % (test code = 736-9) 19.4 % MONO % (test code = 5905-5) 7.3 % EOS % (test code = 713-8) 3.2 % BASO % (test code = 706-2) 0.7 % GRAN MAT x10^3(ANC) (test code = 2531612711) 5.15 10*3/uL 1.88-7.09 IMM GRAN x10^3 (test code = 1366990244) 0.00-0.06 LYMPH x10^3 (test code = 731-0) 1.44 10*3/uL 1.32-3.29 MONO x10^3 (test code = 742-7) 0.54 10*3/uL 0.33-0.92 EOS x10^3 (test code = 711-2) 0.24 10*3/uL 0.03-0.39 BASO x10^3 (test code = 704-7) 0.05 10*3/uL 0.01-0.07 Lab Interpretation (test code = 11171-6) Abnormal [facility] WITH [id number] 22:56:34* Test Item Value Reference Range Interpretation [...] 32.7 g/dL 31.6-35.1 RDW-SD (test code = 39085-5) 44.8 fL 39.0-49.9 RDW-CV (test code = 788-0) 13.8 % 12.0-15.5 PLT (test code = 777-3) 334 See_Comment [Automated Lookouta ge] The system which generated this result transmitted reference range: 166 - 358 10*3/?L. The reference range was not used to interpret this result as normal/abnormal. MPV (test code = 84039-3) 8.8 fL 9.5-12.9 L NRBC/100 WBC (test code = 5498453022) 0.0 See_Comment [Automated Exchange Lab ssage] The system which generated this result transmitted reference range: 0.0 - 10.0 /100 WBCs. The reference range was not used to interpret this result as normal/abnormal. NRBC x10^3 (test code = 8095799544) See_Comment [Automated Lookouta ge] The system which generated this result transmitted reference range: 10*3/?L. The reference range was not used to interpret this result as normal/abnormal. GRAN MAT (NEUT) % (test code = 770-8) 69.1 % IMM GRAN % (test code = 0738823816) 0.30 % LYMPH % (test code = 736-9) 19.4 % MONO % (test code = 5905-5) 7.3 % EOS % (test code = 713-8) 3.2 % BASO % (test code = 706-2) 0.7 % GRAN MAT x10^3(ANC) (test code = 9891367054) 5.15 10*3/uL 1.88-7.09 IMM GRAN x10^3 (test code = 0366042700) 0.00-0.06 LYMPH x10^3 (test code = 731-0) 1.44 10*3/uL 1.32-3.29 MONO x10^3 (test code = 742-7) 0.54 10*3/uL 0.33-0.92 EOS x10^3 (test code = 711-2) 0.24 10*3/uL 0.03-0.39 BASO x10^3 (test code = 704-7) 0.05 10*3/uL 0.01-0.07 Lab Interpretation (test code = 02821-2) Abnormal [facility] WITH [id number] 22:56:34* Test Item Value Reference Range Interpretation [...] 32.7 g/dL 31.6-35.1 RDW-SD (test code = 00336-6) 44.8 fL 39.0-49.9 RDW-CV (test code = 788-0) 13.8 % 12.0-15.5 PLT (test code = 777-3) 334 See_Comment [Automated messa ge] The system which generated this result transmitted reference range: 166 - 358 10*3/?L. The reference range was not used to interpret this result as normal/abnormal. MPV (test code = 90679-9) 8.8 fL 9.5-12.9 L NRBC/100 WBC (test code = 4820057108) 0.0 See_Comment [Automated Exchange Lab ssage] The system which generated this result transmitted reference range: 0.0 - 10.0 /100 WBCs. The reference range was not used to interpret this result as normal/abnormal. NRBC x10^3 (test code = 1562266050) See_Comment [Automated messa ge] The system which generated this result transmitted reference range: 10*3/?L. The reference range was not used to interpret this result as normal/abnormal. GRAN MAT (NEUT) % (test code = 770-8) 69.1 % IMM GRAN % (test code = 5539070520) 0.30 % LYMPH % (test code = 736-9) 19.4 % MONO % (test code = 5905-5) 7.3 % EOS % (test code = 713-8) 3.2 % BASO % (test code = 706-2) 0.7 % GRAN MAT x10^3(ANC) (test code = 4871578223) 5.15 10*3/uL 1.88-7.09 IMM GRAN x10^3 (test code = 3033212381) 0.00-0.06 LYMPH x10^3 (test code = 731-0) 1.44 10*3/uL 1.32-3.29 MONO x10^3 (test code = 742-7) 0.54 10*3/uL 0.33-0.92 EOS x10^3 (test code = 711-2) 0.24 10*3/uL 0.03-0.39 BASO x10^3 (test code = 704-7) 0.05 10*3/uL 0.01-0.07 Lab Interpretation (test code = 93535-4) [facility]normal [facility] - [facility] [id number] 21:05:30* Test Item Value Reference Range Interpretation Comme nts ABO & RH (test code = 20) AB POSITIVE Performed at [facility] Laboratory Services - [facility] Blood [address] [address] Free: [phone] No. [id number] IAT (test code = 1185) Negative Performed at [facility] Laboratory Services - [facility] Blood [place] [id number] Free: [phone] No. [id number] [facility] - ONCE [id number] 21:05:30* Test Item Value Reference Range Interpretation Comme nts ABO & RH (test code = 20) AB POSITIVE Performed at [facility] Laboratory Services - [address] Free: [phone] No. [id number] IAT (test code = 1185) Negative Performed at [facility] Laboratory [address] Free: [phone] No. [id number] [facility] ONCE [id number] 21:05:30* Test Item Value Reference Range Interpretation Comme nts ABO & RH (test code = 20) AB POSITIVE Performed at [facility] Laboratory [facility] - [address] Free: [phone] No. [id number] IAT (test code = 1185) Negative Performed at [facility] Laboratory [address] [address] Free: [phone] No. [id number] [facility] METABOLIC PANEL ([id number])2022-08-30 20:43:30* Test Item Value Reference Range Interpretation Comme nts NA (test code = 0689232268) 140 mmol/L 135-145 K (test code = 0892506758) 4.0 mmol/L 3.5-5.0 CL (test code = 6535987500) 109 mmol/L 98-108 H CO2 TOTAL (test code = 5906852559) 21 mmol/L 23-31 L AGAP (test code = 0670590299) 10 2-16 BUN (test code = 1690233473) 15 mg/dL 7-23 GLUCOSE (test code = 1069759742) 106 mg/dL 70-110 CREATININE (test code = 7738100065) 0.76 mg/dL 0.50-1.04 TOTAL BILI (test code = 4286000705) 0.5 mg/dL 0.1-1.1 CALCIUM (test code = 0095648617) 8.6 mg/dL 8.6-10.6 T PROTEIN (test code = 2363680148) 6.7 g/dL 6.3-8.2 ALBUMIN (test code = 1191552421) 3.9 g/dL 3.5-5.0 ALK PHOS (test code = 7172843698) 79 U/L 34-122 ALTv (test code = 1742-6) 27 U/L 5-35 AST(SGOT) (test code = 4986320080) 47 U/L 13-40 H eGFR (test code = 0762366392) 75.2 mL/min/1.73m2 PRITESH (test code = PRITESH) [...] imaging tests). Lab Interpretation (test code = 00380-3) Abnormal [facility]. METABOLIC PANEL ([id number])2022-08-30 20:43:30* Test Item Value Reference Range Interpretation Comme nts NA (test code = 5907913858) 140 mmol/L 135-145 K (test code = 8969237904) 4.0 mmol/L 3.5-5.0 CL (test code = 9311885564) 109 mmol/L 98-108 H CO2 TOTAL (test code = 3967057211) 21 mmol/L 23-31 L AGAP (test code = 6786646116) 10 2-16 BUN (test code = 1060487839) 15 mg/dL 7-23 GLUCOSE (test code = 0302526339) 106 mg/dL 70-110 CREATININE (test code = 7973412062) 0.76 mg/dL 0.50-1.04 TOTAL BILI (test code = 3176710941) 0.5 mg/dL 0.1-1.1 CALCIUM (test code = 9176694025) 8.6 mg/dL 8.6-10.6 T PROTEIN (test code = 0017663944) 6.7 g/dL 6.3-8.2 ALBUMIN (test code = 1089325130) 3.9 g/dL 3.5-5.0 ALK PHOS (test code = 5416388456) 79 U/L 34-122 ALTv (test code = 1742-6) 27 U/L 5-35 AST(SGOT) (test code = 9784440479) 47 U/L 13-40 H eGFR (test code = 0935121742) 75.2 mL/min/1.73m2 PRITESH (test code = PRITESH) [...] imaging tests). Lab Interpretation (test code = 52723-8) Abnormal [facility]. METABOLIC PANEL ([id number])2022-08-30 20:43:30* Test Item Value Reference Range Interpretation Comme nts NA (test code = 2044440469) 140 mmol/L 135-145 K (test code = 8122182728) 4.0 mmol/L 3.5-5.0 CL (test code = 3733775585) 109 mmol/L 98-108 H CO2 TOTAL (test code = 5692287620) 21 mmol/L 23-31 L AGAP (test code = 6437018684) 10 2-16 BUN (test code = 6873116967) 15 mg/dL 7-23 GLUCOSE (test code = 3069005181) 106 mg/dL 70-110 CREATININE (test code = 0652148503) 0.76 mg/dL 0.50-1.04 TOTAL BILI (test code = 0937308295) 0.5 mg/dL 0.1-1.1 CALCIUM (test code = 2208039278) 8.6 mg/dL 8.6-10.6 T PROTEIN (test code = 4227601080) 6.7 g/dL 6.3-8.2 ALBUMIN (test code = 8880084373) 3.9 g/dL 3.5-5.0 ALK PHOS (test code = 8128433667) 79 U/L 34-122 ALTv (test code = 1742-6) 27 U/L 5-35 AST(SGOT) (test code = 0694671968) 47 U/L 13-40 H eGFR (test code = 0711711578) 75.2 mL/min/1.73m2 PRITESH (test code = PRITESH) [...] imaging tests). Lab Interpretation (test code = 39153-3) Abnormal [facility]"
[2024-09-30] MEDS ORDERED: ALBUTEROL 2.5 MG/3 ML NEB SOL ONE ×2 (12:16→19:34)
[2024-09-30] MEDS ORDERED: IPRATROPIUM BROM 0.5MG/2.5ML ONE ×2 (12:16→19:34)
[2024-09-30] MEDS ORDERED: METHYLPREDNISOLONE 125 MG INJ ONE (12:16)
[2024-09-30] MEDS ORDERED: ASPIRIN 81 MG CHEWABLE TABLET ONE (12:17)
[2024-09-30] MEDS ORDERED: NA CHLORIDE 0.9% 1,000 ML ONE (12:17)
--- NOTE | 2024-09-30 12:35 | RAD REPORT ---
EXAM: Chest Single View HISTORY: 74 years Female Cough;Chest pain COMPARISON: None. FINDINGS: LUNGS/PLEURA: Low lung volumes with likely basilar atelectasis. No definite acute process. CARDIAC/MEDIASTINUM: The cardiac silhouette is within normal limits. UPPER ABDOMEN: No significant abnormality. BONES: No acute abnormality. LINES/TUBES/OTHER: N/A IMPRESSION: Low lung volumes with probable basilar atelectasis.
--- NOTE | 2024-09-30 13:05 | ER ---
Nurse's Notes [facility] Name: Jose Enrique Yin Age: 74 yrs Sex: Female : 1950 Arrival Date: 09/30/2024 Time: 10:53 Bed 5 Private MD: Diagnosis: Dyspnea;COPD/ Chronic obstructive pulmonary disease with (acute) exacerbation;Chest pain on breathing;Chest pain, unspecified;Essential (primary) hypertension Presentation: 09/30 10:58 Chief complaint: Patient states: she feels like she has a deep cough she can't get out, ap3 and it is very painful. patient reports she hasn't been feeling well for a few days, but the painful cough started this morning. patient currently rates her pain has a 8/10 on the pain scale. patient also states she has been out of her blood pressure medications "for a while'. Coronavirus screen: Client presents with at least one sign or symptom that may indicate coronavirus-19. Ebola Screen: No symptoms or risks identified at this time. Initial Sepsis Screen: Does the patient meet any 2 criteria? HR > 90 bpm. Does the patient have a suspected source of infection? No. Patient's initial sepsis screen is negative. Risk Assessment: Do you want to hurt yourself or someone else? Patient reports no desire to harm self or others. Onset of symptoms is unknown. 10:58 Method Of Arrival: Wheelchair ap3 10:58 Acuity: YONAS 3 ap3 Triage Assessment: 11:01 General: Appears uncomfortable, ill, Behavior is calm, cooperative, appropriate for ap3 age. Pain: Complains of pain in chest Pain currently is 8 out of 10 on a pain scale. Pain began gradually. Neuro: Level of Consciousness is awake, alert, obeys commands, Oriented to person, place, time, situation, Appropriate for age. Cardiovascular: Patient's skin is warm and dry. Respiratory: Reports shortness of breath on exertion cough that is painful pain with cough Airway is patent Respiratory effort is even, unlabored, Respiratory pattern is regular, symmetrical, Onset: The symptoms/episode began/occurred gradually, Historical: - Allergies: 11:00 No Known Allergies; ap3 - PMHx: 11:00 Arthritis; Hypertensive disorder; ap3 - PSHx: 11:00 left arm; ap3 - Immunization history:: Client reports having NOT received the Covid vaccine. Flu vaccine is not up to date. - Infectious Disease History:: Denies. - Social history:: Smoking status: Patient reports the use of cigarette tobacco products, smokes one pack cigarettes per day. Screenin:02 Abuse screen: Denies threats or abuse. Nutritional screening: No deficits noted. ap3 Tuberculosis screening: No symptoms or risk factors identified. 18:28 [facility] ED Fall Risk Assessment (Adult) History of falling in the last 3 months, bp including since admission No falls in past 3 months (0 pts) Confusion or Disorientation No (0 pts) Intoxicated or Sedated No (0 pts) Impaired Gait Yes (1 pt) Mobility Assist Device Used Yes (1 pt) Altered Elimination No (0 pt) Score/Fall Risk Level 0 - 2 = Low Risk Oriented to surroundings. Assessment: 11:00 General: Appears in no apparent distress. uncomfortable, Behavior is cooperative, bp appropriate for age, anxious. Pain: Complains of pain in chest. Neuro: No deficits noted. Cardiovascular: Rhythm is sinus rhythm. Respiratory: Airway is patent Respiratory effort is labored, Breath sounds are coarse bilaterally. GI: No signs and/or symptoms were reported involving the gastrointestinal system. : No signs and/or symptoms were reported regarding the genitourinary system. EENT: No signs and/or symptoms were reported regarding the EENT system. Derm: No deficits noted. Musculoskeletal: No deficits noted. 13:00 Reassessment: No changes from previously documented assessment. Patient is alert, bp oriented x 3, equal unlabored respirations, skin warm/dry/pink. 15:00 Reassessment: No changes from previously documented assessment. Patient is alert, bp oriented x 3, equal unlabored respirations, skin warm/dry/pink. Vital Signs: 10:58 BP 180 / 96; Pulse 97; Resp 19; Temp 98.9; Pulse Ox 98% on R/A; Weight 61.23 kg; Height ap3 5 ft. 2 in. ; Pain 8/10; 15:00 BP 172 / 86; Pulse 94; Resp 23; Pulse Ox 92% ; bp 10:58 Body Mass Index 24.69 (61.23 kg, 157.48 cm) ap3 10:58 Pain Scale: Adult ap3 ED Course: 10:56 Patient arrived in ED. mr 11:00 Triage completed. ap3 11:02 Arm band placed on left wrist. ap3 11:09 EKG done, by ED staff. ap3 11:25 Jose Juan Birmingham MD is Attending Physician. briana 11:38 Alondra Ospina, ANTONIO is Primary Nurse. iw 11:40 Patient placed in an exam room, on a stretcher. ll1 11:53 XRAY Chest (1 view) In Process Unspecified. EDMS 12:40 First set of blood cultures drawn by me. zm 12:55 Initial lab(s) drawn, by me, sent to lab. Second set of blood cultures drawn by me. zm Inserted saline lock: 24 gauge in left forearm, using aseptic technique. Blood collected. Flushed with 10 mL NS. 13:03 Alirio Gilbert MD is Hospitalizing Provider. [facility] 13:07 Lactate w/ 2H reflex if indic. Sent. zm 13:07 Blood Culture Adult (2) Sent. zm 13:07 Lipase Sent. zm 13:07 Basic Metabolic Panel Sent. zm 13:07 CBC with Diff Sent. zm 13:07 LFT's Sent. zm 13:07 Magnesium Sent. zm 13:07 NT PRO-BNP Sent. zm 13:07 PT-INR Sent. zm 13:07 Troponin HS Sent. zm 13:45 US Extremity Venous W Compression Arnie In Process Unspecified. EDMS 13:45 Note: pt need a bigger iv for ct study. . Radiology exam delayed due to IV insertion sj attempt and/or patient not having appropriate IV at this time. 14:27 Radiology exam delayed due to IV insertion attempt and/or patient not having vm2 appropriate IV at this time. 17:21 Radiology exam delayed due to IV insertion attempt and/or patient not having sj appropriate IV at this time. 18:28 No provider procedures requiring assistance completed. Patient admitted, IV remains in bp place. Administered Medications: 12:36 Drug: Aspirin PO Chewable Tablet 81 mg PO once Route: PO; bp 13:54 Follow up: Response: No adverse reaction bp 12:36 Drug: DuoNeb Nebulize (2.5 mg - 0.5 mg) 3 ml Nebulizer once Route: Nebulizer; bp 13:55 Follow up: Response: No adverse reaction bp 13:06 Drug: NS 0.9% IV 1000 ml IV at 1000 ml once; to be given as a bolus over 60 minutes bp Route: IV; Rate: 1000 ml; Site: left forearm; 13:54 Follow up: IV Status: Completed infusion bp 13:07 Drug: MethylPrednisoLONE IVP 125 mg IVP once Route: IVP; Site: left forearm; bp 13:54 Follow up: Response: No adverse reaction bp 13:15 Drug: Famotidine IVP 20 mg IVP once; dilute with 10 mL 0.9% NaCl; give over 2 minutes bp Route: IVP; Site: left forearm; 13:55 Follow up: Response: No adverse reaction bp 13:16 Drug: Levalbuterol Inhalation 3.75 mg Inhalation once Route: Inhalation; bp 13:16 Drug: LevOfloxacin PO 750 mg PO once Route: PO; bp 13:55 Follow up: Response: No adverse reaction bp 13:55 Drug: fentaNYL (PF) IVP 25 mcg IVP once Route: IVP; Site: left forearm; bp 13:55 Drug: fentaNYL (PF) IVP 25 mcg IVP once Route: IVP; Site: left forearm; bp Medication: 18:29 VIS not applicable for this client. bp Outcome: 13:04 Decision to Hospitalize by Provider. briana 18:28 Admitted to ER Hold. Please see [facility] for further documentation. bp 18:28 Condition: stable 18:28 Instructed on the need for admit, 21:14 Patient left the ED. kd3 Signatures: Dispatcher [employer] EDJose Juan Chavez MD MD cha Rivera, Mary, [facility] [place] NoAlondra Lambert, RN ANTONIO Marisela Salazar Manny Baugh RN RN bp Hannah Elena RN RN [id number] Taylor Maldonado RN RN ll1 Doucette, Kyli, RN RN jorge3 Swati Harvey Corrections: (The following items were deleted from the chart) 11:01 11:00 Allergies: Codeine; ap3 ap3
--- NOTE | 2024-09-30 13:05 | EDPHYS ---
Physician Documentation [facility] Name: Jose Enrique Yin Age: 74 yrs Sex: Female : 1950 Arrival Date: 09/30/2024 Time: 10:53 Bed 5 Private MD: ED Physician Jose Juan Birmingham HPI: 09/30 12:53 This 74 yrs old Female presents to ER via Wheelchair with complaints of briana Breathing Difficulty, Cough. 12:53 The patient has shortness of breath at rest, with light activity. Onset: The briana symptoms/episode began/occurred just prior to arrival. Duration: The symptoms are intermittent. The patient's shortness of breath is aggravated by coughing. Associated signs and symptoms: The patient has no apparent associated signs or symptoms. Severity of symptoms: At their worst the symptoms were mild in the emergency department the symptoms are unchanged. The patient has experienced similar episodes in the past, a few times. Historical: - Allergies: 11:00 No Known Allergies; ap3 - PMHx: 11:00 Arthritis; Hypertensive disorder; ap3 - PSHx: 11:00 left arm; ap3 - Immunization history:: Client reports having NOT received the Covid vaccine. Flu vaccine is not up to date. - Infectious Disease History:: Denies. - Social history:: Smoking status: Patient reports the use of cigarette tobacco products, smokes one pack cigarettes per day. ROS: 12:54 Constitutional: Negative for fever, chills, and weight loss, Eyes: Negative for injury, briana pain, redness, and discharge, ENT: Negative for injury, pain, and discharge, Neck: Negative for injury, pain, and swelling, Cardiovascular: Negative for chest pain, palpitations, and edema, Abdomen/GI: Negative for abdominal pain, nausea, vomiting, diarrhea, and constipation, Back: Negative for injury and pain, : Negative for injury, bleeding, discharge, and swelling, MS/Extremity: Negative for injury and deformity, Skin: Negative for injury, rash, and discoloration, Neuro: Negative for headache, weakness, numbness, tingling, and seizure, Psych: Negative for depression, anxiety, suicide ideation, homicidal ideation, and hallucinations, Allergy/Immunology: Negative for hives, rash, and allergies, Endocrine: Negative for neck swelling, polydipsia, polyuria, polyphagia, and marked weight changes, Hematologic/Lymphatic: Negative for swollen nodes, abnormal bleeding, and unusual bruising, 12:54 Respiratory: Positive for cough, "sounds productive", shortness of breath, at rest. wheezing, expiratory, 12:54 MS/extremity: Negative for acute changes, Exam: 12:55 Constitutional: This is a well developed, well nourished patient who is awake, alert, briana and in no acute distress. Head/Face: Normocephalic, atraumatic. Eyes: Pupils equal round and reactive to light, extra-ocular motions intact. Lids and lashes normal. Conjunctiva and sclera are non-icteric and not injected. Cornea within normal limits. Periorbital areas with no swelling, redness, or edema. ENT: Nares patent. No nasal discharge, no septal abnormalities noted. Tympanic membranes are normal and external auditory canals are clear. Oropharynx with no redness, swelling, or masses, exudates, or evidence of obstruction, uvula midline. Mucous membranes moist. Neck: Trachea midline, no thyromegaly or masses palpated, and no cervical lymphadenopathy. Supple, full range of motion without nuchal rigidity, or vertebral point tenderness. No Meningismus. Chest/axilla: Normal chest wall appearance and motion. Nontender with no deformity. No lesions are appreciated. Cardiovascular: Regular rate and rhythm with a normal S1 and S2. No gallops, murmurs, or rubs. Normal PMI, no JVD. No pulse deficits. Abdomen/GI: Soft, non-tender, with normal bowel sounds. No distension or tympany. No guarding or rebound. No evidence of tenderness throughout. Back: No spinal tenderness. No costovertebral tenderness. Full range of motion. Female : Normal external genitalia. Skin: Warm, dry with normal turgor. Normal color with no rashes, no lesions, and no evidence of cellulitis. MS/ Extremity: Pulses equal, no cyanosis. Neurovascular intact. Full, normal range of motion., bilateral aka Neuro: Awake and alert, GCS 15, oriented to person, place, time, and situation. Cranial nerves II-XII grossly intact. Motor strength 5/5 in all extremities. Sensory grossly intact. Cerebellar exam normal. Normal gait. Psych: Awake, alert, with orientation to person, place and time. Behavior, mood, and affect are within normal limits. 12:55 ECG was reviewed by the Attending Physician. 12:55 Respiratory: mild respiratory distress is noted, Respirations: labored breathing, that is mild, Breath sounds: decreased breath sounds, that are mild, are located in both bases, rhonchi, that are mild, are scattered, stridor, is not appreciated, + upper airway congestion. wheezing: inspiratory expiratory Respiratory rate: 18 Vital Signs: 10:58 BP 180 / 96; Pulse 97; Resp 19; Temp 98.9; Pulse Ox 98% on R/A; Weight 61.23 kg; Height ap3 5 ft. 2 in. ; Pain 8/10; 15:00 BP 172 / 86; Pulse 94; Resp 23; Pulse Ox 92% ; bp 10:58 Body Mass Index 24.69 (61.23 kg, 157.48 cm) ap3 10:58 Pain Scale: Adult ap3 MDM: 11:25 Medical Screening Exam initiated briana 12:58 Differential diagnosis: asthma, Bronchitis CHF exacerbation, Chronic Obstructive briana Pulmonary Disease obstructed airway, tracheal injury, bronchitis, flu, URI, abnormal EKG, acute myocardial infarction, acute pericarditis, chest wall pain, cholecystitis, Cholelithiasis costochondritis, esophagitis, gastroesophageal reflux disease (GERD), hiatal hernia, pancreatitis, peptic ulcer disease, pulmonary embolus, stable angina, unstable angina, Myocardial Infarction pulmonary edema, Pulmonary Embolism reactive airway disease, Sepsis. Antibiotic administration: Not indicated. HEART Score: History: Slightly Suspicious (0), ECG: Non specific repolarization disturbance / LBTB / PM (1), Age: > or = 65 years (2), Risk Factors: > or = 3 Risk factors for atherosclerotic disease (2), [Hypercholesterolemia] [Hypertension] [+ Family HX] [Obesity] Troponin: < or = 1 x Normal Limit (0). The patient was given aspirin in the Emergency Department. Immunization status: Pneumococcal vaccine: within last 5 years. Influenza vaccine: within last 5 years. Data reviewed: vital signs, nurses notes, lab test result(s), EKG, radiologic studies, plain films. Consideration of Admission/Observation Patient was admitted/placed on observation. Independent interpretation of the following test(s) in the Emergency Department EKG: See my EKG interpretation above. Test considered but Not performed: Ultrasound no 2 d echo. Historians other than the Patient: pt and family well informed. Care significantly affected by the following chronic conditions: Hypertension, Chronic Obstructive Pulmonary Disease, Obesity, oa. Counseling: I had a detailed discussion with the patient and/or guardian regarding the historical points, exam findings, and any diagnostic results supporting the discharge/admit diagnosis, the presence of at least one elevated blood pressure reading (>120/80) during this emergency department visit, lab results, radiology results, the need for further work-up and treatment in the hospital. 09/30 11:26 Order name: Basic Metabolic Panel; Complete Time: 14:16 [facility] 09/30 11:26 Order name: CBC with Diff; Complete Time: 14:16 briana 09/30 11:26 Order name: LFT's; Complete Time: 14:16 [facility] 09/30 11:26 Order name: Magnesium; Complete Time: 14:16 [facility] 09/30 11:26 Order name: NT PRO-BNP; Complete Time: 14:16 [facility] 09/30 11:26 Order name: PT-INR; Complete Time: 14:16 [facility] 09/30 11:26 Order name: Troponin HS; Complete Time: 14:16 [facility] 09/30 11:26 Order name: Lipase; Complete Time: 14:16 [facility] 09/30 11:26 Order name: Blood Culture Adult (2) [facility] 09/30 11:26 Order name: Lactate w/ 2H reflex if indic.; Complete Time: 14:16 [facility] 09/30 11:26 Order name: Urinalysis w/ reflexes [facility] 09/30 11:26 Order name: COVID-19 Ag + Flu A+B Ag; Complete Time: 14:16 [facility] 09/30 13:28 Order name: Ghost Lactate-NO COLLECT Timer; Complete Time: 15:56 EDMS 09/30 16:47 Order name: Basic Metabolic Panel EDMS 09/30 16:47 Order name: Basic Metabolic Panel EDMS 09/30 16:47 Order name: Basic Metabolic Panel EDMS 09/30 16:47 Order name: Basic Metabolic Panel EDMS 09/30 16:47 Order name: CBC with Automated Diff EDMS 09/30 16:47 Order name: CBC with Automated Diff EDMS 09/30 16:47 Order name: CBC with Automated Diff EDMS 09/30 16:47 Order name: CBC with Automated Diff EDMS 09/30 16:47 Order name: Magnesium EDMS 09/30 16:47 Order name: Magnesium EDMS 09/30 16:47 Order name: Magnesium EDMS 09/30 16:47 Order name: Magnesium EDMS 09/30 16:47 Order name: Phosphorus EDMS 09/30 16:47 Order name: Phosphorus EDMS 09/30 16:47 Order name: Phosphorus EDMS 09/30 16:47 Order name: Phosphorus EDMS 09/30 16:47 Order name: Troponin High Sensitivity EDMS 09/30 16:47 Order name: Troponin High Sensitivity EDMS 09/30 16:47 Order name: Troponin High Sensitivity EDMS 09/30 17:32 Order name: Lactate Sepsis 2 HR Follow-up [facility] 09/30 11:26 Order name: XRAY Chest (1 view); Complete Time: 14:16 [facility] 09/30 11:26 Order name: CT Chest For PE Angio [facility] 09/30 12:54 Order name: US Extremity Venous W Compression Arnie; Complete Time: 14:16 [facility] 09/30 11:26 Order name: EKG; Complete Time: 11:27 [facility] 09/30 16:47 Order name: CONS Physician Consult [facility] 09/30 16:47 Order name: Physical Therapy Consult [facility] 09/30 11:26 Order name: Cardiac monitoring; Complete Time: 12:37 [facility] 09/30 11:26 Order name: EKG - Nurse/Tech; Complete Time: 11:40 [facility] 09/30 11:26 Order name: IV Saline Lock; Complete Time: 13:07 [facility] 09/30 11:26 Order name: Labs collected and sent; Complete Time: 13:07 [facility] 09/30 11:26 Order name: O2 Per Protocol; Complete Time: 12:37 [facility] 09/30 11:26 Order name: O2 Sat Monitoring; Complete Time: 12:36 [facility] Administered Medications: 12:36 Drug: Aspirin PO Chewable Tablet 81 mg PO once Route: PO; bp 13:54 Follow up: Response: No adverse reaction bp 12:36 Drug: DuoNeb Nebulize (2.5 mg - 0.5 mg) 3 ml Nebulizer once Route: Nebulizer; bp 13:55 Follow up: Response: No adverse reaction bp 13:06 Drug: NS 0.9% IV 1000 ml IV at 1000 ml once; to be given as a bolus over 60 minutes bp Route: IV; Rate: 1000 ml; Site: left forearm; 13:54 Follow up: IV Status: Completed infusion bp 13:07 Drug: MethylPrednisoLONE IVP 125 mg IVP once Route: IVP; Site: left forearm; bp 13:54 Follow up: Response: No adverse reaction bp 13:15 Drug: Famotidine IVP 20 mg IVP once; dilute with 10 mL 0.9% NaCl; give over 2 minutes bp Route: IVP; Site: left forearm; 13:55 Follow up: Response: No adverse reaction bp 13:16 Drug: Levalbuterol Inhalation 3.75 mg Inhalation once Route: Inhalation; bp 13:16 Drug: LevOfloxacin PO 750 mg PO once Route: PO; bp 13:55 Follow up: Response: No adverse reaction bp 13:55 Drug: fentaNYL (PF) IVP 25 mcg IVP once Route: IVP; Site: left forearm; bp 13:55 Drug: fentaNYL (PF) IVP 25 mcg IVP once Route: IVP; Site: left forearm; bp Disposition Summary: 09/30/24 13:04 Hospitalization Ordered Notes: Hospitalization Status: Inpatient Admission briana Provider: Alirio Gilbert briana Condition: Fair briana Problem: new briana Symptoms: have improved briana Bed/Room Type: Standard briana Location: Telemetry/MedSurg (Inpatient)(09/30/24 19:02) dw Room Assignment: 208(09/30/24 19:02) dw Diagnosis - Dyspnea briana - COPD/ Chronic obstructive pulmonary disease with (acute) exacerbation briana - Chest pain on breathing briana - Chest pain, unspecified briana - Essential (primary) hypertension briana Forms: - Medication Reconciliation Form briana - SBAR form briana - Leadership Thank You Letter briana Signatures: Dispatcher [employer] EDMI Hoa Butcher RN RN dw Anderson, Corey, MD MD cha Peltier, Brian RN RN Hannah Vargas RN RN ap3 Corrections: (The following items were deleted from the chart) 11:01 11:00 Allergies: Codeine; ap3 ap3 11:32 11:12 Chest Pa And Lat (2 Views)+[email or web address] ordered. EDMI EDMI 18:27 13:04 Telemetry/MedSurg (Inpatient) briana bp 18:27 13:04 briana bp 19:02 18:27 [facility] ER HOLD bp dw 19:02 18:27 ERHOLD- bp dw
[2024-09-30 13:08] LABS: Absolute Monocytes 0.4 K/uL (0.1-1.3); Absolute Neutrophil 4.5 K/uL (1.8-8.0); Basophils % 0.7 % (0-1.3); Hematocrit 38.2 % (36.0-45.0); Lymphocytes % 16.7 % (15.3-44.8); MCH 29.6 pg (27.0-35.0); MCHC 34.1 g/dL (32.0-36.0); MCV 86.8 fL (80-100); MPV 6.5 fL (7.6-11.3); Monocytes % 7.5 % (3.3-12.3); Neutrophils % 75.1 % (41.7-73.7); Nucleated Red Blood Cells % 0.1 % (0-0); Platelets 324 thou/uL (152-406); Red Cell Distribution Width 18.5 % (12.1-15.2)
[2024-09-30 13:09] LABS: PT Prothrombin Time 11.6 SECONDS (10.0-13.0); Protime INR 1.02
[2024-09-30] MEDS ORDERED: LEVALBUTEROL 1.25 MG/3 ML NEB ONE (13:10)
[2024-09-30] MEDS ORDERED: FAMOTIDINE 20 MG/2 ML VIAL IV ONE (13:11)
[2024-09-30] MEDS ORDERED: levoFLOXacin 750 MG TAB ONE (13:11)
[2024-09-30 13:23] LABS: Albumin 3.8 g/dL (3.4-5.0); Albumin/Globulin Ratio 0.8 (1.1-1.8); Anion Gap 11.7 mEq/L (5.0-15.0); Bilirubin Direct 0.2 mg/dL (0-0.2); Bilirubin Indirect, Calculated 0.3 mg/dL (0.2-0.8); Bilirubin Total 0.5 mg/dL (0.2-1.0); Globulin 4.6 g/dL (2.3-3.5); Magnesium 1.9 mg/dL (1.6-2.4); Potassium 3.7 mEq/L (3.5-5.1); Protein, Total 8.4 g/dL (6.4-8.2); Troponin High Sensitivity 27.2 pg/mL (<58.9)
[2024-09-30 13:24] LABS: Influenza A Ag Negative; Influenza B Ag Negative; SARS-CoV-2 Antigen Rapid Res Negative (Negative)
[2024-09-30] MEDS ORDERED: FENTANYL CITR 100 MCG/2 ML ONE (13:51)
--- NOTE | 2024-09-30 13:51 | RAD REPORT ---
EXAMINATION: US LOWER EXTREMITY VENOUS DOPPLER BILATERAL CLINICAL INDICATION: Female, 74 years old.Pain;Swelling TECHNIQUE: Complete bilateral duplex sonography of the lower extremity veins was performed. The exami nation included compression for vein patency, color Doppler imaging and flow augmentation in response to distal compression of the distal external iliac, common femoral, femoral, popliteal, nish demetra, tibial and great saphenous veins. [id number]. COMPARISON: No prior exams FINDINGS: Duplex sonography imaging demonstrates all deep examined to be fully compressible with spontaneous, p hasic and augmented flow bilaterally. Note that neither greater saphenous vein was visualized. IMPRESSION: No evidence of deep venous thrombosis seen in either lower extremity.
[2024-09-30] MEDS ORDERED: ACETAMINOPHEN 325 MG TABLET PO PRN (16:39)
--- NOTE | 2024-09-30 16:49 | P.HP ---
Certification for Inpatient Patient admitted to: Observation With expected LOS: <2 Midnights Practitioner: I am a practitioner with admitting privileges, knowledge of patient current condition, hospital course, and medical plan of care. Services: Services provided to patient in accordance with Admission requirements found in Title 42 Section 412.3 of the Code of Federal Regulations Patient History Date of Service: 09/30/24 Reason for admission: Acute hypoxic respiratory failure 2/2 COPD exacerbation History of Present Illness: Jose Enrique Yin is a 74 year old female with Pmhx COPD, arthritis, HTN who presents to the ED with dyspnea at rest with a cough. Jose Enrique reports using 3 LNC oxygen at home. On evaluation, he was on 3 L nasal cannula, expiratory wheezes noted with good air movement. Laboratory evaluation significant for sodium 133, lactic acid 2.2, BNP 477, lipase 83, flu and COVID-negative. Chest x-ray reports "Low lung volumes with probable basilar atelectasis." Bilateral lower extremity venous ultrasound reports "No evidence of deep venous thrombosis seen in either lower extremity." Jose Enrique will be admitted to hospitalist service for further evaluation and treatment of acute hypoxic respiratory failure secondary to COPD exacerbation Allergies codeine Allergy (Unverified 03/23/15 03:59) Unknown - Past Medical/Surgical History -: Arthritis -: COPD -: Hypertension -: Left arm surgery - Social History Smoking Status: Current some day smoker Alcohol use: No CD- Drugs: No Review of Systems Other: per HPI Physical Examination - Physical Exam General: Alert, In no apparent distress, Oriented x3 HEENT: Atraumatic, Normocephalic Neck: Supple, 2+ carotid pulse no bruit Respiratory: Clear to auscultation bilaterally, Expiratory wheezes Cardiovascular: Normal pulses, Regular rate/rhythm, Normal S1 S2 Capillary refill: <2 Seconds Gastrointestinal: Normal bowel sounds, Soft and benign Musculoskeletal: No clubbing Integumentary: No breakdown Neurological: Normal speech, Normal tone - Studies Laboratory Data (last 24 hrs) 09/30/24 09/30/24 09/30/24 12:55 12:55 12:55 WBC 5.90 Hgb 13.0 Hct 38.2 Plt Count 324 PT 11.6 INR 1.02 Sodium 133 L Potassium 3.7 BUN 17 Creatinine 1.08 H Glucose 116 H Magnesium 1.9 Total Bilirubin 0.5 AST 51 H ALT 29 Alkaline Phosphatase 91 Lipase 83 H Assessment and Plan - Plan Assessment and Plan Acute hypoxic respiratory failure 2/2 COPD exacerbation Lactic acidosis likely 2/2 inflammation -Flu and COVID-negative -steroid, duonebs, azithromycin -Oxygen protocol, uses 3 L nasal cannula at home -Incentive spirometry -Consult Dr. Villa -Follow blood cultures Arthritis Hypertension -Continue home medication DVT PPx heparin Full code LOS 24-hour OBS Discharge Plan: Home Plan to discharge in: 24 Hours - Advance Directives Does patient have a Living Will: No Does patient have a Durable POA for Healthcare: No
[2024-09-30] MEDS: HEPARIN 5000 UNIT/ML 1 ML VIAL SQ SCH (17:00)
[2024-09-30] MEDS ORDERED: HEPARIN 5000 UNIT/ML 1 ML VIAL ONE (17:02)
[2024-09-30] MEDS: GABAPENTIN 300 MG CAP PO SCH (18:00)
[2024-09-30] MEDS ORDERED: GABAPENTIN 300 MG CAP ONE (18:11)
[2024-09-30 18:35] VITALS: BMI 24.5
[2024-09-30] MEDS ORDERED: guaiFENesin 100 MG/5 ML UCUP PO PRN (19:37)
[2024-09-30] MEDS ORDERED: BENZONATATE 100 MG CAP PO PRN (19:37)
[2024-09-30] MEDS: IPRATROPIUM BROM 0.5MG/2.5ML NEB SCH (19:40)
[2024-09-30] MEDS: ALBUTEROL 2.5 MG/3 ML NEB SOL NEB SCH (19:40)
[2024-09-30] MEDS: ONDANSETRON 4 MG/2 ML VIAL IV PRN (21:52)
[2024-09-30] MEDS: METHYLPREDNISOLONE 40 MG INJ IV SCH (22:01)
[2024-09-30] MEDS: AZITHROMYCIN IV 500 MG in NA CHLORIDE 0.9% 250 ML IVPB SCH (22:12)
[2024-10-01] MEDS: Magnesium Sulfate 2gm IVPB 2 G/50 ML BAG IV ONE (01:09)
[2024-10-01 05:37] LABS: Absolute Lymphocytes (CBC) 0.4 K/uL (0.7-4.9); Absolute Monocytes 0.3 K/uL (0.1-1.3); Absolute Neutrophil 7.7 K/uL (1.8-8.0); Basophils % 0.1 % (0-1.3); Hematocrit 37.5 % (36.0-45.0); Hemoglobin 12.3 g/dL (12.0-15.0); MCH 28.5 pg (27.0-35.0); MCHC 32.7 g/dL (32.0-36.0); MCV 87.3 fL (80-100); MPV 6.7 fL (7.6-11.3); Monocytes % 3.2 % (3.3-12.3); Neutrophils % 91.7 % (41.7-73.7); Nucleated Red Blood Cells % 0.2 % (0-0); Platelets 249 thou/uL (152-406); Red Cell Distribution Width 19.3 % (12.1-15.2)
[2024-10-01 05:43] LABS: Anion Gap 12.8 mEq/L (5.0-15.0); Magnesium 2.6 mg/dL (1.6-2.4); Phosphorus 2.5 mg/dL (2.5-4.9); Potassium 3.8 mEq/L (3.5-5.1)
[2024-10-01 08:09] LABS: Blood Morphology Comment NOTED (NOT SEEN); Platelet Estimate ADEQ; White Blood Cell Scan OK (OK)
[2024-10-01] MEDS: lisinopriL 20 MG TAB PO SCH (09:08)
[2024-10-01] MEDS: POTASSIUM CL SA 10 MEQ TAB PO ONE (09:08)
--- NOTE | 2024-10-01 11:20 | P.CNS ---
Date of Consult: 10/01/24 Reason for Consult: COPD exacerbation Chief Complaint: COPD exacerbation History of Present Illness: Patient is 74 years of age with a history of COPD active smoker admitted with worsening dyspnea for the past week of deep cough associated with significant am ount of chest discomfort. In the emergency room patient does not follow-up regularly with physicians or significant prior medical history Allergies No Known Allergies Allergy (Unverified 09/30/24 21:25) Home Medications: Gabapentin 600 mg PO DAILY 09/30/24 Hydrocodone Bit/Acetaminophen [Hydrocodon-Acetaminophn 10-325] 1 tab PO SEECOM 09/30/24 lisinopriL [Lisinopril] 20 mg PO DAILY 09/30/24 - Past Medical/Surgical History Diabetic: No -: Arthritis -: COPD -: Hypertension -: Left arm surgery - Social History Smoking Status: Current every day smoker Alcohol use: No CD- Drugs: No Place of Residence: Home Review of Systems 10-point ROS is otherwise unremarkable General: Weakness Respiratory: Cough, Shortness of Breath Physical Examination Temp Pulse Resp BP Pulse Ox 98.2 F 81 12 129/73 94 10/01/24 08:00 10/01/24 09:08 10/01/24 08:00 10/01/24 09:08 10/01/24 08:00 General: Alert, In no apparent distress, Oriented x3 Respiratory: Clear to auscultation bilaterally, Diminished Cardiovascular: No edema, Normal pulses Gastrointestinal: Normal bowel sounds, Soft and benign Laboratory Data (last 24 hrs) 09/30/24 09/30/24 09/30/24 12:55 12:55 12:55 WBC 5.90 Hgb 13.0 Hct 38.2 Plt Count 324 PT 11.6 INR 1.02 Sodium 133 L Potassium 3.7 BUN 17 Creatinine 1.08 H Glucose 116 H Magnesium 1.9 Total Bilirubin 0.5 AST 51 H ALT 29 Alkaline Phosphatase 91 Lipase 83 H - Problems (1) COPD exacerbation Current Visit: Yes Status: Acute Plan: Patient is 74 years of age admitted with COPD exacerbation active smoker plan to discharge home on prednisone milligrams twice a day for 10 days patient to Augmentin 100 3 times daily for 7 days will need a long-acting bronchodilator test is Advair 251 puff twice a day patient patient is a heavy smoker I counseled her about smoking also I have faxed in some Chantix teen patches follow-up with me in 2 weeks
[2024-10-01] MEDS ORDERED: HYDROCODONE/APAP 10/325 TAB PO PRN (12:00)
[2024-10-01 12:22] VITALS: BP 139/78; TEMP 98
[2024-10-01 13:30] VITALS: O2SAT 94
--- NOTE | 2024-10-01 14:33 | P.DS ---
Admission Date: 09/30/24 Discharge Date: 10/01/24 Disposition: ROUTINE DISCHARGE Discharge Condition: FAIR Reason for Admission: COPD exacerbation Brief History of Present Illness: Diagnosis Acute hypoxic respiratory failure 2/2 COPD exacerbation Lactic acidosis likely 2/2 inflammation Arthritis Hypertension HPI 09/30/2024 Jose Enrique Yin is a 74 year old female with Pmhx COPD, arthritis, HTN who presents to the ED with dyspnea at rest with a cough. Jose Enrique reports using 3 LNC oxygen at home. On evaluation, he was on 3 L nasal cannula, expiratory wheezes noted with good air movement. Laboratory evaluation significant for sodium 133, lactic acid 2.2, BNP 477, lipase 83, flu and COVID-negative. Chest x-ray reports "Low lung volumes with probable basilar atelectasis." Bilateral lower extremity venous ultrasound reports "No evidence of deep venous thrombosis seen in either lower extremity." Jose Enrique will be admitted to hospitalist service for further evaluation and treatment of acute hypoxic respiratory failure secondary to COPD exacerbation Hospital Course: Patient was admitted and treated for the following diagnoses Acute hypoxic respiratory failure 2/2 COPD exacerbation vs Bronchitis Lactic acidosis likely 2/2 inflammation -Flu and COVID-negative -steroid, duonebs, azithromycin tolerated -Oxygen protocol ordered -Incentive spirometry -Dr. Acuña following -blood cultures NGTD Arthritis Hypertension -Continued home medication On 10/01/2024, Jose Enrique was seen on morning rounds and deemed hemodynamically stable. Dr. Villa has evaluated and cleared her for discharge and follow-up with him in the office. Dr. Acuña has prescribed several medications. Physical Exam General: Alert and Oriented x3, NAD HEENT: Atraumatic, Normocephalic Neck: Supple, 2+ carotid pulse no bruit Respiratory: Clear to auscultation bilaterally, Expiratory wheezes Cardiovascular: Normal pulses, NSR, Normal S1 S2 Capillary refill: <2 Seconds Gastrointestinal: Normal bowel sounds, Soft and benign on palpation Musculoskeletal: No clubbing Integumentary: No breakdown Neurological: Normal speech, Normal tone Vital Signs/Physical Exam: Temp Pulse Resp BP Pulse Ox 98.0 F 78 12 139/78 94 10/01/24 12:00 10/01/24 12:00 10/01/24 12:00 10/01/24 12:00 10/01/24 12:00 Laboratory Data at Discharge: WBC 8.40 thou/uL (4.3-10.9) 10/01/24 05:15 Hgb 12.3 g/dL (12.0-15.0) 10/01/24 05:15 Hct 37.5 % (36.0-45.0) 10/01/24 05:15 Plt Count 249 thou/uL (152-406) 10/01/24 05:15 PT 11.6 SECONDS (10.0-13.0) 09/30/24 12:55 INR 1.02 09/30/24 12:55 Sodium 137 mEq/L (136-145) D 10/01/24 05:15 Potassium 3.8 mEq/L (3.5-5.1) 10/01/24 05:15 BUN 17 mg/dL (7-18) 10/01/24 05:15 Creatinine 1.12 mg/dL (0.55-1.02) H 10/01/24 05:15 Glucose 162 mg/dL (74-106) H 10/01/24 05:15 Phosphorus 2.5 mg/dL (2.5-4.9) 10/01/24 05:15 Magnesium 2.6 mg/dL (1.6-2.4) H 10/01/24 05:15 Total Bilirubin 0.5 mg/dL (0.2-1.0) 09/30/24 12:55 AST 51 U/L (15-37) H 09/30/24 12:55 ALT 29 U/L (13-56) 09/30/24 12:55 Alkaline Phosphatase 91 U/L (45-117) 09/30/24 12:55 Lipase 83 U/L (13-75) H 09/30/24 12:55 Home Medications: Gabapentin 600 mg PO DAILY 09/30/24 Hydrocodone Bit/Acetaminophen [Hydrocodon-Acetaminophn 10-325] 1 tab PO SEECOM 09/30/24 lisinopriL [Lisinopril] 20 mg PO DAILY 09/30/24 Amoxicillin/Potassium Clav [Augmentin 500-125 Tablet] 1 each PO TID 7 Days #21 tab 10/01/24 Fluticasone Propion/Salmeterol [Advair 250-50 Diskus] 1 each IH BID 30 Days #60 aero 03/08/25 Nicotine [Nicoderm] 1 patch TD DAILY 30 Days #30 patch.[email or web address] 10/01/24 Varenicline Tartrate [Chantix] 0.5 mg PO BID 14 Days #28 tab 10/01/24 predniSONE [Deltasone*] 10 mg PO BID 10 Days #20 tab 10/01/24 New Medications: Fluticasone Propion/Salmeterol [Advair 250-50 Diskus] 1 each IH BID 30 Days #60 aero Amoxicillin/Potassium Clav [Augmentin 500-125 Tablet] 1 each PO TID 7 Days #21 tab Varenicline Tartrate [Chantix] 0.5 mg PO BID 14 Days #28 tab predniSONE [Deltasone*] 10 mg PO BID 10 Days #20 tab Nicotine [Nicoderm] 1 patch TD DAILY 30 Days #30 patch.[email or web address] Physician Discharge Instructions: 1. Please call and schedule a follow-up appointment with your PCP in 3-5 days - Please follow-up with your PCP for medication refills/adjustments 2. Please call and schedule a follow-up appointment with Dr. Acuña in 3-5 days 3. Continue heart healthy diet 4. activity restrictions fall precautions 5. Return to the ED if symptoms worsen New medications Advair 1 puff twice daily Augmentin 500 mg 3 times a day x 7 days Chantix 0.5 mg twice a day x 14 days Prednisone 10 mg twice daily x 10 days NicoDerm patch daily x 30 days Diet: AHA Activity: Fall precautions Followup: Jose Acuña MD [ACTIVE - CAN ADMIT] -
[2024-10-02] MEDS ORDERED: HOME MED 1 EA UNK (Gabapentin [Gabapentin] 600 MG Tablet) PO SCH (09:00)
[2024-10-02] MEDS ORDERED: lisinopriL 20 MG TAB PO SCH (09:00)
== END 2024-10-01 17:05 | disposition home or self-care (01) ==
LOC: ER 10:53 → ERHOLD 16:39 → 2ND 21:03
PROVIDERS: ADMIT Internal Medicine; ATTEND Internal Medicine
DX: J96.01 Acute respiratory failure with hypoxia (principal); J44.1 Chronic obstructive pulmonary disease with (acute) exacerbation; E87.20 Acidosis, unspecified; I10 Essential (primary) hypertension; M19.90 Unspecified osteoarthritis, unspecified site; F17.210 Nicotine dependence, cigarettes, uncomplicated; R05.9 Cough, unspecified; Z99.81 Dependence on supplemental oxygen; Z88.5 Allergy status to narcotic agent
CPT/HCPCS: 96361; 87040 ×2; 85025 ×2; 80048 ×2; 36415; 83735 ×3; 84100; 85610; 82947; 80076; 83605 ×3; 84484 ×3; 83690; 83880; 71045; 93970; 97116; 97161; 94010 ×2; 94640; 96375; 96374; 99285; 87428; J1644 ×3; J3475; J7614; J7613 ×4; J7644 ×4; J3010; J2919 ×3; J2405; J7050; J7030; 93005

== ENCOUNTER 2024-12-19 19:12 | Emergency (ER) | payer OTHER ==
--- OUTSIDE RECORDS SUMMARY | 2024-12-19 19:17 | XMS REPORT | Continuity of Care Document ---
Author Name Unknown Address [address] [facility] [address] [place] [address] [facility] [place] Address [address] [facility] [place] [address] Care Team Providers Care Delivery Driver Assistant Name Role Phone NADEEN ARAUJO Primary Care Physician Unavailab Saida Sorensen Attending Clinician Unavailable Nadeen Araujo Attending Clinician Unavailable MINDA FINE Attending Clinician Unavailab ALEJO Kaur Attending Clinician Unavailable ALEJO BERGERON Attending Clinician Unavailable Marielena CESAR, Alejo Attending Clinician [phone] Elyssa DONAHUE MD, John Attending Clinician [phone] Doctor Unassigned, [place] Attending Clinician U more Peñaloza RN, Allan Rodriguez Attending Clinician Unavail able Alban CESAR, Henri Castro Attending Clinician [phone] Nohemy CESAR, Ham Attending Clinician [phone] MINDA FINE Admitting Clinician Unavailab clinton Bergeron II, MD, Alejo Admitting Clinician [phone] ALEJO BERGERON Admitting Clinician Unavailable Payers Payer Name Policy Type Policy Number Effective Date Expirati on Date Source [facility] DUAL COMP HMO-POS D SNP [id number] 2022 00:00:00 [place] [id number] 2022 00:00:00 [employer] MEDICARE C1 [id number] 2020 00[facility] [id number] 2020 00:00:00 [facility] MEDICARE C1 [id number] 2020 00:00:00 [facility] Problems Condition Name Condition Details Condition Category Status Onset Date Resolution Date Last Treatment Date Treating Clinician Comments Source Osteoporos is Osteoporos is Disease Recurre nce 09-01 00:00: 00 [facility] 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 Active 08-30 00:00: 00 [facility] Open fracture of left wrist, initial encounter Open fracture of left wrist, initial encounter Disease Active 08-30 00:00: 00 [facility] [id number] Depression , recurrent Problem [facility] Disorder of cardiovasc ular system Circulatio n problem Problem [facility] [id number] Primary osteoarthr itis involving multiple joints Problem [facility] [id number] Osteoarthr itis of multiple joints, unspecifie d osteoarthr itis type Problem [facility] Chronic pain Other chronic pain Problem [facility] Migraine Migraines Problem Commo n [facility] Hepatitis Hepatitis Problem Comm on [facility] [id number] Current moderate episode of major depressive disorder without prior episode Problem Common [facility] Kidney stone Kidney stones Problem [facility] Localized, primary osteoarthr itis of the pelvic region and thigh Osteoarthr itis of right hip, unspecifie d osteoarthr itis type Problem [facility] Swelling Swelling Problem Common [facility] Unsteady gait Unsteady gait Problem [facility] Osteopenia Osteopenia Problem Co mmon [facility] Hypertensi on HTN (hypertens ion) Problem Common [facility] Anxiety Anxiety Problem Common [facility] Allergies, Adverse Reactions, Alerts Allergy Name Allergy Type Status Severity Reaction(s) Onset Date Inactive Date Treating Clinician Comments Source CODEINE DRUG INGREDI Active N/V 03-14 00:00: 00 [facility] Codeine Propensi ty to adverse reaction s Active Nausea and/or Vomiting 03-14 00:00: 00 [facility] NO KNOWN ALLERGIE S Drug Class Active [facility] Social History Social Habit Start Date Stop Date Quantity Comments Source History SDOH Alcohol Frequency [facility] History SDOH Social Connections Get Together [facility] History SDOH Social Connections [facility] History SDOH Social Connections Membership [facility] History SDOH Social Connections Meetings [facility] History of tobacco use Cigarette Smoker [facility] Exposure to SARS-CoV-2 (event) 2022-10-26 00:00:00 2022-11-05 15:21:00 Not sure [facility] Tobacco use and exposure 2022-08-31 00:00:00 2022-08-31 00:00:00 User of smokeless tobacco [facility] History SDOH Alcohol Std Drinks 2022-08-31 00:00:00 2022-08-31 00:00:00 0 [facility] History SDOH Alcohol Binge 2022-08-31 00:00:00 2022-08-31 00:00:00 1 [facility] History SDOH Social Connections Phone 2022-08-31 00:00:00 2022-08-31 00:00:00 5 [facility] History SDOH Social Connections Living 2022-08-31 00:00:00 2022-08-31 00:00:00 4 [facility] History SDOH Physical Activity DPW 2022-08-31 00:00:00 2022-08-31 00:00:00 0 [facility] History SDOH Physical Activity MPS 2022-08-31 00:00:00 2022-08-31 00:00:00 0 [facility] History SDOH Financial 2022-08-31 00:00:00 2022-08-31 00:00:00 2 [facility] History SDOH Food Worry 2022-08-31 00:00:00 2022-08-31 00:00:00 3 [facility] History SDOH Food Scarcity 2022-08-31 00:00:00 2022-08-31 00:00:00 2 [facility] History SDOH Transport Med 2022-08-31 00:00:00 2022-08-31 00:00:00 2 [facility] History SDOH Transport Non-Med 2022-08-31 00:00:00 2022-08-31 00:00:00 2 [facility] Sex Ass[birth year] At 1950 00:00:00 1950 00:00:00 [facility] Smoking Status Start Date Stop Date Source Never Smoker Common [facility] Smokes tobacco daily 2022-08-31 00:00:00 [facility] Medications Ordered Medication Name Filled Medication Name Start Date Stop Date Current Medication? Ordering Clinician Indication Dosage Frequency Signature (SIG) Comments Components Source traMADoL 50 mg tablet 4-16 00:00: 00 11-17 04:59 :00 No 4647 50mg Take 1 tablet by mouth every 6 (six) hours as needed for Pain (scale 7-10) for up to 7 days. Indication s: acute pain [facility] gabapentin 300 mg capsule -12 00:00: 00 Yes [id number] 300mg Take 1 capsule by mouth at bedtime. [facility] traMADoL 50 mg tablet 4-12 00:00: 00 11-13 04:59 :00 No 4647 50mg Take 1 tablet by mouth every 6 (six) hours as needed for Pain (scale 7-10) for up to 7 days. Indication s: acute pain [facility] HYDROcodone -acetaminop hen (NORCO) 10-325 mg tablet 3-04 00:00: 00 09-27 00:00 :00 No 4647 1{tbl} Take 1 tablet by mouth every 6 (six) hours as needed for Pain (scale 7-10) for up to 7 days. Indication s: acute pain [facility] HYDROcodone -acetaminop hen (NORCO) 5-325 mg tablet 09-25 00:00: 00 10-03 05:59 :00 No 4647 1{tbl} Take 1 tablet by mouth every 6 (six) hours as needed for Pain (scale 7-10) for up to 7 days. Indication s: acute pain [facility] gabapentin 300 mg capsule 09-08 18:34: 36 Yes 300mg Take 300 mg by mouth in the morning. [facility] methocarbam oL 750 mg tablet 09-08 00:00: 00 10-09 04:59 :00 No [id number] 750mg Take 1 tablet by mouth in the morning and 1 tablet at noon and 1 tablet in the evening. Do all this for 30 days. [facility] docusate 100 mg capsule 09-08 00:00: 00 09-24 05:59 :00 No [id number] 100mg Take 1 capsule by mouth in the morning and 1 capsule in the evening. Do all this for 15 days. [facility] gabapentin 300 mg capsule 09-08 00:00: 00 09-23 05:59 :00 No [id number] 300mg Take 1 capsule by mouth in the morning and 1 capsule at noon and 1 capsule in the evening. Do all this for 14 days. [facility] traMADoL 50 mg tablet 09-08 00:00: 00 09-16 05:59 :00 No 4647 50mg Take 1 tablet by mouth every 6 (six) hours as needed for Pain (scale 4-6) or Pain (scale 7-10) for up to 7 days. Indication s: acute pain [facility] HYDROcodone -acetaminop hen 10-325 mg tablet 09-08 00:00: 00 09-16 05:59 :00 No 4647 1{tbl} Take 1 tablet by mouth every 6 (six) hours as needed for Pain (scale 4-6) or Pain (scale 7-10) for up to 7 days. Indication s: acute pain [facility] ondansetron (ZOFRAN) 4 mg tablet 09-08 00:00: 00 09-14 05:59 :00 No [id number] 4mg Take 1 tablet by mouth every 6 (six) hours for 20 doses. [facility] polyethylen e glycol 3350 powder 17 g 09-07 13:30: 00 Yes 17g 17 g, Oral, DAILY, First dose on 09/07/22 at 0730, Until Discontinu ed, Routine [facility] glycerin/mi neral oil (AGLO ENEMA) (COMPOUNDED ) Enem 225 mL 09-07 13:26: 01 Yes 225mL 225 mL, Rectal, PRN, Starting on 09/07/22 at 0726, Until Discontinu ed, Routine, Constipati on unresolved by oral medication s [facility] bisacodyL (DULCOLAX) suppository 10 mg 09-07 13:25: 35 Yes 10mg 10 mg, Rectal, QHSPRN, Starting on 09/07/22 at 0725, Until Discontinu ed, Routine, Constipati on, Constipati on unresolved by oral medication s [facility] morpHINE (2 mg/mL) injection 2 mg 09-06 05:59: 18 Yes 2mg 2 mg, Slow IV Push, Q6HPRN, Starting on Thu09/05/22 at 2359, Until Discontinu ed, Routine, give for breakthrou gh pain after first line oral pain medication s have been given [facility] HYDROmorphO ne (DILAUDID) injection 0.2 mg 09-05 00:27: 50 09-05 03:07 :32 No .2mg 0.2 mg, Slow IV Push, Q5MIN PRN, 10 doses, Starting on Sanjuana 09/04/22 at 1827, Until Sanjuana 09/04/22 at 2107, Routine, Pain (scale 7-10), PACU
Us e approved by (Faculty): PACU USE -ANESTHESI A SERVICE-HY DROMORPHON E INJECTIONS [facility] gabapentin 300 mg capsule 09-04 21:07: 32 Yes 300mg Take 300 mg by mouth in the morning. [facility] diphenhydrA MINE (BENADRYL) tablet 25 mg 09-04 02:22: 33 Yes 25mg 25 mg, Oral, Q4HPRN, Starting on Thu09/03/22 at 2022, Until Discontinu ed, Routine, Itching [facility] enoxaparin 30 mg/0.3 mL injection 09-04 00:00: 00 10-31 04:59 :00 No [id number] 30mg inject 0.3 mL under the skin every 12 (twelve) hours for 56 days. [facility] butalbital- acetaminoph en-caff (ESGIC) 50-325-40 mg tablet 1 tablet 09-03 17:12: 19 Yes 1{tbl} 1 tablet, Oral, QDAILYPRN, Starting on Thu09/03/22 at 1112, Until Discontinu ed, Routine, headache [facility] gabapentin (NEURONTIN) capsule 300 mg 09-02 20:00: 00 Yes 300mg 300 mg, Oral, TID, First dose (after last modificati on) on Thu09/02/22 at 1400, Until Discontinu ed, Routine [facility] HYDROcodone -acetaminop hen (NORCO) 10-325 mg tablet 1 tablet 09-02 15:20: 32 Yes 1{tbl} 1 tablet, Oral, Q6HPRN, Starting on Thu09/02/22 at 0920, Until Discontinu ed, Routine, Pain (scale 4-6) [facility] enoxaparin (LOVENOX) injection 30 mg 09-02 14:00: 00 Yes 30mg 30 mg, Subcutaneo us, Q12H, First dose on Thu09/02/22 at 0800, Until Discontinu ed, Routine [facility] methocarbam oL (ROBAXIN) tablet 750 mg 09-02 14:00: 00 Yes 750mg 750 mg, Oral, QID, First dose (after last modificati on) on Thu09/02/22 at 0800, Until Discontinu ed, Routine [facility] methocarbam oL (ROBAXIN) tablet 750 mg 09-02 14:00: 00 Yes 750mg 750 mg, Oral, QID, First dose (after last modificati on) on Thu09/02/22 at 0800, Until Discontinu ed, Routine [facility] HYDROcodone -acetaminop hen (NORCO 5) 5-325 mg tablet 1 tablet 09-02 13:15: 00 09-02 15:13 :32 No 1{tbl} 1 tablet, Oral, Q4HPRN, Starting on Thu09/02/22 at 0715, Until Thu09/02/22 at 0913, Routine, Pain (scale 4-6) [facility] NaCl 0.9% (NS) injection 10 mL 09-02 13:13: 36 Yes 10mL 10 mL, Slow IV Push, PRN, Starting on Thu09/02/22 at 0713, Until Discontinu ed, Routine, line maintenanc e [facility] gabapentin (NEURONTIN) capsule 300 mg 09-02 02:00: 00 09-02 15:13 :33 No 300mg 300 mg, Oral, BID, First dose (after last modificati on) on Thu09/01/22 at 2000, Until Discontinu ed, Routine [facility] NaCl 0.9% (NS) injection 10 mL 09-01 15:09: 49 Yes 10mL 10 mL, Slow IV Push, PRN, Starting on Thu09/01/22 at 0909, Until Discontinu ed, Routine, line maintenanc e [facility] lidocaine 1% (PF) (XYLOCAINE) injection 5 mL 09-01 15:09: 49 Yes 5mL 5 mL, Subcutaneo us, PRN, Starting on Thu09/01/22 at 0909, Until Discontinu ed, Routine, Local anesthesia [facility] melatonin (MELATIN) tablet 3 mg 09-01 03:00: 00 Yes 3mg 3 mg, Oral, QHS, First dose on 08/31/22 at 2100, Until Discontinu ed, Routine [facility] methocarbam oL (ROBAXIN) tablet 500 mg 08-31 17:15: 00 09-02 13:10 :43 No 500mg 500 mg, Oral, QID, First dose on 08/31/22 at 1115, Until Discontinu ed, Routine [facility] ipratropium -albuteroL (DUONEB) 0.5 mg-3 mg(2.5 mg base)/3 mL nebulizer solution 3 mL 08-31 05:45: 00 08-31 05:11 :00 No 3mL 3 mL, Inhalation , ONCE, 1 dose, On 08/30/22 at 2345, Routine, PACU [facility] polyethylen e glycol 3350 powder 17 g 08-31 04:53: 53 Yes 17g 17 g, Oral, QDAILYPRN, Starting on 08/30/22 at 2253, Until Discontinu ed, Routine, Constipati on [facility] traMADoL (ULTRAM) tablet 50 mg 08-31 04:53: 52 Yes 50mg 50 mg, Oral, Q4HPRN, Starting on 08/30/22 at 2253, Until Discontinu ed, Routine, Pain (scale 7-10) [facility] ondansetron (ZOFRAN-ODT ) disintegrat ing tablet 4 mg 08-31 04:53: 52 Yes 4mg 4 mg, Oral, Q6HPRN, Starting on 08/30/22 at 2253, Until Discontinu ed, Routine, Nausea and Vomiting (N/V) [facility] HYDROcodone -acetaminop hen (NORCO 5) 5-325 mg tablet 1 tablet 08-31 04:53: 52 09-02 13:11 :09 No 1{tbl} 1 tablet, Oral, Q6HPRN, Starting on 08/30/22 at 2253, Until 09/02/22 at 0711, Routine, Pain (scale 4-6) [facility] lactated ringers IV infusion 1,000 mL 08-31 04:45: 00 Yes 1000mL at 75 mL/hr, 1,000 mL, IV Infusion, CONTINUOUS , Starting on 08/30/22 at 2245, Until Discontinu ed, Routine, PACU [facility] FENTanyl PF (SUBLIMAZE (PF)) injection 25 mcg 08-31 04:41: 58 08-31 07:00 :00 No 25ug 25 mcg, Slow IV Push, Q5MIN PRN, 4 doses, Starting on 08/30/22 at 2241, Until Discontinu ed, Routine, Pain (scale 4-6), PACU [facility] morpHINE (4 mg/mL) injection 4 mg 08-31 01:30: 00 08-31 01:21 :00 No 4mg 4 mg, Slow IV Push, ONCE, 1 dose, On 08/30/22 at 1930, STAT [facility] morpHINE (2 mg/mL) injection 6 mg 08-31 00:30: 00 08-30 23:30 :00 No 6mg 6 mg, Slow IV Push, ONCE, 1 dose, On 08/30/22 at 1830, STAT [facility] diphenhydrA MINE (BENADRYL) injection 25 mg 08-30 23:45: 00 08-30 23:43 :00 No 25mg 25 mg, Slow IV Push, ONCE, 1 dose, On 08/30/22 at 1745, STAT [facility] proMETHazin e (PHENERGAN) 12.5 mg in NS 50 mL IV piggyback (CNR) 08-30 23:30: 00 08-30 23:58 :00 No 12.5mg 12.5 mg, IV Piggyback, at 200 mL/hr Administer over 15 Minutes, ONCE, 1 dose, On 08/30/22 at 1730, MARTHA [facility] FENTanyl PF (SUBLIMAZE (PF)) injection 150 mcg 08-30 22:15: 00 08-30 23:15 :00 No 150ug 150 mcg, Slow IV Push, ONCE, 1 dose, On 08/30/22 at 1615, Routine [facility] Bactrim DS 800-160 MG Bactrim DS 800-160 MG 09-27 00:00: 00 No 1{table t} BID Bactrim DS 800-160 MG CeleBREX 200 MG CeleBREX 200 MG [...] QD buPROPion HCl ER (XL) 300 MG Lisinopril 30 MG Lisinopril 30 MG No 1{table t} QD Lisinopril 30 MG Vital Signs Vital Name Observation Time Observation Value Comments S ource Systolic blood pressure 2022-11-05 20:31:00 171 mm[Hg] [facility] Diastolic blood pressure 2022-11-05 20:31:00 99 mm[Hg] [facility] Heart rate 2022-11-05 20:31:00 90 /min [facility] Body temperature 2022-11-05 20:31:00 36.72 [facility] Body height 2022-11-05 20:31:00 154.9 cm [facility] Body weight 2022-11-05 20:31:00 57.153 kg [facility] BMI 2022-11-05 20:31:00 23.81 kg/m2 [facility] Body temperature 2022-09-25 16:44:00 36.67 [facility] Body height 2022-09-25 16:44:00 154.9 cm [facility] Body weight 2022-09-25 16:44:00 59.875 kg [facility] BMI 2022-09-25 16:44:00 24.94 kg/m2 [facility] Systolic blood pressure 2022-09-08 22:22:00 138 mm[Hg] [facility] Diastolic blood pressure 2022-09-08 22:22:00 81 mm[Hg] [facility] Heart rate 2022-09-08 22:22:00 66 /min [facility] Body temperature 2022-09-08 22:22:00 36.33 Malaika [facility] Respiratory rate 2022-09-08 22:22:00 18 /min [facility] Oxygen saturation in Arterial blood by Pulse oximetry 2022-09-08 22:22:00 96 /min [facility] Body weight 2022-09-05 17:00:00 62.1 kg [facility] BMI 2022-09-05 17:00:00 25.87 kg/m2 [facility] Body height 2022-09-02 07:20:00 154.9 cm [facility] Systolic blood pressure 2022-09-05 00:38:00 116 mm[Hg] [facility] Diastolic blood pressure 2022-09-05 00:38:00 57 mm[Hg] [facility] Heart rate 2022-09-05 00:38:00 70 /min [facility] Body temperature 2022-09-05 00:38:00 36.56 Malaika [facility] Respiratory rate 2022-09-05 00:38:00 8 /min [facility] Oxygen saturation in Arterial blood by Pulse oximetry 2022-09-05 00:38:00 95 /min [facility] Body height 2022-09-02 07:20:00 154.9 cm [facility] Body weight 2022-09-02 07:20:00 62.1 kg [facility] BMI 2022-09-02 07:20:00 25.87 kg/m2 [facility] Systolic blood pressure 2022-08-30 22:58:00 180 mm[Hg] [facility] Diastolic blood pressure 2022-08-30 22:58:00 91 mm[Hg] [facility] Heart rate 2022-08-30 22:58:00 82 /min [facility] Respiratory rate 2022-08-30 22:58:00 16 /min [facility] Oxygen saturation in Arterial blood by Pulse oximetry 2022-08-30 22:58:00 100 /min [facility] Body temperature 2022-08-30 19:35:00 36.44 Malaika [facility] Body weight 2022-08-30 19:35:00 61.236 kg [facility] height 2021-10-23 12:10:00 62.00 [in_i] Com [facility] weight 2021-10-23 12:10:00 135 [lb_av] Comm on [facility] bmi 2021-10-23 12:10:00 24.69 kg/m2 Comm on [facility] height 2020-12-26 08:20:00 62.00 [in_i] Com [facility] weight 2020-12-26 08:20:00 135 [lb_av] Comm on [facility] 2020-12-26 08:20:00 24.69 kg/m2 Comm on [facility] height 2020-11-27 13:00:00 62.00 [in_i] Com [facility] weight 2020-11-27 13:00:00 135 [lb_av] Comm on [facility] 2020-11-27 13:00:00 24.69 kg/m2 Comm on [facility] Procedures Procedure Date / Time Performed Performing Clinician Source XR WRIST 3+ VW LEFT 2022-11-05 21:27:27 Pako Robbins [facility] XR WRIST 3+ VW LEFT 2022-09-25 17:14:57 Elyssa [facility] ASSIGNMENT OF BENEFITS 2022-09-25 16:29:43 Docto r Unassigned, [place] [facility] FL TIME OR (NON-REPORTABLE) 2022-09-05 00:18:14 Faillace, [facility] FL TIME OR (NON-REPORTABLE) 2022-09-05 00:18:14 Marielena [facility] DISTAL RADIUS ORIF 2022-09-04 21:42:00 Failkey [facility] EXTERNAL FIXATOR REMOVAL OF UPPER EXTREMITY 2022-09-04 21:42:00 Faillajun [facility] DISTAL RADIUS ORIF 2022-09-04 21:42:00 Faillace [facility] EXTERNAL FIXATOR REMOVAL OF UPPER EXTREMITY 2022-09-04 21:42:00 Failkey [facility] BASIC METABOLIC PANEL (NA, K, CL, CO2, GLUCOSE, BUN, CREATININE, CA) 2022-09-04 10:10:00 Andres Jimenez [facility] CBC WITHOUT DIFF 2022-09-04 10:10:[address] [facility] PROTHROMBIN TIME / INR 2022-09-04 10:10:00 Madison Jimenez [facility] ACTIVATED PARTIAL THRMPLAS JEANIE 2022-09-04 10:10:00 Andres Jimenez [facility] BASIC METABOLIC PANEL (NA, K, CL, CO2, GLUCOSE, BUN, CREATININE, CA) 2022-09-04 10:10:00 Andres Jimenez [facility] CBC WITHOUT DIFF 2022-09-04 10:10:[address] [facility] PROTHROMBIN TIME / INR 2022-09-04 10:10:00 Madison Jimenez [facility] ACTIVATED PARTIAL THRMPLAS JEANIE 2022-09-04 10:10:00 Andres Jimenez [facility] US DUPLEX VENOUS ARM RIGHT - BY VASCULAR LAB 2022-09-03 15:45:00 Larisa Martines [facility] DUPLEX VENOUS ARM RIGHT - BY VASCULAR LAB 2022-09-03 15:45:00 Larisa Martines [facility] CBC WITHOUT DIFF 2022-09-01 16:54:00 Mya Martinesherine [facility] CBC WITHOUT DIFF 2022-09-01 16:54:00 Larisa Martines [facility] CBC WITHOUT DIFF 2022-09-01 16:54:00 Larisa Martines [facility] HB ECG ROUTINE & RHYTHM STRIP 2022-08-31 07:58:17 Larisa Martines [facility] HB ECG ROUTINE & RHYTHM STRIP 2022-08-31 07:58:17 Larisa Martines [facility] FL TIME OR (NON-REPORTABLE) 2022-08-31 04:15:00 Ja Jo [facility] FL TIME OR (NON-REPORTABLE) 2022-08-31 04:15:00 Ja Jo [facility] FL TIME OR (NON-REPORTABLE) 2022-08-31 04:15:00 Ja Jo [facility] ABORH CONFIRMATION (LAB ONLY) 2022-08-31 02:42:00 Henri Phoenix [facility] ABORH CONFIRMATION (LAB ONLY) 2022-08-31 02:42:00 Henri Phoenix [facility] ABORH CONFIRMATION (LAB ONLY) 2022-08-31 02:42:00 Henri Phoenix [facility] EXPLORATION VESSEL UPPER EXTREMITY 2022-08-31 01:43:00 Ham Slater [facility] EXTERNAL FIXATOR PLACEMENT FOR UPPER EXTREMITY 2022-08-31 01:43:00 Alejo Bergeron [facility] LIGATION VESSEL UPPER EXTREMITY 2022-08-31 01:43:00 Ham Slater [facility] EXPLORATION VESSEL UPPER EXTREMITY 2022-08-31 01:43:00 Ham Slater [facility] EXTERNAL FIXATOR PLACEMENT FOR UPPER EXTREMITY 2022-08-31 01:43:00 Alejo Bergeron [facility] LIGATION VESSEL UPPER EXTREMITY 2022-08-31 01:43:00 Ham Slater [facility] XR WRIST <3 VW LEFT 2022-08-30 23:25:00 Imelda Martines [facility] XR WRIST <3 VW LEFT 2022-08-30 23:25:00 Imelda Martines [facility] XR WRIST <3 VW LEFT 2022-08-30 23:25:00 Imelda Martines [facility] CBC WITH DIFF 2022-08-30 22:37:00 Henri Phoenix [facility] PROTHROMBIN TIME / INR 2022-08-30 22:37:00 Sera [place] [facility] ACTIVATED PARTIAL THRMPLAS JEANIE 2022-08-30 22:37:00 Henri [place] [facility] CBC WITH DIFF 2022-08-30 22:37:00 Henri [place] [facility] PROTHROMBIN TIME / INR 2022-08-30 22:37:00 Sera [place] [facility] ACTIVATED PARTIAL THRMPLAS JEANIE 2022-08-30 22:37:00 Henri [place] [facility] CBC WITH DIFF 2022-08-30 22:37:00 Henri [place] [facility] PROTHROMBIN TIME / INR 2022-08-30 22:37:00 Sera [place] [facility] ACTIVATED PARTIAL THRMPLAS JEANIE 2022-08-30 22:37:00 Henri [place] [facility] XR ELBOW <3 VW LEFT 2022-08-30 20:42:00 Debi Frye [facility] XR FOREARM 2 VW LEFT 2022-08-30 20:42:00 Henri [place] [facility] XR HAND <3 VW LEFT 2022-08-30 20:42:00 Henri [place] [facility] XR WRIST <3 VW LEFT 2022-08-30 20:42:00 Henri [place] [facility] XR ELBOW <3 VW LEFT 2022-08-30 20:42:00 Debi Frye [facility] XR FOREARM 2 VW LEFT 2022-08-30 20:42:00 Henri [place] [facility] XR HAND <3 VW LEFT 2022-08-30 20:42:00 Henri [place] [facility] XR WRIST <3 VW LEFT 2022-08-30 20:42:00 Henri [place] [facility] XR ELBOW <3 VW LEFT 2022-08-30 20:42:00 Debi Frye [facility] XR FOREARM 2 VW LEFT 2022-08-30 20:42:00 Henri [place] [facility] XR HAND <3 VW LEFT 2022-08-30 20:42:00 Henri Pohenix [facility] XR WRIST <3 VW LEFT 2022-08-30 20:42:00 Henri [place] [facility] COMP. METABOLIC PANEL (97215) 2022-08-30 20:21:00 Henri [place] [facility] COMP. METABOLIC PANEL (02197) 2022-08-30 20:21:00 Henri [place] [facility] COMP. METABOLIC PANEL (86775) 2022-08-30 20:21:00 Henri [place] [facility] HB ABO GROUPING 2022-08-30 20:19:00 Henri [facility] HB ABO GROUPING 2022-08-30 20:19:00 Henri [facility] HB ABO GROUPING 2022-08-30 20:19:00 Henri [facility] HOSPITAL ADMISSION 2022-08-30 06:01:00 Doctor Un assigned, [place] [facility] EMERGENCY SERVICES AGREEMENTS AND AUTHORIZATIONS 2022-08-30 06:01:00 Doctor Unassigned, [place] [facility] ADMISSION 2022-08-30 06:01:00 Doctor Un assigned, [place] [facility] ADMISSION 2022-08-30 06:01:00 Doctor Un assigned, [place] [facility] Encounters Start Date/Time End Date/Time Encounter Type Admission Type Attending [facility] Care Facility Care Department Encounter ID Source 2024-10-06 10:48:00 Outpatient [facility] [id number] [facility] 2024-07-28 07:30:00 Outpatient SumitSamarai [facility] [id number] [facility] 2024-05-02 14:55:00 Outpatient Sumit Saida [facility] [id number] [facility] 2023-08-04 08:21:00 Outpatient Sumit Saida [facility] [id number] [facility] 2023-06-25 16:29:00 Outpatient Saida Arana [facility] ST[facility] [id number] [facility] 2021-11-26 15:30:02 Outpatient Sukhdev, Na STLMLC ST[facility] [id number] [facility] 2021-11-25 08:44:00 Outpatient Araujo, Na STLMLC ST[facility] [id number] [facility] 2021-10-23 07:18:01 Outpatient Araujo, Na STLMLC ST[facility] [id number] [facility] 2021-10-21 09:07:00 Outpatient Sukhdev, Na STLMLC STLMLC [id number] [facility] 2021-08-21 13:42:36 Outpatient Araujo, Na [facility]ML[facility] ST[facility] [id number] [facility] 2021-08-21 13:22:56 Outpatient Araujo, Na STLMLC ST[facility] [id number] [facility] 2021-08-21 13:09:15 Outpatient Sukhdev, Na STLMLC ST[facility]C [id number] [facility] 2021-08-21 12:58:54 Outpatient Araujo, Na [facility]LMLC ST[facility] [id number] [facility] 2024-10-06 00:00:00 2024-10-06 00:00:00 (TEL) [facility]LMLC ST[facility] [id number] [facility] 2024-10-03 23:00:00 2024-10-04 03:02:00 Emergency X RODY SUSANGRAHAM [facility] ERT [id number] [facility] 2023-05-04 00:00:00 2023-05-04 00:00:00 (TEL) STLMLC ST[facility]C [id number] [facility] 2022-12-29 14:00:00 2022-12-29 14:00:00 Outpatient R ALEJO PEGUERO [facility] [id number] [facility] 2022-11-05 16:00:00 2022-11-05 23:59:00 Hospital Encounter Alejo Peguero [facility] 1.2.840.114 350.1.13.10 4.2.7.2.686 [id number] [facility] 2022-11-05 15:30:00 2022-11-05 16:42:36 Outpatient R ALEJO PEGUERO [facility] [id number] [facility] 2022-11-05 15:30:00 2022-11-05 16:42:36 Office Visit Alejo Peguero [facility] 1.2.840.114 350.1.13.10 4.2.7.2.686 [id number] [facility] 2022-11-05 00:00:00 2022-11-05 00:00:00 Telephone Alejo Peguero [facility] 1.2.840.114 350.1.13.10 4.2.7.2.686 [id number] [facility] 2022-10-22 00:00:00 2022-10-22 00:00:00 Telephone Alejo Peguero [facility] 1.2.840.114 350.1.13.10 4.2.7.2.686 [id number] [facility] 2022-10-21 00:00:00 2022-10-21 00:00:00 Telephone Alejo Peguero [facility] 1.2.840.114 350.1.13.10 4.2.7.2.686 [id number] [facility] 2022-10-13 12:50:00 2022-10-13 12:50:00 Outpatient R ALEJO PEGUERO [facility] [id number] [facility] 2022-09-27 00:00:00 2022-09-27 00:00:00 Telephone Alejo Bergeron [facility] 1.2.840.114 350.1.13.10 4.2.7.2.686 [id number] [facility] 2022-09-25 10:54:10 2022-09-25 23:59:00 Hospital Encounter Alejo Bergeron [facility] 1.2840.114 350.1.13.10 4.2.7.2.686 [id number] [facility] 2022-09-25 09:40:00 2022-09-25 11:58:17 Outpatient R [facility] [id number] [facility] 2022-09-25 09:40:00 2022-09-25 11:58:17 Office Visit Alejo Bergeron [facility] 1.2840.114 350.1.13.10 4.2.7.2.686 [id number] [facility] 2022-09-25 00:00:00 2022-09-25 00:00:00 Orders Only Doctor Unassigned, [place] [facility] 1.2840.114 350.1.13.10 4.2.7.2.686 [id number] [facility] 2022-09-09 00:00:00 2022-09-09 00:00:00 Transition of Care Allan Peñaloza 1.2.840.114 350.1.13.10 4.2.7.2.686 [id number] [facility] 2022-08-30 13:37:00 2022-09-08 18:34:00 [facility] 1.2.840.114 350.1.13.10 4.2.7.2.686 [id number] [facility] 2022-08-30 13:37:00 2022-09-08 18:34:00 Inpatient X ALEJO BERGERON [facility] [id number] [facility] 2022-09-04 16:00:00 2022-09-04 18:44:[facility] 1.2.[facility].114 350.1.13.10 4.2.7.2.686 [id number] [facility] 2022-08-30 18:45:00 2022-08-30 20:22:00 Surgery Nohemy [facility] 1.2.840.114 350.1.13.10 4.2.7.2.686 [id number] [facility] 2021-11-27 00:00:00 2021-11-27 00:00:00 OFFICE VISIT EST PT LEVEL 3 [facility] ST[facility] [id number] [facility] 2021-11-04 00:00:00 2021-11-04 00:00:00 (TEL) STLMLC STLMLC [id number] [facility] 2021-10-23 00:00:00 2021-10-23 00:00:00 OFFICE VISIT ESTAB PT LEVEL 4 STLMLC STLMLC [id number] [facility] 2021-10-23 00:00:00 2021-10-23 00:00:00 (TEL) STLMLC STLMLC [id number] [facility] 2021-09-30 00:00:00 2021-09-30 00:00:00 (TEL) STLMLC STLMLC [id number] [facility] 2021-02-05 00:00:00 2021-02-05 00:00:00 (TEL) STLMLC STLMLC [id number] [facility] 2020-12-26 00:00:00 2020-12-26 00:00:00 OFFICE VISIT EST PT LEVEL 3 STLMLC STLMLC [id number] [facility] 2020-11-27 00:00:00 2020-11-27 00:00:00 Outpatient [facility] [id number] [facility] 2020-11-27 00:00:00 2020-11-27 00:00:00 OFFICE VISIT EST PT LEVEL 3 STLMLC STLMLC [id number] [facility] 2019-05-31 09:52:00 2019-05-31 09:52:00 [facility] [id number] [facility] 2018-10-21 16:20:00 2018-10-21 16:20:[address] [facility] [id number] [facility] 2018-09-27 15:00:00 2018-09-27 15:00:00 [facility] [id number] [facility] 2017-11-25 06:50:00 2017-11-25 06:50:00 [facility] [id number] [facility] 2017-11-24 15:14:00 2017-11-24 15:14:00 [facility] [id number] [facility] 2017-11-10 10:30:00 2017-11-10 10:30:00 [facility] [id number] [facility] Results Test Description Test Time Test Comments Results Result Co mments Source [facility] / [id number] 10:45:22* Test Item Value Reference Range Interpretation [...] the indications. Lab Interpretation (test code = 82573-3) Normal [facility] [id number] 10:45:22* Test Item Value Reference Range Interpretation Comme [facility] APTT Patient (test code = 3173-2) 29 See_Comment [Automated messa ge] The system which generated this result transmitted reference range: 26 - 36 Seconds. The reference range was not used to interpret this result as normal/abnormal. Lab Interpretation (test code = 81090-6) Normal [facility] / [id number] 10:45:22* Test Item Value Reference Range Interpretation Comme [facility] PROTIME PATIENT (test code = 5964-2) 11.2 [...] the indications. Lab Interpretation (test code = 09744-3) Normal [facility]OL[facility] (NA, K, CL, CO2, GLUCOSE, BUN, CREATININE, CA)2022-09-04 10:44:41* Test Item Value Reference Range Interpretation Comme [facility] NA (test code = 1837588383) 134 mmol/L 135-145 L K (test code = 8964691972) 4.8 mmol/L 3.5-5.0 CL (test code = 6786324847) 103 mmol/L 98-108 CO2 TOTAL (test code = 4593935281) 28 mmol/L 23-31 AGAP (test code = 7754806026) 3 2-16 BUN (test code = 7563521812) 14 mg/dL 7-23 GLUCOSE (test code = 0100352054) 103 mg/dL 70-110 CREATININE (test code = 7625382297) 0.95 mg/dL 0.50-1.04 CALCIUM (test code = 0247208106) 8.2 mg/dL 8.6-10.6 L eGFR (test code = 6941075987) 58.2 mL/min/1.73m2 PRITESH (test code = PRITESH) [...] imaging tests). Lab Interpretation (test code = 55437-7) Abnormal [facility] METABOLIC PANEL (NA, K, CL, CO2, GLUCOSE, BUN, CREATININE, CA)2022-09-04 10:44:41* Test Item Value Reference Range Interpretation Comme nts NA (test code = 7175222623) 134 mmol/L 135-145 L K (test code = 5791979486) 4.8 mmol/L 3.5-5.0 CL (test code = 0249091898) 103 mmol/L 98-108 CO2 TOTAL (test code = 7840883397) 28 mmol/L 23-31 AGAP (test code = 3212718987) 3 2-16 BUN (test code = 3827511621) 14 mg/dL 7-23 GLUCOSE (test code = 2955333029) 103 mg/dL 70-110 CREATININE (test code = 8052651221) 0.95 mg/dL 0.50-1.04 CALCIUM (test code = 0933410930) 8.2 mg/dL 8.6-10.6 L eGFR (test code = 5494808034) 58.2 mL/min/1.73m2 PRITESH (test code = PRITESH) [...] imaging tests). Lab Interpretation (test code = 77341-7) Abnormal [facility] WITHOUT [id number] 10:24:39* Test Item Value Reference Range Interpretation [...] result as normal/abnormal. MPV (test code = 92016-0) 8.6 fL 9.5-12.9 L RDW-CV (test code = 788-0) 13.9 % 12.0-15.5 RDW-SD (test code = 05369-1) 46.2 fL 39.0-49.9 NRBC x10^3 (test code = 5540671140) See_Comment [Automated messa ge] The system which generated this result transmitted reference range: 10*3/?L. The reference range was not used to interpret this result as normal/abnormal. NRBC/100 WBC (test code = 3590849590) 0.0 See_Comment [Automated messa ge] The system which generated this result transmitted reference range: 0.0 - 10.0 /100 WBCs. The reference range was not used to interpret this result as normal/abnormal. IPF % (test code = 9556947827) Lab Interpretation (test code = 07020-7) Abnormal [facility] WITHOUT [id number] 10:24:39* Test Item Value Reference Range Interpretation [...] result as normal/abnormal. MPV (test code = 95088-6) 8.6 fL 9.5-12.9 L RDW-CV (test code = 788-0) 13.9 % 12.0-15.5 RDW-SD (test code = 87413-1) 46.2 fL 39.0-49.9 NRBC x10^3 (test code = 7045855330) See_Comment [Automated messa ge] The system which generated this result transmitted reference range: 10*3/?L. The reference range was not used to interpret this result as normal/abnormal. NRBC/100 WBC (test code = 4682759442) 0.0 See_Comment [Automated messa ge] The system which generated this result transmitted reference range: 0.0 - 10.0 /100 WBCs. The reference range was not used to interpret this result as normal/abnormal. IPF % (test code = 7253071933) Lab Interpretation (test code = 29409-5) Abnormal [facility] WITHOUT [id number] 17:35:12* Test Item Value Reference Range Interpretation [...] result as normal/abnormal. MPV (test code = 71359-6) 8.9 fL 9.5-12.9 L RDW-CV (test code = 788-0) 14.1 % 12.0-15.5 RDW-SD (test code = 70290-9) 48.3 fL 39.0-49.9 NRBC x10^3 (test code = 4199634348) See_Comment [Automated messa ge] The system which generated this result transmitted reference range: 10*3/?L. The reference range was not used to interpret this result as normal/abnormal. NRBC/100 WBC (test code = 2180068939) 0.0 See_Comment [Automated messa ge] The system which generated this result transmitted reference range: 0.0 - 10.0 /100 WBCs. The reference range was not used to interpret this result as normal/abnormal. IPF % (test code = 1811833140) Lab Interpretation (test code = 64525-8) Abnormal [facility] WITHOUT [id number] 17:35:12* Test Item Value Reference Range Interpretation [...] result as normal/abnormal. MPV (test code = 78491-9) 8.9 fL 9.5-12.9 L RDW-CV (test code = 788-0) 14.1 % 12.0-15.5 RDW-SD (test code = 47085-2) 48.3 fL 39.0-49.9 NRBC x10^3 (test code = 7704941700) See_Comment [Automated messa ge] The system which generated this result transmitted reference range: 10*3/?L. The reference range was not used to interpret this result as normal/abnormal. NRBC/100 WBC (test code = 0127413719) 0.0 See_Comment [Automated messa ge] The system which generated this result transmitted reference range: 0.0 - 10.0 /100 WBCs. The reference range was not used to interpret this result as normal/abnormal. IPF % (test code = 3833984429) Lab Interpretation (test code = 71254-9) Abnormal [facility] WITHOUT [id number] 17:35:12* Test Item Value Reference Range Interpretation [...] result as normal/abnormal. MPV (test code = 76439-4) 8.9 fL 9.5-12.9 L RDW-CV (test code = 788-0) 14.1 % 12.0-15.5 RDW-SD (test code = 83165-5) 48.3 fL 39.0-49.9 NRBC x10^3 (test code = 3694445181) See_Comment [Automated [employer]] The system which generated this result transmitted reference range: 10*3/?L. The reference range was not used to interpret this result as normal/abnormal. NRBC/100 WBC (test code = 1281445742) 0.0 See_Comment [Automated messa ge] The system which generated this result transmitted reference range: 0.0 - 10.0 /100 WBCs. The reference range was not used to interpret this result as normal/abnormal. IPF % (test code = 8665711453) Lab Interpretation (test code = 82085-6) Abnormal [facility] Confirmation (Lab Only)2022-08-31 03:15:36* Test Item Value Reference Range Interpretation Comme nts ABO & RH (test code = 20) AB Positive Performed at [facility] Laboratory Services - [address] Free: [phone] No. [id number] [facility] Confirmation (Lab Only)2022-08-31 03:15:36* Test Item Value Reference Range Interpretation Comme nts ABO & RH (test code = 20) AB Positive Performed at [facility] Laboratory Services [address] Free: [phone] No. [id number] [facility] Confirmation (Lab Only)2022-08-31 03:15:36* Test Item Value Reference Range Interpretation Comme nts ABO & RH (test code = 20) AB Positive Performed at [facility] Laboratory Services [address] Free: [phone] No. [id number] [facility] [id number] 22:58:55* Test Item Value Reference Range Interpretation Comme nts APTT Patient (test code = 3173-2) 25 See_Comment L [Automated messa ge] The system which generated this result transmitted reference range: 26 - 36 Seconds. The reference range was not used to interpret this result as normal/abnormal. Lab Interpretation (test code = 12804-0) Abnormal [facility] Time / [id number] 22:58:55* Test Item Value Reference Range Interpretation [...] the indications. Lab Interpretation (test code = 90229-0) Normal [facility] TH[facility] [id number] 22:58:55* Test Item Value Reference Range Interpretation Comme nts APTT Patient (test code = 3173-2) 25 See_Comment L [Automated messa ge] The system which generated this result transmitted reference range: 26 - 36 Seconds. The reference range was not used to interpret this result as normal/abnormal. Lab Interpretation (test code = 19361-5) Abnormal [facility] / [id number] 22:58:55* Test Item Value Reference Range Interpretation [...] the indications. Lab Interpretation (test code = 54042-1) Normal [facility] [id number] 22:58:55* Test Item Value Reference Range Interpretation Comme nts APTT Patient (test code = 3173-2) 25 See_Comment L [Automated messa ge] The system which generated this result transmitted reference range: 26 - 36 Seconds. The reference range was not used to interpret this result as normal/abnormal. Lab Interpretation (test code = 49328-6) Abnormal [facility] / [id number] 22:58:55* Test Item Value Reference Range Interpretation [...] the indications. Lab Interpretation (test code = 35995-5) Normal [facility] WITH [id number] 22:56:34* Test Item Value Reference Range Interpretation [...] 32.7 g/dL 31.6-35.1 RDW-SD (test code = 30741-8) 44.8 fL 39.0-49.9 RDW-CV (test code = 788-0) 13.8 % 12.0-15.5 PLT (test code = 777-3) 334 See_Comment [Automated messa ge] The system which generated this result transmitted reference range: 166 - 358 10*3/?L. The reference range was not used to interpret this result as normal/abnormal. MPV (test code = 27670-3) 8.8 fL 9.5-12.9 L NRBC/100 WBC (test code = 4857961195) 0.0 See_Comment [Automated me ssage] The system which generated this result transmitted reference range: 0.0 - 10.0 /100 WBCs. The reference range was not used to interpret this result as normal/abnormal. NRBC x10^3 (test code = 7558573999) See_Comment [Automated messa ge] The system which generated this result transmitted reference range: 10*3/?L. The reference range was not used to interpret this result as normal/abnormal. GRAN MAT (NEUT) % (test code = 770-8) 69.1 % IMM GRAN % (test code = 2625184154) 0.30 % LYMPH % (test code = 736-9) 19.4 % MONO % (test code = 5905-5) 7.3 % EOS % (test code = 713-8) 3.2 % BASO % (test code = 706-2) 0.7 % GRAN MAT x10^3(ANC) (test code = 4244015057) 5.15 10*3/uL 1.88-7.09 IMM GRAN x10^3 (test code = 5456617165) 0.00-0.06 LYMPH x10^3 (test code = 731-0) 1.44 10*3/uL 1.32-3.29 MONO x10^3 (test code = 742-7) 0.54 10*3/uL 0.33-0.92 EOS x10^3 (test code = 711-2) 0.24 10*3/uL 0.03-0.39 BASO x10^3 (test code = 704-7) 0.05 10*3/uL 0.01-0.07 Lab Interpretation (test code = 11124-9) Abnormal [facility] WITH [id number] 22:56:34* Test Item Value Reference Range Interpretation [...] 32.7 g/dL 31.6-35.1 RDW-SD (test code = 01505-9) 44.8 fL 39.0-49.9 RDW-CV (test code = 788-0) 13.8 % 12.0-15.5 PLT (test code = 777-3) 334 See_Comment [Automated messa ge] The system which generated this result transmitted reference range: 166 - 358 10*3/?L. The reference range was not used to interpret this result as normal/abnormal. MPV (test code = 08376-2) 8.8 fL 9.5-12.9 L NRBC/100 WBC (test code = 2653936119) 0.0 See_Comment [Automated [employer] ssage] The system which generated this result transmitted reference range: 0.0 - 10.0 /100 WBCs. The reference range was not used to interpret this result as normal/abnormal. NRBC x10^3 (test code = 1158642094) See_Comment [Automated [employer] ge] The system which generated this result transmitted reference range: 10*3/?L. The reference range was not used to interpret this result as normal/abnormal. GRAN MAT (NEUT) % (test code = 770-8) 69.1 % IMM GRAN % (test code = 7857615382) 0.30 % LYMPH % (test code = 736-9) 19.4 % MONO % (test code = 5905-5) 7.3 % EOS % (test code = 713-8) 3.2 % BASO % (test code = 706-2) 0.7 % GRAN MAT x10^3(ANC) (test code = 4271190091) 5.15 10*3/uL 1.88-7.09 IMM GRAN x10^3 (test code = 2402151703) 0.00-0.06 LYMPH x10^3 (test code = 731-0) 1.44 10*3/uL 1.32-3.29 MONO x10^3 (test code = 742-7) 0.54 10*3/uL 0.33-0.92 EOS x10^3 (test code = 711-2) 0.24 10*3/uL 0.03-0.39 BASO x10^3 (test code = 704-7) 0.05 10*3/uL 0.01-0.07 Lab Interpretation (test code = 29643-3) Abnormal [facility] WITH [id number] 22:56:34* Test Item Value Reference Range Interpretation [...] 32.7 g/dL 31.6-35.1 RDW-SD (test code = 21118-7) 44.8 fL 39.0-49.9 RDW-CV (test code = 788-0) 13.8 % 12.0-15.5 PLT (test code = 777-3) 334 See_Comment [Automated messa ge] The system which generated this result transmitted reference range: 166 - 358 10*3/?L. The reference range was not used to interpret this result as normal/abnormal. MPV (test code = 03450-9) 8.8 fL 9.5-12.9 L NRBC/100 WBC (test code = 2759455645) 0.0 See_Comment [Automated me ssage] The system which generated this result transmitted reference range: 0.0 - 10.0 /100 WBCs. The reference range was not used to interpret this result as normal/abnormal. NRBC x10^3 (test code = 6881906441) See_Comment [Automated messa ge] The system which generated this result transmitted reference range: 10*3/?L. The reference range was not used to interpret this result as normal/abnormal. GRAN MAT (NEUT) % (test code = 770-8) 69.1 % IMM GRAN % (test code = 7630835088) 0.30 % LYMPH % (test code = 736-9) 19.4 % MONO % (test code = 5905-5) 7.3 % EOS % (test code = 713-8) 3.2 % BASO % (test code = 706-2) 0.7 % GRAN MAT x10^3(ANC) (test code = 0381724195) 5.15 10*3/uL 1.88-7.09 IMM GRAN x10^3 (test code = 7387451286) 0.00-0.06 LYMPH x10^3 (test code = 731-0) 1.44 10*3/uL 1.32-3.29 MONO x10^3 (test code = 742-7) 0.54 10*3/uL 0.33-0.92 EOS x10^3 (test code = 711-2) 0.24 10*3/uL 0.03-0.39 BASO x10^3 (test code = 704-7) 0.05 10*3/uL 0.01-0.07 Lab Interpretation (test code = 68615-4) [facility]normal [facility] - [facility] [id number] 21:05:30* Test Item Value Reference Range Interpretation Comme nts ABO & RH (test code = 20) AB POSITIVE Performed at [facility] B Laboratory Services - [facility] Blood [place] [id number] Free: [phone] No. [id number] IAT (test code = 1185) Negative Performed at [facility] Laboratory Services - [address] [address]Qqft Free: [phone] No. [id number] [facility] and Screen - ONCE [id number] 21:05:30* Test Item Value Reference Range Interpretation Comme nts ABO & RH (test code = 20) AB POSITIVE Performed at [facility] Laboratory Services - [address] [address]Tnoi Free: [phone] No. [id number] IAT (test code = 1185) Negative Performed at [facility] Laboratory [facility] - [address] [address]Sdmu Free: [phone] No. [id number] [facility] Screen - ONCE [id number] 21:05:30* Test Item Value Reference Range Interpretation Comme nts ABO & RH (test code = 20) AB POSITIVE Performed at [facility] Laboratory Services - [address] [address]Yfew Free: [phone] No. [id number] IAT (test code = 1185) Negative Performed at [facility] Laboratory [facility] - [address] [address]Eqpy Free: [phone] No. [id number] [facility]. METABOLIC PANEL ([id number])2022-08-30 20:43:30* Test Item Value Reference Range Interpretation Comme nts NA (test code = 4694588423) 140 mmol/L 135-145 K (test code = 5304109141) 4.0 mmol/L 3.5-5.0 CL (test code = 2445687781) 109 mmol/L 98-108 H CO2 TOTAL (test code = 4763612473) 21 mmol/L 23-31 L AGAP (test code = 7741875700) 10 2-16 BUN (test code = 9495150362) 15 mg/dL 7-23 GLUCOSE (test code = 1213899650) 106 mg/dL 70-110 CREATININE (test code = 6105056547) 0.76 mg/dL 0.50-1.04 TOTAL BILI (test code = 9667831172) 0.5 mg/dL 0.1-1.1 CALCIUM (test code = 0080486326) 8.6 mg/dL 8.6-10.6 T PROTEIN (test code = 7330709431) 6.7 g/dL 6.3-8.2 ALBUMIN (test code = 8497728748) 3.9 g/dL 3.5-5.0 ALK PHOS (test code = 8579552359) 79 U/L 34-122 ALTv (test code = 1742-6) 27 U/L 5-35 AST(SGOT) (test code = 3097886054) 47 U/L 13-40 H eGFR (test code = 3144730787) 75.2 mL/min/1.73m2 PRITESH (test code = PRITESH) [...] imaging tests). Lab Interpretation (test code = 41075-0) Abnormal [facility]. METABOLIC PANEL (47814)2022-08-30 20:43:30* Test Item Value Reference Range Interpretation Comme nts NA (test code = 7930362917) 140 mmol/L 135-145 K (test code = 8844123157) 4.0 mmol/L 3.5-5.0 CL (test code = 5491101446) 109 mmol/L 98-108 H CO2 TOTAL (test code = 1960319282) 21 mmol/L 23-31 L AGAP (test code = 1508007679) 10 2-16 BUN (test code = 7686948781) 15 mg/dL 7-23 GLUCOSE (test code = 9179454568) 106 mg/dL 70-110 CREATININE (test code = 2249303203) 0.76 mg/dL 0.50-1.04 TOTAL BILI (test code = 4110769203) 0.5 mg/dL 0.1-1.1 CALCIUM (test code = 6567481256) 8.6 mg/dL 8.6-10.6 T PROTEIN (test code = 2084608191) 6.7 g/dL 6.3-8.2 ALBUMIN (test code = 2239377340) 3.9 g/dL 3.5-5.0 ALK PHOS (test code = 4347157912) 79 U/L 34-122 ALTv (test code = 1742-6) 27 U/L 5-35 AST(SGOT) (test code = 2408596083) 47 U/L 13-40 H eGFR (test code = 1988284550) 75.2 mL/min/1.73m2 PRITESH (test code = PRITESH) [...] imaging tests). Lab Interpretation (test code = 38748-5) Abnormal [facility]. METABOLIC PANEL (47150)2022-08-30 20:43:30* Test Item Value Reference Range Interpretation Comme nts NA (test code = 8921925913) 140 mmol/L 135-145 K (test code = 0948894626) 4.0 mmol/L 3.5-5.0 CL (test code = 4575153150) 109 mmol/L 98-108 H CO2 TOTAL (test code = 0456748656) 21 mmol/L 23-31 L AGAP (test code = 5286254117) 10 2-16 BUN (test code = 6564518900) 15 mg/dL 7-23 GLUCOSE (test code = 2272491518) 106 mg/dL 70-110 CREATININE (test code = 1140212087) 0.76 mg/dL 0.50-1.04 TOTAL BILI (test code = 2058592689) 0.5 mg/dL 0.1-1.1 CALCIUM (test code = 0123919813) 8.6 mg/dL 8.6-10.6 T PROTEIN (test code = 9679283647) 6.7 g/dL 6.3-8.2 ALBUMIN (test code = 0666048441) 3.9 g/dL 3.5-5.0 ALK PHOS (test code = 7614635909) 79 U/L 34-122 ALTv (test code = 1742-6) 27 U/L 5-35 AST(SGOT) (test code = 3706882531) 47 U/L 13-40 H eGFR (test code = 9776358250) 75.2 mL/min/1.73m2 PRITESH (test code = RPITESH) Association of Glomerular Filtration Rate (GFR) and [...] imaging tests). Lab Interpretation (test code = 96968-0) Abnormal [facility]"
--- NOTE | 2024-12-19 19:29 | ER ---
Nurse's Notes [facility] Name: Jose Enrique Yin Age: 74 yrs Sex: Female : 1950 Arrival Date: 12/19/2024 Time: 19:12 Bed IW2 Private MD: Diagnosis: Rheumatoid arthritis, unspecified;Essential (primary) hypertension Presentation: 12/19 19:20 Chief complaint: Arthritis pain all over, requesting steroid and Toradol shot. Out of hb lisinopril 20mg daily, needs refill. Coronavirus screen: At this time, the client does not indicate any symptoms associated with coronavirus-19. 19:20 Method Of Arrival: Ambulatory hb 19:22 Ebola Screen: No symptoms or risks identified at this time. Initial Sepsis Screen: Does hb the patient meet any 2 criteria? No. Patient's initial sepsis screen is negative. Does the patient have a suspected source of infection? No. Patient's initial sepsis screen is negative. Risk Assessment: Do you want to hurt yourself or someone else? Patient reports no desire to harm self or others. Onset of symptoms was December 19, 2024. 19:22 Acuity: YONAS 4 hb Historical: - Allergies: 19:22 No Known Allergies; hb - PMHx: 19:22 Arthritis; Hypertensive disorder; hb - PSHx: 19:22 left arm; hb - Immunization history:: Adult Immunizations up to date. - Infectious Disease History:: Denies. - Social history:: Smoking status: Patient reports the use of cigarette tobacco products, smokes one-half pack cigarettes per day. Vital Signs: 19:22 BP 164 / 90; Pulse 68; Resp 16; Temp 97.7; Pulse Ox 100% on R/A; Weight 58.97 kg; hb Height 5 ft. 2 in. ; Pain 8/10; 19:22 Body Mass Index 23.78 (58.97 kg, 157.48 cm) hb 19:22 Pain Scale: Adult hb ED Course: 19:15 Patient arrived in ED. cj3 19:22 Triage completed. hb 19:22 [facility] Parikh [facility]-C [facility] kb 19:22 Lefty Lovelace MD is Attending Physician. kb 19:22 Arm band placed on. hb Administered Medications: 19:30 Drug: Dexamethasone IM 10 mg IM once Route: IM; Site: right ventrogluteal; hb 19:30 Drug: Ketorolac IM 30 mg IM once Route: IM; Site: left ventrogluteal; hb 19:30 Drug: Lisinopril PO 20 mg PO once Route: PO; hb Outcome: 19:29 Discharge ordered by . kb 19:48 Patient left the ED. hb Signatures: Demetria Parikh, IRISC ASAEL-Joann Pena RN RN Mary Palmer cj3
--- NOTE | 2024-12-19 19:29 | EDPHYS ---
Physician Documentation [facility] Name: Jose Enrique Yin Age: 74 yrs Sex: Female : 1950 Arrival Date: 12/19/2024 Time: 19:12 Bed IW2 Private MD: ED Physician Lefty Lovelace HPI: 12/19 19:24 This 74 yrs old Female presents to ER via Ambulatory with complaints of Pain All Over. kb 19:24 Pt is a 74 year old female who presents for refill of lisinopril 20mg PO daily. States kb she changed insurances and hasn't been to her new PCP yet. Also requests medication for arthritis pain. States she has been out of her medication for RA pain for 2 weeks. Requesting diclofenac. . Historical: - Allergies: 19:22 No Known Allergies; hb - PMHx: 19:22 Arthritis; Hypertensive disorder; hb - PSHx: 19:22 left arm; hb - Immunization history:: Adult Immunizations up to date. - Infectious Disease History:: Denies. - Social history:: Smoking status: Patient reports the use of cigarette tobacco products, smokes one-half pack cigarettes per day. ROS: 19:26 Constitutional: As per HPI kb Exam: 19:26 Constitutional: This is a well developed, well nourished patient who is awake, alert, kb and in no acute distress. Head/Face: Normocephalic, atraumatic. ENT: Moist Mucous membranes Cardiovascular: Regular rate Respiratory: Respirations even and unlabored. No increased work of breathing. Talking in full sentences Skin: Warm, dry with normal turgor. Normal color. MS/ Extremity: Pulses equal, no cyanosis. Neurovascular intact. Full, normal range of motion. Neuro: Awake and alert, GCS 15, oriented to person, place, time, and situation. Vital Signs: 19:22 BP 164 / 90; Pulse 68; Resp 16; Temp 97.7; Pulse Ox 100% on R/A; Weight 58.97 kg; hb Height 5 ft. 2 in. ; Pain 8/10; 19:22 Body Mass Index 23.78 (58.97 kg, 157.48 cm) hb 19:22 Pain Scale: Adult hb MDM: 19:23 Medical Screening Exam initiated kb 19:28 Differential diagnosis: encounter for prescription refill, htn, arthritis. Data kb reviewed: vital signs, nurses notes. I considered the following discharge prescriptions or medication management in the emergency department prescriptions given for lisinopril, diclofenac and prednisone. Counseling: I had a detailed discussion with the patient and/or guardian regarding the historical points, exam findings, and any diagnostic results supporting the discharge/admit diagnosis, the need for outpatient follow up, a family practitioner, to return to the emergency department if symptoms worsen or persist or if there are any questions or concerns that arise at home. Administered Medications: 19:30 Drug: Dexamethasone IM 10 mg IM once Route: IM; Site: right ventrogluteal; hb 19:30 Drug: Ketorolac IM 30 mg IM once Route: IM; Site: left ventrogluteal; hb 19:30 Drug: Lisinopril PO 20 mg PO once Route: PO; hb Disposition: 21:02 Co-signature as Attending Physician, Lefty Lovelace MD I reviewed the patient's care rt provided by the Advanced Practice Provider and agree with the diagnosis and treatment plan. Disposition Summary: 12/19/24 19:29 Discharge Ordered Notes: Location: Home kb Condition: Stable kb Diagnosis - Rheumatoid arthritis, unspecified kb - Essential (primary) hypertension kb Followup: kb - With: Emergency Department - When: As needed - Reason: Worsening of condition Followup: kb - With: Private Physician - When: 2 - 3 days - Reason: Recheck today's complaints, Continuance of care, Re-evaluation by your physician Discharge Instructions: - Discharge Summary Sheet kb - Hypertension, Adult, [id number] kb - Arthritis, [id number] kb - Managing Your Hypertension kb Forms: - Medication Reconciliation Form kb - Antibiotic Education kb - Prescription Opioid Use kb - Patient Portal Instructions kb - Leadership Thank You Letter kb Prescriptions: - Prednisone 20 mg Oral Tablet - take 1 tablet ORAL route once daily for 5 days; 5 tablet; Refills: 0, Product kb Selection Permitted - Lisinopril 20 mg Oral Tablet - take 1 tablet ORAL route once daily; 20 tablet; Refills: 0, Product Selection kb Permitted - Diclofenac Sodium 75 mg Oral tablet, delayed release (enteric coated) - take 1 tablet ORAL route 2 times per day As needed; 30 tablet; Refills: 0, kb Product Selection Permitted Signatures: Demetria Parikh, ALEXIS VYAS-Joann Pena RN Lefty Singleton MD MD rt Corrections: (The following items were deleted from the chart) 19:26 19:24 Pt is a 74 year old female who presents for refill of lisinopril 20mg PO daily. kb States she changed insurances and hasn't been to her new PCP yet. Also requests medication for arthritis pain. . kb
[2024-12-19] MEDS ORDERED: dexAMETHasone 10 MG/ML VIAL ONE (19:31)
[2024-12-19] MEDS ORDERED: KETOROLAC 30 MG/ML INJ ONE (19:32)
[2024-12-19] MEDS ORDERED: lisinopriL 20 MG TAB ONE (19:32)
[2024-12-19 20:00] VITALS: BP 164/90; TEMP 97.7; O2SAT 100
== END 2024-12-19 19:48 | disposition home or self-care (01) ==
LOC: ER 19:12
DX: M06.9 Rheumatoid arthritis, unspecified (principal); I10 Essential (primary) hypertension; F17.210 Nicotine dependence, cigarettes, uncomplicated
CPT/HCPCS: 96372; 99284; J1100